=== PATIENT | male | born 1965 | race Two or more races ===

== ENCOUNTER 2016-09-27 17:51 | Inpatient (IN) | payer OTHER ==
[~2016-09-27] VITALS: Ht 170.2 cm; Wt 78.0 kg
[2016-09-27 17:59] VITALS: BP 134/90
[2016-09-27] MEDS ORDERED: SPIRONOLACTONE25 MG ORAL (18:22)
[2016-09-27] MEDS ORDERED: PROPRANOLOL HCL20 MG ORAL (18:22)
[2016-09-27] MEDS ORDERED: LEVSIN-SL0.125 MG SL (18:22)
[2016-09-27] MEDS ORDERED: LORAZEPAM0.5 MG ORAL (18:22)
[2016-09-27] MEDS ORDERED: TYLENOL650 MG/20. RECTAL (18:22)
[2016-09-27] MEDS ORDERED: LACTULOSE20 GM/301 ORAL (18:22)
[2016-09-27] MEDS ORDERED: KADIAN10 MG PO (18:22)
[2016-09-27] MEDS ORDERED: VITAMIN B-1100 MG ORAL (18:22)
[2016-09-27] MEDS ORDERED: ZOFRAN4 M3 ORAL (18:22)
[2016-09-27] MEDS ORDERED: PROTONIX40 MG ORAL (18:22)
[2016-09-27] MEDS ORDERED: BISACODYL5 MG RECTAL (18:22)
--- NOTE | 2016-09-27 18:24 | Emergency Room Report ---
History of Present Illness General Chief Complaint: Abdominal Pain Source: Patient, EMS Present Illness HPI The patient is brought from a [facility] for abdominal distention. He states that he's been unable to eat for a couple of days. He had his abdomen draining to 15 days ago at [facility]. Has a history of ascites and cirrhosis. He denies any fevers, vomiting. He's on lactulose and says that his stools have been loose but he denies any melena or hematochezia. Denies any dysuria. He's been losing weight. Denies dizziness. States is thirsty. No chest pain. No productive cough. No dyspnea (though ZHONG). No depression. + Some anxiety. Allergies: Coded Allergies: No Known Allergies (Unverified , 09/27/16) Patient History Past Medical History: see triage record, old chart reviewed, other - cirrhosis Social History: Reports: alcohol use - prior, Denies: smoking Social History Narrative [facility] He was on hospice, but this was rescinded - No POLST Reviewed Nursing Documentation: PMH: Agreed, PSxH: Agreed Nursing Documentation-PMH Past Medical History: No History, Except For Hx Hypertension: Yes Hx Diabetes: Yes Hx Gastrointestinal Problems: Yes - GERD History Of Psychiatric Problem: Yes - anxiety Review of Systems All Other Systems: negative except mentioned in HPI Physical Exam Vital Signs Date Time Temp Pulse Resp B/P Pulse Ox O2 Delivery O2 Flow Rate FiO2 09/27/16 17:51 98.6 70 20 134/90 95 Room Air Sp02 EP Interpretation: reviewed, normal General Appearance: thin - cachexia, other - spider habitus, Chronically Ill Head: normocephalic Eyes: bilateral eye PERRL, bilateral eye conjunctivae pale ENT: moist mucus membranes Neck: supple Respiratory: chest non-tender, lungs clear, normal breath sounds Cardiovascular #1: regular rate, rhythm Cardiovascular #2: 2+ radial (R) Gastrointestinal: no guarding, no rebound, distended, tenderness - diffuse Musculoskeletal: back normal, other - atrophy Neurologic: alert, oriented x3, motor strength/tone normal, DTRs symmetric, sensory intact, other - no asterixis Psychiatric: mood/affect normal Skin: pallor, other - sallo, punctate excoriations various places (scalp, arm) Medical Decision Making Diagnostic Impression: Primary Impression: Painful ascites Additional Impressions: Renal failure Hyperkalemia Protein calorie malnutrition ER Course Patient presents with abdominal distention and pain. Differential includes ascites, spontaneous bacterial peritonitis, electrolyte abnormalities, bronchitis or other occult infection. Patient will be evaluated with labs and abdominal film. Will receive gentle hydration. Paracentesis is indicated. Labs remarkable for potassium is mildly high with renal insufficiency. Elevated WBC. Normal ammonia. H/H and platelets adequate. Will treat with Kayexelate. Also EKG done. No peaked T waves. Xrays with ascites. Patient will need U/S guided paracentesis. Admit med Dr. Monsalve (states this is his patient). Laboratory Tests Test 09/27/16 18:15 White Blood Count 10.9 K/UL (4.8-10.8) H Red Blood Count 3.90 M/UL (4.70-6.10) L Hemoglobin 11.6 G/DL (14.2-18.0) L Hematocrit 35.1 % (42.0-52.0) L Mean Corpuscular Volume 90 FL (80-99) Mean Corpuscular Hemoglobin 29.8 PG (27.0-31.0) Mean Corpuscular Hemoglobin Concent 33.1 G/DL (32.0-36.0) Red Cell Distribution Width 18.1 % (11.6-14.8) H Platelet Count 424 K/UL (150-450) Mean Platelet Volume 7.1 FL (6.5-10.1) Neutrophils (%) (Auto) 65.7 % (45.0-75.0) Lymphocytes (%) (Auto) 10.6 % (20.0-45.0) L Monocytes (%) (Auto) 17.5 % (1.0-10.0) H Eosinophils (%) (Auto) 3.4 % (0.0-3.0) H Basophils (%) (Auto) 2.8 % (0.0-2.0) H Prothrombin Time 12.5 SEC (9.30-11.50) H Prothrombin Time INR 1.2 (0.9-1.1) H Urine Color Yellow Urine Appearance Clear Urine pH 5 (4.5-8.0) Urine Specific [place] 1.020 (1.005-1.035) Urine Protein 1+ (NEGATIVE) H Urine Glucose (UA) Negative (NEGATIVE) Urine Ketones 1+ (NEGATIVE) H Urine Occult Blood 5+ (NEGATIVE) H Urine Nitrite Negative (NEGATIVE) Urine Bilirubin Negative (NEGATIVE) Urine Urobilinogen 4 MG/DL (0.0-1.0) H Urine Leukocyte Esterase 1+ (NEGATIVE) H Urine RBC 10-15 /HPF (0 - 0) H Urine WBC 0-2 /HPF (0 - 0) Urine Squamous Epithelial Cells None /LPF (NONE/OCC) Urine Bacteria Few /HPF (NONE) Sodium Level 131 mEQ/L (135-145) L Potassium Level 5.0 mEQ/L (3.4-4.9) H Chloride Level 94 mEQ/L (98-107) L Carbon Dioxide Level 22 mEQ/L (20-30) Anion Gap 15 (5-15) Blood Urea Nitrogen 19 mg/dL (7-23) Creatinine 1.6 mg/dL (0.7-1.2) H Estimate Glomerular Filtration Rate 45.8 mL/min (>60) Glucose Level 157 mg/dL (74-106) H Calcium Level 8.9 mg/dL (8.6-10.2) Total Bilirubin 0.8 mg/dL (0.0-1.2) Aspartate Amino Transferase (AST) 38 U/L (5-40) Alanine Aminotransferase (ALT) 14 U/L (3-41) Alkaline Phosphatase 139 U/L (40-129) H Ammonia 37 umol/L (16-60) Total Protein 7.7 g/dL (6.6-8.7) Albumin 3.0 g/dL (3.5-5.2) L Globulin 4.7 g/dL Albumin/Globulin Ratio 0.6 (1.0-2.7) L Lipase 67 U/L (< 60) H EKG Diagnostic Results Rate: normal Rhythm: NSR ST Segments: no acute changes Rhythm Strip Diag. Results EP Interpretation: yes Rhythm: NSR, no PVC's, no ectopy Chest X-Ray Diagnostic Results EP Interpretation: Yes Findings: no effusion, no pneumothorax, other - atelectasis Number of Views: 1 Other X-Ray Diagnostic Results Other X-Ray Diagnostic Results : X-Ray Ordered: abd EP Interpretation: Yes Findings: other - ascites, paucity gas, no effusions Number of Views: 2 Last Vital Signs Date Time Temp Pulse Resp B/P Pulse Ox O2 Delivery O2 Flow Rate FiO2 5/6/17 00:18 98.8 09/28/16 00:00 72 20 116/83 91 Room Air Status: improved Disposition: ADMITTED INPATIENT Condition: Serious Referrals: MARY ANNE MONSALVE (PCP) Mateusz Aguayo M.D. September 27, 2016 18:24
[2016-09-27 18:35] LABS: BASOPHILS % (AUTO) 2.8 % (0.0-2.0); EOSINOPHILS % (AUTO) 3.4 % (0.0-3.0); LYMPHOCYTES % (AUTO) 10.6 % (20.0-45.0); MEAN CORPUSCULAR HEMOGLOBIN 29.8 PG (27.0-31.0); MEAN CORPUSCULAR HGB CONC 33.1 G/DL (32.0-36.0); MEAN CORPUSCULAR VOLUME 90 FL (80-99); MEAN PLATELET VOLUME 7.1 FL (6.5-10.1); MONOCYTES % (AUTO) 17.5 % (1.0-10.0); NEUTROPHILS % (AUTO) 65.7 % (45.0-75.0); PLATELET COUNT 424 K/UL (150-450); RED CELL DISTRIBUTION WIDTH 18.1 % (11.6-14.8); WHITE BLOOD COUNT 10.9 K/UL (4.8-10.8)
[2016-09-27 18:45] LABS: APPEARANCE,URINE CLEAR; KETONES,URINE 1+ (NEGATIVE); LEUKOCYTE ESTERASE ,URINE 1+ (NEGATIVE); NITRITE,URINE NEGATIVE (NEGATIVE); PH,URINE 5 (4.5-8.0); PROTEIN,URINE 1+ (NEGATIVE); UROBILINOGEN,URINE 4 MG/DL (0.0-1.0)
[2016-09-27 18:48] LABS: INR 1.2 (0.9-1.1); PROTHROMBIN TIME 12.5 SEC (9.30-11.50)
[2016-09-27 18:54] LABS: ALBUMIN/GLOBULIN RATIO 0.6 (1.0-2.7); BACTERIA,URINE FEW /HPF; CALCIUM 8.9 mg/dL (8.6-10.2); CREATININE 1.6 mg/dL (0.7-1.2); GLOMERULAR FILTRATION RATE 45.8 mL/min (>60); TOTAL PROTEIN 7.7 g/dL (6.6-8.7); WBC,URINE 0-2 /HPF (0 - 0)
[2016-09-27 19:00] VITALS: BP 122/84
[2016-09-27] MEDS ORDERED: Sodium Polystyrene Sulfonate 15gm Powder ORAL ONE (19:15)
[2016-09-27 21:15] VITALS: BP 117/85
[2016-09-27] MEDS ORDERED: Acetaminophen 650 MG SUPP RECTAL PRN (23:00)
[2016-09-27] MEDS: Norco 5mg/325mg tab ORAL PRN (23:19)
[2016-09-27] MEDS ORDERED: Hyoscyamine 0.125mg tab ORAL PRN (23:30)
[2016-09-28] VITALS: BP 116/83
[2016-09-28] MEDS ORDERED: Zosyn 3.375gm inj ONE ×2 (00:08→05:35)
[2016-09-28] MEDS: Zolpidem 5mg tab ORAL PRN ×2 (00:21→21:13)
[2016-09-28] MEDS: Piperacillin/Tazobactam 3.375 GM in D5W 110 ML IVPB SCH ×4 (00:31→21:13)
[2016-09-28 04:48] VITALS: BP 111/85
[2016-09-28 06:40] LABS: BASOPHILS % (AUTO) 3.2 % (0.0-2.0); EOSINOPHILS % (AUTO) 4.6 % (0.0-3.0); LYMPHOCYTES % (AUTO) 13.5 % (20.0-45.0); MEAN CORPUSCULAR HEMOGLOBIN 27.8 PG (27.0-31.0); MEAN CORPUSCULAR HGB CONC 31.4 G/DL (32.0-36.0); MEAN CORPUSCULAR VOLUME 88 FL (80-99); MONOCYTES % (AUTO) 17.8 % (1.0-10.0); NEUTROPHILS % (AUTO) 60.9 % (45.0-75.0); PLATELET COUNT 440 K/UL (150-450); RED BLOOD COUNT 3.69 M/UL (4.70-6.10); RED CELL DISTRIBUTION WIDTH 18.5 % (11.6-14.8); WHITE BLOOD COUNT 8.4 K/UL (4.8-10.8)
[2016-09-28 07:29] LABS: ALBUMIN/GLOBULIN RATIO 0.7 (1.0-2.7); CALCIUM 8.8 mg/dL (8.6-10.2); CREATININE 1.5 mg/dL (0.7-1.2); GLOMERULAR FILTRATION RATE 49.3 mL/min (>60); POTASSIUM 4.7 mEQ/L (3.4-4.9)
[2016-09-28 07:51] LABS: BILIRUBIN,DIRECT 0.3 mg/dL (0.1-0.3)
[2016-09-28 08:00] VITALS: BP 119/86
[2016-09-28] MEDS: Thiamine 100mg tab ORAL SCH (08:04)
[2016-09-28] MEDS: Norco 5mg/325mg tab ORAL PRN ×3 (08:05→18:03)
[2016-09-28] MEDS: Lactulose 20gm/30ml UDC ORAL SCH ×2 (08:05→18:04)
[2016-09-28] MEDS: Propranolol 10mg tab ORAL SCH ×3 (08:05→18:04)
[2016-09-28] MEDS: Spironolactone 50mg tab ORAL SCH (08:06)
--- NOTE | 2016-09-28 09:16 | History & Physical ---
History and Physical History & Physicial 50 year old brought from [facility] for abdominal distention. patient with reduced PO intake. Patient with history of ascites and cirrhosis. He denies any fevers, vomiting. He's on lactulose and says that his stools have been loose but he denies any melena or hematochezia. Denies any dysuria. He was previously on hospice but now off. Patient transferred for increasing abdominal girth Allergies: No Known Allergies (Unverified , 09/27/16) Past Medical History: cirrhosis, ascites, hepatic encephalopathy, GERD, anxiety , diabetes, hypertension Social History Narrative [facility] He was on hospice, but now off; nonsmoker nondrinker Physical exam WDWN NAD clear breath sounds bilaterally without rhonchi or wheeze [id number] without MRG NABS nontender no HSM; ascites no CCE nonfocal Laboratory Tests Test 09/27/16 18:15 09/28/16 05:05 White Blood Count 10.9 K/UL (4.8-10.8) H 8.4 K/UL (4.8-10.8) Red Blood Count 3.90 M/UL (4.70-6.10) L 3.69 M/UL (4.70-6.10) L Hemoglobin 11.6 G/DL (14.2-18.0) L 10.2 G/DL (14.2-18.0) L Hematocrit 35.1 % (42.0-52.0) L 32.6 % (42.0-52.0) L Mean Corpuscular Volume 90 FL (80-99) 88 FL (80-99) Mean Corpuscular Hemoglobin 29.8 PG (27.0-31.0) 27.8 PG (27.0-31.0) Mean Corpuscular Hemoglobin Concent 33.1 G/DL (32.0-36.0) 31.4 G/DL (32.0-36.0) L Red Cell Distribution Width 18.1 % (11.6-14.8) H 18.5 % (11.6-14.8) H Platelet Count 424 K/UL (150-450) 440 K/UL (150-450) Mean Platelet Volume 7.1 FL (6.5-10.1) 7.0 FL (6.5-10.1) Neutrophils (%) (Auto) 65.7 % (45.0-75.0) 60.9 % (45.0-75.0) Lymphocytes (%) (Auto) 10.6 % (20.0-45.0) L 13.5 % (20.0-45.0) L Monocytes (%) (Auto) 17.5 % (1.0-10.0) H 17.8 % (1.0-10.0) H Eosinophils (%) (Auto) 3.4 % (0.0-3.0) H 4.6 % (0.0-3.0) H Basophils (%) (Auto) 2.8 % (0.0-2.0) H 3.2 % (0.0-2.0) H Prothrombin Time 12.5 SEC (9.30-11.50) H Prothromb Time International Ratio 1.2 (0.9-1.1) H Urine Color Yellow Urine Appearance Clear Urine pH 5 (4.5-8.0) Urine Specific [place] 1.020 (1.005-1.035) Urine Protein 1+ (NEGATIVE) H Urine Glucose (UA) Negative (NEGATIVE) Urine Ketones 1+ (NEGATIVE) H Urine Occult Blood 5+ (NEGATIVE) H Urine Nitrite Negative (NEGATIVE) Urine Bilirubin Negative (NEGATIVE) Urine Urobilinogen 4 MG/DL (0.0-1.0) H Urine Leukocyte Esterase 1+ (NEGATIVE) H Urine RBC 10-15 /HPF (0 - 0) H Urine WBC 0-2 /HPF (0 - 0) Urine Squamous Epithelial Cells None /LPF (NONE/OCC) Urine Bacteria Few /HPF (NONE) Sodium Level 131 mEQ/L (135-145) L 131 mEQ/L (135-145) L Potassium Level 5.0 mEQ/L (3.4-4.9) H 4.7 mEQ/L (3.4-4.9) Chloride Level 94 mEQ/L (98-107) L 95 mEQ/L (98-107) L Carbon Dioxide Level 22 mEQ/L (20-30) 21 mEQ/L (20-30) Anion Gap 15 (5-15) 15 (5-15) Blood Urea Nitrogen 19 mg/dL (7-23) 18 mg/dL (7-23) Creatinine 1.6 mg/dL (0.7-1.2) H 1.5 mg/dL (0.7-1.2) H Estimat Glomerular Filtration Rate 45.8 mL/min (>60) 49.3 mL/min (>60) Glucose Level 157 mg/dL (74-106) H 130 mg/dL (74-106) H Calcium Level 8.9 mg/dL (8.6-10.2) 8.8 mg/dL (8.6-10.2) Total Bilirubin 0.8 mg/dL (0.0-1.2) 1.2 mg/dL (0.0-1.2) Aspartate Amino Transf (AST/SGOT) 38 U/L (5-40) 37 U/L (5-40) Alanine Aminotransferase (ALT/SGPT) 14 U/L (3-41) 15 U/L (3-41) Alkaline Phosphatase 139 U/L (40-129) H 127 U/L (40-129) Ammonia 37 umol/L (16-60) 69 umol/L (16-60) H Total Protein 7.7 g/dL (6.6-8.7) 7.0 g/dL (6.6-8.7) Albumin 3.0 g/dL (3.5-5.2) L 2.9 g/dL (3.5-5.2) L Globulin 4.7 g/dL 4.1 g/dL Albumin/Globulin Ratio 0.6 (1.0-2.7) L 0.7 (1.0-2.7) L Lipase 67 U/L (< 60) H Direct Bilirubin 0.3 mg/dL (0.1-0.3) IMPRESSION Ascites ESLD renal insufficiency abdominal pain PLAN paracentesis empiric antibiotics pain control dc once improved MARY ANNE CASON September 28, 2016 09:16
--- NOTE | 2016-09-28 11:48 | Diagnostic Imaging Report ---
Indication: Chest Pain Comparison: None A single view chest radiograph was obtained. Findings: There is right basilar atelectasis and elevation of the diaphragm. Lung volumes are low bilaterally. Heart size is normal. Bones are unremarkable. Impression: Right basal atelectasis
[2016-09-28 12:00] VITALS: BP 114/84
[2016-09-28 16:00] VITALS: BP 116/77
--- NOTE | 2016-09-28 17:32 | Cardiology Report ---
APPROVED REPORT EKG Measurement Heart [id number] Normal sinus rhythm Inferior infarct, age undetermined Cannot rule out Anterior infarct, age undetermined Abnormal ECG
[2016-09-28 20:00] VITALS: BP 122/80
[2016-09-29] VITALS: BP 112/76
[2016-09-29] MEDS: Norco 5mg/325mg tab ORAL PRN ×6 (00:09→22:25)
[2016-09-29] MEDS: LORazepam 0.5mg tab ORAL PRN (02:44)
[2016-09-29 04:00] VITALS: BP 109/69
[2016-09-29] MEDS: Piperacillin/Tazobactam 3.375 GM in D5W 110 ML IVPB SCH ×3 (05:34→21:20)
[2016-09-29 08:00] VITALS: BP 114/85
--- NOTE | 2016-09-29 08:09 | General Progress Note ---
Assessment/Plan Assessment/Plan IMPRESSION Ascites ESLD renal insufficiency abdominal pain VRE colonized PLAN paracentesis empiric antibiotics pain control dc once improved Subjective Allergies: Coded Allergies: No Known Allergies (Unverified , 09/27/16) Subjective VRE rectum Objective Last 24 Hour Vital Signs Date Time Temp Pulse Resp B/P Pulse Ox O2 Delivery O2 Flow Rate FiO2 09/29/16 05:10 98.2 09/29/16 04:00 97.5 68 20 109/69 94 Room Air 09/29/16 00:00 97.5 71 18 112/76 95 Room Air 09/28/16 20:00 98.2 73 18 122/80 96 Room Air 09/28/16 18:04 72 116/77 09/28/16 16:00 96.8 72 18 116/77 95 Room Air 09/28/16 13:25 71 114/84 09/28/16 12:00 98.1 71 18 114/84 97 Room Air Intake and Output 09/28/16 09/29/16 19:00 07:00 Intake Total 682.5 ml 405.0 ml Output Total 500 ml Balance 182.5 ml 405.0 ml Intake Oral 600 ml 240 ml IV Total 82.5 ml 165.0 ml Output Urine Total 500 ml # Voids 2 # Bowel Movements 1 1 Height (Feet): 5 Height (Inches): 7.00 Weight (Pounds): 172 Objective WDWN NAD clear breath sounds bilaterally without rhonchi or wheeze [id number] without MRG NABS nontender distended with ascites no CCE nonfocal MARY ANNE CASON September 29, 2016 08:09
[2016-09-29] MEDS: Propranolol 10mg tab ORAL SCH ×3 (09:00→18:00)
[2016-09-29] MEDS: Lactulose 20gm/30ml UDC ORAL SCH ×2 (09:14→18:21)
[2016-09-29] MEDS: Thiamine 100mg tab ORAL SCH (09:14)
[2016-09-29] MEDS: Spironolactone 50mg tab ORAL SCH (09:15)
--- NOTE | 2016-09-29 10:53 | Diagnostic Imaging Report ---
Indication: Abdominal pain Comparison: None Single view of the abdomen obtained Findings: Bowel gas pattern is nonspecific. No mass, ectopic calcifications, or abnormal gas collections are identified. The bones are osteopenic. Study is limited by body habitus. Cholecystectomy noted. Impression: No acute findings
[2016-09-29 12:00] VITALS: BP 110/78
[2016-09-29 16:11] VITALS: BP 116/84
[2016-09-29 20:00] VITALS: BP 119/74
[2016-09-29] MEDS: Zolpidem 5mg tab ORAL PRN (21:19)
[2016-09-30] VITALS: BP 120/92
[2016-09-30] MEDS: LORazepam 0.5mg tab ORAL PRN ×2 (00:33→09:25)
[2016-09-30] MEDS: Norco 5mg/325mg tab ORAL PRN ×4 (02:25→18:20)
[2016-09-30 04:00] VITALS: BP 129/94
[2016-09-30] MEDS: Piperacillin/Tazobactam 3.375 GM in D5W 110 ML IVPB SCH ×3 (06:30→21:46)
[2016-09-30 08:00] VITALS: BP 136/97
--- NOTE | 2016-09-30 08:29 | General Progress Note ---
Assessment/Plan Assessment/Plan IMPRESSION Ascites ESLD renal insufficiency abdominal pain VRE colonized PLAN paracentesis today empiric antibiotics- likely dc if all negative pain control dc once tap completed and patient stable Subjective Allergies: Coded Allergies: No Known Allergies (Unverified , 09/27/16) Subjective VRE rectum Objective Last 24 Hour Vital Signs Date Time Temp Pulse Resp B/P Pulse Ox O2 Delivery O2 Flow Rate FiO2 09/30/16 08:00 97.3 74 18 136/97 93 Room Air 09/30/16 04:00 97.5 75 18 129/94 96 Room Air 09/30/16 03:24 97.8 09/30/16 00:00 97.8 80 18 120/92 94 Room Air 09/29/16 20:00 98.1 72 18 119/74 94 Room Air 09/29/16 18:00 76 116/84 09/29/16 16:11 97.5 76 18 116/84 93 Room Air 09/29/16 12:31 77 110/78 09/29/16 12:00 96.3 77 18 110/78 91 Room Air 09/29/16 09:00 68 109/69 Intake and Output 09/29/16 09/30/16 19:00 07:00 Intake Total 672.5 ml 110.0 ml Output Total 500 ml Balance 172.5 ml 110.0 ml Intake Oral 480 ml IV Total 192.5 ml 110.0 ml Output Urine Total 500 ml # Voids 3 Height (Feet): 5 Height (Inches): 7.00 Weight (Pounds): 172 Objective WDWN NAD clear breath sounds bilaterally without rhonchi or wheeze [id number] without MRG NABS nontender distended with ascites no CCE nonfocal MARY ANNE CASON September 30, 2016 08:29
[2016-09-30] MEDS: Propranolol 10mg tab ORAL SCH ×3 (09:24→18:20)
[2016-09-30] MEDS: Lactulose 20gm/30ml UDC ORAL SCH ×2 (09:24→18:19)
[2016-09-30] MEDS: Thiamine 100mg tab ORAL SCH (09:25)
[2016-09-30] MEDS: Spironolactone 50mg tab ORAL SCH (09:25)
--- NOTE | 2016-09-30 11:36 | Diagnostic Imaging Report ---
APPROVED REPORT CPT Code: 86406 Present Symptoms Lower Extremity Pain: Bilateral BILATERAL: Imaging reveals a patent deep venous system bilaterally. There is no evidence of thrombus within the femoral, popliteal or tibial segments. The greater saphenous veins are also within normal limits. Doppler indicates normal spontaneous flow within these segments.
[2016-09-30 11:45] VITALS: BP 119/91
--- NOTE | 2016-09-30 14:03 | Diagnostic Imaging Report ---
Indications: Tense abdominal distention, recurrent ascites. Technique: Procedure, indications, risks and alternatives were explained to the patient who understands and gives consent to proceed. The abdomen and pelvis were surveyed sonographically. The skin over the right lower quadrant was sterilely prepped and draped in usual fashion. Skin and subcutaneous soft tissues were infiltrated with 1% lidocaine and sodium bicarbonate. A small dermatotomy was made, through which an 8 [place] paracentesis catheter was advanced under direct sonographic guidance into the peritoneal cavity. Ascites was maximally drained via vacuum apparatus. Followup imaging was performed. Catheter was removed. Dermatotomy site was manually compressed to achieve stasis, then cleansed and bandaged. Patient tolerated the procedure well without immediate complications. Findings: Initial imaging demonstrates a large amount of ascites throughout the abdomen and pelvis. Post procedure imaging demonstrates near complete resolution of ascites. Paracentesis yields 14 L of clear light yellow fluid. IMPRESSION: Ultrasound-guided paracentesis yielding 14 of ascites.
[2016-09-30 16:12] VITALS: BP 123/81
[2016-09-30 20:00] VITALS: BP 109/81
[2016-09-30] MEDS: Zolpidem 5mg tab ORAL PRN (21:46)
[2016-10-01] VITALS (7 sets, daily range): BP systolic 101–115; BP diastolic 60–82
[2016-10-01] MEDS: Norco 5mg/325mg tab ORAL PRN ×4 (02:16→20:41)
[2016-10-01] MEDS: LORazepam 0.5mg tab ORAL PRN (03:58)
[2016-10-01] MEDS: Piperacillin/Tazobactam 3.375 GM in D5W 110 ML IVPB SCH (05:06)
[2016-10-01] MEDS: Propranolol 10mg tab ORAL SCH ×3 (08:14→18:16)
[2016-10-01] MEDS: Thiamine 100mg tab ORAL SCH (08:14)
[2016-10-01] MEDS: Spironolactone 50mg tab ORAL SCH (08:15)
--- NOTE | 2016-10-01 09:11 | General Progress Note ---
Assessment/Plan Assessment/Plan IMPRESSION Ascites ESLD renal insufficiency abdominal pain VRE colonized s/p paracentesis with 14 liters removed PLAN paracentesis PRN empiric antibiotics- dc pain control dc to snf today Subjective Allergies: Coded Allergies: No Known Allergies (Unverified , 09/27/16) Subjective VRE rectum much improved less pain Objective Last 24 Hour Vital Signs Date Time Temp Pulse Resp B/P Pulse Ox O2 Delivery O2 Flow Rate FiO2 10/01/16 08:14 81 111/76 10/01/16 08:09 97.2 81 12 111/76 95 Room Air 10/01/16 04:00 97.8 79 18 109/78 94 Room Air 10/01/16 03:15 98.1 10/01/16 00:00 98.1 76 18 110/80 99 Room Air 09/30/16 20:00 97.7 80 18 109/81 95 Room Air 09/30/16 18:20 84 123/81 09/30/16 16:12 97.0 84 18 123/81 97 Room Air 09/30/16 13:42 70 119/91 09/30/16 11:45 97.6 70 18 119/91 97 Room Air 09/30/16 09:24 74 136/97 Intake and Output 09/30/16 10/01/16 19:00 07:00 Intake Total 460.0 ml 425.0 ml Output Total 500 ml Balance -40.0 ml 425.0 ml Intake Oral 240 ml 260 ml IV Total 220.0 ml 165.0 ml Output Urine Total 500 ml # Voids 2 Height (Feet): 5 Height (Inches): 7.00 Weight (Pounds): 172 Objective WDWN NAD clear breath sounds bilaterally without rhonchi or wheeze [id number] without MRG NABS nontender much less distended with ascites no CCE nonfocal MARY ANNE CASON October 01, 2016 09:11
[2016-10-01] MEDS: Lactulose 20gm/30ml UDC ORAL SCH ×2 (09:48→18:16)
[2016-10-01] MEDS: Zolpidem 5mg tab ORAL PRN (23:11)
[2016-10-02] MEDS: LORazepam 0.5mg tab ORAL PRN (02:29)
[2016-10-02 04:00] VITALS: BP 110/84
[2016-10-02] MEDS: Norco 5mg/325mg tab ORAL PRN ×3 (05:47→22:51)
--- NOTE | 2016-10-02 06:26 | General Progress Note ---
Assessment/Plan Assessment/Plan IMPRESSION Ascites ESLD renal insufficiency abdominal pain VRE colonized s/p paracentesis with 14 liters removed PLAN paracentesis PRN empiric antibiotics- dcd and stable pain control as is dc to snf when bed available Subjective Allergies: Coded Allergies: No Known Allergies (Unverified , 09/27/16) Subjective VRE rectum much improved less pain dc planning Objective Last 24 Hour Vital Signs Date Time Temp Pulse Resp B/P Pulse Ox O2 Delivery O2 Flow Rate FiO2 10/02/16 04:00 97.8 73 18 110/84 95 Room Air 10/01/16 23:46 97.9 74 18 113/81 96 Room Air 10/01/16 21:40 98.1 10/01/16 20:00 97.7 73 18 101/60 93 Room Air 10/01/16 18:16 75 115/82 10/01/16 16:13 98.1 75 19 115/82 95 Room Air 10/01/16 13:48 78 114/81 10/01/16 11:53 97.7 78 17 114/81 94 Room Air 10/01/16 08:14 81 111/76 10/01/16 08:09 97.2 81 12 111/76 95 Room Air Intake and Output 10/01/16 10/02/16 19:00 07:00 Intake Total 1080 ml Balance 1080 ml Intake Oral 1080 ml # Voids 3 Height (Feet): 5 Height (Inches): 7.00 Weight (Pounds): 172 Objective WDWN NAD clear breath sounds bilaterally without rhonchi or wheeze [id number] without MRG NABS nontender much less distended with ascites no CCE nonfocal MARY ANNE CASON October 02, 2016 06:26
[2016-10-02 07:47] VITALS: BP 140/41
[2016-10-02] MEDS: Lactulose 20gm/30ml UDC ORAL SCH ×2 (08:11→16:58)
[2016-10-02] MEDS: Thiamine 100mg tab ORAL SCH (08:11)
[2016-10-02] MEDS: Spironolactone 50mg tab ORAL SCH (08:11)
[2016-10-02] MEDS: Propranolol 10mg tab ORAL SCH ×3 (08:12→16:58)
[2016-10-02 11:40] VITALS: BP 108/76
[2016-10-02 15:25] VITALS: BP 112/84
[2016-10-02 19:55] VITALS: BP 89/59
[2016-10-02 20:00] VITALS: BP 94/50
[2016-10-02] MEDS ORDERED: NS 275ml ONE (21:06)
[2016-10-02] MEDS ORDERED: Tubing IV Secondary IV ONE (21:06)
[2016-10-03] VITALS: BP 111/80
[2016-10-03] MEDS: Zolpidem 5mg tab ORAL PRN (00:45)
[2016-10-03] MEDS: Norco 5mg/325mg tab ORAL PRN (03:43)
[2016-10-03 04:37] VITALS: BP 105/69
--- NOTE | 2016-10-03 07:46 | General Progress Note ---
Assessment/Plan Assessment/Plan IMPRESSION Ascites ESLD renal insufficiency abdominal pain VRE colonized s/p paracentesis with 14 liters removed PLAN paracentesis PRN hospice care DNR confirmed pain control as is dc to snf hopefully today Subjective Allergies: Coded Allergies: No Known Allergies (Unverified , 09/27/16) Subjective VRE rectum much improved patient would like hospice Objective Last 24 Hour Vital Signs Date Time Temp Pulse Resp B/P Pulse Ox O2 Delivery O2 Flow Rate FiO2 10/03/16 04:37 97.2 65 15 105/69 94 Room Air 10/03/16 00:00 97.9 71 20 111/80 98 Room Air 10/02/16 20:00 94/50 10/02/16 19:55 97.5 77 14 89/59 93 Room Air 10/02/16 17:57 97.7 10/02/16 16:58 75 112/84 10/02/16 15:25 97.7 75 22 112/84 98 Room Air 10/02/16 12:06 75 108/76 10/02/16 11:40 97.9 75 13 108/76 97 Room Air 10/02/16 08:12 74 140/41 10/02/16 07:47 96.4 74 15 140/41 95 Room Air Intake and Output 10/02/16 10/03/16 19:00 07:00 # Voids 5 3 # Bowel Movements 3 Height (Feet): 5 Height (Inches): 7.00 Weight (Pounds): 172 Objective WDWN NAD clear breath sounds bilaterally without rhonchi or wheeze [id number] without MRG NABS nontender and not distended no CCE nonfocal MARY ANNE CASON October 03, 2016 07:46
[2016-10-03 08:05] VITALS: BP 109/78
[2016-10-03 09:15] VITALS: BP 112/79
[2016-10-03] MEDS: Propranolol 10mg tab ORAL SCH ×2 (09:21→13:00)
[2016-10-03] MEDS: Spironolactone 50mg tab ORAL SCH (09:21)
[2016-10-03] MEDS: Lactulose 20gm/30ml UDC ORAL SCH (09:21)
[2016-10-03] MEDS: Thiamine 100mg tab ORAL SCH (09:26)
[2016-10-03 11:47] VITALS: BP 111/75
[2016-10-03 13:00] VITALS: BP 108/79
--- NOTE | 2016-10-05 11:30 | Discharge Summary ---
Discharge Summary Hospital Course Date of Admission September 27, 2016 at 19:03 Date of Discharge October 03, 2016 at 13:40 Admitting Diagnosis ascites/abdominal pain NATALY Hayes is a 50 year old male who was admitted on September 27, 2016 at 19:03 for Ascites/Abdominal Pain Hospital Course [id number] Discharge Discharge Disposition Patient was discharged to SNF/Subacute Facility(03) Discharge Diagnoses: Antonieta Lee NP October 05, 2016 11:30
--- NOTE | 2016-10-06 03:59 | Discharge Summary 2 SIG ---
DATE OF ADMISSION: 09/27/2016 DATE OF DISCHARGE: 10/03/2016 BRIEF HOSPITAL COURSE: The patient is a 50-year-old, who was brought from [facility] for abdominal distention and reduced p.o. intake. The patient has a history of ascites and cirrhosis and has been on lactulose and was previously on hospice, but now currently off. The patient was transferred for evaluation of increasing abdominal girth. On evaluation at ED, laboratories showed elevated potassium with renal insufficiency. WBC was elevated. The patient was given Kayexalate. Abdominal x-ray showed no acute findings. Chest x-ray showed right basilar atelectasis. The patient will be needing paracentesis and was admitted for further care. He was started on empiric antibiotics consisting of Zosyn and pain management with hydrocodone. He had venous duplex of lower extremity, which showed deep patent venous system bilaterally with no evidence of DVT. He underwent paracentesis on 10/01/2015 yielding 14 liters of fluid. The patient's symptoms improved and would like to be placed under hospice. The patient was eventually discharged to [facility] under hospice care. FINAL DIAGNOSES: 1. End-stage liver disease with ascites. 2. Status post paracentesis with 14 liters removed. 3. Acute kidney injury. 4. Hospice care. Mason Monsalve M.D. I have been assigned to dictate discharge summary on this account and I was not involved in the patient's management. Antonieta Lee N.P. DR: LANDRY JOB#: [id number] CC:
== END 2016-10-03 13:40 ==
LOC: EDBD 17:51 → EMR 18:12 → 4W 19:03 → EDBEDREQ 19:48
PROC: 0W9G3ZZ Drainage of Peritoneal Cavity, Percutaneous Approach (ICD-10-PCS; principal; 2016-09-30)
DX: R18.8 Other ascites (principal); N17.9 Acute kidney failure, unspecified; K72.90 Hepatic failure, unspecified without coma; K74.60 Unspecified cirrhosis of liver; K21.9 Gastro-esophageal reflux disease without esophagitis; F41.9 Anxiety disorder, unspecified; E11.9 Type 2 diabetes mellitus without complications; I10 Essential (primary) hypertension; R10.9 Unspecified abdominal pain; Z66 Do not resuscitate
CPT/HCPCS: 36415; 71010; 74000; 76942; 80053; 81003; 82140; 82248; 82962; 83690; 85025; 85610; 87070; 87081; 87205; 93005; 93970; J2405

== ENCOUNTER 2016-10-18 15:00 | Emergency (ER) | payer MEDICAID, OTHER ==
[~2016-10-18] VITALS: Ht 172.7 cm; Wt 81.6 kg
[~2016-10-18 15:00] MED LIST: BISACODYL5 MG RECTAL; KADIAN10 MG PO; LACTULOSE20 GM/301 ORAL; LEVSIN-SL0.125 MG SL; LORAZEPAM0.5 MG ORAL; PROPRANOLOL HCL20 MG ORAL; PROTONIX40 MG ORAL; SPIRONOLACTONE25 MG ORAL; TYLENOL650 MG/20. RECTAL; VITAMIN B-1100 MG ORAL; ZOFRAN4 M3 ORAL
[2016-10-18 15:11] VITALS: BP 119/76
[2016-10-18 16:15] LABS: BASOPHILS % (AUTO) 1.2 % (0.0-2.0); EOSINOPHILS % (AUTO) 4.9 % (0.0-3.0); MEAN CORPUSCULAR HEMOGLOBIN 27.8 PG (27.0-31.0); MEAN CORPUSCULAR HGB CONC 31.8 G/DL (32.0-36.0); MEAN CORPUSCULAR VOLUME 87 FL (80-99); MONOCYTES % (AUTO) 13.6 % (1.0-10.0); NEUTROPHILS % (AUTO) 67.2 % (45.0-75.0); PLATELET COUNT 337 K/UL (150-450); RED BLOOD COUNT 3.85 M/UL (4.70-6.10); RED CELL DISTRIBUTION WIDTH 15.7 % (11.6-14.8); WHITE BLOOD COUNT 8.1 K/UL (4.8-10.8)
[2016-10-18 16:29] LABS: ALBUMIN/GLOBULIN RATIO 0.6 (1.0-2.7); CALCIUM 8.3 mg/dL (8.6-10.2); CREATININE 1.5 mg/dL (0.7-1.2); GLOMERULAR FILTRATION RATE 49.3 mL/min (>60); POTASSIUM 3.9 mEQ/L (3.4-4.9); TOTAL PROTEIN 6.9 g/dL (6.6-8.7)
[2016-10-18 16:50] LABS: INR 1.2 (0.9-1.1)
--- NOTE | 2016-10-18 16:51 | Brief Operative Note ---
Immediate Post Operative Note Operative Note Chief Complaint: abd distention Pre-op Diagnosis: ascites Procedure: US guided paracentesis Post-op Diagnosis: same as pre-op Findings: consistent w/pre-op dx studies Surgeon: Crescencio Celis Anesthesia: local Specimen: yes - clear yellow fluid Complications: none Estimated Blood Loss: none Implant(s) used?: No ANANTH CELIS M.D. October 18, 2016 16:51
--- NOTE | 2016-10-18 17:07 | Emergency Room Report ---
History of Present Illness General Chief Complaint: General Complaint Source: Medical Record, EMS Present Illness HPI 50-year-old male presents ED for abdominal distention. Patient coming from skilled nursing. Per medical records patient has history of cirrhosis. Patient is on hospice care. Patient is here for paracentesis. PMD is Dr. Monsalve. Upon arrival patient showing no signs of distress. No abdominal pain. No nausea or vomiting. No fevers chills. No other aggravating relieving factors. No other associated symptoms Allergies: Coded Allergies: No Known Allergies (Unverified , 09/27/16) Patient History Past Medical History: DM, HTN, GERD, renal disease, other - cirrhosis Social History: Denies: alcohol use, drug use, smoking Immunizations: UTD Reviewed Nursing Documentation: PMH: Agreed, PSxH: Agreed Nursing Documentation-PMH Hx Cardiac Problems: Yes - kidney failure, cirrhosis of liver Hx Hypertension: Yes Hx Diabetes: Yes - type 2 Hx Cancer: No Hx Gastrointestinal Problems: Yes - GERD, abdominal pain Hx Neurological Problems: No Review of Systems All Other Systems: negative except mentioned in HPI Physical Exam Vital Signs Date Time Temp Pulse Resp B/P Pulse Ox O2 Delivery O2 Flow Rate FiO2 10/18/16 14:56 97.3 84 16 119/76 92 Room Air Sp02 EP Interpretation: reviewed, normal General Appearance: no apparent distress, alert, GCS 15, non-toxic Head: normocephalic Eyes: bilateral eye PERRL, bilateral eye normal inspection ENT: normal ENT inspection Neck: normal inspection Respiratory: chest non-tender, lungs clear, normal breath sounds, speaking full sentences Cardiovascular #1: regular rate, rhythm, no edema Gastrointestinal: normal bowel sounds, non tender, no guarding, no rebound, distended Rectal: deferred Genitourinary: no CVA tenderness Musculoskeletal: normal inspection Neurologic: normal inspection Psychiatric: normal inspection Skin: normal inspection Lymphatic: normal inspection Medical Decision Making Diagnostic Impression: Primary Impression: Ascites Qualified Codes: R18.8 - Other ascites ER Course 50-year-old male presents to ED with abdominal distention. History of cirrhosis. here for paracentesis Differential-ascites, SBP, cirrhosis Patient placed on stretcher. After initial history physical exam reveals a middle-age male in no acute distress. No fevers. No pain on abdominal exam. Significant fluid distention noted. Labs drawn which show LFT elevations which are consistent with end-stage liver disease. No leukocytosis or other evidence suggestive of SBP Paracentesis performed by radiology without difficulty patient is well known to PMD Dr Monsalve; he believes patient is otherwise stable and can be discharged back to facility. I agree with his assessment Diagnosis - Ascites stable and discharged back to SNF. f/u with PMD. Return to ED if symptoms recur/worsen Labs Test 10/18/16 16:01 White Blood Count 8.1 K/UL (4.8-10.8) Red Blood Count 3.85 M/UL (4.70-6.10) Hemoglobin 10.7 G/DL (14.2-18.0) Hematocrit 33.6 % (42.0-52.0) Mean Corpuscular Volume 87 FL (80-99) Mean Corpuscular Hemoglobin 27.8 PG (27.0-31.0) Mean Corpuscular Hemoglobin Concent 31.8 G/DL (32.0-36.0) Red Cell Distribution Width 15.7 % (11.6-14.8) Platelet Count 337 K/UL (150-450) Mean Platelet Volume 7.0 FL (6.5-10.1) Neutrophils (%) (Auto) 67.2 % (45.0-75.0) Lymphocytes (%) (Auto) 13.0 % (20.0-45.0) Monocytes (%) (Auto) 13.6 % (1.0-10.0) Eosinophils (%) (Auto) 4.9 % (0.0-3.0) Basophils (%) (Auto) 1.2 % (0.0-2.0) Prothrombin Time 12.0 SEC (9.30-11.50) Prothromb Time International Ratio 1.2 (0.9-1.1) Activated Partial Thromboplast Time 30 SEC (23-33) Sodium Level 131 mEQ/L (135-145) Potassium Level 3.9 mEQ/L (3.4-4.9) Chloride Level 93 mEQ/L (98-107) Carbon Dioxide Level 23 mEQ/L (20-30) Anion Gap 15 (5-15) Blood Urea Nitrogen 20 mg/dL (7-23) Creatinine 1.5 mg/dL (0.7-1.2) Estimat Glomerular Filtration Rate 49.3 mL/min (>60) Glucose Level 277 mg/dL (74-106) Calcium Level 8.3 mg/dL (8.6-10.2) Total Bilirubin 0.5 mg/dL (0.0-1.2) Aspartate Amino Transf (AST/SGOT) 24 U/L (5-40) Alanine Aminotransferase (ALT/SGPT) 12 U/L (3-41) Alkaline Phosphatase 108 U/L (40-129) Total Protein 6.9 g/dL (6.6-8.7) Albumin 2.6 g/dL (3.5-5.2) Globulin 4.3 g/dL Albumin/Globulin Ratio 0.6 (1.0-2.7) Last Vital Signs Date Time Temp Pulse Resp B/P Pulse Ox O2 Delivery O2 Flow Rate FiO2 10/18/16 15:11 97.3 16 119/76 92 Room Air 10/18/16 14:56 84 Status: improved Disposition: XFER SNF Condition: Stable Referrals: NON PHYSICIAN (PCP) JOY LAZCANO M.D. October 18, 2016 17:06
[2016-10-18 19:30] VITALS: BP 105/74
== END 2016-10-18 19:32 ==
LOC: EDBD 15:00 → EMR 15:13
DX: R18.8 Other ascites (principal); E11.9 Type 2 diabetes mellitus without complications; I10 Essential (primary) hypertension; K74.60 Unspecified cirrhosis of liver; N19 Unspecified kidney failure; K21.9 Gastro-esophageal reflux disease without esophagitis
CPT/HCPCS: 36415; 76942; 80053; 85025; 85610; 85730; 99283

== ENCOUNTER 2016-10-31 08:05 | Emergency (ER) | payer MEDICAID ==
[~2016-10-31] VITALS: Ht 170.2 cm; Wt 81.6 kg
[2016-10-31 08:10] VITALS: BP 111/94
[2016-10-31 08:59] LABS: APPEARANCE,URINE CLEAR; BASOPHILS % (AUTO) 2.2 % (0.0-2.0); KETONES,URINE NEGATIVE (NEGATIVE); LEUKOCYTE ESTERASE ,URINE 1+ (NEGATIVE); LYMPHOCYTES % (AUTO) 12.8 % (20.0-45.0); MEAN CORPUSCULAR HEMOGLOBIN 27.8 PG (27.0-31.0); MEAN CORPUSCULAR HGB CONC 32.9 G/DL (32.0-36.0); MEAN CORPUSCULAR VOLUME 85 FL (80-99); MEAN PLATELET VOLUME 7.1 FL (6.5-10.1); MONOCYTES % (AUTO) 15.1 % (1.0-10.0); NEUTROPHILS % (AUTO) 67.9 % (45.0-75.0); NITRITE,URINE NEGATIVE (NEGATIVE); PH,URINE 5 (4.5-8.0); PLATELET COUNT 376 K/UL (150-450); PROTEIN,URINE 1+ (NEGATIVE); RED BLOOD COUNT 4.16 M/UL (4.70-6.10); RED CELL DISTRIBUTION WIDTH 14.7 % (11.6-14.8); UROBILINOGEN,URINE 1 MG/DL (0.0-1.0); WHITE BLOOD COUNT 9.5 K/UL (4.8-10.8)
[2016-10-31 09:05] LABS: INR 1.1 (0.9-1.1); PROTHROMBIN TIME 11.6 SEC (9.30-11.50)
[2016-10-31 09:07] LABS: ALBUMIN/GLOBULIN RATIO 0.5 (1.0-2.7); CALCIUM 8.9 mg/dL (8.6-10.2); CREATININE 1.6 mg/dL (0.7-1.2); GLOMERULAR FILTRATION RATE 45.8 mL/min (>60); POTASSIUM 4.3 mEQ/L (3.4-4.9); TOTAL PROTEIN 7.5 g/dL (6.6-8.7)
[2016-10-31 09:18] LABS: BACTERIA,URINE FEW /HPF; SQUAMOUS EPITHELIAL CELL,UR OCCASIONAL /LPF (NONE/OCC)
[2016-10-31] MEDS ORDERED: Lidocaine 1% MPF 10mg/ml 5ml ONE (09:43)
[2016-10-31] MEDS ORDERED: Lidocaine 1% Plain 30 ml INJ ONE (09:45)
[2016-10-31 10:15] VITALS: BP 114/69
--- NOTE | 2016-10-31 10:33 | Emergency Room Report ---
History of Present Illness General Chief Complaint: Abdominal Pain Source: Patient Present Illness HPI 50YOM BIBEMS from SNF with increased abd distention, pain. Known ascites. Denies fever/chills. Was here recently for drainage by IR of >10L. Allergies: Coded Allergies: No Known Allergies (Unverified , 09/27/16) Patient History Past Medical History: other - ascites, cirrhosis Past Surgical History: none Pertinent Family History: none Social History: Denies: alcohol use, drug use, smoking Immunizations: UTD Reviewed Nursing Documentation: PMH: Agreed, PSxH: Agreed Nursing Documentation-PMH Hx Cardiac Problems: Yes - kidney failure, cirrhosis of liver Hx Hypertension: Yes Hx Diabetes: Yes Hx Cancer: No Hx Neurological Problems: No Review of Systems All Other Systems: negative except mentioned in HPI Physical Exam Vital Signs Date Time Temp Pulse Resp B/P Pulse Ox O2 Delivery O2 Flow Rate FiO2 10/31/16 07:56 98.1 80 18 117/83 96 Room Air Sp02 EP Interpretation: reviewed, normal General Appearance: normal inspection, well appearing, no apparent distress, alert Head: atraumatic ENT: normal ENT inspection, hearing grossly normal, normal voice Neck: normal inspection, full range of motion, supple, no bony tend Respiratory: normal inspection, lungs clear, normal breath sounds, no respiratory distress, no retraction, no wheezing Cardiovascular #1: regular rate, rhythm, no edema Gastrointestinal: other - Abdomen grossly distend, Nontender. No rebound, guarding. Protruding umbilical hernia easily reduced Genitourinary: no CVA tenderness Musculoskeletal: normal inspection, back normal, normal range of motion, Jared' s Sign negative Neurologic: normal inspection, alert, oriented x3, responsive, separations scientist III-XII nml as tested, motor strength/tone normal, speech normal Psychiatric: normal inspection, judgement/insight normal, mood/affect normal Skin: normal inspection, normal color, no rash Lymphatic: normal inspection, no adenopathy Procedures Additional Procedure Procedure Narrative Paracentesis Platelets normal. INR <2 Patient placed supine Area of largest amount of ascites identified on bedside ultrasound right lateral to umbilicus Area anaesthesized with lidocaine 1% Area cleaned X3 with chlorhex and allowed to dry Sterile drape applied I worse sterile gap, mask, gloves Under sterile ultrasound guidance I nicked skin with blader While applying negative pressure I advanced needle, avoiding bowel contents When ascitic fluid present in syringe I advanced needle 1 more cm and then withdrew needle and advanced catheter over needle until flush with skin Then connected catheter to tubing and suction and begin drainage of fluid 13L drained Patient tolerated procedure No complications Medical Decision Making Diagnostic Impression: Primary Impression: Ascites Qualified Codes: R18.8 - Other ascites ER Course 50YOM with increased abd distention d/t ascites from cirrhosis Afebrile. VSS. No leuks on lab. Known CKD. Non-tender abdomen Low suspicion for acute SBP I did paracentesis in ED (See procedure note) D/w PMD DR Monsalve. Wants patient sent back to SNF, which I concur No other acute issue in ED Last Vital Signs Date Time Temp Pulse Resp B/P Pulse Ox O2 Delivery O2 Flow Rate FiO2 10/31/16 10:15 75 20 114/69 98 Room Air 10/31/16 08:10 98.4 Status: improved Disposition: XF SNF Condition: Improved Referrals: Maria Elena Thompson MD (PCP) LOLITA VILLASENOR M.D. Oct 31, 2016 10:33
[2016-10-31 10:44] VITALS: BP 96/64
[2016-10-31 11:05] VITALS: BP 96/70
[2016-10-31 11:50] VITALS: BP 118/82
[2016-10-31 12:03] VITALS: BP 118/82
== END 2016-10-31 12:05 ==
LOC: EMR 08:46
DX: R18.8 Other ascites (principal); K74.60 Unspecified cirrhosis of liver; I10 Essential (primary) hypertension; E11.9 Type 2 diabetes mellitus without complications
CPT/HCPCS: 36415; 49083; 76942; 80053; 81003; 83690; 85025; 85610; 85730; 93005; 99284; J2001; Z7502

== ENCOUNTER 2016-11-08 11:30 | Emergency (ER) | payer MEDICAID ==
[~2016-11-08] VITALS: Ht 170.2 cm; Wt 82.1 kg
[2016-11-08] VITALS (7 sets, daily range): BP systolic 103–122; BP diastolic 73–89
[~2016-11-08 11:30] MED LIST changes: +LEVSIN-SL0.125 MG ORAL; -LEVSIN-SL0.125 MG SL
[2016-11-08 13:02] LABS: BASOPHILS % (AUTO) 2.5 % (0.0-2.0); LYMPHOCYTES % (AUTO) 13.4 % (20.0-45.0); MEAN CORPUSCULAR HEMOGLOBIN 28.1 PG (27.0-31.0); MEAN CORPUSCULAR HGB CONC 32.4 G/DL (32.0-36.0); MEAN CORPUSCULAR VOLUME 87 FL (80-99); MEAN PLATELET VOLUME 7.3 FL (6.5-10.1); NEUTROPHILS % (AUTO) 66.1 % (45.0-75.0); PLATELET COUNT 271 K/UL (150-450); RED BLOOD COUNT 3.95 M/UL (4.70-6.10); WHITE BLOOD COUNT 7.7 K/UL (4.8-10.8)
[2016-11-08 13:08] LABS: INR 1.1 (0.9-1.1)
[2016-11-08 13:15] LABS: ALBUMIN/GLOBULIN RATIO 0.4 (1.0-2.7); CALCIUM 8.2 mg/dL (8.6-10.2); CREATININE 1.8 mg/dL (0.7-1.2); POTASSIUM 5.6 mEQ/L (3.4-4.9); TOTAL PROTEIN 7.1 g/dL (6.6-8.7)
[2016-11-08] MEDS ORDERED: ALBUTEROL2.5 MG/3 M INH (16:01)
[2016-11-08] MEDS ORDERED: BENADRYL25 M3 PO (16:05)
--- NOTE | 2016-11-08 16:19 | Emergency Room Report ---
History of Present Illness General Chief Complaint: General Complaint Source: Patient Present Illness HPI This patient is well-known to [facility]. He has a history of end- stage liver disease and cirrhosis. He undergoes large-volume paracentesis regularly. He presents for paracentesis. He has no other complaints. Allergies: Uncoded Allergies: PENICILLIN (Allergy, Severe, 11/08/16) Patient History Past Medical History: see triage record, DM, HTN, GERD, renal disease, other - cirrhosis Social History: Denies: alcohol use, drug use, smoking Reviewed Nursing Documentation: PMH: Agreed, PSxH: Agreed Nursing Documentation-PMH Past Medical History: No History, Except For Hx Cardiac Problems: No - htn,liver cirrosis ,acute renal failure, dmz2,gerd Hx Hypertension: Yes Hx Diabetes: Yes - type 2 Hx Cancer: No Hx Gastrointestinal Problems: Yes - GERD, abdominal pain Hx Neurological Problems: No Review of Systems All Other Systems: negative except mentioned in HPI Physical Exam Vital Signs Date Time Temp Pulse Resp B/P Pulse Ox O2 Delivery O2 Flow Rate FiO2 11/08/16 11:07 98.2 73 20 118/84 95 Room Air Sp02 EP Interpretation: reviewed, normal General Appearance: no apparent distress, alert, GCS 15, non-toxic Head: normocephalic, atraumatic Eyes: bilateral eye PERRL, bilateral eye normal inspection ENT: hearing grossly normal, normal pharynx, no angioedema, normal voice Neck: full range of motion, supple/symm/no masses Respiratory: chest non-tender, lungs clear, normal breath sounds, speaking full sentences Cardiovascular #1: regular rate, rhythm, no edema Gastrointestinal: normal bowel sounds, non tender, soft, no guarding, no rebound, distended Rectal: deferred Musculoskeletal: back normal, normal range of motion, non-tender Neurologic: alert, oriented x3, responsive, motor strength/tone normal, sensory intact, speech normal Psychiatric: judgement/insight normal, memory normal, mood/affect normal, no suicidal/homicidal ideation Skin: warm/dry, well hydrated, other - scattered lesions w/ c/w excoriations/ pruritis Medical Decision Making Diagnostic Impression: Primary Impression: Ascites Additional Impression: Hyperglycemia ER Course Patient has known end-stage liver disease and cirrhosis. He presents regularly for paracentesis for his ascites. He was here at [facility] about a week ago and underwent a large-volume paracentesis. He also is found to have hyperglycemia. He was given some IV fluids for hyperglycemia and IV insulin. The patient underwent paracentesis by ultrasound guidance in radiology. I had planned on admitting this patient for uncontrolled diabetes. However, in discussion with the patient's primary care physician, Dr. Monsalve, he did not want this patient to be admitted and he would manage this patient at the snf facility. At the request of the primary care physician this patient was transferred back to the snf facility. Labs Test 11/08/16 12:14 White Blood Count 7.7 K/UL (4.8-10.8) Red Blood Count 3.95 M/UL (4.70-6.10) Hemoglobin 11.1 G/DL (14.2-18.0) Hematocrit 34.3 % (42.0-52.0) Mean Corpuscular Volume 87 FL (80-99) Mean Corpuscular Hemoglobin 28.1 PG (27.0-31.0) Mean Corpuscular Hemoglobin Concent 32.4 G/DL (32.0-36.0) Red Cell Distribution Width 14.0 % (11.6-14.8) Platelet Count 271 K/UL (150-450) Mean Platelet Volume 7.3 FL (6.5-10.1) Neutrophils (%) (Auto) 66.1 % (45.0-75.0) Lymphocytes (%) (Auto) 13.4 % (20.0-45.0) Monocytes (%) (Auto) 14.0 % (1.0-10.0) Eosinophils (%) (Auto) 4.0 % (0.0-3.0) Basophils (%) (Auto) 2.5 % (0.0-2.0) Prothrombin Time 11.0 SEC (9.30-11.50) Prothromb Time International Ratio 1.1 (0.9-1.1) Activated Partial Thromboplast Time 26 SEC (23-33) Sodium Level 122 mEQ/L (135-145) Potassium Level 5.6 mEQ/L (3.4-4.9) Chloride Level 87 mEQ/L (98-107) Carbon Dioxide Level 17 mEQ/L (20-30) Anion Gap 18 (5-15) Blood Urea Nitrogen 20 mg/dL (7-23) Creatinine 1.8 mg/dL (0.7-1.2) Estimat Glomerular Filtration Rate 40.0 mL/min (>60) Glucose Level 538 mg/dL (74-106) Calcium Level 8.2 mg/dL (8.6-10.2) Total Bilirubin 0.5 mg/dL (0.0-1.2) Aspartate Amino Transf (AST/SGOT) 40 U/L (5-40) Alanine Aminotransferase (ALT/SGPT) 14 U/L (3-41) Alkaline Phosphatase 94 U/L (40-129) Total Protein 7.1 g/dL (6.6-8.7) Albumin 2.1 g/dL (3.5-5.2) Globulin 5.0 g/dL Albumin/Globulin Ratio 0.4 (1.0-2.7) Last Vital Signs Date Time Temp Pulse Resp B/P Pulse Ox O2 Delivery O2 Flow Rate FiO2 11/08/16 15:00 98.0 65 15 116/89 99 Room Air Status: improved Disposition: HOME, SELF-CARE Condition: Stable Referrals: MARY ANNE MONSALVE (PCP) MARAT BHATTI D.O. Nov 08, 2016 16:19
[2016-11-08] MEDS ORDERED: NORCO 5-325 TA1 EAC1 ORAL (16:20)
[2016-11-08] MEDS ORDERED: MORPHINE S10 MG/5 ML ORAL (16:44)
[2016-11-08] MEDS ORDERED: Morphine Sulfate 2mg/ml Inj IVP ONE (18:15)
== END 2016-11-08 19:40 ==
LOC: EDBD 11:30 → EMR 12:15 → EDBEDREQ 15:35 → 2W 15:52 → UNDOADMIN 15:52 → 2W 16:45 → EMR 19:40
DX: R18.8 Other ascites (principal); K74.60 Unspecified cirrhosis of liver; K72.90 Hepatic failure, unspecified without coma; E11.65 Type 2 diabetes mellitus with hyperglycemia; K21.9 Gastro-esophageal reflux disease without esophagitis; Z88.0 Allergy status to penicillin; E11.9 Type 2 diabetes mellitus without complications
CPT/HCPCS: 36415; 80053; 82962; 85025; 85610; 85730; 96374; 96375; 99284; J1815; J2270; Z7502

== ENCOUNTER 2016-11-15 11:33 | Emergency (ER) | payer MEDICAID ==
[~2016-11-15] VITALS: Ht 177.8 cm; Wt 68.0 kg
[~2016-11-15 11:33] MED LIST changes: +ALBUTEROL2.5 MG/3 M INH; +BENADRYL25 M3 PO; +MORPHINE S10 MG/5 ML ORAL; +NORCO 5-325 TA1 EAC1 ORAL
[2016-11-15 12:13] VITALS: BP 125/87
[2016-11-15 12:18] LABS: BASOPHILS % (AUTO) 1.7 % (0.0-2.0); EOSINOPHILS % (AUTO) 2.2 % (0.0-3.0); LYMPHOCYTES % (AUTO) 9.1 % (20.0-45.0); MEAN CORPUSCULAR HEMOGLOBIN 27.4 PG (27.0-31.0); MEAN CORPUSCULAR HGB CONC 31.6 G/DL (32.0-36.0); MEAN CORPUSCULAR VOLUME 87 FL (80-99); MEAN PLATELET VOLUME 7.3 FL (6.5-10.1); MONOCYTES % (AUTO) 12.4 % (1.0-10.0); NEUTROPHILS % (AUTO) 74.5 % (45.0-75.0); PLATELET COUNT 368 K/UL (150-450); RED BLOOD COUNT 4.04 M/UL (4.70-6.10); RED CELL DISTRIBUTION WIDTH 13.9 % (11.6-14.8); WHITE BLOOD COUNT 9.7 K/UL (4.8-10.8)
[2016-11-15 12:34] LABS: INR 1.1 (0.9-1.1); PROTHROMBIN TIME 11.8 SEC (9.30-11.50)
[2016-11-15 12:46] LABS: ALBUMIN/GLOBULIN RATIO 0.5 (1.0-2.7); CALCIUM 8.6 mg/dL (8.6-10.2); CREATININE 1.6 mg/dL (0.7-1.2); GLOMERULAR FILTRATION RATE 45.8 mL/min (>60); POTASSIUM 5.3 mEQ/L (3.4-4.9); TOTAL PROTEIN 6.9 g/dL (6.6-8.7)
--- NOTE | 2016-11-15 14:31 | Emergency Room Report ---
History of Present Illness General Chief Complaint: General Complaint Source: Medical Record, EMS, PMD Present Illness HPI This patient has a history of cirrhosis and hepatitis C. He has end-stage liver disease. He gets large-volume paracentesis once a week. He presents from a longterm facility for a large-volume paracentesis for ascites. There are no other complaints. Allergies: Uncoded Allergies: PENICILLIN (Allergy, Severe, 11/08/16) Patient History Past Medical History: see triage record, old chart reviewed, other - cirrhosis , ESLD, Recurrent Ascites Social History: Denies: alcohol use, drug use, smoking Reviewed Nursing Documentation: PMH: Agreed, PSxH: Agreed Nursing Documentation-PMH Hx Cardiac Problems: No Hx Hypertension: No Hx Pacemaker: No Hx Asthma: No Hx COPD: No Hx Diabetes: No Hx Cancer: No Hx Gastrointestinal Problems: Yes - acities ,pancreatitis Hx Dialysis: No Hx Neurological Problems: Yes - encephalopathy Hx Cerebrovascular Accident: No Hx Seizures: No Review of Systems All Other Systems: negative except mentioned in HPI Physical Exam Vital Signs Date Time Temp Pulse Resp B/P Pulse Ox O2 Delivery O2 Flow Rate FiO2 11/15/16 11:13 98.2 92 18 130/80 98 Room Air Sp02 EP Interpretation: reviewed, normal General Appearance: no apparent distress, alert, GCS 15, non-toxic Head: normocephalic, atraumatic Eyes: bilateral eye PERRL, bilateral eye normal inspection ENT: hearing grossly normal, normal pharynx, no angioedema, normal voice Neck: full range of motion, supple/symm/no masses Respiratory: chest non-tender, lungs clear, normal breath sounds, speaking full sentences Cardiovascular #1: regular rate, rhythm, no edema Gastrointestinal: normal bowel sounds, non tender, soft, no guarding, no rebound, distended Rectal: deferred Musculoskeletal: back normal, normal range of motion Neurologic: alert, oriented x3, responsive, motor strength/tone normal, sensory intact, speech normal Psychiatric: judgement/insight normal, memory normal, mood/affect normal, no suicidal/homicidal ideation Skin: normal color, no rash, warm/dry, well hydrated Medical Decision Making Diagnostic Impression: Primary Impression: Ascites ER Course Patient is well-known [facility]. He has recurrent ascites and presents for large-volume paracentesis. He underwent paracentesis with radiology under ultrasound guidance and was returned to the longterm facility. Labs Test 11/15/16 12:12 White Blood Count 9.7 K/UL (4.8-10.8) Red Blood Count 4.04 M/UL (4.70-6.10) Hemoglobin 11.1 G/DL (14.2-18.0) Hematocrit 35.1 % (42.0-52.0) Mean Corpuscular Volume 87 FL (80-99) Mean Corpuscular Hemoglobin 27.4 PG (27.0-31.0) Mean Corpuscular Hemoglobin Concent 31.6 G/DL (32.0-36.0) Red Cell Distribution Width 13.9 % (11.6-14.8) Platelet Count 368 K/UL (150-450) Mean Platelet Volume 7.3 FL (6.5-10.1) Neutrophils (%) (Auto) 74.5 % (45.0-75.0) Lymphocytes (%) (Auto) 9.1 % (20.0-45.0) Monocytes (%) (Auto) 12.4 % (1.0-10.0) Eosinophils (%) (Auto) 2.2 % (0.0-3.0) Basophils (%) (Auto) 1.7 % (0.0-2.0) Prothrombin Time 11.8 SEC (9.30-11.50) Prothromb Time International Ratio 1.1 (0.9-1.1) Activated Partial Thromboplast Time 31 SEC (23-33) Sodium Level 131 mEQ/L (135-145) Potassium Level 5.3 mEQ/L (3.4-4.9) Chloride Level 95 mEQ/L (98-107) Carbon Dioxide Level 19 mEQ/L (20-30) Anion Gap 17 (5-15) Blood Urea Nitrogen 22 mg/dL (7-23) Creatinine 1.6 mg/dL (0.7-1.2) Estimat Glomerular Filtration Rate 45.8 mL/min (>60) Glucose Level 278 mg/dL (74-106) Calcium Level 8.6 mg/dL (8.6-10.2) Total Bilirubin 0.6 mg/dL (0.0-1.2) Aspartate Amino Transf (AST/SGOT) 23 U/L (5-40) Alanine Aminotransferase (ALT/SGPT) 11 U/L (3-41) Alkaline Phosphatase 104 U/L (40-129) Total Protein 6.9 g/dL (6.6-8.7) Albumin 2.4 g/dL (3.5-5.2) Globulin 4.5 g/dL Albumin/Globulin Ratio 0.5 (1.0-2.7) Last Vital Signs Date Time Temp Pulse Resp B/P Pulse Ox O2 Delivery O2 Flow Rate FiO2 11/15/16 12:13 82 18 125/87 98 Room Air 11/15/16 11:13 98.2 Status: improved Disposition: HOME, SELF-CARE Condition: Improved Referrals: MARY ANNE CASON (PCP) MARTA BHATTI D.O. Nov 15, 2016 14:31
[2016-11-15 15:01] VITALS: BP 113/92
--- NOTE | 2016-11-15 15:44 | Pre-Procedure Note/Attestation ---
Pre-Procedure Note/Attestation Complete Prior to Procedure Planned Procedure: not applicable Procedure Narrative: Paracentesis Indications for Procedure Pre-Operative Diagnosis: Ascites Attestation I attest that I discussed the nature of the procedure; its benefits; risks and complications; and alternatives (and the risks and benefits of such alternatives ), prior to the procedure, with the patient (or the patient's legal ambulatory service representative). I attest that, if there was a reasonable possibility of needing a blood transfusion, the patient (or the patient's legal ambulatory service representative) was given the [facility] standardized written summary, pursuant to the Arturo Phoebe Blood Safety Act ([place] Health and Safety Code # 1645, as amended). I attest that I re-evaluated the patient just prior to the surgery and that there has been no change in the patient's H&P, except as documented below: ANANTH BRIAN M.D. Nov 15, 2016 15:44
--- NOTE | 2016-11-15 15:45 | Brief Operative Note ---
Immediate Post Operative Note Operative Note Pre-op Diagnosis: Ascites Procedure: US guided paracentesis Post-op Diagnosis: same as pre-op Surgeon: Crescencio BRIAN Anesthesia: local Specimen: none Complications: none Fluids: none Implant(s) used?: No ANANTH BRIAN M.D. Nov 15, 2016 15:45
[2016-11-15 16:55] VITALS: BP 124/85
[2016-11-15] MEDS ORDERED: Norco 5mg/325mg tab ORAL ONE (17:15)
[2016-11-15 19:35] VITALS: BP 131/82
--- NOTE | 2016-11-18 08:53 | Diagnostic Imaging Report ---
Indications: Ascites Technique: Ultrasound used to localize optimal puncture site. Sterile prepping and draping right lower quadrant. Local anesthesia with 1% lidocaine. Under real-time ultrasound guidance, puncture peritoneal space using paracentesis needle. Stylet removed. Catheter placed to vacuum bottle suction. Total 12 liters of fluid aspirated. Patient tolerated procedure well, without immediate complication. Findings: Followup sonography demonstrates complete resolution of peritoneal fluid. Impression: Successful ultrasound-guided paracentesis, yielding 12 liters of fluid
== END 2016-11-15 19:35 | disposition home or self-care (01) ==
LOC: EDBD 11:33 → EMR 13:55
DX: R18.8 Other ascites (principal); K74.60 Unspecified cirrhosis of liver; K72.90 Hepatic failure, unspecified without coma; Z88.0 Allergy status to penicillin
CPT/HCPCS: 36415; 76942; 80053; 85025; 85610; 85730; 99283

== ENCOUNTER 2016-11-27 07:10 | Emergency (ER) | payer MEDICAID ==
[~2016-11-27] VITALS: Ht 170.2 cm; Wt 81.2 kg
--- NOTE | 2016-11-27 07:12 | Emergency Room Report ---
History of Present Illness General Chief Complaint: Abdominal Pain Source: Patient Present Illness HPI Patient presents with abdominal distention. He has a history of ascites. He last had paracentesis done 11 days ago. The ascites is been re-constituting since that time. He denies pain but has distention and is uncomfortable. He denies any vomiting or diarrhea. Denies dysuria. He has had no fevers. He is slightly short of breath when he lays flat. In addition he's got some itching and has been scratching some lesions on his forehead and face. The patient has a history of cirrhosis and chronic liver disease. Chronic renal disease. Diabetes. He denies confusion. Chronically weak. Allergies: Coded Allergies: PENICILLINS (Verified Allergy, Severe, 11/27/16) COPIED FROM UNCODED SECTION Patient History Past Medical History: see triage record Past Surgical History: other - paracentesis Social History: Reports: alcohol use - prior Social History Narrative [facility] Reviewed Nursing Documentation: PMH: Agreed, PSxH: Agreed Review of Systems All Other Systems: negative except mentioned in HPI Physical Exam Vital Signs Date Time Temp Pulse Resp B/P Pulse Ox O2 Delivery O2 Flow Rate FiO2 11/27/16 06:58 98.1 80 20 134/94 94 Room Air Sp02 EP Interpretation: reviewed, normal General Appearance: no apparent distress, GCS 15, other - spider habitus, Chronically Ill Head: normocephalic, atraumatic Eyes: bilateral eye PERRL, bilateral eye normal inspection ENT: dry mucus membranes Neck: supple Respiratory: lungs clear, normal breath sounds Cardiovascular #1: regular rate, rhythm Cardiovascular #2: 2+ radial (R) Gastrointestinal: normal inspection, no mass, no guarding, no rebound, abnormal bowel sounds - decreased, distended, tenderness - minimal diffuse, hernia - umbilical Musculoskeletal: back normal, other - atrophy Neurologic: alert, oriented x3, other - no asterixis, grossly normal Psychiatric: mood/affect normal Skin: warm/dry, other - sallo, excoriations forehead/face Medical Decision Making Diagnostic Impression: Primary Impression: Ascites Qualified Codes: K70.31 - Alcoholic cirrhosis of liver with ascites Additional Impression: Renal insufficiency ER Course Patient presents with exacerbation of ascites. Differential includes worsened ascites, and spontaneous ureteritis liver failure, electrolyte abnormalities. Labs will be obtained. The patient will have ultrasound-guided paracentesis. No evidence of encephalopathy. Platelets and INR acceptable. Normal WBC and H/H. Slight renal insufficiency ( creat near prior levels). Paracentesis performed. Allegedly 12 liters removed. Patient improved. VS stable. Patient stable for outpatient observation and treatment. Labs Test 11/27/16 07:30 11/27/16 07:48 White Blood Count 9.1 K/UL (4.8-10.8) Red Blood Count 4.24 M/UL (4.70-6.10) Hemoglobin 11.6 G/DL (14.2-18.0) Hematocrit 37.1 % (42.0-52.0) Mean Corpuscular Volume 87 FL (80-99) Mean Corpuscular Hemoglobin 27.3 PG (27.0-31.0) Mean Corpuscular Hemoglobin Concent 31.2 G/DL (32.0-36.0) Red Cell Distribution Width 14.4 % (11.6-14.8) Platelet Count 358 K/UL (150-450) Mean Platelet Volume 6.4 FL (6.5-10.1) Neutrophils (%) (Auto) 64.8 % (45.0-75.0) Lymphocytes (%) (Auto) 14.2 % (20.0-45.0) Monocytes (%) (Auto) 16.3 % (1.0-10.0) Eosinophils (%) (Auto) 2.9 % (0.0-3.0) Basophils (%) (Auto) 1.8 % (0.0-2.0) Prothrombin Time 11.8 SEC (9.30-11.50) Prothromb Time International Ratio 1.1 (0.9-1.1) Activated Partial Thromboplast Time 30 SEC (23-33) Sodium Level 134 mEQ/L (135-145) Potassium Level 5.0 mEQ/L (3.4-4.9) Chloride Level 102 mEQ/L (98-107) Carbon Dioxide Level 19 mEQ/L (20-30) Anion Gap 13 (5-15) Blood Urea Nitrogen 22 mg/dL (7-23) Creatinine 1.7 mg/dL (0.7-1.2) Estimat Glomerular Filtration Rate 42.7 mL/min (>60) Glucose Level 164 mg/dL (74-106) Calcium Level 8.7 mg/dL (8.6-10.2) Total Bilirubin 0.7 mg/dL (0.0-1.2) Aspartate Amino Transf (AST/SGOT) 27 U/L (5-40) Alanine Aminotransferase (ALT/SGPT) 13 U/L (3-41) Alkaline Phosphatase 87 U/L (40-129) Ammonia 37 umol/L (16-60) Total Protein 7.3 g/dL (6.6-8.7) Albumin 2.4 g/dL (3.5-5.2) Globulin 4.9 g/dL Albumin/Globulin Ratio 0.4 (1.0-2.7) Lipase 49 U/L (< 60) Urine Color Yellow Urine Appearance Clear Urine pH 5 (4.5-8.0) Urine Specific [place] 1.020 (1.005-1.035) Urine Protein 1+ (NEGATIVE) Urine Glucose (UA) Negative (NEGATIVE) Urine Ketones 1+ (NEGATIVE) Urine Occult Blood 3+ (NEGATIVE) Urine Nitrite Negative (NEGATIVE) Urine Bilirubin Negative (NEGATIVE) Urine Urobilinogen 1 MG/DL (0.0-1.0) Urine Leukocyte Esterase 1+ (NEGATIVE) Urine RBC 15-20 /HPF (0 - 0) Urine WBC 2-4 /HPF (0 - 0) Urine Squamous Epithelial Cells Occasional /LPF Urine Bacteria Few /HPF (NONE) Last Vital Signs Date Time Temp Pulse Resp B/P Pulse Ox O2 Delivery O2 Flow Rate FiO2 11/27/16 15:13 98.1 84 20 123/83 97 Room Air Status: improved Disposition: [facility] SNF Condition: Improved Referrals: MARY ANNE CASON (PCP) Mateusz Aguayo M.D. Nov 27, 2016 07:12
[2016-11-27 07:46] VITALS: BP 120/96
[2016-11-27 07:53] LABS: INR 1.1 (0.9-1.1); PROTHROMBIN TIME 11.8 SEC (9.30-11.50)
[2016-11-27 07:57] LABS: ALBUMIN/GLOBULIN RATIO 0.4 (1.0-2.7); CALCIUM 8.7 mg/dL (8.6-10.2); CREATININE 1.7 mg/dL (0.7-1.2); GLOMERULAR FILTRATION RATE 42.7 mL/min (>60); TOTAL PROTEIN 7.3 g/dL (6.6-8.7)
[2016-11-27 08:01] LABS: BASOPHILS % (AUTO) 1.8 % (0.0-2.0); EOSINOPHILS % (AUTO) 2.9 % (0.0-3.0); LYMPHOCYTES % (AUTO) 14.2 % (20.0-45.0); MEAN CORPUSCULAR HEMOGLOBIN 27.3 PG (27.0-31.0); MEAN CORPUSCULAR HGB CONC 31.2 G/DL (32.0-36.0); MEAN CORPUSCULAR VOLUME 87 FL (80-99); MEAN PLATELET VOLUME 6.4 FL (6.5-10.1); MONOCYTES % (AUTO) 16.3 % (1.0-10.0); NEUTROPHILS % (AUTO) 64.8 % (45.0-75.0); PLATELET COUNT 358 K/UL (150-450); RED BLOOD COUNT 4.24 M/UL (4.70-6.10); RED CELL DISTRIBUTION WIDTH 14.4 % (11.6-14.8); WHITE BLOOD COUNT 9.1 K/UL (4.8-10.8)
[2016-11-27 08:11] LABS: APPEARANCE,URINE CLEAR; KETONES,URINE 1+ (NEGATIVE); LEUKOCYTE ESTERASE ,URINE 1+ (NEGATIVE); NITRITE,URINE NEGATIVE (NEGATIVE); PH,URINE 5 (4.5-8.0); PROTEIN,URINE 1+ (NEGATIVE); UROBILINOGEN,URINE 1 MG/DL (0.0-1.0)
[2016-11-27 08:21] LABS: BACTERIA,URINE FEW /HPF; RBC,URINE 15-20 /HPF (0 - 0); SQUAMOUS EPITHELIAL CELL,UR OCCASIONAL /LPF (NONE/OCC)
[2016-11-27 09:59] VITALS: BP 118/90
[2016-11-27 11:20] VITALS: BP 121/93
--- NOTE | 2016-11-27 14:19 | Diagnostic Imaging Report ---
Indications: Ascites Procedure: Informed consent obtained. Ultrasound used to localize optimal puncture site. Sterile prepping and draping over the optimum site. Local anesthesia with 1% lidocaine. Under real-time ultrasound guidance, puncture of the peritoneal space performed using paracentesis needle. Digital image was saved and archived. Stylet removed. Catheter placed to vacuum bottle suction. Fluid was aspirated. Patient tolerated procedure well, without immediate complication. Findings: Followup sonography demonstrates complete resolution of peritoneal fluid Impression: Successful ultrasound-guided paracentesis, yielding 12 liters of fluid
[2016-11-27 15:07] VITALS: BP 123/83
[2016-11-27 15:13] VITALS: BP 123/83
== END 2016-11-27 15:15 ==
LOC: EDBD 07:10 → EMR 07:35
DX: K70.31 Alcoholic cirrhosis of liver with ascites (principal); E11.22 Type 2 diabetes mellitus with diabetic chronic kidney disease; N18.9 Chronic kidney disease, unspecified; S00.81XA Abrasion of other part of head, initial encounter; X58.XXXA Exposure to other specified factors, initial encounter; Y93.9 Activity, unspecified; Y92.9 Unspecified place or not applicable; Z88.0 Allergy status to penicillin; K42.9 Umbilical hernia without obstruction or gangrene
CPT/HCPCS: 36415; 49083; 76942; 80053; 81003; 82140; 83690; 85025; 85610; 85730; 86850; 86900; 86901; 99284; Z7502

== ENCOUNTER 2016-12-07 08:11 | Emergency (ER) | payer MEDICAID ==
[~2016-12-07] VITALS: Ht 170.2 cm; Wt 84.8 kg
[2016-12-07 08:08] VITALS: BP 130/88
--- NOTE | 2016-12-07 08:20 | Emergency Room Report ---
History of Present Illness General Chief Complaint: General Complaint Source: Patient Present Illness HPI Patient 50-year-old male sent in by senior living for increased abdominal distention. Patient gradual onset of symptoms. Patient had a previous history of cirrhosis as well as renal disease. Patient was noted to have continued urine output. Patient denied any skin color changes. He had not been having fever. He denied abdominal pain. Patient denied difficulty breathing this time. Allergies: Coded Allergies: PENICILLINS (Verified Allergy, Severe, 11/27/16) COPIED FROM UNCODED SECTION Patient History Past Medical History: see triage record Reviewed Nursing Documentation: PMH: Agreed, PSxH: Agreed Nursing Documentation-PMH Hx Cardiac Problems: Yes - kidney failure, cirrhosis of liver Hx Hypertension: Yes Hx Pacemaker: No Hx Asthma: No Hx COPD: No Hx Diabetes: Yes Hx Cancer: No Hx Neurological Problems: No Hx Cerebrovascular Accident: No Hx Seizures: No Review of Systems All Other Systems: negative except mentioned in HPI Physical Exam Vital Signs Date Time Temp Pulse Resp B/P Pulse Ox O2 Delivery O2 Flow Rate FiO2 12/07/16 07:57 97.2 85 16 130/88 97 Room Air Sp02 EP Interpretation: reviewed, normal General Appearance: normal inspection, well appearing, no apparent distress, alert, GCS 15 Head: atraumatic ENT: normal ENT inspection, hearing grossly normal, normal voice Neck: normal inspection, full range of motion, supple, no bony tend Respiratory: normal inspection, lungs clear, normal breath sounds, no respiratory distress, no retraction, no wheezing Cardiovascular #1: regular rate, rhythm, no edema Gastrointestinal: soft, no guarding, no hernia, distended, hernia Genitourinary: no CVA tenderness Musculoskeletal: normal inspection, back normal, normal range of motion Neurologic: normal inspection, alert, oriented x3, responsive, regulatory attorney III-XII nml as tested, motor strength/tone normal, speech normal Psychiatric: normal inspection, judgement/insight normal, mood/affect normal Skin: normal inspection, normal color, no rash Medical Decision Making Diagnostic Impression: Primary Impression: Ascites ER Course Patient 50-year-old male sent in by senior living for increased abdominal distention. Patient presented for abdominal pain. Differential diagnoses included ischemic bowel, appendicitis, perforated viscus, abdominal aortic aneurysm, inferior myocardial infarction, viral gastroenteritis Patient's benign exam and does not appear to require any laboratory testing at this time. The patient is at multiple visits for similar type symptoms. The patient had paracentesis performed our radiology for ascites. The approximately 11 L of fluid was removed and patient's abdomen. Patient was given IV albumin. The patient had continued normal blood pressure during observation. The patient was discussed with Dr. Monsalve the patient be sent back to his nursing facility Last Vital Signs Date Time Temp Pulse Resp B/P Pulse Ox O2 Delivery O2 Flow Rate FiO2 12/07/16 08:08 97.2 16 130/88 97 Room Air 12/07/16 07:57 85 Status: improved Disposition: HOME, SELF-CARE Condition: Stable Zach Ley Dec 07, 2016 08:20
[2016-12-07 08:50] VITALS: BP 125/87
[2016-12-07 10:53] VITALS: BP 119/81
[2016-12-07 12:33] VITALS: BP 113/69
[2016-12-07 13:34] VITALS: BP 109/75
[2016-12-07 14:29] VITALS: BP 118/77
--- NOTE | 2016-12-09 08:39 | Diagnostic Imaging Report ---
Indication: Abdominal distention Comparison: 11/27/16 Procedure: After indications, procedure, risks, potential complications and alternatives of the procedure were explained, written informed consent was obtained. Patient was brought to the ultrasound suite and placed supine on the gurney. The right lower quadrant was prepped and draped in standard sterile fashion. 1% lidocaine was used to anesthetize the skin. Using ultrasound guidance, a Airtasker centesis catheter was introduced into the peritoneal cavity with aspiration of fluid. A total of 10.6 L of fluid was removed. Patient tolerated the procedure without immediate complication. Impression: Successful ultrasound-guided paracentesis with removal of 10.6 liters of fluid. No immediate complications.
== END 2016-12-07 14:32 | disposition home or self-care (01) ==
LOC: EDBD 08:11 → EMR 08:24
DX: R18.8 Other ascites (principal); K74.60 Unspecified cirrhosis of liver; I10 Essential (primary) hypertension; N19 Unspecified kidney failure; E11.9 Type 2 diabetes mellitus without complications
CPT/HCPCS: 76942; 96374; 99284; P9045

== ENCOUNTER 2016-12-13 13:09 | Emergency (ER) | payer MEDICAID ==
[~2016-12-13] VITALS: Ht 175.3 cm; Wt 74.8 kg
--- NOTE | 2016-12-13 14:15 | Emergency Room Report ---
History of Present Illness General Chief Complaint: Gastrointestinal Illness Source: Medical Record, EMS Present Illness HPI This patient presents from a halfway facility. He is well-known to [facility]. He has end-stage liver disease and has recurrent ascites. He presents to [facility] for large-volume paracentesis. There are no other complaints. Allergies: Coded Allergies: PENICILLINS (Verified Allergy, Severe, 11/27/16) COPIED FROM UNCODED SECTION Patient History Past Medical History: see triage record, HTN, GERD, renal disease, other - ESLD , cirrhosis Social History: Denies: alcohol use, drug use, smoking Reviewed Nursing Documentation: PMH: Agreed, PSxH: Agreed Nursing Documentation-PMH Past Medical History: No History, Except For Hx Cardiac Problems: No Hx Hypertension: Yes Hx Pacemaker: No Hx Asthma: No Hx COPD: No Hx Diabetes: Yes Hx Cancer: No Hx Neurological Problems: Yes - encephalopathy Hx Cerebrovascular Accident: No Hx Seizures: No Review of Systems All Other Systems: negative except mentioned in HPI Physical Exam Vital Signs Date Time Temp Pulse Resp B/P Pulse Ox O2 Delivery O2 Flow Rate FiO2 12/13/16 13:14 98.1 94 20 130/70 99 Room Air Sp02 EP Interpretation: reviewed, normal General Appearance: no apparent distress, alert, GCS 15, non-toxic Head: normocephalic, atraumatic Eyes: bilateral eye PERRL, bilateral eye normal inspection ENT: hearing grossly normal, normal pharynx, no angioedema, normal voice Neck: full range of motion, supple/symm/no masses Respiratory: chest non-tender, lungs clear, normal breath sounds, speaking full sentences Cardiovascular #1: regular rate, rhythm, no edema Gastrointestinal: normal bowel sounds, non tender, soft, no guarding, no rebound, distended - With a large umbilical hernia with a wound that is dressed with tegaderm. Rectal: deferred Musculoskeletal: back normal, normal range of motion, non-tender Neurologic: alert, oriented x3, responsive, motor strength/tone normal, sensory intact, speech normal Psychiatric: judgement/insight normal, memory normal, mood/affect normal, no suicidal/homicidal ideation Skin: normal color, no rash, warm/dry, well hydrated Medical Decision Making Diagnostic Impression: Primary Impression: Ascites ER Course This patient has known cirrhosis and end-stage liver disease. Physical exam is consistent with ascites. There is no evidence of SBP on history or exam. He underwent paracentesis with ultrasound guidance by radiology. He is returned to the halfway facility. Labs Test 12/13/16 14:25 White Blood Count 7.7 K/UL (4.8-10.8) Red Blood Count 4.19 M/UL (4.70-6.10) Hemoglobin 11.3 G/DL (14.2-18.0) Hematocrit 36.4 % (42.0-52.0) Mean Corpuscular Volume 87 FL (80-99) Mean Corpuscular Hemoglobin 26.9 PG (27.0-31.0) Mean Corpuscular Hemoglobin Concent 31.0 G/DL (32.0-36.0) Red Cell Distribution Width 15.5 % (11.6-14.8) Platelet Count 271 K/UL (150-450) Mean Platelet Volume 6.7 FL (6.5-10.1) Neutrophils (%) (Auto) 67.7 % (45.0-75.0) Lymphocytes (%) (Auto) 11.3 % (20.0-45.0) Monocytes (%) (Auto) 15.4 % (1.0-10.0) Eosinophils (%) (Auto) 3.1 % (0.0-3.0) Basophils (%) (Auto) 2.5 % (0.0-2.0) Prothrombin Time 11.4 SEC (9.30-11.50) Prothromb Time International Ratio 1.1 (0.9-1.1) Activated Partial Thromboplast Time 22 SEC (23-33) Sodium Level 132 mEQ/L (135-145) Potassium Level 5.2 mEQ/L (3.4-4.9) Chloride Level 102 mEQ/L (98-107) Carbon Dioxide Level 17 mEQ/L (20-30) Anion Gap 13 (5-15) Blood Urea Nitrogen 24 mg/dL (7-23) Creatinine 1.6 mg/dL (0.7-1.2) Estimat Glomerular Filtration Rate 45.8 mL/min (>60) Glucose Level 261 mg/dL (74-106) Calcium Level 8.6 mg/dL (8.6-10.2) Total Bilirubin 0.4 mg/dL (0.0-1.2) Aspartate Amino Transf (AST/SGOT) 34 U/L (5-40) Alanine Aminotransferase (ALT/SGPT) 12 U/L (3-41) Alkaline Phosphatase 99 U/L (40-129) Total Protein 6.9 g/dL (6.6-8.7) Albumin 2.1 g/dL (3.5-5.2) Globulin 4.8 g/dL Albumin/Globulin Ratio 0.4 (1.0-2.7) Last Vital Signs Date Time Temp Pulse Resp B/P Pulse Ox O2 Delivery O2 Flow Rate FiO2 12/13/16 13:14 98.1 94 20 130/70 99 Room Air Status: improved Disposition: HOME, SELF-CARE Condition: Improved MARTA BHATTI D.O. Dec 13, 2016 14:15
[2016-12-13 14:31] VITALS: BP 130/70
[2016-12-13 14:42] LABS: BASOPHILS % (AUTO) 2.5 % (0.0-2.0); EOSINOPHILS % (AUTO) 3.1 % (0.0-3.0); LYMPHOCYTES % (AUTO) 11.3 % (20.0-45.0); MEAN CORPUSCULAR HEMOGLOBIN 26.9 PG (27.0-31.0); MEAN CORPUSCULAR VOLUME 87 FL (80-99); MEAN PLATELET VOLUME 6.7 FL (6.5-10.1); MONOCYTES % (AUTO) 15.4 % (1.0-10.0); NEUTROPHILS % (AUTO) 67.7 % (45.0-75.0); PLATELET COUNT 271 K/UL (150-450); RED BLOOD COUNT 4.19 M/UL (4.70-6.10); RED CELL DISTRIBUTION WIDTH 15.5 % (11.6-14.8); WHITE BLOOD COUNT 7.7 K/UL (4.8-10.8)
[2016-12-13 14:49] LABS: INR 1.1 (0.9-1.1); PROTHROMBIN TIME 11.4 SEC (9.30-11.50)
[2016-12-13 14:54] LABS: ALBUMIN/GLOBULIN RATIO 0.4 (1.0-2.7); CALCIUM 8.6 mg/dL (8.6-10.2); CREATININE 1.6 mg/dL (0.7-1.2); GLOMERULAR FILTRATION RATE 45.8 mL/min (>60); POTASSIUM 5.2 mEQ/L (3.4-4.9); TOTAL PROTEIN 6.9 g/dL (6.6-8.7)
[2016-12-13 17:17] VITALS: BP 130/80
--- NOTE | 2016-12-16 12:16 | Diagnostic Imaging Report ---
Indications: Ascites, abdominal distention Technique: Procedure performed by Dr. Stark Ultrasound used to localize optimal puncture site. Sterile prepping and draping right lower quadrant. Local anesthesia with 1% lidocaine. Under real-time ultrasound guidance, puncture peritoneal space using paracentesis needle. Stylet removed. Catheter placed to vacuum bottle suction. Total 10 liters of area low fluid aspirated. Patient tolerated procedure well, without immediate complication. Findings: Followup sonography demonstrates complete resolution of peritoneal fluid. Impression: Successful ultrasound-guided paracentesis, yielding 10 liters of area of fluid, by Dr. Stark
== END 2016-12-13 17:19 | disposition home or self-care (01) ==
LOC: EDUNIT# 13:09 → EDBD 13:09 → EMR 14:20
DX: R18.8 Other ascites (principal); K74.60 Unspecified cirrhosis of liver; I10 Essential (primary) hypertension; E11.9 Type 2 diabetes mellitus without complications
CPT/HCPCS: 36415; 49083; 76942; 80053; 85025; 85610; 85730; 99284; Z7502

== ENCOUNTER 2016-12-20 14:45 | Emergency (ER) | payer MEDICAID, OTHER ==
[~2016-12-20] VITALS: Ht 170.2 cm; Wt 81.6 kg
--- NOTE | 2016-12-20 15:42 | Emergency Room Report ---
History of Present Illness General Chief Complaint: General Complaint Source: Patient Present Illness HPI This patient is well-known [facility]. He has a history of end- stage liver disease and cirrhosis. He comes to [facility] regularly for paracentesis. He presents for his two-week paracentesis for ascites. He has no other complaints. Allergies: Coded Allergies: PENICILLINS (Verified Allergy, Severe, 11/27/16) COPIED FROM UNCODED SECTION Patient History Past Medical History: see triage record, DM, HTN, GERD, other - cirrhosis Social History: Denies: alcohol use, drug use, smoking Reviewed Nursing Documentation: PMH: Agreed, PSxH: Agreed Nursing Documentation-PMH Hx Cardiac Problems: No Hx Hypertension: Yes Hx Pacemaker: No Hx Asthma: No Hx COPD: No Hx Diabetes: Yes Hx Cancer: No Hx Neurological Problems: Yes - encephalopathy Hx Cerebrovascular Accident: No Hx Seizures: No Review of Systems All Other Systems: negative except mentioned in HPI Physical Exam Vital Signs Date Time Temp Pulse Resp B/P Pulse Ox O2 Delivery O2 Flow Rate FiO2 12/20/16 14:36 97.5 78 20 128/86 97 Sp02 EP Interpretation: reviewed, normal General Appearance: no apparent distress, alert, GCS 15, non-toxic Head: normocephalic, atraumatic Eyes: bilateral eye PERRL, bilateral eye normal inspection ENT: hearing grossly normal, normal pharynx, no angioedema, normal voice Neck: full range of motion, supple/symm/no masses Respiratory: chest non-tender, lungs clear, normal breath sounds, speaking full sentences Cardiovascular #1: regular rate, rhythm, no edema Gastrointestinal: non tender, soft, no guarding, no rebound, distended Rectal: deferred Musculoskeletal: back normal, normal range of motion, non-tender Neurologic: alert, oriented x3, responsive, motor strength/tone normal, sensory intact, speech normal Psychiatric: judgement/insight normal, memory normal, mood/affect normal, no suicidal/homicidal ideation Skin: normal color, no rash, warm/dry, well hydrated Medical Decision Making Diagnostic Impression: Primary Impression: Ascites ER Course This patient has a known history of cirrhosis and presents for a large-volume paracentesis. He underwent paracentesis under ultrasound guidance by radiology. He has no pain or exam findings that would be concerning for SBP. The patient is return to the skilled facility. Accucheck 191 Last Vital Signs Date Time Temp Pulse Resp B/P Pulse Ox O2 Delivery O2 Flow Rate FiO2 12/20/16 14:36 97.5 78 20 128/86 97 Disposition: HOME, SELF-CARE Condition: Improved MARTA BHATTI D.O. Dec 20, 2016 15:42
[2016-12-20 16:42] VITALS: BP 125/81
[2016-12-20 17:56] VITALS: BP_SYST 125; BP_SYST 129; BP_DIAS 81; BP_DIAS 84
--- NOTE | 2016-12-21 09:15 | Diagnostic Imaging Report ---
Indications: Ascites Technique: Ultrasound used to localize optimal puncture site. Sterile prepping and draping right lower quadrant. Local anesthesia with 1% lidocaine. Under real-time ultrasound guidance, puncture peritoneal space using paracentesis needle. Stylet removed. Catheter placed to vacuum bottle suction. Total 11.5 liters of clear yellow fluid aspirated. Patient tolerated procedure well, without immediate complication. Findings: Followup sonography demonstrates complete resolution of peritoneal fluid. Impression: Successful ultrasound-guided paracentesis, yielding 11.5 liters of clear yellow fluid
== END 2016-12-20 17:56 | disposition home or self-care (01) ==
LOC: EDBD 14:45 → EMR 17:30
DX: R18.8 Other ascites (principal); K72.90 Hepatic failure, unspecified without coma; K74.60 Unspecified cirrhosis of liver; I10 Essential (primary) hypertension; E11.9 Type 2 diabetes mellitus without complications; K21.9 Gastro-esophageal reflux disease without esophagitis; Z88.0 Allergy status to penicillin
CPT/HCPCS: 76942; 82962; 99284

== ENCOUNTER 2016-12-30 13:47 | Emergency (ER) | payer OTHER ==
[~2016-12-30] VITALS: Ht 170.2 cm; Wt 83.5 kg
--- NOTE | 2016-12-30 13:49 | Emergency Room Report ---
History of Present Illness General Source: EMS Present Illness HPI Patient is a 51-year-old male sent in by EMS after increased abdominal distention. Patient prior history of chronic liver disease and cirrhosis. The patient had been sent and multiple times for similar type symptoms. The patient had complaints of abdominal distention. He had no recent fever. He had not been vomiting blood. Allergies: Coded Allergies: PENICILLINS (Verified Allergy, Severe, 11/27/16) COPIED FROM UNCODED SECTION Patient History Past Medical History: see triage record Reviewed Nursing Documentation: PMH: Agreed, PSxH: Agreed Review of Systems All Other Systems: negative except mentioned in HPI Physical Exam Sp02 EP Interpretation: reviewed, normal General Appearance: normal inspection, well appearing, no apparent distress, alert, GCS 15 Head: atraumatic ENT: normal ENT inspection, hearing grossly normal, normal voice Neck: normal inspection, full range of motion, supple, no bony tend Respiratory: normal inspection, lungs clear, normal breath sounds, no respiratory distress, no retraction, no wheezing Cardiovascular #1: regular rate, rhythm Gastrointestinal: non tender, soft, no guarding, no hernia Genitourinary: no CVA tenderness Musculoskeletal: normal inspection, back normal, normal range of motion Neurologic: normal inspection, alert, oriented x3, responsive, paperboard box maker III-XII nml as tested, speech normal Psychiatric: normal inspection, judgement/insight normal, mood/affect normal Skin: normal inspection, normal color, no rash Medical Decision Making Diagnostic Impression: Primary Impression: Abdominal pain Additional Impression: Ascites ER Course Patient presented for abdominal pain. Differential diagnoses included ischemic bowel, peritonitis, appendicitis, perforated viscus, abdominal aortic aneurysm, inferior myocardial infarction, viral gastroenteritis. The patient appeared to have a tense ascites. A paracentesis was performed by radiology. They drained approximately 12 L of fluid. Patient was discharged back to [facility]. Nursing staff were advised her return precautions. The patient was transferred home by ambulance. Labs Test 12/30/16 14:16 White Blood Count 9.4 K/UL (4.8-10.8) Red Blood Count 4.21 M/UL (4.70-6.10) Hemoglobin 11.4 G/DL (14.2-18.0) Hematocrit 36.6 % (42.0-52.0) Mean Corpuscular Volume 87 FL (80-99) Mean Corpuscular Hemoglobin 27.2 PG (27.0-31.0) Mean Corpuscular Hemoglobin Concent 31.2 G/DL (32.0-36.0) Red Cell Distribution Width 15.8 % (11.6-14.8) Platelet Count 373 K/UL (150-450) Mean Platelet Volume 6.3 FL (6.5-10.1) Neutrophils (%) (Auto) 67.7 % (45.0-75.0) Lymphocytes (%) (Auto) 10.9 % (20.0-45.0) Monocytes (%) (Auto) 16.1 % (1.0-10.0) Eosinophils (%) (Auto) 3.2 % (0.0-3.0) Basophils (%) (Auto) 2.1 % (0.0-2.0) Prothrombin Time 11.5 SEC (9.30-11.50) Prothromb Time International Ratio 1.1 (0.9-1.1) Activated Partial Thromboplast Time 29 SEC (23-33) Sodium Level 131 mEQ/L (135-145) Potassium Level 5.6 mEQ/L (3.4-4.9) Chloride Level 99 mEQ/L (98-107) Carbon Dioxide Level 16 mEQ/L (20-30) Anion Gap 16 (5-15) Blood Urea Nitrogen 24 mg/dL (7-23) Creatinine 1.6 mg/dL (0.7-1.2) Estimat Glomerular Filtration Rate 45.6 mL/min (>60) Glucose Level 202 mg/dL (74-106) Calcium Level 8.7 mg/dL (8.6-10.2) Total Bilirubin 0.4 mg/dL (0.0-1.2) Aspartate Amino Transf (AST/SGOT) 40 U/L (5-40) Alanine Aminotransferase (ALT/SGPT) 17 U/L (3-41) Alkaline Phosphatase 110 U/L (40-129) Total Protein 7.4 g/dL (6.6-8.7) Albumin 2.4 g/dL (3.5-5.2) Globulin 5.0 g/dL Albumin/Globulin Ratio 0.4 (1.0-2.7) Status: improved Disposition: [facility] Condition: Stable Zach Ley Dec 30, 2016 13:49
[2016-12-30 13:54] VITALS: BP 151/98
[2016-12-30] MEDS ORDERED: MORPHINE SULFATE PO (14:17)
[2016-12-30] MEDS ORDERED: CENTRUM SILVER1 EAC4 PO (14:17)
[2016-12-30] MEDS ORDERED: NEXIUM40 MG ORAL (14:17)
[2016-12-30] MEDS ORDERED: NOVOLIN R100 UNIT/1 SUBQ (14:17)
[2016-12-30 14:25] LABS: BASOPHILS % (AUTO) 2.1 % (0.0-2.0); EOSINOPHILS % (AUTO) 3.2 % (0.0-3.0); LYMPHOCYTES % (AUTO) 10.9 % (20.0-45.0); MEAN CORPUSCULAR HEMOGLOBIN 27.2 PG (27.0-31.0); MEAN CORPUSCULAR HGB CONC 31.2 G/DL (32.0-36.0); MEAN CORPUSCULAR VOLUME 87 FL (80-99); MEAN PLATELET VOLUME 6.3 FL (6.5-10.1); MONOCYTES % (AUTO) 16.1 % (1.0-10.0); NEUTROPHILS % (AUTO) 67.7 % (45.0-75.0); PLATELET COUNT 373 K/UL (150-450); RED BLOOD COUNT 4.21 M/UL (4.70-6.10); RED CELL DISTRIBUTION WIDTH 15.8 % (11.6-14.8); WHITE BLOOD COUNT 9.4 K/UL (4.8-10.8)
[2016-12-30 14:34] LABS: INR 1.1 (0.9-1.1); PROTHROMBIN TIME 11.5 SEC (9.30-11.50)
[2016-12-30 14:48] LABS: ALBUMIN/GLOBULIN RATIO 0.4 (1.0-2.7); CALCIUM 8.7 mg/dL (8.6-10.2); CREATININE 1.6 mg/dL (0.7-1.2); GLOMERULAR FILTRATION RATE 45.6 mL/min (>60); POTASSIUM 5.6 mEQ/L (3.4-4.9); TOTAL PROTEIN 7.4 g/dL (6.6-8.7)
[2016-12-30 15:15] VITALS: BP 149/94
[2016-12-30 16:15] VITALS: BP 149/94
[2016-12-30 17:15] VITALS: BP_SYST 154; BP_SYST 98; BP_DIAS 49; BP_DIAS 79
[2016-12-30] MEDS ORDERED: Sodium Polystyrene Sulfonate 15gm Powder ORAL ONE (17:30)
[2016-12-30 17:38] VITALS: BP 154/79
--- NOTE | 2016-12-31 10:37 | Diagnostic Imaging Report ---
Indications: Ascites Technique: Ultrasound used to localize optimal puncture site. Sterile prepping and draping right lower quadrant. Local anesthesia with 1% lidocaine. Under real-time ultrasound guidance, puncture peritoneal space using paracentesis needle. Stylet removed. Catheter placed to vacuum bottle suction. Total 12 liters of yellow fluid aspirated. Patient tolerated procedure well, without immediate complication. Findings: Followup sonography demonstrates complete resolution of peritoneal fluid. Impression: Successful ultrasound-guided paracentesis, yielding 12 liters of fluid
== END 2016-12-30 17:38 ==
LOC: EDBD 13:47 → EMR 14:09
DX: R18.8 Other ascites (principal); K74.60 Unspecified cirrhosis of liver; R10.9 Unspecified abdominal pain; Z88.0 Allergy status to penicillin
CPT/HCPCS: 36415; 76942; 80053; 85025; 85610; 85730; 96374; 96375; 99284; J1940; P9047; Z7502

== ENCOUNTER 2017-01-10 11:20 | Emergency (ER) | payer OTHER ==
[~2017-01-10] VITALS: Ht 170.2 cm; Wt 59.0 kg
[~2017-01-10 11:20] MED LIST changes: +CENTRUM SILVER1 EAC4 PO; +MORPHINE SULFATE PO; +NEXIUM40 MG ORAL; +NOVOLIN R100 UNIT/1 SUBQ
[2017-01-10 11:43] VITALS: BP 125/95
[2017-01-10 11:58] LABS: BASOPHILS % (AUTO) 2.7 % (0.0-2.0); EOSINOPHILS % (AUTO) 3.8 % (0.0-3.0); MEAN CORPUSCULAR HEMOGLOBIN 26.9 PG (27.0-31.0); MEAN CORPUSCULAR HGB CONC 31.1 G/DL (32.0-36.0); MEAN CORPUSCULAR VOLUME 87 FL (80-99); MEAN PLATELET VOLUME 6.7 FL (6.5-10.1); MONOCYTES % (AUTO) 15.4 % (1.0-10.0); NEUTROPHILS % (AUTO) 65.2 % (45.0-75.0); PLATELET COUNT 374 K/UL (150-450); RED BLOOD COUNT 4.55 M/UL (4.70-6.10); RED CELL DISTRIBUTION WIDTH 15.7 % (11.6-14.8); WHITE BLOOD COUNT 8.8 K/UL (4.8-10.8)
[2017-01-10 12:07] LABS: INR 1.1 (0.9-1.1); PROTHROMBIN TIME 11.1 SEC (9.30-11.50)
--- NOTE | 2017-01-10 12:07 | Emergency Room Report ---
History of Present Illness General Chief Complaint: General Complaint Source: Patient, Medical Record Present Illness HPI Patient presents from a [facility] care facility with complaints of distended abdomen Patient had paracentesis approximately 2 weeks ago Has history of ascites Patient feels that he is mildly short of breath especially laying flat Denies any vomiting or diarrhea denies any fevers or chills patient presents from an assisted living facility Denies any recent fall or trauma denies any chest pain Allergies: Coded Allergies: PENICILLINS (Verified Allergy, Severe, 11/27/16) COPIED FROM UNCODED SECTION Patient History Past Medical History: see triage record Pertinent Family History: none Reviewed Nursing Documentation: PMH: Agreed, PSxH: Agreed Nursing Documentation-PMH Past Medical History: No History, Except For Hx Cardiac Problems: No Hx Hypertension: Yes Hx Pacemaker: No Hx Asthma: No Hx COPD: No Hx Diabetes: Yes Hx Cancer: No Hx Neurological Problems: Yes - encephalopathy Hx Cerebrovascular Accident: No Hx Seizures: No Review of Systems All Other Systems: negative except mentioned in HPI Physical Exam Vital Signs Date Time Temp Pulse Resp B/P Pulse Ox O2 Delivery O2 Flow Rate FiO2 01/10/17 11:16 98.2 80 18 125/90 96 Room Air Sp02 EP Interpretation: reviewed, normal General Appearance: no apparent distress Head: normocephalic, atraumatic Eyes: bilateral eye PERRL ENT: normal pharynx, no angioedema Neck: supple, thyroid normal Respiratory: crackles - in both lower lobes Cardiovascular #1: regular rate, rhythm Gastrointestinal: other - Obvious ascites with a periumbilical hernia, no other tenderness on palpation Musculoskeletal: normal inspection Neurologic: alert, oriented x3 Skin: other - Otherwise cachectic and frail appearing Lymphatic: no adenopathy Medical Decision Making Diagnostic Impression: Primary Impression: Ascites ER Course Given the patient's presentation I did make contact with the patient's primary physician At this time essentially requesting paracentesis and disposition to the nursing facility The paracentesis was performed by radiology department Upon return patient remains hemodynamically stable And was transferred back to the [facility] Labs Test 01/10/17 11:40 White Blood Count 8.8 K/UL (4.8-10.8) Red Blood Count 4.55 M/UL (4.70-6.10) Hemoglobin 12.3 G/DL (14.2-18.0) Hematocrit 39.4 % (42.0-52.0) Mean Corpuscular Volume 87 FL (80-99) Mean Corpuscular Hemoglobin 26.9 PG (27.0-31.0) Mean Corpuscular Hemoglobin Concent 31.1 G/DL (32.0-36.0) Red Cell Distribution Width 15.7 % (11.6-14.8) Platelet Count 374 K/UL (150-450) Mean Platelet Volume 6.7 FL (6.5-10.1) Neutrophils (%) (Auto) 65.2 % (45.0-75.0) Lymphocytes (%) (Auto) 13.0 % (20.0-45.0) Monocytes (%) (Auto) 15.4 % (1.0-10.0) Eosinophils (%) (Auto) 3.8 % (0.0-3.0) Basophils (%) (Auto) 2.7 % (0.0-2.0) Prothrombin Time 11.1 SEC (9.30-11.50) Prothromb Time International Ratio 1.1 (0.9-1.1) Activated Partial Thromboplast Time 27 SEC (23-33) CT/MRI/US Diagnostic Results CT/MRI/US Diagnostic Results : Impression Ultrasound-guided paracentesis: Per radiology Last Vital Signs Date Time Temp Pulse Resp B/P Pulse Ox O2 Delivery O2 Flow Rate FiO2 01/10/17 11:43 98.2 81 18 125/95 96 Room Air Status: improved Disposition: ASSISTED LIVING Condition: Improved Referrals: MARY ANNE CASON (PCP) Additional Instructions: Patient is provided with the discharge instructions notified to follow up with primary doctor in the next 2-3 days otherwise return to the er with any worsening symptoms. Please note that this report is being documented using [employer] technology. This can lead to erroneous entry secondary to incorrect interpretation by the dictating instrument. ELSY LAIRD D.O. Jan 10, 2017 12:07
[2017-01-10 13:54] VITALS: BP 111/78
[2017-01-10 15:35] VITALS: BP 118/76
[2017-01-10 15:37] VITALS: BP 118/76
--- NOTE | 2017-01-10 16:15 | Diagnostic Imaging Report ---
Indications: Ascites Technique: Ultrasound used to localize optimal puncture site. Sterile prepping and draping right lower quadrant. Local anesthesia with 1% lidocaine. Under real-time ultrasound guidance, puncture peritoneal space using paracentesis needle. Stylet removed. Catheter placed to vacuum bottle suction. Total 9 liters of real fluid aspirated. Patient tolerated procedure well, without immediate complication. Findings: Followup sonography demonstrates complete resolution of peritoneal fluid. Impression: Successful ultrasound-guided paracentesis, yielding 9 liters of fluid
== END 2017-01-10 15:38 | disposition home or self-care (01) ==
LOC: EDBD 11:20 → EMR 12:03
DX: R18.8 Other ascites (principal); I10 Essential (primary) hypertension; E11.9 Type 2 diabetes mellitus without complications; Z88.0 Allergy status to penicillin
CPT/HCPCS: 36415; 76942; 85025; 85610; 85730; 99284

== ENCOUNTER 2017-01-19 08:07 | Emergency (ER) | payer OTHER ==
[2017-01-19] VITALS (13 sets, daily range): BP systolic 107–133; BP diastolic 69–99
[~2017-01-19] VITALS: Ht 177.8 cm; Wt 99.8 kg
--- NOTE | 2017-01-19 08:25 | Emergency Room Report ---
History of Present Illness General Chief Complaint: General Complaint Source: Patient Present Illness HPI 51-year-old male, past medical history of alcoholic cirrhosis, multiple visits to the ER for paracentesis, brought from the nursing facility for abdominal distention. Patient last had paracentesis performed about 2 weeks ago. Patient states that they usually take off 10-12 L. Patient states that he has been having abdominal pressure similar to all of his other episodes. Patient denies any fever chills nausea vomiting or diarrhea. Allergies: Coded Allergies: PENICILLINS (Verified Allergy, Severe, 11/27/16) COPIED FROM UNCODED SECTION Patient History Past Medical History: see triage record Past Surgical History: none Pertinent Family History: none Social History: Reports: alcohol use Reviewed Nursing Documentation: PMH: Agreed, PSxH: Agreed Nursing Documentation-PMH Hx Cardiac Problems: No Hx Hypertension: Yes Hx Pacemaker: No Hx Asthma: No Hx COPD: No Hx Diabetes: Yes Hx Cancer: No Hx Neurological Problems: Yes - encephalopathy Hx Cerebrovascular Accident: No Hx Seizures: No Review of Systems All Other Systems: negative except mentioned in HPI Physical Exam Vital Signs Date Time Temp Pulse Resp B/P (MAP) Pulse Ox O2 Delivery O2 Flow Rate FiO2 01/19/17 08:06 98.4 86 18 124/87 96 Sp02 EP Interpretation: reviewed, abnormal, other - 96 on RA General Appearance: alert, GCS 15, non-toxic, other - Chronically ill- appearing middle-aged male, appears to be in mild discomfort. However conversing appropriately mild respiratory distress Head: normocephalic, atraumatic Eyes: bilateral eye normal inspection, bilateral eye PERRL, bilateral eye EOMI ENT: normal ENT inspection, normal pharynx, normal voice, moist mucus membranes Neck: normal inspection, full range of motion, supple, no bony tend Respiratory: lungs clear, normal breath sounds, no retraction, respiratory distress, speaking full sentences, other - Mildly tachypneic, chest symmetrical Cardiovascular #1: normal inspection, regular rate, rhythm, normal capillary refill Gastrointestinal: other - Abdominal distention, umbilical hernia, ascites, abdomen is tense however nontender Musculoskeletal: normal inspection, back normal, normal range of motion, non- tender Neurologic: normal inspection, alert, oriented x3, responsive, fingerprint clerk III-XII nml as tested, motor strength/tone normal, sensory intact, normal gait, speech normal Psychiatric: normal inspection, judgement/insight normal, memory normal Skin: normal inspection, normal color, no rash, warm/dry, well hydrated, normal turgor Procedures Ultrasound Ultrasound : Consent: Written Ultrasound: abnormal pelvis - Moderate amount of ascitic fluid abdomen Patient Tolerated: Well Complications: None Additional Procedure Procedure Narrative Paracentesis performed. Consent was signed the patient. Full sterile precautions taken with mask,, sterile gloves, sterile gown, and sterile drapes. Ultrasound was performed to find the best location of paracentesis site. Paracentesis performed in patient's right lower quadrant. 9 L of clear yellow ascitic fluid was drained. Patient tolerated procedure well. There were no complications. Medical Decision Making Diagnostic Impression: Primary Impression: Ascites ER Course 51-year-old male with history of alcoholic liver cirrhosis, sent from nursing facility for paracentesis. Plan Basic blood work was not performed as patient recently had blood work performed within the last 2 weeks which were normal. Paracentesis ER course Paracentesis was performed and 9 L of ascitic fluid were drained. Patient's blood pressure remained stable with a systolic more than 70 Patient was monitored in the emergency room after procedure, and noted that his abdomen feels much better, remained hemodynamically stable Disposition Patient will be discharged back to nursing facility. Patient is stable for transfer Rhythm Strip Diag. Results EP Interpretation: yes Rate: 83 Rhythm: NSR, no PVC's Last Vital Signs Date Time Temp Pulse Resp B/P (MAP) Pulse Ox O2 Delivery O2 Flow Rate FiO2 01/19/17 08:06 98.4 86 18 124/87 96 Disposition: [facility] SN[facility] Condition: Improved Mike Jerez M.D. Jan 19, 2017 08:25
== END 2017-01-19 13:41 ==
LOC: EDBD 08:07 → EMR 08:21
DX: R18.8 Other ascites (principal); Z88.0 Allergy status to penicillin; I10 Essential (primary) hypertension; E11.9 Type 2 diabetes mellitus without complications; R06.82 Tachypnea, not elsewhere classified; K70.30 Alcoholic cirrhosis of liver without ascites
CPT/HCPCS: 49083; 99285; Z7502

== ENCOUNTER 2017-01-28 09:33 | Emergency (ER) | payer MEDICAID, OTHER ==
[~2017-01-28] VITALS: Ht 177.8 cm; Wt 102.1 kg
[2017-01-28 10:00] VITALS: BP 123/97
[2017-01-28 10:45] LABS: BASOPHILS % (AUTO) 2.2 % (0.0-2.0); EOSINOPHILS % (AUTO) 5.1 % (0.0-3.0); LYMPHOCYTES % (AUTO) 12.5 % (20.0-45.0); MEAN CORPUSCULAR HEMOGLOBIN 27.2 PG (27.0-31.0); MEAN CORPUSCULAR HGB CONC 31.4 G/DL (32.0-36.0); MEAN CORPUSCULAR VOLUME 87 FL (80-99); MEAN PLATELET VOLUME 6.6 FL (6.5-10.1); MONOCYTES % (AUTO) 15.4 % (1.0-10.0); NEUTROPHILS % (AUTO) 64.9 % (45.0-75.0); PLATELET COUNT 341 K/UL (150-450); RED BLOOD COUNT 4.46 M/UL (4.70-6.10); RED CELL DISTRIBUTION WIDTH 15.7 % (11.6-14.8)
[2017-01-28 10:55] LABS: INR 1.1 (0.9-1.1); PROTHROMBIN TIME 11.5 SEC (9.30-11.50)
[2017-01-28] MEDS ORDERED: LEVEMIR FL100 UNIT/1 SUBQ (13:05)
[2017-01-28] MEDS ORDERED: SPIRONOLACTONE25 MG ORAL (13:05)
[2017-01-28] MEDS ORDERED: ATIVAN0.5 MG ORAL (13:10)
[2017-01-28] MEDS ORDERED: OMEPRAZOLE40 M1 ORAL (13:11)
[2017-01-28] MEDS ORDERED: REMERON15 MG ORAL (13:11)
[2017-01-28] MEDS ORDERED: ZOFRAN4 M3 ORAL (13:11)
[2017-01-28 13:30] VITALS: BP 109/87
[2017-01-28 14:00] VITALS: BP 108/61
[2017-01-28] MEDS ORDERED: Tubing IV Cassette IV ONE (14:18)
--- NOTE | 2017-01-28 14:38 | Diagnostic Imaging Report ---
Indications: Ascites Procedure: Informed consent obtained. Ultrasound used to localize optimal puncture site. Sterile prepping and draping over the optimum site. Local anesthesia with 1% lidocaine. Under real-time ultrasound guidance, puncture of the peritoneal space performed using paracentesis needle. Digital image was saved and archived. Stylet removed. Catheter placed to vacuum bottle suction. Fluid was aspirated. Patient tolerated procedure well, without immediate complication. Findings: Followup sonography demonstrates complete resolution of peritoneal fluid Impression: Successful ultrasound-guided paracentesis, yielding 14 liters of fluid
[2017-01-28 15:05] VITALS: BP 108/61
--- NOTE | 2017-01-28 16:04 | Emergency Room Report ---
History of Present Illness General Chief Complaint: General Complaint Source: Patient, Medical Record Present Illness HPI 51-year-old male presents to ER for evaluation. [facility] Par[facility]. Patient has history of cirrhosis and significant ascites. PMD is Dr. Monsalve. Patient denies any abdominal pain. Denies any fevers or chills. Denies shortness of breath. Patient has been here many times for paracentesis. No other aggravating relieving factors. Denies any other associated symptoms Allergies: Coded Allergies: PENICILLINS (Verified Allergy, Severe, 11/27/16) COPIED FROM UNCODED SECTION Patient History Past Medical History: DM, HTN, other - encephalopathy Past Surgical History: none Pertinent Family History: none Social History: Denies: smoking, alcohol use, drug use Reviewed Nursing Documentation: PMH: Agreed, PSxH: Agreed Nursing Documentation-PMH Hx Cardiac Problems: No Hx Hypertension: Yes Hx Pacemaker: No Hx Asthma: No Hx COPD: No Hx Diabetes: Yes Hx Cancer: No Hx Neurological Problems: Yes - encephalopathy Hx Cerebrovascular Accident: No Hx Seizures: No Review of Systems All Other Systems: negative except mentioned in HPI Physical Exam Vital Signs Date Time Temp Pulse Resp B/P (MAP) Pulse Ox O2 Delivery O2 Flow Rate FiO2 01/28/17 09:30 97.9 76 16 150/80 98 01/28/17 10:00 Room Air Sp02 EP Interpretation: reviewed, normal General Appearance: no apparent distress, alert, GCS 15, non-toxic Head: normocephalic, atraumatic Eyes: bilateral eye normal inspection, bilateral eye PERRL ENT: hearing grossly normal, normal pharynx, no angioedema, normal voice Neck: full range of motion, supple/symm/no masses Respiratory: chest non-tender, lungs clear, normal breath sounds, speaking full sentences Cardiovascular #1: regular rate, rhythm, no edema Cardiovascular #2: 2+ carotid (R), 2+ carotid (L), 2+ radial (R), 2+ radial (L) , 2+ dorsalis pedis (R), 2+ dorsalis pedis (L) Gastrointestinal: normal bowel sounds, non tender, no guarding, distended - marked distention Rectal: deferred Genitourinary: normal inspection, no CVA tenderness Musculoskeletal: back normal, gait/station normal, normal range of motion, non- tender Neurologic: alert, oriented x3, responsive, motor strength/tone normal, sensory intact, speech normal Psychiatric: judgement/insight normal, memory normal, mood/affect normal, no suicidal/homicidal ideation Reflexes: 3+ bicep (R), 3+ bicep (L), 3+ tricep (R), 3+ tricep (L), 3+ knee (R) , 3+ knee (L) Skin: normal color, no rash, warm/dry, well hydrated Lymphatic: no adenopathy Medical Decision Making Diagnostic Impression: Primary Impression: Ascites Qualified Codes: R18.8 - Other ascites ER Course 51-year-old male presents to ER for paracentesis. History of ascites with cirrhosis Differential-SBP, ascites, hepatic and cephalopathy Patient placed on stretcher after initial history and physical I ordered labs, IV fluids and ultrasound-guided paracentesis Paracentesis performed without complication. approximately 15 L of fluid removed. Patient tolerated procedure without difficulty. Patient appears comfortable. Blood pressure stable. [facility] Diagnosis - ascites Stable and discharged to SNF. followup with PMD. return to ED if symptoms recur/worsen Labs Test 01/28/17 10:00 White Blood Count 8.0 K/UL (4.8-10.8) Red Blood Count 4.46 M/UL (4.70-6.10) Hemoglobin 12.1 G/DL (14.2-18.0) Hematocrit 38.6 % (42.0-52.0) Mean Corpuscular Volume 87 FL (80-99) Mean Corpuscular Hemoglobin 27.2 PG (27.0-31.0) Mean Corpuscular Hemoglobin Concent 31.4 G/DL (32.0-36.0) Red Cell Distribution Width 15.7 % (11.6-14.8) Platelet Count 341 K/UL (150-450) Mean Platelet Volume 6.6 FL (6.5-10.1) Neutrophils (%) (Auto) 64.9 % (45.0-75.0) Lymphocytes (%) (Auto) 12.5 % (20.0-45.0) Monocytes (%) (Auto) 15.4 % (1.0-10.0) Eosinophils (%) (Auto) 5.1 % (0.0-3.0) Basophils (%) (Auto) 2.2 % (0.0-2.0) Prothrombin Time 11.5 SEC (9.30-11.50) Prothromb Time International Ratio 1.1 (0.9-1.1) Activated Partial Thromboplast Time 29 SEC (23-33) Last Vital Signs Date Time Temp Pulse Resp B/P (MAP) Pulse Ox O2 Delivery O2 Flow Rate FiO2 01/28/17 14:00 85 18 108/61 98 Room Air 01/28/17 09:30 97.9 Status: improved Disposition: XFER SNF Condition: Stable Referrals: MARY ANNE MONSALVE (PCP) Patient Instructions: Paracentesis, Care After JOY LAZCANO M.D. Jan 28, 2017 16:04
== END 2017-01-28 15:05 ==
LOC: EDBD 09:33 → EMR 11:00
DX: R18.8 Other ascites (principal); K74.60 Unspecified cirrhosis of liver; Z88.0 Allergy status to penicillin; E11.9 Type 2 diabetes mellitus without complications; I10 Essential (primary) hypertension
CPT/HCPCS: 36415; 76942; 82962; 85025; 85610; 85730; 96360; 99284; Z7502

== ENCOUNTER 2017-02-10 09:29 | Emergency (ER) | payer MEDICAID ==
[~2017-02-10] VITALS: Ht 182.9 cm; Wt 102.1 kg
[~2017-02-10 09:29] MED LIST changes: +ATIVAN0.5 MG ORAL; +LEVEMIR FL100 UNIT/1 SUBQ; +OMEPRAZOLE40 M1 ORAL; +REMERON15 MG ORAL
--- NOTE | 2017-02-10 09:48 | Emergency Room Report ---
History of Present Illness General Chief Complaint: General Complaint Source: Medical Record Present Illness HPI 51-year-old male, coming from [facility], liver cirrhosis with multiple paracentesis, here for paracentesis Platelets of increased abdominal distention, discomfort. Mild shortness of breath, denies any fever chills, denies any nausea vomiting diarrhea, denies any black or bloody stools Last paracentesis was performed on January 28 here in [place] Allergies: Coded Allergies: PENICILLINS (Verified Allergy, Severe, 11/27/16) COPIED FROM UNCODED SECTION Patient History Past Medical History: see triage record Past Surgical History: none Pertinent Family History: none Reviewed Nursing Documentation: PMH: Agreed, PSxH: Agreed Nursing Documentation-PMH Hx Cardiac Problems: No Hx Hypertension: Yes Hx Pacemaker: No Hx Asthma: No Hx COPD: No Hx Diabetes: Yes Hx Cancer: No Hx Neurological Problems: Yes - encephalopathy Hx Cerebrovascular Accident: No Hx Seizures: No Review of Systems All Other Systems: negative except mentioned in HPI Physical Exam Vital Signs Date Time Temp Pulse Resp B/P (MAP) Pulse Ox O2 Delivery O2 Flow Rate FiO2 02/10/17 09:19 98.2 88 16 130/90 98 Simple Mask Sp02 EP Interpretation: reviewed, normal General Appearance: alert, GCS 15, non-toxic, other - Chronically ill appearing middle aged male, appears to be in discomfort, speaking in complete sentences no respiratory distress Head: normocephalic, atraumatic Eyes: bilateral eye normal inspection, bilateral eye PERRL, bilateral eye EOMI ENT: normal ENT inspection, normal pharynx, normal voice, moist mucus membranes Neck: normal inspection, full range of motion, supple Respiratory: normal inspection, lungs clear, normal breath sounds, no retraction, no wheezing, speaking full sentences, chest symmetrical Cardiovascular #1: normal inspection, regular rate, rhythm, no edema, normal capillary refill Cardiovascular #2: 2+ radial (R), 2+ radial (L) Gastrointestinal: no guarding, distended, other - ascites present, nontender abdomen, not peritoneal Musculoskeletal: normal inspection, back normal, normal range of motion, non- tender Neurologic: normal inspection, alert, oriented x3, responsive, motor strength/ tone normal, sensory intact, normal gait, speech normal Psychiatric: normal inspection, judgement/insight normal, memory normal Skin: normal inspection, normal color, no rash, warm/dry, well hydrated, normal turgor Medical Decision Making Diagnostic Impression: Primary Impression: Ascites Additional Impression: Hyperkalemia ER Course 51-year-old male multiple paracentesis here for abdominal distention DDX: Ascites Not concerned with spontaneous bacterial peritonitis given the absence of fever chills no abdominal pain or tenderness Plan: Obtained basic labs including coags Paracentesis ER course: Patient has remained stable during ED stay. +hyperK, no ekg changes, treated w/ hyperK cocktail repeat BMP wnl patient s/p paracentesis by radiology pt arrived back to ED, feels better, dc back to snf Disposition: Patient is to be discharged to snf Patient is instructed to follow up with their primary care doctor within 5 days. Strict return precautions discussed with patient such as fever, chills, worsening/severe pain, nausea, vomiting, which may indicate severe illness. Patient verbalizes understanding and agrees with plan. Please note that this Emergency Department Report was dictated using [employer] management associate technology software, occasionally this can lead to erroneous entry secondary to interpretation by the dictation equipment Laboratory Tests Test 02/10/17 09:45 02/10/17 11:45 White Blood Count 8.3 K/UL (4.8-10.8) Red Blood Count 4.29 M/UL (4.70-6.10) L Hemoglobin 11.9 G/DL (14.2-18.0) L Hematocrit 37.2 % (42.0-52.0) L Mean Corpuscular Volume 87 FL (80-99) Mean Corpuscular Hemoglobin 27.8 PG (27.0-31.0) Mean Corpuscular Hemoglobin Concent 32.0 G/DL (32.0-36.0) Red Cell Distribution Width 15.5 % (11.6-14.8) H Platelet Count 307 K/UL (150-450) Mean Platelet Volume 6.6 FL (6.5-10.1) Neutrophils (%) (Auto) 67.9 % (45.0-75.0) Lymphocytes (%) (Auto) 10.6 % (20.0-45.0) L Monocytes (%) (Auto) 15.7 % (1.0-10.0) H Eosinophils (%) (Auto) 4.0 % (0.0-3.0) H Basophils (%) (Auto) 1.7 % (0.0-2.0) Prothrombin Time 11.3 SEC (9.30-11.50) Prothrombin Time INR 1.1 (0.9-1.1) PTT 31 SEC (23-33) Sodium Level 130 mEQ/L (135-145) L 132 mEQ/L (135-145) L Potassium Level 5.5 mEQ/L (3.4-4.9) H 5.1 mEQ/L (3.4-4.9) H Chloride Level 99 mEQ/L (98-107) 101 mEQ/L (98-107) Carbon Dioxide Level 18 mEQ/L (20-30) L 19 mEQ/L (20-30) L Anion Gap 13 (5-15) 12 (5-15) Blood Urea Nitrogen 23 mg/dL (7-23) 23 mg/dL (7-23) Creatinine 1.8 mg/dL (0.7-1.2) H 1.8 mg/dL (0.7-1.2) H Estimate Glomerular Filtration Rate 39.8 mL/min (>60) 39.8 mL/min (>60) Glucose Level 160 mg/dL (74-106) H 174 mg/dL (74-106) H Calcium Level 8.3 mg/dL (8.6-10.2) L 8.5 mg/dL (8.6-10.2) L Total Bilirubin 0.3 mg/dL (0.0-1.2) Aspartate Amino Transferase (AST) 29 U/L (5-40) Alanine Aminotransferase (ALT) 14 U/L (3-41) Alkaline Phosphatase 88 U/L (40-129) Total Protein 7.0 g/dL (6.6-8.7) Albumin 2.8 g/dL (3.5-5.2) L Globulin 4.2 g/dL Albumin/Globulin Ratio 0.6 (1.0-2.7) L EKG Diagnostic Results Rate: normal Rhythm: NSR ST Segments: other - Q waves inferior leads. ASA given to the pt in ED: No Rhythm Strip Diag. Results EP Interpretation: yes Rate: 90 Rhythm: NSR, no PVC's, no ectopy Last Vital Signs Date Time Temp Pulse Resp B/P (MAP) Pulse Ox O2 Delivery O2 Flow Rate FiO2 02/10/17 09:19 98.2 88 16 130/90 98 Simple Mask Disposition: XFER SNF Condition: Improved Mike Jerez M.D. Feb 10, 2017 09:48
[2017-02-10 09:58] LABS: BASOPHILS % (AUTO) 1.7 % (0.0-2.0); LYMPHOCYTES % (AUTO) 10.6 % (20.0-45.0); MEAN CORPUSCULAR HEMOGLOBIN 27.8 PG (27.0-31.0); MEAN CORPUSCULAR VOLUME 87 FL (80-99); MEAN PLATELET VOLUME 6.6 FL (6.5-10.1); MONOCYTES % (AUTO) 15.7 % (1.0-10.0); NEUTROPHILS % (AUTO) 67.9 % (45.0-75.0); PLATELET COUNT 307 K/UL (150-450); RED BLOOD COUNT 4.29 M/UL (4.70-6.10); RED CELL DISTRIBUTION WIDTH 15.5 % (11.6-14.8); WHITE BLOOD COUNT 8.3 K/UL (4.8-10.8)
[2017-02-10 10:07] LABS: INR 1.1 (0.9-1.1); PROTHROMBIN TIME 11.3 SEC (9.30-11.50)
[2017-02-10 10:16] LABS: ALBUMIN/GLOBULIN RATIO 0.6 (1.0-2.7); CALCIUM 8.3 mg/dL (8.6-10.2); CREATININE 1.8 mg/dL (0.7-1.2); GLOMERULAR FILTRATION RATE 39.8 mL/min (>60); POTASSIUM 5.5 mEQ/L (3.4-4.9)
[2017-02-10 10:18] VITALS: BP 133/89
[2017-02-10] MEDS ORDERED: Sodium Bicarbonate 50ml Carp IV ONE (10:30)
[2017-02-10] MEDS ORDERED: Calcium Gluconate 1gm/10ml vial IVP ONE (10:30)
[2017-02-10] MEDS ORDERED: MORPHINE S10 MG/5 ML ORAL (11:26)
[2017-02-10] MEDS ORDERED: TYLENOL650 MG PR (11:26)
[2017-02-10] MEDS ORDERED: PRILOSEC OTC20 MG ORAL (11:26)
[2017-02-10 12:23] VITALS: BP 121/84
[2017-02-10 13:10] LABS: CALCIUM 8.5 mg/dL (8.6-10.2); CREATININE 1.8 mg/dL (0.7-1.2); GLOMERULAR FILTRATION RATE 39.8 mL/min (>60); POTASSIUM 5.1 mEQ/L (3.4-4.9)
[2017-02-10 15:05] VITALS: BP 114/81
--- NOTE | 2017-02-10 16:03 | Diagnostic Imaging Report ---
Indications: Ascites Technique: Ultrasound used to localize optimal puncture site. Sterile prepping and draping right lower quadrant. Local anesthesia with 1% lidocaine. Under real-time ultrasound guidance, puncture peritoneal space using paracentesis needle. Stylet removed. Catheter placed to vacuum bottle suction. Total 10.6 liters of fluid aspirated. Patient tolerated procedure well, without immediate complication. Findings: Followup sonography demonstrates complete resolution of peritoneal fluid. Impression: Successful ultrasound-guided paracentesis, yielding 10.6 liters of fluid
[2017-02-11 06:52] VITALS: BP 114/81
== END 2017-02-10 16:04 ==
LOC: EDBD 09:29 → EMR 10:00
DX: R18.8 Other ascites (principal); E87.5 Hyperkalemia; K74.60 Unspecified cirrhosis of liver; Z88.0 Allergy status to penicillin; I10 Essential (primary) hypertension; E11.9 Type 2 diabetes mellitus without complications; R06.02 Shortness of breath
CPT/HCPCS: 36415; 49083; 76942; 80048; 80053; 85025; 85610; 85730; 93005; 96374; 96375; 99284; J0610; J1815

== ENCOUNTER 2017-02-21 12:16 | Emergency (ER) | payer MEDICAID ==
[~2017-02-21] VITALS: Ht 177.8 cm; Wt 97.5 kg
[~2017-02-21 12:16] MED LIST changes: +PRILOSEC OTC20 MG ORAL; +TYLENOL650 MG PR
--- NOTE | 2017-02-21 12:44 | Emergency Room Report ---
History of Present Illness General Chief Complaint: General Complaint Source: Patient, EMS, PMD Present Illness HPI 51YOM BIBEMS for paracentesis Enlarged abdomen with protuberant umbilical hernia Patient well-known to ED for multiple visits for IR or ED drainage of ascites Patient denies pain, fever/chills, nausea/vomiting, diarrhea Spoke to Dr Monsalve, unable to facilitate permanent cath placement d/t "insurance" issues Permanent cath also susceptible to 100% infection rate and reserved for poor prognosis patients Dr Celis suggesting facilitating outpatient paracentesis in future - this was communicated to Dr Monsalve Allergies: Coded Allergies: PENICILLINS (Verified Allergy, Severe, 11/27/16) COPIED FROM UNCODED SECTION Patient History Past Medical History: old chart reviewed Past Surgical History: none Pertinent Family History: none Social History: Denies: smoking, alcohol use, drug use Immunizations: UTD Reviewed Nursing Documentation: PMH: Agreed, PSxH: Agreed Nursing Documentation-PMH Hx Cardiac Problems: No Hx Hypertension: Yes Hx Pacemaker: No Hx Asthma: No Hx COPD: No Hx Diabetes: Yes Hx Cancer: No Hx Neurological Problems: Yes - encephalopathy Hx Cerebrovascular Accident: No Hx Seizures: No Review of Systems All Other Systems: negative except mentioned in HPI Physical Exam Vital Signs Date Time Temp Pulse Resp B/P (MAP) Pulse Ox O2 Delivery O2 Flow Rate FiO2 02/21/17 12:11 98.1 74 20 130/90 98 Room Air Sp02 EP Interpretation: reviewed, normal General Appearance: normal inspection, well appearing, no apparent distress, alert, GCS 15, non-toxic Head: normocephalic, atraumatic Eyes: bilateral eye PERRL, bilateral eye EOMI ENT: normal ENT inspection, hearing grossly normal, normal voice Neck: normal inspection, full range of motion, supple, no bony tend Respiratory: normal inspection, lungs clear, normal breath sounds, no respiratory distress, no retraction, no wheezing Cardiovascular #1: regular rate, rhythm, no edema Gastrointestinal: normal inspection, normal bowel sounds, non tender, soft, no guarding, no hernia, distended, other - Reducible umbilical hernia with skin breakdown/abrasions. Distended abdomen but not tender. Genitourinary: no CVA tenderness Musculoskeletal: normal inspection, back normal, normal range of motion, Jared' s Sign negative Neurologic: normal inspection, alert, oriented x3, responsive, edi developer III-XII nml as tested, speech normal Psychiatric: normal inspection, judgement/insight normal, mood/affect normal Skin: normal inspection, normal color, no rash Lymphatic: normal inspection Medical Decision Making Diagnostic Impression: Primary Impression: Ascites Qualified Codes: R18.8 - Other ascites ER Course 51YOM here for paracentesis of recurrent ascites Coags normal, platelets normal Had IR-drainage of ascites that was in progress at time of signout Signed out to Dr Ley at 230pm to followup with patient following paracentesis and facilitate transfer back to [facility]. Last Vital Signs Date Time Temp Pulse Resp B/P (MAP) Pulse Ox O2 Delivery O2 Flow Rate FiO2 02/21/17 12:11 98.1 74 20 130/90 98 Room Air Status: improved Disposition: [facility] LOLITA VILLASENOR M.D. Feb 21, 2017 12:44
[2017-02-21 13:14] LABS: BASOPHILS % (AUTO) 1.9 % (0.0-2.0); EOSINOPHILS % (AUTO) 4.3 % (0.0-3.0); LYMPHOCYTES % (AUTO) 13.6 % (20.0-45.0); MEAN CORPUSCULAR HEMOGLOBIN 26.9 PG (27.0-31.0); MEAN CORPUSCULAR HGB CONC 30.5 G/DL (32.0-36.0); MEAN CORPUSCULAR VOLUME 88 FL (80-99); MEAN PLATELET VOLUME 6.6 FL (6.5-10.1); MONOCYTES % (AUTO) 13.9 % (1.0-10.0); NEUTROPHILS % (AUTO) 66.4 % (45.0-75.0); PLATELET COUNT 240 K/UL (150-450); RED BLOOD COUNT 3.98 M/UL (4.70-6.10); RED CELL DISTRIBUTION WIDTH 15.4 % (11.6-14.8); WHITE BLOOD COUNT 7.5 K/UL (4.8-10.8)
[2017-02-21 13:23] LABS: INR 1.1 (0.9-1.1)
[2017-02-21 13:29] LABS: ALBUMIN/GLOBULIN RATIO 0.4 (1.0-2.7); CALCIUM 8.4 mg/dL (8.6-10.2); CREATININE 1.6 mg/dL (0.7-1.2); GLOMERULAR FILTRATION RATE 45.6 mL/min (>60); POTASSIUM 5.3 mEQ/L (3.4-4.9)
[2017-02-21 14:11] VITALS: BP 123/89
--- NOTE | 2017-02-21 17:08 | Diagnostic Imaging Report ---
Indications: Ascites Technique: Ultrasound used to localize optimal puncture site. Sterile prepping and draping right lower quadrant. Local anesthesia with 1% lidocaine. Under real-time ultrasound guidance, puncture peritoneal space using paracentesis needle. Stylet removed. Catheter placed to vacuum bottle suction. Total 13.2 liters of fluid aspirated. Patient tolerated procedure well, without immediate complication. Findings: Followup sonography demonstrates complete resolution of peritoneal fluid. Impression: Successful ultrasound-guided paracentesis, yielding 13.2 liters of clear yellow fluid
[2017-02-21 18:13] VITALS: BP 124/84
[2017-02-21 19:32] VITALS: BP 124/84
== END 2017-02-21 19:34 ==
LOC: EDBD 12:16 → EMR 12:37
DX: R18.8 Other ascites (principal); E11.9 Type 2 diabetes mellitus without complications; I10 Essential (primary) hypertension; Z88.0 Allergy status to penicillin
CPT/HCPCS: 76942; 80053; 83690; 85025; 85610; 85730; 99284

== ENCOUNTER 2017-03-01 13:18 | Emergency (ER) | payer MEDICAID ==
[~2017-03-01] VITALS: Ht 175.3 cm; Wt 72.6 kg
[2017-03-01 13:37] VITALS: BP 127/75
[2017-03-01] MEDS ORDERED: Lidocaine 2% 20mg/ml/Epi 0.005mg/ml 20ml vial INJ ONE (13:45)
--- NOTE | 2017-03-01 15:56 | Emergency Room Report ---
History of Present Illness General Chief Complaint: General Complaint Source: Patient, Medical Record Present Illness HPI Patient 51 yo male presented after increased abdominal distention. Patient gradual onset of symptoms. Patient pressure cirrhosis. Patient prior large- volume paracentesis at this emergency department multiple times. Patient had prior history of liver disease Allergies: Coded Allergies: PENICILLINS (Verified Allergy, Severe, 11/27/16) COPIED FROM UNCODED SECTION Patient History Past Medical History: see triage record, seizures Reviewed Nursing Documentation: PMH: Agreed, PSxH: Agreed Nursing Documentation-PMH Past Medical History: No History, Except For Hx Cardiac Problems: No Hx Hypertension: Yes Hx Pacemaker: No Hx Asthma: No Hx COPD: No Hx Diabetes: Yes Hx Cancer: No Hx Neurological Problems: Yes - encephalopathy Hx Cerebrovascular Accident: No Hx Seizures: No Review of Systems All Other Systems: negative except mentioned in HPI Physical Exam Vital Signs Date Time Temp Pulse Resp B/P (MAP) Pulse Ox O2 Delivery O2 Flow Rate FiO2 03/01/17 13:14 97.9 85 16 127/75 97 Room Air Sp02 EP Interpretation: reviewed, normal General Appearance: normal inspection, well appearing, no apparent distress, alert, GCS 15 Head: atraumatic ENT: normal ENT inspection, hearing grossly normal, normal voice Neck: normal inspection, full range of motion, supple, no bony tend Respiratory: normal inspection, lungs clear, normal breath sounds, no respiratory distress, no retraction, no wheezing Cardiovascular #1: regular rate, rhythm, no edema Gastrointestinal: normal inspection, normal bowel sounds, non tender, soft, no guarding, no hernia, distended Genitourinary: no CVA tenderness Musculoskeletal: normal inspection, back normal, normal range of motion Neurologic: normal inspection, alert, responsive, speech normal Psychiatric: normal inspection, judgement/insight normal, mood/affect normal Skin: normal inspection, normal color, no rash Procedures Additional Procedure Procedure Narrative The paracentesis was performed after sterile prep and drape. The prepped with chlorhexidine. anesthesia with 10 mL of 1% lidocaine. Withdrew 9.80 L of clear fluid. The patient tolerated well. Blood pressure remained normal post procedure. The puncture was closed with a 5-0 gut suture [id number] Medical Decision Making Diagnostic Impression: Primary Impression: Ascites ER Course Patient presented for abdominal distention. Differential diagnosis included was not limited to ascites, spontaneous bacteria peritonitis, bowel obstruction , fecal impaction among others. Patient's benign exam and does not appear to require any further imaging or laboratory testing at this time. Patient was noted to have recurrent ascites. A bedside ultrasound showed large fluid collection. Withdrew approximately 9.8 L of yellow clear fluid. Patient tolerated well was sent back to his [facility]. Last Vital Signs Date Time Temp Pulse Resp B/P (MAP) Pulse Ox O2 Delivery O2 Flow Rate FiO2 03/01/17 13:37 97.9 16 127/75 97 Room Air 03/01/17 13:14 85 Status: improved Disposition: [facility] Condition: Stable Referrals: MARY ANNE CASON (PCP) Patient Instructions: Ascites Zach Ley Mar 01, 2017 15:56
[2017-03-01 16:02] VITALS: BP 111/81
[2017-03-01 16:03] VITALS: BP 111/81
== END 2017-03-01 16:08 ==
LOC: EDBD 13:18 → EMR 13:39
DX: R18.8 Other ascites (principal); K74.60 Unspecified cirrhosis of liver; E11.9 Type 2 diabetes mellitus without complications; I10 Essential (primary) hypertension; Z88.0 Allergy status to penicillin
CPT/HCPCS: 49082; 99284; Z7502

== ENCOUNTER 2017-03-10 08:09 | Emergency (ER) | payer MEDICAID ==
[~2017-03-10] VITALS: Ht 170.2 cm; Wt 83.0 kg
[2017-03-10 08:09] VITALS: BP 113/68
[2017-03-10 09:05] LABS: BASOPHILS % (AUTO) 2.7 % (0.0-2.0); EOSINOPHILS % (AUTO) 6.5 % (0.0-3.0); LYMPHOCYTES % (AUTO) 10.5 % (20.0-45.0); MEAN CORPUSCULAR HEMOGLOBIN 29.5 PG (27.0-31.0); MEAN CORPUSCULAR VOLUME 87 FL (80-99); MEAN PLATELET VOLUME 6.8 FL (6.5-10.1); MONOCYTES % (AUTO) 16.7 % (1.0-10.0); NEUTROPHILS % (AUTO) 63.6 % (45.0-75.0); PLATELET COUNT 353 K/UL (150-450); RED BLOOD COUNT 4.24 M/UL (4.70-6.10); RED CELL DISTRIBUTION WIDTH 15.1 % (11.6-14.8); WHITE BLOOD COUNT 9.5 K/UL (4.8-10.8)
[2017-03-10 09:24] VITALS: BP 105/84
[2017-03-10 09:46] LABS: ALANINE AMINOTRANSFERASE 16 U/L (12-78); ALBUMIN/GLOBULIN RATIO 0.4 (1.0-2.7); ANION GAP 10 (5-15); ASPARTATE AMINO TRANSFERASE 23 U/L (15-37); CARBON DIOXIDE 19 MMOL/L (21-32); CHLORIDE 104 MMOL/L (98-107); CREATININE 1.9 MG/DL (0.55-1.30); GLOMERULAR FILTRATION RATE 37.4 mL/min (>60); POTASSIUM 5.8 MMOL/L (3.5-5.1); SODIUM 133 MMOL/L (136-145)
[2017-03-10 09:57] LABS: INR 1.2 (0.9-1.1); PROTHROMBIN TIME 12.6 SEC (9.30-11.50)
[2017-03-10 11:45] VITALS: BP 107/98
--- NOTE | 2017-03-10 14:20 | Diagnostic Imaging Report ---
Indications: Ascites Technique: Ultrasound used to localize optimal puncture site. Sterile prepping and draping . Local anesthesia with 1% lidocaine. Under real-time ultrasound guidance, puncture peritoneal space using paracentesis needle. Stylet removed. Catheter placed to vacuum bottle suction. Total 12 liters of fluid aspirated. Patient tolerated procedure well, without immediate complication. Findings: Followup sonography demonstrates complete resolution of peritoneal fluid. Impression: Successful ultrasound-guided paracentesis, yielding 12 liters of fluid
--- NOTE | 2017-03-10 14:20 | Emergency Room Report ---
History of Present Illness General Chief Complaint: General Complaint Source: Medical Record Present Illness HPI 51-year-old male history of liver cirrhosis, ascites, frequent paracentesis and multiple visits to the emergency room, here for paracentesis. No fever no chills. No shortness of breath Allergies: Coded Allergies: PENICILLINS (Verified Allergy, Severe, 11/27/16) COPIED FROM UNCODED SECTION UNABLE TO ASSESS (Unverified , 03/10/17) Patient History Past Medical History: see triage record Past Surgical History: none Pertinent Family History: none Reviewed Nursing Documentation: PMH: Agreed, PSxH: Agreed Nursing Documentation-PMH Past Medical History: No History, Except For Hx Cardiac Problems: No Hx Hypertension: Yes - HTN Hx Pacemaker: No Hx Asthma: No Hx COPD: No Hx Diabetes: Yes - DM2 Hx Cancer: No Hx Gastrointestinal Problems: Yes - Liver, Kidney, ETOH, GERD, Ascites History Of Psychiatric Problem: Yes - Anxiety Hx Neurological Problems: Yes - encephalopathy Hx Cerebrovascular Accident: No Hx Seizures: No Review of Systems All Other Systems: negative except mentioned in HPI Physical Exam Vital Signs Date Time Temp Pulse Resp B/P (MAP) Pulse Ox O2 Delivery O2 Flow Rate FiO2 03/10/17 07:47 97.7 Room Air 03/10/17 08:09 74 12 113/68 97 Sp02 EP Interpretation: reviewed, normal General Appearance: normal inspection, well appearing, no apparent distress, alert, GCS 15, non-toxic Head: normocephalic, atraumatic Eyes: bilateral eye normal inspection, bilateral eye PERRL, bilateral eye EOMI ENT: normal ENT inspection, normal pharynx, normal voice, moist mucus membranes Neck: normal inspection, full range of motion, supple Respiratory: normal inspection, lungs clear, normal breath sounds, no respiratory distress, no retraction, no wheezing, speaking full sentences, chest symmetrical Cardiovascular #1: normal inspection, regular rate, rhythm, no edema, normal capillary refill Cardiovascular #2: 2+ radial (R), 2+ radial (L) Gastrointestinal: soft, non-distended, no guarding, other - Ascites, distended abdomen Genitourinary: no CVA tenderness Musculoskeletal: normal inspection, back normal, normal range of motion, non- tender Neurologic: normal inspection, alert, oriented x3, responsive, motor strength/ tone normal, sensory intact, normal gait, speech normal Psychiatric: normal inspection, judgement/insight normal, memory normal Skin: normal inspection, normal color, no rash, warm/dry, well hydrated, normal turgor Medical Decision Making Diagnostic Impression: Primary Impression: Ascites ER Course 51-year-old male with liver cirrhosis multiple visits to the emergency room for paracentesis here for paracentesis DDX: Ascites Plan: Obtain labs, radiology for paracentesis ER course: Patient has remained stable during ED stay. Paracentesis performed without complication by radiology Disposition: Patient is to be discharged to fdc facility Strict return precautions discussed with patient such as fever, chills, worsening/severe pain, nausea, vomiting, which may indicate severe illness. Patient verbalizes understanding and agrees with plan. Please note that this Emergency Department Report was dictated using [employer] nurse rn technology software, occasionally this can lead to erroneous entry secondary to interpretation by the dictation equipment Laboratory Tests Test 03/10/17 08:30 03/10/17 09:15 03/10/17 09:30 White Blood Count 9.5 K/UL (4.8-10.8) Red Blood Count 4.24 M/UL (4.70-6.10) L Hemoglobin 12.5 G/DL (14.2-18.0) L Hematocrit 36.8 % (42.0-52.0) L Mean Corpuscular Volume 87 FL (80-99) Mean Corpuscular Hemoglobin 29.5 PG (27.0-31.0) Mean Corpuscular Hemoglobin Concent 34.0 G/DL (32.0-36.0) Red Cell Distribution Width 15.1 % (11.6-14.8) H Platelet Count 353 K/UL (150-450) Mean Platelet Volume 6.8 FL (6.5-10.1) Neutrophils (%) (Auto) 63.6 % (45.0-75.0) Lymphocytes (%) (Auto) 10.5 % (20.0-45.0) L Monocytes (%) (Auto) 16.7 % (1.0-10.0) H Eosinophils (%) (Auto) 6.5 % (0.0-3.0) H Basophils (%) (Auto) 2.7 % (0.0-2.0) H Sodium Level 133 MMOL/L (136-145) L Potassium Level 5.8 MMOL/L (3.5-5.1) H Chloride Level 104 MMOL/L (98-107) Carbon Dioxide Level 19 MMOL/L (21-32) L Anion Gap 10 (5-15) Blood Urea Nitrogen 32 mg/dL (7-18) H Creatinine 1.9 MG/DL (0.55-1.30) H Estimate Glomerular Filtration Rate 37.4 mL/min (>60) Glucose Level 100 MG/DL (74-106) Calcium Level 9.0 MG/DL (8.5-10.1) Total Bilirubin 0.6 MG/DL (0.2-1.0) Aspartate Amino Transferase (AST) 23 U/L (15-37) Alanine Aminotransferase (ALT) 16 U/L (12-78) Alkaline Phosphatase 86 U/L (46-116) Total Protein 7.0 G/DL (6.4-8.2) Albumin 1.9 G/DL (3.4-5.0) L Globulin 5.1 g/dL Albumin/Globulin Ratio 0.4 (1.0-2.7) L Prothrombin Time 12.6 SEC (9.30-11.50) H Prothrombin Time INR 1.2 (0.9-1.1) H PTT 33 SEC (23-33) Last Vital Signs Date Time Temp Pulse Resp B/P (MAP) Pulse Ox O2 Delivery O2 Flow Rate FiO2 03/10/17 11:45 97.7 71 18 107/98 93 Room Air Disposition: XFER SNF Condition: Improved Referrals: MARY ANNE CASON (PCP) Patient Instructions: Paracentesis, Care After Mike Jerez M.D. Mar 10, 2017 14:20
[2017-03-10 15:15] VITALS: BP 107/98
== END 2017-03-10 16:52 ==
LOC: EDBD 08:09 → EMR 08:59
DX: R18.8 Other ascites (principal); K74.60 Unspecified cirrhosis of liver; I10 Essential (primary) hypertension; E11.9 Type 2 diabetes mellitus without complications; Z88.0 Allergy status to penicillin
CPT/HCPCS: 36415; 76942; 80053; 85025; 85610; 85730; 99284

== ENCOUNTER 2017-03-14 11:41 | Outpatient (CLI) | payer MEDICAID ==
[~2017-03-14] VITALS: Ht 170.2 cm; Wt 72.6 kg
[2017-03-14] VITALS (10 sets, daily range): BP systolic 92–107; BP diastolic 69–79
[2017-03-14 12:03] LABS: BASOPHILS % (AUTO) 1.7 % (0.0-2.0); EOSINOPHILS % (AUTO) 4.8 % (0.0-3.0); LYMPHOCYTES % (AUTO) 10.1 % (20.0-45.0); MEAN CORPUSCULAR HEMOGLOBIN 27.4 PG (27.0-31.0); MEAN CORPUSCULAR HGB CONC 31.5 G/DL (32.0-36.0); MEAN CORPUSCULAR VOLUME 87 FL (80-99); MEAN PLATELET VOLUME 6.6 FL (6.5-10.1); MONOCYTES % (AUTO) 12.7 % (1.0-10.0); NEUTROPHILS % (AUTO) 70.7 % (45.0-75.0); PLATELET COUNT 382 K/UL (150-450); RED BLOOD COUNT 4.88 M/UL (4.70-6.10); RED CELL DISTRIBUTION WIDTH 15.1 % (11.6-14.8); WHITE BLOOD COUNT 10.6 K/UL (4.8-10.8)
[2017-03-14 12:24] LABS: INR 1.1 (0.9-1.1); PROTHROMBIN TIME 11.8 SEC (9.30-11.50)
[2017-03-14 13:24] LABS: ALANINE AMINOTRANSFERASE 19 U/L (12-78); ALBUMIN/GLOBULIN RATIO 0.3 (1.0-2.7); ANION GAP 10 mmol/L (5-15); ASPARTATE AMINO TRANSFERASE 33 U/L (15-37); CALCIUM 8.6 MG/DL (8.5-10.1); CARBON DIOXIDE 20 MMOL/L (21-32); CHLORIDE 101 MMOL/L (98-107); CREATININE 2.1 MG/DL (0.55-1.30); GLOMERULAR FILTRATION RATE 33.3 mL/min (>60); POTASSIUM 5.2 MMOL/L (3.5-5.1); SODIUM 131 MMOL/L (136-145)
--- NOTE | 2017-03-14 15:21 | Pre-Procedure Note/Attestation ---
Pre-Procedure Note/Attestation Complete Prior to Procedure Planned Procedure: not applicable Procedure Narrative: Chronic tunneled dialysis catheter placement Indications for Procedure Pre-Operative Diagnosis: Refractory ascites Attestation I attest that I discussed the nature of the procedure; its benefits; risks and complications; and alternatives (and the risks and benefits of such alternatives ), prior to the procedure, with the patient (or the patient's legal call center representative). I attest that, if there was a reasonable possibility of needing a blood transfusion, the patient (or the patient's legal call center representative) was given the [facility] standardized written summary, pursuant to the [place] Blood Safety Act ([place] Health and Safety Code # 1645, as amended). I attest that I re-evaluated the patient just prior to the surgery and that there has been no change in the patient's H&P, except as documented below: ANANTH BRIAN M.D. Mar 14, 2017 15:21
--- NOTE | 2017-03-14 16:04 | Brief Operative Note ---
Immediate Post Operative Note Operative Note Pre-op Diagnosis: Refractory ascites Procedure: Tunneled peritoneal drainage catheter placement Post-op Diagnosis: same as pre-op Findings: consistent w/pre-op dx studies Surgeon: Crescencio BRIAN Anesthesia: local Specimen: none Complications: none Condition: stable Fluids: none Drains: other - ASEPT drain Implant(s) used?: Yes - ASEPT drain ANANTH BRIAN M.D. Mar 14, 2017 16:04
== END 2017-03-14 17:10 | disposition home or self-care (01) ==
LOC: RAD 11:41
DX: R18.8 Other ascites (principal)
CPT/HCPCS: 36415; 75989; 80053; 82962; 85025; 85610; 85730; J1956

== ENCOUNTER 2017-03-16 14:09 | Inpatient (IN) | payer MEDICAID ==
[~2017-03-16] VITALS: Ht 170.2 cm; Wt 72.3 kg
[2017-03-16] MEDS ORDERED: Morphine Sulfate 10mg/ml Inj IM ONE (14:30)
--- NOTE | 2017-03-16 14:32 | Emergency Room Report ---
History of Present Illness General Chief Complaint: General Complaint Source: Patient Present Illness HPI Patient present with complaints of abdominal pain Patient has had presentations here previously with ascites requiring drainage On the it appears the patient had a drain placed this was a tunneled catheter Patient now complains of diffuse abdominal pain Was no reports of fevers half-way reported vomiting as well There was no reports of fevers Patient has a difficult time describing the actual pain Allergies: Coded Allergies: PENICILLINS (Verified Allergy, Severe, 11/27/16) COPIED FROM UNCODED SECTION UNABLE TO ASSESS (Unverified , 03/10/17) Patient History Past Medical History: see triage record Pertinent Family History: none Reviewed Nursing Documentation: PMH: Agreed, PSxH: Agreed Nursing Documentation-PMH Hx Cardiac Problems: No Hx Hypertension: Yes - HTN Hx Pacemaker: No Hx Asthma: No Hx COPD: No Hx Diabetes: Yes - DM2 Hx Cancer: No Hx Gastrointestinal Problems: Yes - Liver, Kidney, ETOH, GERD, Ascites Hx Neurological Problems: Yes - Dementia Hx Cerebrovascular Accident: No Hx Seizures: No Review of Systems All Other Systems: negative except mentioned in HPI Physical Exam Vital Signs Date Time Temp Pulse Resp B/P (MAP) Pulse Ox O2 Delivery O2 Flow Rate FiO2 03/16/17 13:58 97.0 98 22 121/89 98 Room Air Sp02 EP Interpretation: reviewed, normal General Appearance: no apparent distress Head: normocephalic, atraumatic Eyes: bilateral eye PERRL, bilateral eye EOMI ENT: normal pharynx Neck: full range of motion, supple Respiratory: lungs clear Cardiovascular #1: regular rate, rhythm Gastrointestinal: other - Patient has a drain in the left lower abdomen no signs of any hematomas or bruising, no signs of fluctuance, patient had discomfort diffusely, there is a large umbilical hernia which is reducible, Musculoskeletal: other - no focal deficit Neurologic: alert, oriented x3 Lymphatic: no adenopathy Medical Decision Making Diagnostic Impression: Primary Impression: Renal failure Additional Impression: Hyperkalemia ER Course Initially given the patient's history and presentation baseline blood was initiated Patient's x-ray of the abdomen does not reveal any acute pathology However given the patient's increased nausea after obtaining blood work there is findings a significant abnormality Including dangerously elevated hyperkalemia Patient's kidney function also is deteriorating With a very low CO2 count showing evidence of acidosis With this the patient required acute intervention regarding the potassium level also further hydration And patient requires admission for further care Labs Test 03/16/17 15:00 03/16/17 15:02 Total Creatine Kinase 64 U/L (26-308) Creatine Kinase MB 2.1 NG/ML (0.0-3.6) Creatine Kinase MB Relative Index 3.2 Troponin I 0.012 ng/mL (0.000-0.056) Lipase 265 U/L (73-393) White Blood Count 13.5 K/UL (4.8-10.8) Red Blood Count 5.49 M/UL (4.70-6.10) Hemoglobin 15.2 G/DL (14.2-18.0) Hematocrit 46.9 % (42.0-52.0) Mean Corpuscular Volume 85 FL (80-99) Mean Corpuscular Hemoglobin 27.7 PG (27.0-31.0) Mean Corpuscular Hemoglobin Concent 32.4 G/DL (32.0-36.0) Red Cell Distribution Width 14.6 % (11.6-14.8) Platelet Count 480 K/UL (150-450) Mean Platelet Volume 6.6 FL (6.5-10.1) Neutrophils (%) (Auto) 76.7 % (45.0-75.0) Lymphocytes (%) (Auto) 8.8 % (20.0-45.0) Monocytes (%) (Auto) 12.0 % (1.0-10.0) Eosinophils (%) (Auto) 1.4 % (0.0-3.0) Basophils (%) (Auto) 1.0 % (0.0-2.0) Sodium Level 129 MMOL/L (136-145) Potassium Level 5.9 MMOL/L (3.5-5.1) Chloride Level 99 MMOL/L (98-107) Carbon Dioxide Level 14 MMOL/L (21-32) Anion Gap 16 mmol/L (5-15) Blood Urea Nitrogen 46 mg/dL (7-18) Creatinine 3.0 MG/DL (0.55-1.30) Estimat Glomerular Filtration Rate 22.1 mL/min (>60) Glucose Level 215 MG/DL (74-106) Calcium Level 9.6 MG/DL (8.5-10.1) EKG Diagnostic Results Rate: normal Rhythm: NSR ST Segments: other - Nonspecific ST and T-wave changes Rhythm Strip Diag. Results EP Interpretation: yes Rate: 88 Rhythm: NSR, no PVC's, no ectopy Chest X-Ray Diagnostic Results Chest X-Ray Diagnostic Results : Chest X-Ray Ordered: Yes # of Views/Limited/Complete: 1 View Indication: Chest Pain EP Interpretation: Yes Interpretation: no consolidation, no effusion, no pneumothorax Electronically Signed by: Maria Elena Laird DO Other X-Ray Diagnostic Results Other X-Ray Diagnostic Results : X-Ray ordered: KUB # of Views/Limited Vs Complete: 1 View Indication: Pain EP Interpretation: Yes Interpretation: no dislocation, no soft tissue swelling, no fractures, nonspecific bowel gas, no sbo Impression: No acute disease Electronically Signed by: Maria Elena Laird DO Last Vital Signs Date Time Temp Pulse Resp B/P (MAP) Pulse Ox O2 Delivery O2 Flow Rate FiO2 03/16/17 13:58 97.0 98 22 121/89 98 Room Air Status: improved Disposition: ADMITTED INPATIENT Condition: Serious MARIA ELENA LAIRD D.O. Mar 16, 2017 14:32
[2017-03-16 15:17] LABS: EOSINOPHILS % (AUTO) 1.4 % (0.0-3.0); HEMATOCRIT 46.9 % (42.0-52.0); HEMOGLOBIN 15.2 G/DL (14.2-18.0); LYMPHOCYTES % (AUTO) 8.8 % (20.0-45.0); MEAN CORPUSCULAR VOLUME 85 FL (80-99); NEUTROPHILS % (AUTO) 76.7 % (45.0-75.0); PLATELET COUNT 480 K/UL (150-450); RED BLOOD COUNT 5.49 M/UL (4.70-6.10); RED CELL DISTRIBUTION WIDTH 14.6 % (11.6-14.8); WHITE BLOOD COUNT 13.5 K/UL (4.8-10.8)
[2017-03-16 15:36] VITALS: BP 100/75
[2017-03-16 15:38] LABS: ANION GAP 16 mmol/L (5-15); BLOOD UREA NITROGEN 46 mg/dL (7-18); CALCIUM 9.6 MG/DL (8.5-10.1); CARBON DIOXIDE 14 MMOL/L (21-32); CHLORIDE 99 MMOL/L (98-107); POTASSIUM 5.9 MMOL/L (3.5-5.1); SODIUM 129 MMOL/L (136-145)
[2017-03-16] MEDS ORDERED: Sodium Polystyrene Sulfonate Enema RECTAL ONE (16:30)
[2017-03-16] MEDS ORDERED: Sodium Bicarbonate 50ml Carp IV ONE (16:30)
[2017-03-16] MEDS ORDERED: SPIRONOLACTONE25 MG ORAL (17:07)
[2017-03-16 17:31] LABS: CKMB 2.1 NG/ML (0.0-3.6)
[2017-03-16 18:02] VITALS: BP 112/87
[2017-03-16 20:00] VITALS: BP 110/83
[2017-03-16] MEDS: Norco 5mg/325mg tab ORAL PRN (22:32)
[2017-03-16] MEDS ORDERED: NovoLOG Insulin Flexpen SUBQ SCH (23:30)
[2017-03-17] VITALS (7 sets, daily range): BP systolic 91–118; BP diastolic 57–87
[2017-03-17] MEDS ORDERED: Zosyn 3.375gm/50ml Premix 50 ML IVPB SCH
[2017-03-17] MEDS ORDERED: Vancomycin 1gm inj IVPB ONE ×2 (00:08→23:38)
[2017-03-17] MEDS ORDERED: Morphine 5mg/2.5ml Oral Soln ORAL PRN (02:30)
[2017-03-17] MEDS: Propranolol 10mg tab ORAL SCH ×2 (02:33→09:00)
[2017-03-17] MEDS: LORazepam 0.5mg tab ORAL PRN (02:33)
[2017-03-17] MEDS: Norco 5mg/325mg tab ORAL PRN (05:29)
[2017-03-17] MEDS: NovoLOG Insulin Flexpen SUBQ SCH ×4 (06:23→21:33)
--- NOTE | 2017-03-17 08:28 | Diagnostic Imaging Report ---
Indication: Abdominal pain Technique: Supine view of the abdomen Comparison: 09/27/2016 Findings: There is a chronic peritoneal drainage catheter now seen in the left lower quadrant and pelvis. Small bowel loops are dilated. No distal colonic stool demonstrated. Large density overlying the pelvis is consistent with known large umbilical hernia. Massive ascites previously demonstrated is no longer evident. Impression: Dilated small bowel loops. Findings may indicate small bowel obstruction versus ileus. Tunneled peritoneal dialysis catheter in the expected position.
--- NOTE | 2017-03-17 08:41 | Diagnostic Imaging Report ---
Indication: Chest pain Technique: One view of the chest Comparison: 09/27/2016 Findings: Inspiration is suboptimal but better than on the prior study. Lungs and pleural spaces are clear. There is some atelectasis at the right lung base. Heart size is normal Impression: No acute process
[2017-03-17 08:53] LABS: BASOPHILS % (AUTO) 0.9 % (0.0-2.0); EOSINOPHILS % (AUTO) 0.2 % (0.0-3.0); HEMATOCRIT 46.5 % (42.0-52.0); HEMOGLOBIN 14.6 G/DL (14.2-18.0); LYMPHOCYTES % (AUTO) 7.5 % (20.0-45.0); MEAN CORPUSCULAR VOLUME 86 FL (80-99); NEUTROPHILS % (AUTO) 77.4 % (45.0-75.0); PLATELET COUNT 473 K/UL (150-450); RED BLOOD COUNT 5.41 M/UL (4.70-6.10); RED CELL DISTRIBUTION WIDTH 14.9 % (11.6-14.8); WHITE BLOOD COUNT 12.3 K/UL (4.8-10.8)
[2017-03-17] MEDS ORDERED: Spironolactone 25mg tab ORAL SCH (09:00)
[2017-03-17 09:10] LABS: ANION GAP 14 mmol/L (5-15); BLOOD UREA NITROGEN 52 mg/dL (7-18); CARBON DIOXIDE 18 MMOL/L (21-32); CHLORIDE 97 MMOL/L (98-107); CREATININE 3.9 MG/DL (0.55-1.30); POTASSIUM 5.4 MMOL/L (3.5-5.1); SODIUM 129 MMOL/L (136-145)
[2017-03-17] MEDS: Lactulose 20gm/30ml UDC ORAL SCH ×2 (09:37→18:37)
[2017-03-17] MEDS: Bisacodyl EC 5mg tab ORAL SCH (09:39)
--- NOTE | 2017-03-17 11:46 | Diagnostic Imaging Report ---
Indication: Abdominal pain, status post recent tunneled peritoneal drainage catheter placement Technique: Spiral acquisitions obtained through the abdomen and pelvis. Patient attempted to ingest oral contrast but vomited most of it No IV contrast utilized, per referring physician request.. Multiplanar reconstructions were generated. Total dose length product 901 mGycm. CTDIvol(s) 15 mGy. Dose reduction achieved using automated exposure control Comparison: Localizing images obtained during tunneled catheter placement procedure of 03/14/2017 Findings: A loop of small bowel hand is attached mesenteric is now seen to have herniated into the previously demonstrated umbilical hernia, which previously contained only fluid. Proximal to the hernia, the small bowel is diffusely quite dilated. There is considerable fluid still present within the hernia sac, despite interim decompression of ascites by by a drainage catheter is uncertain as to whether the small bowel within the hernia sac as wall thickening or not. The attached mesentery only appears mildly congested, no more so than the mesentery outside of the hernia. The small bowel distal to the hernia is normal in caliber. Point of obstruction appears to be distal jejunum or proximal ileum. There is a tunneled chronic peritoneal drainage catheter which enters the peritoneal space via the left lower quadrant, traverses through the peritoneal space in the lower pelvis, tip in the right upper quadrant peritoneal space. There is a moderate amount of residual ascites fluid, although the amount of ascites fluid is decreased from the preoperative images. A small amount of ascites fluid is seen herniating into a small right inguinal hernia which otherwise contains only fat. There is considerable congestion of the mesentery The appendix is not definitely demonstrated. However, no findings to suggest acute appendicitis are evident. No evidence of diverticulosis or diverticulitis. No free intraperitoneal air. The distal esophagus is unremarkable. The stomach is mildly distended. The duodenum is unremarkable. Lack of IV contrast limits assessment of solid organs. The liver demonstrates hypertrophy with of the left lobe, mild atrophy of the right lobe, surface nodularity, consistent with cirrhosis. Sub-5 mm low-attenuation lesion is seen within segment for a, too small to characterize. No other definite focal abnormalities. The gallbladder is surgically absent. Bile ducts are nondilated. The spleen is borderline enlarged, measuring 13 cm long axis dimension. Only minimal splenic hilar and perigastric varices are demonstrated. There are questionably left adrenal nodules, although these may be artifactual, possibly representing adjacent varices. The right adrenal is unremarkable. The kidneys are unremarkable. No retroperitoneal or mesenteric mass or adenopathy. No pelvic mass or adenopathy The lung bases demonstrate minimal basilar atelectatic changes, are otherwise clear. The bones are unremarkable. Impression: Since 03/14/2017, interim herniation of a loop of small bowel and its attached mesentery into previously demonstrated umbilical hernia which previously contained only fluid. This results in high-grade small bowel obstruction. No definite evidence of strangulation, although impossible to confidently exclude. Satisfactory position of recently placed tunneled peritoneal drainage catheter. Note that there is residual ascites fluid present Evidence of hepatic cirrhosis, with slightly atrophic right lobe, slightly hypertrophic left lobe, hepatic surface nodularity Borderline splenomegaly, small upper abdominal varices, diffuse mesenteric congestion, presumably related to such Sub-5 mm low-attenuation lesion in the right hepatic lobe, too small to characterize, most likely benign simple cysts or bile hamartomas Questionable left adrenal nodule versus adjacent varices Basilar pulmonary dependent atelec -- tasis The CT scanner at [facility] is accredited by the [employer] and the scans are performed using protocols designed to limit radiation exposure to as low as reasonably achievable to attain images of sufficient resolution adequate for diagnostic evaluation.
[2017-03-17] MEDS ORDERED: Flu Vaccine Quadrivalent 0.5ml IM ONE (12:00)
[2017-03-17] MEDS ORDERED: Morphine Sulfate 2mg/ml Inj IVP PRN (17:45)
--- NOTE | 2017-03-17 19:15 | History and Physical Report ---
DATE OF ADMISSION: 03/16/2017 REASON FOR ADMISSION: Abdominal pain and renal failure. HISTORY OF PRESENT ILLNESS: This is a 51-year-old unfortunate male who has a long-standing history of end-stage liver disease, who had previously been on hospice. The patient has been coming in weekly to the emergency room for paracentesis, but recently underwent a peritoneal catheter placement. The patient now presents with abdominal pain, nausea, and vomiting, as well as acute renal failure. No reported fevers noted, but the patient is having abdominal pain. PAST MEDICAL HISTORY: Notable for hypertension, end-stage liver disease, renal disease, alcoholism, recurrent ascites, and chronic pain. MEDICATIONS: Reviewed. ALLERGIES: Reviewed. PHYSICAL EXAMINATION: GENERAL: Chronically ill-appearing male. VITAL SIGNS: Blood pressure 103/80, pulse 72, respirations 17, and temperature 96.3. HEENT: Negative. NECK: Supple. LUNGS: With decreased breath sounds bilaterally. CARDIAC: S1 and S2. Regular rate and rhythm. ABDOMEN: With diffuse tenderness and ascites. EXTREMITIES: No cyanosis or clubbing. LABORATORY DATA: Reviewed. IMPRESSION: 1. Hepatorenal syndrome. 2. Acute on chronic renal failure. 3. Hypokalemia. 4. Hyponatremia. 5. Mild leukocytosis. 6. Possible abdominal sepsis. RECOMMENDATIONS: IV hydration. Zosyn discontinued as the patient is penicillin allergic. We will add Flagyl. Continue vancomycin. Obtain GI and renal evaluation. Radiology to assess the peritoneal catheter and we will reevaluate and commend further and hope to transition back to long term once stabilized. Mason Monsalve M.D. DR: STEFANI JOB#: [id number] CC:
--- NOTE | 2017-03-17 21:15 | Consultation ---
DATE OF CONSULTATION: NEPHROLOGY CONSULTATION CONSULTING PHYSICIAN: Alicia Prieto M.D. ATTENDING PHYSICIAN: Mason Monsalve M.D. REFERRING PHYSICIAN: Masno Monsalve M.D. REASON FOR CONSULTATION: Hyperkalemia, elevated BUN and creatinine. HISTORY OF PRESENT ILLNESS: This is a 51-year-old male, who was [facility] due to generalized decline, nausea, and vomiting. I am asked to see the patient for elevation of BUN, creatinine, and potassium. Currently, the patient is vomiting. PAST MEDICAL HISTORY: 1. Alcoholic liver cirrhosis. 2. Type 2 diabetes mellitus. 3. History of previous acute kidney injury. 4. Hypertensive cardiovascular disease. 5. History of gastroesophageal reflux disease. 6. Recurrent ascites. 7. COPD. GROUP HOME MEDICATIONS: Tylenol p.r.n., albuterol inhaler, Dulcolax, Benadryl p.r.n., Nexium, Levsin p.r.n., Novolin R sliding scale, lactulose p.r.n., Ativan p.r.n., Remeron, morphine sulfate p.r.n., multivitamins, omeprazole, Zofran p.r.n., propranolol, and Aldactone. ALLERGIES: Penicillins. SOCIAL HISTORY: Otherwise, unable to obtain. The patient is confused and vomiting. FAMILY HISTORY: Otherwise, unable to obtain. The patient is confused and vomiting. REVIEW OF SYSTEMS: Otherwise, unable to obtain. The patient is confused and vomiting. PHYSICAL EXAMINATION: GENERAL: This is an elderly male, who is in no acute distress. VITAL SIGNS: Blood pressure 91/69, pulse 72 and regular, respirations 18, and temperature is 97 degrees. HEENT: Head is normocephalic and atraumatic. Pupils are equal, round, and reactive to light and accommodation consensually. NECK: Supple. Trachea midline. There is no lymphadenopathy or thyromegaly. LUNGS: Clear to auscultation and percussion. HEART: Regular rate and rhythm without rubs, murmurs, or gallops. ABDOMEN: Distended, soft, and nontender. He has Large Right Groin Hernia. He has ascites. Bowel sounds are active. EXTREMITIES: No clubbing or cyanosis. He has 2+ edema. NEUROLOGIC: He is alert, but confused. There were no gross focal findings. LABORATORY AND ANCILLARY DATA: CBC shows white count of 12,300, hematocrit is 46.5, and platelet count is 473,000. Serum chemistry, sodium 129, potassium 4.5, BUN 52, and creatinine 3.9. CT Scan Abdomen: Ileus with right inguinal incarcerated hernia. Left sided intra abdominal drainage catheter. Ascites. ASSESSMENT: 1. Suspect hepatorenal syndrome. 2. Acute Kidney Injury. 3. Acute Metabolic Acidosis. 4. Tense Recurrent Ascites. 5. Alcoholic Liver Cirrhosis. PLAN: 1. Avoid nephrotoxic medications. 2. Avoid over diuresis. 3. Slow hydration as to avoid reaccumulation of ascites. 4. DC Aldactone. 5. He will probably need dialysis soon. Thank you, Dr. Monsalve, for letting me to participate in the care of this patient. Alicia Prieto M.D. DR: Lia JOB#: [id number] CC: ROSE
--- NOTE | 2017-03-17 22:36 | General Progress Note ---
Assessment/Plan Assessment/Plan Assessment - EtoH Cirrhosis - Ascites - Abd pain - Renal failure - Poor prognosis Recommendations - Ascites fluid analysis - Broad spect abx - PPI - Lactulose - Renal follow up Subjective Allergies: Coded Allergies: PENICILLINS (Verified Allergy, Severe, 11/27/16) COPIED FROM UNCODED SECTION UNABLE TO ASSESS (Unverified , 03/10/17) Objective Last 24 Hour Vital Signs Date Time Temp Pulse Resp B/P (MAP) Pulse Ox O2 Delivery O2 Flow Rate FiO2 03/17/17 16:20 97.0 77 20 101/60 95 Room Air 03/17/17 16:00 106 03/17/17 12:55 97.0 72 20 91/69 98 Room Air 03/17/17 12:00 75 03/17/17 09:00 72 98/57 03/17/17 08:40 97.0 72 20 98/57 98 Room Air 03/17/17 08:00 69 03/17/17 04:03 84 03/17/17 04:00 96.3 72 17 103/80 98 Room Air 03/17/17 02:33 116 118/86 03/17/17 02:31 116 20 118/86 03/17/17 00:11 121 03/17/17 00:11 11 03/17/17 00:00 96.6 119 20 106/87 97 Room Air Intake and Output 03/17/17 03/18/17 19:00 07:00 Intake Total 1200 ml Output Total 350 ml Balance 850 ml Intake Oral 100 ml IV Total 1100 ml Output Urine Total 350 ml Laboratory Tests 03/17/17 08:40: White Blood Count 12.3H, Red Blood Count 5.41, Hemoglobin 14.6, Hematocrit 46.5 , Mean Corpuscular Volume 86, Mean Corpuscular Hemoglobin 27.0, Mean Corpuscular Hemoglobin Concent 31.4L, Red Cell Distribution Width 14.9H, Platelet Count 473H, Mean Platelet Volume 6.7, Neutrophils (%) (Auto) 77.4H, Lymphocytes (%) (Auto) 7.5L, Monocytes (%) (Auto) 14.0H, Eosinophils (%) (Auto) 0.2, Basophils (%) (Auto) 0.9, Sodium Level 129L, Potassium Level 5.4H, Chloride Level 97L, Carbon Dioxide Level 18L, Anion Gap 14, Blood Urea Nitrogen 52H, Creatinine 3.9H, Estimat Glomerular Filtration Rate 16.3, Glucose Level 185H, Calcium Level 9.0 03/17/17 19:00: Body Fluid Source Peritoneal, Body Fluid Volume 10, Body Fluid Appearance Hazy, Body Fluid RBC 196, Body Fluid Total Nucleated Cells 35, Body Fluid Polynuclear WBCs (%) 5, Body Fluid Mononuclear WBCs (%) 88, Body Fluid Mesothelial Cells (% ) 7 03/17/17 20:00: Random Vancomycin Level 11.4 Height (Feet): 5 Height (Inches): 7.00 Weight (Pounds): 147 LELAND THAPA Mar 17, 2017 22:36
[2017-03-17] MEDS ORDERED: Vancomycin 1gm/D5W 275ml IVPB ONE ×4 (23:30)
[2017-03-18] VITALS (14 sets, daily range): BP systolic 96–129; BP diastolic 68–91
[2017-03-18] MEDS: NovoLOG Insulin Flexpen SUBQ SCH ×4 (06:22→20:29)
--- NOTE | 2017-03-18 08:21 | General Progress Note ---
Assessment/Plan Assessment/Plan IMPRESSION: 1. Hepatorenal syndrome. 2. Acute on chronic renal failure. 3. Hypokalemia. 4. Hyponatremia. 5. Mild leukocytosis. 6. Possible abdominal sepsis. 7. SBO PLAN as per gi and renal NPO hydration empiric antibiotics followup KUB Subjective Allergies: Coded Allergies: PENICILLINS (Verified Allergy, Severe, 11/27/16) COPIED FROM UNCODED SECTION UNABLE TO ASSESS (Unverified , 03/10/17) Subjective noted findings appreciate consultants Objective Last 24 Hour Vital Signs Date Time Temp Pulse Resp B/P (MAP) Pulse Ox O2 Delivery O2 Flow Rate FiO2 03/18/17 04:00 94 03/18/17 04:00 97.1 97 17 107/89 99 Room Air 03/18/17 00:00 97.3 99 19 106/79 97 Room Air 03/18/17 00:00 95 03/17/17 20:00 79 03/17/17 20:00 98.0 88 18 99/78 96 Room Air 03/17/17 16:20 97.0 77 20 101/60 95 Room Air 03/17/17 16:00 106 03/17/17 12:55 97.0 72 20 91/69 98 Room Air 03/17/17 12:00 75 03/17/17 09:00 72 98/57 03/17/17 08:40 97.0 72 20 98/57 98 Room Air Laboratory Tests 03/17/17 08:40: White Blood Count 12.3H, Red Blood Count 5.41, Hemoglobin 14.6, Hematocrit 46.5 , Mean Corpuscular Volume 86, Mean Corpuscular Hemoglobin 27.0, Mean Corpuscular Hemoglobin Concent 31.4L, Red Cell Distribution Width 14.9H, Platelet Count 473H, Mean Platelet Volume 6.7, Neutrophils (%) (Auto) 77.4H, Lymphocytes (%) (Auto) 7.5L, Monocytes (%) (Auto) 14.0H, Eosinophils (%) (Auto) 0.2, Basophils (%) (Auto) 0.9, Sodium Level 129L, Potassium Level 5.4H, Chloride Level 97L, Carbon Dioxide Level 18L, Anion Gap 14, Blood Urea Nitrogen 52H, Creatinine 3.9H, Estimat Glomerular Filtration Rate 16.3, Glucose Level 185H, Calcium Level 9.0 03/17/17 19:00: Body Fluid Source Peritoneal, Body Fluid Volume 10, Body Fluid Appearance Hazy, Body Fluid RBC 196, Body Fluid Total Nucleated Cells 35, Body Fluid Polynuclear WBCs (%) 5, Body Fluid Mononuclear WBCs (%) 88, Body Fluid Mesothelial Cells (% ) 7 03/17/17 20:00: Random Vancomycin Level 11.4 03/18/17 08:00: White Blood Count [Pending], Red Blood Count [Pending], Hemoglobin [Pending], Hematocrit [Pending], Mean Corpuscular Volume [Pending], Mean Corpuscular Hemoglobin [Pending], Mean Corpuscular Hemoglobin Concent [Pending], Red Cell Distribution Width [Pending], Platelet Count [Pending], Mean Platelet Volume [ Pending], Neutrophils (%) (Auto) [Pending], Lymphocytes (%) (Auto) [Pending], Monocytes (%) (Auto) [Pending], Eosinophils (%) (Auto) [Pending], Basophils (%) (Auto) [Pending], Sodium Level [Pending], Potassium Level [Pending], Chloride Level [Pending], Carbon Dioxide Level [Pending], Blood Urea Nitrogen [Pending], Creatinine [Pending], Estimat Glomerular Filtration Rate [Pending], Glucose Level [Pending], Calcium Level [Pending], Ammonia [Pending], Alpha Fetoprotein [ Pending] Height (Feet): 5 Height (Inches): 7.00 Weight (Pounds): 147 Objective WDWN NAD clear breath sounds bilaterally without rhonchi or wheeze [id number] without MRG abdominal distention with umbilical hernia no CC edema nonfocal MARY ANNE CASON Mar 18, 2017 08:21
[2017-03-18 08:38] LABS: HEMATOCRIT 45.3 % (42.0-52.0); HEMOGLOBIN 14.9 G/DL (14.2-18.0); MEAN CORPUSCULAR VOLUME 86 FL (80-99); PLATELET COUNT 373 K/UL (150-450); RED BLOOD COUNT 5.25 M/UL (4.70-6.10); RED CELL DISTRIBUTION WIDTH 14.5 % (11.6-14.8); WHITE BLOOD COUNT 8.4 K/UL (4.8-10.8)
--- NOTE | 2017-03-18 08:46 | Cardiology Report ---
APPROVED REPORT EKG Measurement Heart [id number] 134P47 [id number] Sinus tachycardia Left axis deviation Abnormal ECG
--- NOTE | 2017-03-18 08:46 | Cardiology Report ---
APPROVED REPORT EKG Measurement Heart [id number] 134P47 [id number] Sinus tachycardia Left axis deviation Abnormal ECG
--- NOTE | 2017-03-18 08:46 | Cardiology Report ---
APPROVED REPORT EKG Measurement Heart [id number] 134P47 [id number] Sinus tachycardia Left axis deviation Abnormal ECG
[2017-03-18 08:52] LABS: ANION GAP 19 mmol/L (5-15); BLOOD UREA NITROGEN 63 mg/dL (7-18); CALCIUM 9.2 MG/DL (8.5-10.1); CARBON DIOXIDE 13 MMOL/L (21-32); CHLORIDE 98 MMOL/L (98-107); POTASSIUM 5.3 MMOL/L (3.5-5.1); SODIUM 130 MMOL/L (136-145)
[2017-03-18] MEDS: Propranolol 10mg tab ORAL SCH (09:00)
--- NOTE | 2017-03-18 09:12 | Nephrology Progress Note ---
Assessment/Plan Plan Ileus + Abd hernia with obstructive element - needs GS. CARMEN with hyperkalemia due to Hepatorenal Syn + Volume Depletion. Very Complex Case Subjective Subjective Thirsty Objective Objective Last 24 Hour Vital Signs Date Time Temp Pulse Resp B/P (MAP) Pulse Ox O2 Delivery O2 Flow Rate FiO2 03/18/17 04:00 94 03/18/17 04:00 97.1 97 17 107/89 99 Room Air 03/18/17 00:00 97.3 99 19 106/79 97 Room Air 03/18/17 00:00 95 03/17/17 20:00 79 03/17/17 20:00 98.0 88 18 99/78 96 Room Air 03/17/17 16:20 97.0 77 20 101/60 95 Room Air 03/17/17 16:00 106 03/17/17 12:55 97.0 72 20 91/69 98 Room Air 03/17/17 12:00 75 Laboratory Tests 03/17/17 19:00: Body Fluid Source Peritoneal, Body Fluid Volume 10, Body Fluid Appearance Hazy, Body Fluid RBC 196, Body Fluid Total Nucleated Cells 35, Body Fluid Polynuclear WBCs (%) 5, Body Fluid Mononuclear WBCs (%) 88, Body Fluid Mesothelial Cells (% ) 7 03/17/17 20:00: Random Vancomycin Level 11.4 03/18/17 08:00: White Blood Count 8.4, Red Blood Count 5.25, Hemoglobin 14.9, Hematocrit 45.3, Mean Corpuscular Volume 86, Mean Corpuscular Hemoglobin 28.4, Mean Corpuscular Hemoglobin Concent 32.8, Red Cell Distribution Width 14.5, Platelet Count 373, Mean Platelet Volume 6.6, Neutrophils (%) (Auto) , Lymphocytes (%) (Auto) , Monocytes (%) (Auto) , Eosinophils (%) (Auto) , Basophils (%) (Auto) , Neutrophils % (Manual) [Pending], Lymphocytes % (Manual) [Pending], Platelet Estimate [Pending], Platelet Morphology [Pending], Sodium Level 130L, Potassium Level 5.3H, Chloride Level 98, Carbon Dioxide Level 13L, Anion Gap 19H, Blood Urea Nitrogen 63H, Creatinine 5.0H, Estimat Glomerular Filtration Rate 12.2, Glucose Level 176H, Calcium Level 9.2, Ammonia 219H, Alpha Fetoprotein [Pending] Height (Feet): 5 Height (Inches): 7.00 Weight (Pounds): 147 Objective CV RR Lungs CTAP. Abd -SNT. BS +. RLQ Hernia! Tense Ascites!. E +@ B edema PIETRO MARION Mar 18, 2017 09:12
[2017-03-18] MEDS: Lactulose 20gm/30ml UDC ORAL SCH ×2 (09:32→22:53)
[2017-03-18] MEDS: Bisacodyl EC 5mg tab ORAL SCH (09:38)
[2017-03-18] MEDS ORDERED: Sodium Bicarbonate 50ml Carp IV ONE (12:00)
[2017-03-18] MEDS ORDERED: Heparin 2000 units/Ns 1000ml 1,000 ML ONE (12:56)
[2017-03-18] MEDS ORDERED: Lidocaine 1% Plain 30 ml INJ ONE (12:56)
[2017-03-18 12:59] LABS: INR 1.3 (0.9-1.1)
[2017-03-18] MEDS ORDERED: Sodium Chloride 500ML 500 ML IV ONE (13:30)
[2017-03-18] MEDS ORDERED: Sodium Bicarbonate 100 ML in NS 1000ml 1,000 ML IV ONE (13:30)
--- NOTE | 2017-03-18 13:33 | Pre-Procedure Note/Attestation ---
Pre-Procedure Note/Attestation Complete Prior to Procedure Planned Procedure: not applicable Procedure Narrative: temporary dialysis catheter Indications for Procedure Pre-Operative Diagnosis: acute renal failure Attestation I attest that I discussed the nature of the procedure; its benefits; risks and complications; and alternatives (and the risks and benefits of such alternatives ), prior to the procedure, with the patient (or the patient's legal lead generation representative). I attest that, if there was a reasonable possibility of needing a blood transfusion, the patient (or the patient's legal lead generation representative) was given the [facility] standardized written summary, pursuant to the Arturo Phoebe Blood Safety Act ([place] Health and Safety Code # 1645, as amended). I attest that I re-evaluated the patient just prior to the surgery and that there has been no change in the patient's H&P, except as documented below: ANANHT BRIAN M.D. Mar 18, 2017 13:33
--- NOTE | 2017-03-18 13:33 | Pre-Procedure Note/Attestation ---
Pre-Procedure Note/Attestation Complete Prior to Procedure Planned Procedure: not applicable Procedure Narrative: temporary dialysis catheter Indications for Procedure Pre-Operative Diagnosis: acute renal failure Attestation I attest that I discussed the nature of the procedure; its benefits; risks and complications; and alternatives (and the risks and benefits of such alternatives ), prior to the procedure, with the patient (or the patient's legal training representative). I attest that, if there was a reasonable possibility of needing a blood transfusion, the patient (or the patient's legal training representative) was given the [facility] standardized written summary, pursuant to the Arturo Phoebe Blood Safety Act ([place] Health and Safety Code # 1645, as amended). I attest that I re-evaluated the patient just prior to the surgery and that there has been no change in the patient's H&P, except as documented below: ANANTH BRIAN M.D. Mar 18, 2017 13:33
--- NOTE | 2017-03-18 13:33 | Pre-Procedure Note/Attestation ---
Pre-Procedure Note/Attestation Complete Prior to Procedure Planned Procedure: not applicable Procedure Narrative: temporary dialysis catheter Indications for Procedure Pre-Operative Diagnosis: acute renal failure Attestation I attest that I discussed the nature of the procedure; its benefits; risks and complications; and alternatives (and the risks and benefits of such alternatives ), prior to the procedure, with the patient (or the patient's legal sales representative trainee). I attest that, if there was a reasonable possibility of needing a blood transfusion, the patient (or the patient's legal sales representative trainee) was given the [facility] standardized written summary, pursuant to the Arturo Phoebe Blood Safety Act ([place] Health and Safety Code # 1645, as amended). I attest that I re-evaluated the patient just prior to the surgery and that there has been no change in the patient's H&P, except as documented below: ANANTH BRIAN M.D. Mar 18, 2017 13:33
[2017-03-18] MEDS ORDERED: NS 275ml ONE (14:16)
[2017-03-18] MEDS ORDERED: Tubing IV Secondary IV ONE (14:16)
[2017-03-18] MEDS ORDERED: D5W 275ml ONE (14:16)
--- NOTE | 2017-03-18 15:00 | Consultation ---
History of Present Illness General Date patient seen: Mar 18, 2017 Chief Complaint: General Complaint Present Illness HPI 51 year old male with significant liver disease and recent hepatorenal syndrome currently admitted for medical care and management was noted to have acute incarceration of umbilical hernia. CT demonstrated small bowel in hernia as compared to empty hernia prior. Surgery called to evaluate. Patient is a poor historian so history obtained from medical records. when asked about hernia, patient states he has had it for 2 years now and it has become large. has never had incarcerated bowel prior. complaining of cramping abdominal pain. no n/v/f/c. Allergies: Coded Allergies: PENICILLINS (Verified Allergy, Severe, 11/27/16) COPIED FROM UNCODED SECTION UNABLE TO ASSESS (Unverified , 03/10/17) Medication History Scheduled Esomeprazole Magnesium (Nexium), 40 MG ORAL DAILY, (Reported) Insulin Detemir (Levemir Flexpen), 18 SUBQ BID, (Reported) Insulin Regular, Human* (Novolin R*), 0 SUBQ .SLIDING SCALE, (Reported) Lactulose (Lactulose*), 30 ML ORAL BID, (Reported) Mirtazapine* (Remeron*), 15 MG ORAL BEDTIME, (Reported) Mu-Vits-Min Th/Lycopene/Lutein (Centrum Silver Tablet), 1 EACH PO DAILY, ( Reported) Omeprazole Magnesium (Prilosec Otc), 20 MG ORAL DAILY, (Reported) Propranolol Hcl* (Inderal*), 20 MG ORAL DAILY, (Reported) Spironolactone* (Aldactone*), 25 MG ORAL DAILY, (Reported) Scheduled PRN Acetaminophen (Acetaminophen), 650 MG MN Q4HR PRN for Prn Headache/Temp > 101, ( Reported) Albuterol Sulfate* (Albuterol Sulfate Hhn*), 3 ML INH Q4H PRN for Shortness of Breath, (Reported) Bisacodyl* (Dulcolax*), 10 MG RECTAL every 24 hours PRN for Constipation, ( Reported) Diphenhydramine HCl (Benadryl), 50 MG PO EVERY 6 HOURS PRN for Itching, ( Reported) Hydrocodone Bit/Acetaminophen 5-325* (Raymond 5-325 Tablet*), 1 TAB ORAL Q4H PRN for For Pain, (Reported) Hyoscyamine Sulfate* (Levsin-Sl*), 0.125 MG ORAL Q6HR PRN for excessive secretions, (Reported) Lorazepam* (Ativan*), 0.5 MG ORAL Q4HR PRN for For Anxiety, (Reported) Morphine 10mg/5ml Oral Soln* (Morphine 10mg/5ml Oral Soln*), 0.25 MG ORAL EVERY 2 HOURS PRN for For Pain, (Reported) Ondansetron* (Zofran*), 4 MG ORAL Q6H PRN for Nausea & Vomiting, (Reported) Discontinued Medications Lorazepam* (Lorazepam*), 0.5 MG ORAL Q6HR PRN for For Anxiety, (Reported) Discontinued Reason: Medication dose changed Morphine Sulfate (Hilda), 5 MG PO Q4HR, (Reported) Discontinued Reason: Pt stopped taking med Pantoprazole* (Protonix*), 40 MG ORAL DAILY, (Reported) Discontinued Reason: Pt stopped taking med Spironolactone* (Aldactone*), 100 MG ORAL DAILY, (Reported) Discontinued Reason: Pt stopped taking med Spironolactone* (Aldactone*), 25 MG ORAL DAILY, (Reported) Discontinued Reason: Pt stopped taking med Thiamine Hcl* (Vitamin B-1*), 50 MG ORAL DAILY, (Reported) Discontinued Reason: Pt stopped taking med Patient History History Provided By: Patient, Medical Record Healthcare decision maker Dawson Hayes (brother) Resuscitation status Full Code Advanced Directive on File No Past Medical/Surgical History Past Medical/Surgical History: (1) Umbilical hernia, incarcerated (2) Renal insufficiency (3) Abdominal pain (4) Ascites (5) Hyperkalemia (6) Renal failure Review of Systems All Other Systems: negative except mentioned in HPI Physical Exam General Appearance: no apparent distress, alert HEENT: mucous membranes moist Neck: normal inspection Respiratory/Chest: normal breath sounds, no respiratory distress, no accessory muscle use Cardiovascular/Chest: normal peripheral pulses Abdomen: other - soft, mild distention, large umbilical hernia identified, no tenderness, no signs of infection. hernia easily reduced. 2cm defect noted. no rebound, no peritonitis Extremities: normal inspection Neurologic: alert, responsive Last 24 Hour Vital Signs Date Time Temp Pulse Resp B/P (MAP) Pulse Ox O2 Delivery O2 Flow Rate FiO2 03/18/17 14:31 98 16 2.0 03/18/17 14:30 83 20 129/91 99 Room Air 03/18/17 14:25 83 20 118/78 99 Nasal Cannula 2.0 03/18/17 14:20 83 20 128/74 99 Nasal Cannula 2.0 03/18/17 14:15 87 20 126/90 99 Room Air 03/18/17 13:50 92 20 103/71 97 Room Air 03/18/17 13:45 96 18 98/72 94 Room Air 03/18/17 13:40 97 18 109/76 97 Room Air 03/18/17 12:00 97.2 98 18 107/77 96 Room Air 03/18/17 08:00 96.8 95 20 96/70 96 Room Air 03/18/17 04:00 94 03/18/17 04:00 97.1 97 17 107/89 99 Room Air 03/18/17 00:00 97.3 99 19 106/79 97 Room Air 03/18/17 00:00 95 03/17/17 20:00 79 03/17/17 20:00 98.0 88 18 99/78 96 Room Air 03/17/17 16:20 97.0 77 20 101/60 95 Room Air 03/17/17 16:00 106 Laboratory Tests Test 03/17/17 19:00 03/17/17 20:00 03/18/17 08:00 03/18/17 09:50 Body Fluid Source Peritoneal Body Fluid Volume 10 mL Body Fluid Appearance Hazy Body Fluid RBC 196 /CUMM Body Fluid Total Nucleated Cells 35 /CUMM Body Fluid Polynuclear WBCs (%) 5 % Body Fluid Mononuclear WBCs (%) 88 % Body Fluid Mesothelial Cells (%) 7 % Random Vancomycin Level 11.4 ug/mL White Blood Count 8.4 K/UL (4.8-10.8) Red Blood Count 5.25 M/UL (4.70-6.10) Hemoglobin 14.9 G/DL (14.2-18.0) Hematocrit 45.3 % (42.0-52.0) Mean Corpuscular Volume 86 FL (80-99) Mean Corpuscular Hemoglobin 28.4 PG (27.0-31.0) Mean Corpuscular Hemoglobin Concent 32.8 G/DL (32.0-36.0) Red Cell Distribution Width 14.5 % (11.6-14.8) Platelet Count 373 K/UL (150-450) Mean Platelet Volume 6.6 FL (6.5-10.1) Neutrophils (%) (Auto) % (45.0-75.0) Lymphocytes (%) (Auto) % (20.0-45.0) Monocytes (%) (Auto) % (1.0-10.0) Eosinophils (%) (Auto) % (0.0-3.0) Basophils (%) (Auto) % (0.0-2.0) Differential Total Cells Counted 100 Neutrophils % (Manual) 75 % (45-75) Lymphocytes % (Manual) 11 % (20-45) L Monocytes % (Manual) 13 % (1-10) H Eosinophils % (Manual) 1 % (0-3) Basophils % (Manual) 0 % (0-2) Band Neutrophils 0 % (0-8) Platelet Estimate Adequate Platelet Morphology Normal Red Blood Cell Morphology Normal Sodium Level 130 MMOL/L (136-145) L Potassium Level 5.3 MMOL/L (3.5-5.1) H Chloride Level 98 MMOL/L (98-107) Carbon Dioxide Level 13 MMOL/L (21-32) L Anion Gap 19 mmol/L (5-15) H Blood Urea Nitrogen 63 mg/dL (7-18) H Creatinine 5.0 MG/DL (0.55-1.30) H Estimat Glomerular Filtration Rate 12.2 mL/min (>60) Glucose Level 176 MG/DL (74-106) H Calcium Level 9.2 MG/DL (8.5-10.1) Ammonia 219 umol/L (11.2-31.7) H Alpha Fetoprotein Pending Arterial Blood pH 7.345 (7.350-7.450) Arterial Blood Partial Pressure CO2 22.7 mmHg (35.0-45.0) *L Arterial Blood Partial Pressure O2 82.2 mmHg (75.0-100.0) Arterial Blood HCO3 12.1 mmol/L (22.0-26.0) L Arterial Blood Oxygen Saturation 94.3 % (92.0-98.0) Arterial Blood Base Excess -11.3 Yasir Test Positive Test 03/18/17 12:10 Prothrombin Time 13.2 SEC (9.30-11.50) H Prothromb Time International Ratio 1.3 (0.9-1.1) H Activated Partial Thromboplast Time 32 SEC (23-33) Microbiology Date/Time Source Procedure Growth Status 03/17/17 19:00 Abdominal Fluid Gram Stain - Final Resulted 03/17/17 19:00 Abdominal Fluid Body Fluid Culture Pending Resulted Height (Feet): 5 Height (Inches): 7.00 Weight (Pounds): 147 Medications Current Medications Medications (Trade) Dose Ordered Sig/Chaz Route PRN Reason Start Time Stop Time Status Last Admin Dose Admin Acetaminophen (Tylenol) 650 mg Q4H PRN ORAL Mild Pain/Temp > 100.5 03/16/17 22:15 04/15/17 22:14 Acetaminophen/ Hydrocodone Bitart (Raymond 5/325) 1 tab Q4H PRN ORAL Moderate Pain (Pain Scale 4-6) 03/16/17 22:15 03/23/17 22:14 03/17/17 05:29 Al Hydroxide/Mg Hydroxide (Mylanta) 30 ml Q4H PRN ORAL DYSPEPSIA 03/16/17 22:15 04/15/17 22:14 03/17/17 00:48 Bisacodyl (Dulcolax) 10 mg DAILY ORAL 03/17/17 09:00 04/16/17 08:59 03/18/17 09:38 Ciprofloxacin (Cipro 250mg tab) 250 mg DAILY ORAL 03/17/17 13:00 03/24/17 12:59 03/18/17 09:38 Dextrose (Dextrose 50%) STAT PRN IV Hypoglycemia 03/17/17 03:30 04/16/17 03:29 Diphenhydramine HCl (Benadryl) 25 mg Q6H PRN ORAL Itching 03/17/17 03:15 04/16/17 03:14 Insulin Aspart (NovoLOG) BEFORE MEALS AND HS SUBQ 03/17/17 06:30 04/16/17 06:29 03/18/17 12:44 Lactulose (Cephulac) 30 gm BID ORAL 03/17/17 09:00 04/16/17 08:59 03/18/17 09:32 Lorazepam (Ativan) 0.5 mg Q4H PRN ORAL For Anxiety 03/17/17 02:30 03/24/17 02:29 03/17/17 02:33 Metronidazole 100 ml @ 100 mls/hr Q8HR IVPB 03/17/17 09:00 03/24/17 08:59 03/18/17 06:03 Mirtazapine (Remeron) 15 mg BEDTIME ORAL 03/17/17 21:00 04/16/17 20:59 03/17/17 21:31 Morphine Sulfate (Morphine Sulfate) 0.5 mg Q3H PRN IVP Severe Pain (Pain Scale 7-10) 03/17/17 17:45 03/24/17 17:44 03/17/17 21:51 Multivitamins (Multivitamins) 1 tab DAILY ORAL 03/17/17 09:00 04/16/17 08:59 03/18/17 09:38 Ondansetron HCl (Zofran) 4 mg Q6H PRN IVP Nausea & Vomiting 03/17/17 03:15 04/16/17 03:14 03/17/17 05:26 Pantoprazole (Protonix) 40 mg DAILY ORAL 03/17/17 09:00 04/16/17 08:59 03/18/17 09:36 Propranolol HCl (Inderal) 20 mg DAILY ORAL 03/17/17 03:00 04/16/17 02:59 03/17/17 02:33 Sodium Bicarbonate 100 ml/Sodium Chloride 1,100 ml @ 50 mls/hr Q22H ONCE IV 03/18/17 13:30 03/19/17 11:29 Sodium Chloride 1,000 ml @ 75 mls/hr [id number] IV 03/17/17 14:30 04/16/17 14:29 03/18/17 02:05 Vancomycin HCl (Vanco rx to dose) 1 ea DAILY PRN MISC Per rx protocol 03/16/17 23:00 04/15/17 22:59 Assessment/Plan Problem List: (1) Umbilical hernia, incarcerated Assessment & Plan: 51M with advanced liver disease, acute hepatorenal syndrome , and recent incarceration of umbilical hernia. I was able to reduce hernia manually at bedside without difficulty. patient seem to suddenly feel better and discomfort improved. unfortunately given his medical history he is not candidate for urgent repair of umbilical hernia. as long as reducible should be safe for time being until medically improved. if at anytime bowel herniation recurs and cannot be reduced or becomes strangulated will need emergency surgery. -no acute surgical intervention necessary now that hernia is reduced. -will follow. okay for clears. AM labs ICD Codes: K42.0 - Umbilical hernia with obstruction, without gangrene SNOMED: [id number] Status: stable Dragan Escalera Mar 18, 2017 15:00
--- NOTE | 2017-03-18 15:23 | Brief Operative Note ---
Immediate Post Operative Note Operative Note Pre-op Diagnosis: acute renal failure Procedure: dialysis catheter R groin Post-op Diagnosis: same as pre-op Findings: consistent w/pre-op dx studies Surgeon: NICKO Anesthesia: local Specimen: none Complications: none Condition: stable Fluids: none Implant(s) used?: Yes - R femoral 3 lumen Bard trialysis catheter ANANTH BRIAN M.D. Mar 18, 2017 15:23
--- NOTE | 2017-03-18 16:25 | Diagnostic Imaging Report ---
Indication: Acute renal failure Technique: Procedure performed at bedside. Procedural timeout performed. Total sterile technique, including sterile probe cover and sterile gel, sterile gloves, hand hygiene, hat, mask, sterile gown, large sterile drape, and preparation with 2% chlorhexidine utilized. Local anesthesia with 1% lidocaine. Under real-time ultrasound guidance, puncture right common femoral vein using 21-gauge micropuncture needle, passage 0.018 guidewire, insertion 4 Sudanese micropuncture introducer, passage 0.035 guidewire, over which was passed serial dilators and then a 13 Sudanese 30 cm triple-lumen temporary dialysis catheter. Guidewire was removed. Catheter ports were aspirated and flushed. The catheter was fixed to the skin. Patient tolerated procedure well. A chest x-ray was obtained, documents catheter tip position at the expected level of the upstream inferior vena cava. Comparison: None Findings: As above Impression: Successful bedside placement of right transjugular temporary dialysis catheter, as described.
[2017-03-18] MEDS ORDERED: Heparin Sod 1000 units/ml 10ml IV PRN (17:00)
[2017-03-18] MEDS ORDERED: Heparin 5000 units/ml inj INJ PRN (17:00)
--- NOTE | 2017-03-18 19:51 | General Progress Note ---
Assessment/Plan Assessment/Plan Assessment - EtoH Cirrhosis - Ascites - Abd pain - Renal failure, likely HRS - Poor prognosis Recommendations - Octreotide and midodrine - albumin trial - Broad spect abx - PPI - Lactulose - HD per renal Subjective Allergies: Coded Allergies: PENICILLINS (Verified Allergy, Severe, 11/27/16) COPIED FROM UNCODED SECTION UNABLE TO ASSESS (Unverified , 03/10/17) Subjective had vomiting earlier s/p HD catheter no abd pain renal failure worse Objective Last 24 Hour Vital Signs Date Time Temp Pulse Resp B/P (MAP) Pulse Ox O2 Delivery O2 Flow Rate FiO2 03/18/17 19:20 97.7 101 20 104/78 100 Room Air 03/18/17 16:00 97.3 87 20 99/68 96 Room Air 03/18/17 16:00 96 03/18/17 14:31 98 16 2.0 03/18/17 14:30 83 20 129/91 99 Room Air 03/18/17 14:25 83 20 118/78 99 Nasal Cannula 2.0 03/18/17 14:20 83 20 128/74 99 Nasal Cannula 2.0 03/18/17 14:15 87 20 126/90 99 Room Air 03/18/17 13:50 92 20 103/71 97 Room Air 03/18/17 13:45 96 18 98/72 94 Room Air 03/18/17 13:40 97 18 109/76 97 Room Air 03/18/17 12:00 94 03/18/17 12:00 97.2 98 18 107/77 96 Room Air 03/18/17 08:00 96.8 95 20 96/70 96 Room Air 03/18/17 08:00 86 03/18/17 04:00 94 03/18/17 04:00 97.1 97 17 107/89 99 Room Air 03/18/17 00:00 97.3 99 19 106/79 97 Room Air 03/18/17 00:00 95 03/17/17 20:00 79 03/17/17 20:00 98.0 88 18 99/78 96 Room Air Intake and Output 03/18/17 03/19/17 19:00 07:00 Intake Total 600 ml Balance 600 ml Intake Oral 600 ml Laboratory Tests 03/17/17 20:00: Random Vancomycin Level 11.4 03/18/17 08:00: White Blood Count 8.4, Red Blood Count 5.25, Hemoglobin 14.9, Hematocrit 45.3, Mean Corpuscular Volume 86, Mean Corpuscular Hemoglobin 28.4, Mean Corpuscular Hemoglobin Concent 32.8, Red Cell Distribution Width 14.5, Platelet Count 373, Mean Platelet Volume 6.6, Neutrophils (%) (Auto) , Lymphocytes (%) (Auto) , Monocytes (%) (Auto) , Eosinophils (%) (Auto) , Basophils (%) (Auto) , Differential Total Cells Counted 100, Neutrophils % (Manual) 75, Lymphocytes % ( Manual) 11L, Monocytes % (Manual) 13H, Eosinophils % (Manual) 1, Basophils % ( Manual) 0, Band Neutrophils 0, Platelet Estimate Adequate, Platelet Morphology Normal, Red Blood Cell Morphology Normal, Sodium Level 130L, Potassium Level 5.3H, Chloride Level 98, Carbon Dioxide Level 13L, Anion Gap 19H, Blood Urea Nitrogen 63H, Creatinine 5.0H, Estimat Glomerular Filtration Rate 12.2, Glucose Level 176H, Calcium Level 9.2, Ammonia 219H, Alpha Fetoprotein [Pending] 03/18/17 09:50: Arterial Blood pH 7.345L, Arterial Blood Partial Pressure CO2 22.7*L, Arterial Blood Partial Pressure O2 82.2, Arterial Blood HCO3 12.1L, Arterial Blood Oxygen Saturation 94.3, Arterial Blood Base Excess -11.3, Yasir Test Positive 03/18/17 12:10: Prothrombin Time 13.2H, Prothromb Time International Ratio 1.3H, Activated Partial Thromboplast Time 32 Height (Feet): 5 Height (Inches): 7.00 Weight (Pounds): 147 Objective WDWN NCAT supple CTA RRR soft flat, (+) large umbilical hernia, (+) L sided cath no edema nonfocal LELAND THAPA Mar 18, 2017 19:51
[2017-03-18] MEDS: SandoSTATIN 100mcg/ml amp SUBQ SCH (22:53)
[2017-03-19] VITALS: BP 94/62
[2017-03-19 04:00] VITALS: BP 110/77
[2017-03-19] MEDS: SandoSTATIN 100mcg/ml amp SUBQ SCH ×3 (06:24→21:45)
[2017-03-19] MEDS: Lactulose 20gm/30ml UDC ORAL SCH ×3 (06:24→21:44)
[2017-03-19] MEDS: NovoLOG Insulin Flexpen SUBQ SCH ×4 (06:38→20:58)
--- NOTE | 2017-03-19 06:42 | General Progress Note ---
Assessment/Plan Assessment/Plan IMPRESSION: 1. Hepatorenal syndrome. 2. Acute on chronic renal failure. 3. Hypokalemia. 4. Hyponatremia. 5. Mild leukocytosis. improved 6. Possible abdominal sepsis. 7. SBO 8. umbilical hernia PLAN as per gi and renal advance diet hydration empiric antibiotics followup KUB HD per renal dc planning Subjective Allergies: Coded Allergies: PENICILLINS (Verified Allergy, Severe, 11/27/16) COPIED FROM UNCODED SECTION UNABLE TO ASSESS (Unverified , 03/10/17) Subjective noted findings appreciate consultants hernia reduced Objective Last 24 Hour Vital Signs Date Time Temp Pulse Resp B/P (MAP) Pulse Ox O2 Delivery O2 Flow Rate FiO2 03/19/17 04:00 95 03/19/17 04:00 97.2 97 20 110/77 96 Room Air 2.0 03/19/17 00:00 83 03/19/17 00:00 97.2 97 20 94/62 97 Room Air 03/18/17 20:00 106 03/18/17 19:20 97.7 101 20 104/78 100 Room Air 03/18/17 16:00 97.3 87 20 99/68 96 Room Air 03/18/17 16:00 96 03/18/17 14:31 98 16 2.0 03/18/17 14:30 83 20 129/91 99 Room Air 03/18/17 14:25 83 20 118/78 99 Nasal Cannula 2.0 03/18/17 14:20 83 20 128/74 99 Nasal Cannula 2.0 03/18/17 14:15 87 20 126/90 99 Room Air 03/18/17 13:50 92 20 103/71 97 Room Air 03/18/17 13:45 96 18 98/72 94 Room Air 03/18/17 13:40 97 18 109/76 97 Room Air 03/18/17 12:00 94 03/18/17 12:00 97.2 98 18 107/77 96 Room Air 03/18/17 08:00 96.8 95 20 96/70 96 Room Air 03/18/17 08:00 86 Laboratory Tests 03/18/17 08:00: White Blood Count 8.4, Red Blood Count 5.25, Hemoglobin 14.9, Hematocrit 45.3, Mean Corpuscular Volume 86, Mean Corpuscular Hemoglobin 28.4, Mean Corpuscular Hemoglobin Concent 32.8, Red Cell Distribution Width 14.5, Platelet Count 373, Mean Platelet Volume 6.6, Neutrophils (%) (Auto) , Lymphocytes (%) (Auto) , Monocytes (%) (Auto) , Eosinophils (%) (Auto) , Basophils (%) (Auto) , Differential Total Cells Counted 100, Neutrophils % (Manual) 75, Lymphocytes % ( Manual) 11L, Monocytes % (Manual) 13H, Eosinophils % (Manual) 1, Basophils % ( Manual) 0, Band Neutrophils 0, Platelet Estimate Adequate, Platelet Morphology Normal, Red Blood Cell Morphology Normal, Sodium Level 130L, Potassium Level 5.3H, Chloride Level 98, Carbon Dioxide Level 13L, Anion Gap 19H, Blood Urea Nitrogen 63H, Creatinine 5.0H, Estimat Glomerular Filtration Rate 12.2, Glucose Level 176H, Calcium Level 9.2, Ammonia 219H, Alpha Fetoprotein [Pending] 03/18/17 09:50: Arterial Blood pH 7.345L, Arterial Blood Partial Pressure CO2 22.7*L, Arterial Blood Partial Pressure O2 82.2, Arterial Blood HCO3 12.1L, Arterial Blood Oxygen Saturation 94.3, Arterial Blood Base Excess -11.3, Yasir Test Positive 03/18/17 12:10: Prothrombin Time 13.2H, Prothromb Time International Ratio 1.3H, Activated Partial Thromboplast Time 32 03/19/17 05:10: Sodium Level [Pending], Potassium Level [Pending], Chloride Level [Pending], Carbon Dioxide Level [Pending], Blood Urea Nitrogen [Pending], Creatinine [ Pending], Estimat Glomerular Filtration Rate [Pending], Glucose Level [Pending] , Calcium Level [Pending], Alpha Fetoprotein [Pending], Prothrombin Time [ Pending], Prothromb Time International Ratio [Pending], Total Bilirubin [Pending ], Aspartate Amino Transf (AST/SGOT) [Pending], Alanine Aminotransferase (ALT/ SGPT) [Pending], Alkaline Phosphatase [Pending], Total Protein [Pending], Albumin [Pending], Globulin [Pending], Random Vancomycin Level [Pending] Height (Feet): 5 Height (Inches): 7.00 Weight (Pounds): 147 Objective WDWN NAD clear breath sounds bilaterally without rhonchi or wheeze [id number] without MRG abdominal pain improved no CC edema nonfocal MARY ANNE CASON Mar 19, 2017 06:42
[2017-03-19 07:04] LABS: INR 1.4 (0.9-1.1)
[2017-03-19 07:08] LABS: EOSINOPHILS % (AUTO) 3.4 % (0.0-3.0); HEMOGLOBIN 12.1 G/DL (14.2-18.0); LYMPHOCYTES % (AUTO) 7.8 % (20.0-45.0); MEAN CORPUSCULAR VOLUME 85 FL (80-99); MONOCYTES % (AUTO) 14.2 % (1.0-10.0); NEUTROPHILS % (AUTO) 73.6 % (45.0-75.0); PLATELET COUNT 243 K/UL (150-450); RED BLOOD COUNT 4.25 M/UL (4.70-6.10); RED CELL DISTRIBUTION WIDTH 14.7 % (11.6-14.8); WHITE BLOOD COUNT 9.6 K/UL (4.8-10.8)
--- NOTE | 2017-03-19 07:32 | Nephrology Progress Note ---
Assessment/Plan Plan Ileus + Abd hernia with obstructive element - needs GS eval? CARMEN with hyperkalemia due to Hepatorenal Syn. Had HD without apparent hypotension - evidence m/p of ATN. Has a Femoral Regis. Needs a better catheter to avoid line sepsis. HD tomorrow. Very Complex Case Subjective Subjective Withdrawn Objective Objective Last 24 Hour Vital Signs Date Time Temp Pulse Resp B/P (MAP) Pulse Ox O2 Delivery O2 Flow Rate FiO2 03/19/17 04:00 95 03/19/17 04:00 97.2 97 20 110/77 96 Room Air 2.0 03/19/17 00:00 83 03/19/17 00:00 97.2 97 20 94/62 97 Room Air 03/18/17 20:00 106 03/18/17 19:20 97.7 101 20 104/78 100 Room Air 03/18/17 16:00 97.3 87 20 99/68 96 Room Air 03/18/17 16:00 96 03/18/17 14:31 98 16 2.0 03/18/17 14:30 83 20 129/91 99 Room Air 03/18/17 14:25 83 20 118/78 99 Nasal Cannula 2.0 03/18/17 14:20 83 20 128/74 99 Nasal Cannula 2.0 03/18/17 14:15 87 20 126/90 99 Room Air 03/18/17 13:50 92 20 103/71 97 Room Air 03/18/17 13:45 96 18 98/72 94 Room Air 03/18/17 13:40 97 18 109/76 97 Room Air 03/18/17 12:00 94 03/18/17 12:00 97.2 98 18 107/77 96 Room Air 03/18/17 08:00 96.8 95 20 96/70 96 Room Air 03/18/17 08:00 86 Laboratory Tests 03/18/17 08:00: White Blood Count 8.4, Red Blood Count 5.25, Hemoglobin 14.9, Hematocrit 45.3, Mean Corpuscular Volume 86, Mean Corpuscular Hemoglobin 28.4, Mean Corpuscular Hemoglobin Concent 32.8, Red Cell Distribution Width 14.5, Platelet Count 373, Mean Platelet Volume 6.6, Neutrophils (%) (Auto) , Lymphocytes (%) (Auto) , Monocytes (%) (Auto) , Eosinophils (%) (Auto) , Basophils (%) (Auto) , Differential Total Cells Counted 100, Neutrophils % (Manual) 75, Lymphocytes % ( Manual) 11L, Monocytes % (Manual) 13H, Eosinophils % (Manual) 1, Basophils % ( Manual) 0, Band Neutrophils 0, Platelet Estimate Adequate, Platelet Morphology Normal, Red Blood Cell Morphology Normal, Sodium Level 130L, Potassium Level 5.3H, Chloride Level 98, Carbon Dioxide Level 13L, Anion Gap 19H, Blood Urea Nitrogen 63H, Creatinine 5.0H, Estimat Glomerular Filtration Rate 12.2, Glucose Level 176H, Calcium Level 9.2, Ammonia 219H, Alpha Fetoprotein [Pending] 03/18/17 09:50: Arterial Blood pH 7.345L, Arterial Blood Partial Pressure CO2 22.7*L, Arterial Blood Partial Pressure O2 82.2, Arterial Blood HCO3 12.1L, Arterial Blood Oxygen Saturation 94.3, Arterial Blood Base Excess -11.3, Yasir Test Positive 03/18/17 12:10: Prothrombin Time 13.2H, Prothromb Time International Ratio 1.3H, Activated Partial Thromboplast Time 32 03/19/17 04:55: Ammonia 115H 03/19/17 05:10: White Blood Count 9.6, Red Blood Count 4.25L, Hemoglobin 12.1L, Hematocrit 36.0L , Mean Corpuscular Volume 85, Mean Corpuscular Hemoglobin 28.4, Mean Corpuscular Hemoglobin Concent 33.5, Red Cell Distribution Width 14.7, Platelet Count 243, Mean Platelet Volume 7.2, Neutrophils (%) (Auto) 73.6, Lymphocytes (% ) (Auto) 7.8L, Monocytes (%) (Auto) 14.2H, Eosinophils (%) (Auto) 3.4H, Basophils (%) (Auto) 1.0, Prothrombin Time 14.3H, Prothromb Time International Ratio 1.4H, Sodium Level [Pending], Potassium Level [Pending], Chloride Level [ Pending], Carbon Dioxide Level [Pending], Blood Urea Nitrogen [Pending], Creatinine [Pending], Estimat Glomerular Filtration Rate [Pending], Glucose Level [Pending], Calcium Level [Pending], Total Bilirubin [Pending], Aspartate Amino Transf (AST/SGOT) [Pending], Alanine Aminotransferase (ALT/SGPT) [Pending] , Alkaline Phosphatase [Pending], Total Protein [Pending], Albumin [Pending], Globulin [Pending], Alpha Fetoprotein [Pending], Random Vancomycin Level [ Pending] Height (Feet): 5 Height (Inches): 7.00 Weight (Pounds): 147 Objective CV RR Lungs CTAP. Abd -SNT. BS +. RLQ Hernia! Tense Ascites!. E +@ B edema PIETRO MARION Mar 19, 2017 07:32
[2017-03-19 07:43] LABS: ALANINE AMINOTRANSFERASE 13 U/L (12-78); ALBUMIN 2.8 G/DL (3.4-5.0); ALBUMIN/GLOBULIN RATIO 0.7 (1.0-2.7); ALKALINE PHOSPHATASE 54 U/L (46-116); ANION GAP 19 mmol/L (5-15); ASPARTATE AMINO TRANSFERASE 19 U/L (15-37); BILIRUBIN,TOTAL 1.2 MG/DL (0.2-1.0); BLOOD UREA NITROGEN 52 mg/dL (7-18); CALCIUM 8.8 MG/DL (8.5-10.1); CARBON DIOXIDE 16 MMOL/L (21-32); CHLORIDE 99 MMOL/L (98-107); CREATININE 4.9 MG/DL (0.55-1.30); POTASSIUM 4.1 MMOL/L (3.5-5.1); SODIUM 133 MMOL/L (136-145)
[2017-03-19 08:06] LABS: BILIRUBIN,DIRECT 0.4 MG/DL (0.0-0.3)
[2017-03-19 08:36] VITALS: BP 98/76
--- NOTE | 2017-03-19 08:56 | General Progress Note ---
Progress Note Progress Note Surgery: no acute events. doing well. having BM this morning. no n/v/f/c. labs reviewed on exam hernia remains reduced fortunately. abdomen soft, nt/nd, bs+. incarcerated umbilical hernia s/p reduction. remains reduced. would recommend elective repair of large >2cm umbilical hernia defect. unfortunately he has significant liver disease and recent hepatorenal syndrome so not optimal candidate for surgery at this time. as long as hernia reducible he will be okay for now. if incarcerated or strangulated will need emergent surgery. will follow while in hospital. Dragan Escalera Mar 19, 2017 08:56
--- NOTE | 2017-03-19 09:46 | Consultation ---
DATE OF CONSULTATION: 03/17/2017 GASTROENTEROLOGY CONSULTATION CHIEF COMPLAINT: I was asked to see this patient by Dr. Mason Monsalve for evaluation of ascites. HISTORY OF PRESENT ILLNESS: The patient is an unfortunate 51-year-old gentleman with a long-standing history of alcoholic cirrhosis with end-stage liver disease, who is back to the hospital with abdominal discomfort. The patient is a minimal historian, but basically he complains of abdominal pain. He has had history of multiple paracenteses and eventually he had peritoneal catheter placement. The patient also has been found to have renal failure and has been evaluated by Renal services. He is on a number of medications, which are listed in the chart. PAST MEDICAL HISTORY: History of hypertension, end-stage liver disease, renal failure, alcoholism, history of recurrent ascites, status post ascites catheter placement. MEDICATIONS: Noted. ALLERGIES: Reviewed and they include penicillin. FAMILY HISTORY: Noncontributory. SOCIAL HISTORY: The patient previously was a heavy alcohol user, which resulted in cirrhosis. REVIEW OF SYSTEMS: Otherwise negative. PHYSICAL EXAMINATION: GENERAL: Debilitated thin man, seen in his room. HEENT: Normocephalic and atraumatic. Sclerae were anicteric. Dentition was poor. NECK: Supple. CHEST: Clear to auscultation. CARDIOVASCULAR: Revealed regular rate. ABDOMEN: Soft with mild tenderness to palpation in epigastric and right-sided regions. The ascites catheter in the peritoneum was noted. EXTREMITIES: Revealed no edema. LABORATORY DATA: Laboratory data was noted. ASSESSMENT AND RECOMMENDATION: This patient presents with abdominal pain in the setting of a history of ascites and alcoholic cirrhosis. The patient will have to be ruled out for spontaneous bacterial peritonitis and therefore a sample of the ascites fluid will should be sent for evaluation. In the meantime, the patient lactulose can be given. There is no contraindication to feeding. I will follow this patient with you. Thank you for asking me to participate in the care of this patient. Mary Mireles M.D. DR: ANGELICA JOB#: [id number] CC: ROSE
[2017-03-19] MEDS: Bisacodyl EC 5mg tab ORAL SCH (10:10)
[2017-03-19 11:38] VITALS: BP 96/70
[2017-03-19 15:55] VITALS: BP 102/74
[2017-03-19 20:00] VITALS: BP 101/63
--- NOTE | 2017-03-19 21:30 | General Progress Note ---
Assessment/Plan Assessment/Plan Assessment - EtoH Cirrhosis - Ascites - Abd pain w/o SBP - Renal failure, likely HRS - Poor prognosis Recommendations - Octreotide and midodrine - albumin trial - Broad spect abx - PPI - Lactulose - HD per renal Subjective Allergies: Coded Allergies: PENICILLINS (Verified Allergy, Severe, 11/27/16) COPIED FROM UNCODED SECTION UNABLE TO ASSESS (Unverified , 03/10/17) Subjective sleepy arousable labs noted Objective Last 24 Hour Vital Signs Date Time Temp Pulse Resp B/P (MAP) Pulse Ox O2 Delivery O2 Flow Rate FiO2 03/19/17 20:00 98.1 82 18 101/63 100 Room Air 03/19/17 16:00 76 03/19/17 15:55 97.5 80 18 102/74 95 Room Air 03/19/17 12:00 80 03/19/17 11:38 97.0 80 18 96/70 94 Room Air 03/19/17 08:36 97.9 98 20 98/76 95 Room Air 03/19/17 08:00 75 03/19/17 04:00 95 03/19/17 04:00 97.2 97 20 110/77 96 Room Air 2.0 03/19/17 00:00 83 03/19/17 00:00 97.2 97 20 94/62 97 Room Air Intake and Output 03/19/17 03/20/17 19:00 07:00 Intake Total 360 ml Balance 360 ml Intake Oral 360 ml # Bowel Movements 5 Laboratory Tests 03/19/17 04:55: Ammonia 115H 03/19/17 05:10: White Blood Count 9.6, Red Blood Count 4.25L, Hemoglobin 12.1L, Hematocrit 36.0L , Mean Corpuscular Volume 85, Mean Corpuscular Hemoglobin 28.4, Mean Corpuscular Hemoglobin Concent 33.5, Red Cell Distribution Width 14.7, Platelet Count 243, Mean Platelet Volume 7.2, Neutrophils (%) (Auto) 73.6, Lymphocytes (% ) (Auto) 7.8L, Monocytes (%) (Auto) 14.2H, Eosinophils (%) (Auto) 3.4H, Basophils (%) (Auto) 1.0, Prothrombin Time 14.3H, Prothromb Time International Ratio 1.4H, Sodium Level 133L, Potassium Level 4.1, Chloride Level 99, Carbon Dioxide Level 16L, Anion Gap 19H, Blood Urea Nitrogen 52H, Creatinine 4.9H, Estimat Glomerular Filtration Rate 12.5, Glucose Level 155H, Calcium Level 8.8, Total Bilirubin 1.2H, Direct Bilirubin 0.4H, Aspartate Amino Transf (AST/SGOT) 19, Alanine Aminotransferase (ALT/SGPT) 13, Alkaline Phosphatase 54, Total Protein 6.7, Albumin 2.8L, Globulin 3.9, Albumin/Globulin Ratio 0.7L, Alpha Fetoprotein [Pending], Random Vancomycin Level 19.8 Height (Feet): 5 Height (Inches): 7.00 Weight (Pounds): 147 Objective WDWN NCAT supple CTA RRR soft flat, (+) large umbilical hernia, (+) L sided cath no edema nonfocal LELAND THAPA Mar 19, 2017 21:30
[2017-03-19 22:21] LABS: ALANINE AMINOTRANSFERASE 11 U/L (12-78); ALBUMIN 2.6 G/DL (3.4-5.0); ALBUMIN/GLOBULIN RATIO 0.8 (1.0-2.7); ALKALINE PHOSPHATASE 44 U/L (46-116); ANION GAP 18 mmol/L (5-15); ASPARTATE AMINO TRANSFERASE 12 U/L (15-37); BILIRUBIN,TOTAL 0.6 MG/DL (0.2-1.0); BLOOD UREA NITROGEN 52 mg/dL (7-18); CALCIUM 7.8 MG/DL (8.5-10.1); CARBON DIOXIDE 16 MMOL/L (21-32); CHLORIDE 102 MMOL/L (98-107); CREATININE 5.2 MG/DL (0.55-1.30); POTASSIUM 2.8 MMOL/L (3.5-5.1); SODIUM 136 MMOL/L (136-145)
[2017-03-20] VITALS: BP 102/63
[2017-03-20 03:57] VITALS: BP 101/60
[2017-03-20] MEDS: Lactulose 20gm/30ml UDC ORAL SCH ×3 (06:15→20:30)
[2017-03-20] MEDS: SandoSTATIN 100mcg/ml amp SUBQ SCH ×3 (06:15→20:30)
[2017-03-20] MEDS: NovoLOG Insulin Flexpen SUBQ SCH ×4 (06:16→20:33)
[2017-03-20] MEDS ORDERED: Heparin Sod 1000 units/ml 10ml IV PRN ×2 (07:45)
[2017-03-20 08:00] VITALS: BP 103/72
[2017-03-20 08:56] LABS: BASOPHILS % (AUTO) 1.6 % (0.0-2.0); EOSINOPHILS % (AUTO) 6.3 % (0.0-3.0); HEMOGLOBIN 10.7 G/DL (14.2-18.0); MEAN CORPUSCULAR VOLUME 87 FL (80-99); MONOCYTES % (AUTO) 14.8 % (1.0-10.0); NEUTROPHILS % (AUTO) 66.3 % (45.0-75.0); PLATELET COUNT 198 K/UL (150-450); RED BLOOD COUNT 4.03 M/UL (4.70-6.10); RED CELL DISTRIBUTION WIDTH 14.6 % (11.6-14.8)
[2017-03-20] MEDS: Bisacodyl EC 5mg tab ORAL SCH (09:25)
[2017-03-20] MEDS: KCl 10% 40mEq/30ml liquid ORAL ONE ×2 (09:29→13:38)
[2017-03-20] MEDS ORDERED: NS 275ml ONE (10:22)
[2017-03-20] MEDS ORDERED: Tubing IV Secondary IV ONE (10:22)
--- NOTE | 2017-03-20 11:31 | General Progress Note ---
Assessment/Plan Assessment/Plan Assessment - EtoH Cirrhosis - Ascites - Abd pain w/o SBP - Renal failure, likely HRS - Low K, metabolic acidosis - Poor prognosis Recommendations - Octreotide and midodrine - albumin trial - Broad spect abx - PPI - Lactulose - HD per renal Subjective Allergies: Coded Allergies: PENICILLINS (Verified Allergy, Severe, 11/27/16) COPIED FROM UNCODED SECTION UNABLE TO ASSESS (Unverified , 03/10/17) Subjective getting HD arousable labs noted no abd pain Objective Last 24 Hour Vital Signs Date Time Temp Pulse Resp B/P (MAP) Pulse Ox O2 Delivery O2 Flow Rate FiO2 03/20/17 09:19 Room Air 03/20/17 08:00 97.0 94 18 103/72 97 Room Air 03/20/17 08:00 98 03/20/17 04:00 92 03/20/17 03:57 99.0 84 20 101/60 100 Room Air 03/20/17 00:00 81 03/20/17 00:00 98.2 76 16 102/63 100 Room Air 03/19/17 20:00 98.1 82 18 101/63 100 Room Air 03/19/17 20:00 78 03/19/17 16:00 76 03/19/17 15:55 97.5 80 18 102/74 95 Room Air 03/19/17 12:00 80 03/19/17 11:38 97.0 80 18 96/70 94 Room Air Intake and Output 03/20/17 03/21/17 19:00 07:00 Intake Total 100 ml Balance 100 ml IV Total 100 ml Laboratory Tests 03/19/17 22:00: Sodium Level 136, Potassium Level 2.8L, Chloride Level 102, Carbon Dioxide Level 16L, Anion Gap 18H, Blood Urea Nitrogen 52H, Creatinine 5.2H, Estimat Glomerular Filtration Rate 11.7, Glucose Level 195H, Calcium Level 7.8L, Total Bilirubin 0.6, Aspartate Amino Transf (AST/SGOT) 12L, Alanine Aminotransferase ( ALT/SGPT) 11L, Alkaline Phosphatase 44L, Total Protein 5.9L, Albumin 2.6L, Globulin 3.3, Albumin/Globulin Ratio 0.8L 03/20/17 08:00: White Blood Count 10.0, Red Blood Count 4.03L, Hemoglobin 10.7L, Hematocrit 35.0L, Mean Corpuscular Volume 87, Mean Corpuscular Hemoglobin 26.6L, Mean Corpuscular Hemoglobin Concent 30.6L, Red Cell Distribution Width 14.6, Platelet Count 198, Mean Platelet Volume 6.6, Neutrophils (%) (Auto) 66.3, Lymphocytes (%) (Auto) 11.0L, Monocytes (%) (Auto) 14.8H, Eosinophils (%) (Auto ) 6.3H, Basophils (%) (Auto) 1.6, Hepatitis B Surface Antigen [Pending], Hepatitis B Surface Antibody [Pending], Hepatitis C Antibody [Pending] Height (Feet): 5 Height (Inches): 7.00 Weight (Pounds): 147 Objective WDWN NCAT supple CTA RRR soft flat, (+) umbilical hernia, (+) L sided cath no edema nonfocal LELAND THAPA Mar 20, 2017 11:31
[2017-03-20 11:56] VITALS: BP 94/61
--- NOTE | 2017-03-20 14:40 | Nephrology Progress Note ---
Assessment/Plan Plan Ileus + Abd hernia with obstructive element - needs GS eval? CARMEN with hyperkalemia due to Hepatorenal Syn. Had HD without apparent hypotension - evidence m/p of ATN. Has a Femoral Regis. Needs a better catheter to avoid line sepsis. HD tomorrow. Very Complex Case Subjective Subjective Much more alert. Less nauseated. Objective Objective Last 24 Hour Vital Signs Date Time Temp Pulse Resp B/P (MAP) Pulse Ox O2 Delivery O2 Flow Rate FiO2 03/20/17 11:56 98.2 93 18 94/61 97 Room Air 03/20/17 09:19 Room Air 03/20/17 08:00 97.0 94 18 103/72 97 Room Air 03/20/17 08:00 98 03/20/17 04:00 92 03/20/17 03:57 99.0 84 20 101/60 100 Room Air 03/20/17 00:00 81 03/20/17 00:00 98.2 76 16 102/63 100 Room Air 03/19/17 20:00 98.1 82 18 101/63 100 Room Air 03/19/17 20:00 78 03/19/17 16:00 76 03/19/17 15:55 97.5 80 18 102/74 95 Room Air Intake and Output 03/20/17 03/21/17 19:00 07:00 Intake Total 100 ml Balance 100 ml IV Total 100 ml Laboratory Tests 03/19/17 22:00: Sodium Level 136, Potassium Level 2.8L, Chloride Level 102, Carbon Dioxide Level 16L, Anion Gap 18H, Blood Urea Nitrogen 52H, Creatinine 5.2H, Estimat Glomerular Filtration Rate 11.7, Glucose Level 195H, Calcium Level 7.8L, Total Bilirubin 0.6, Aspartate Amino Transf (AST/SGOT) 12L, Alanine Aminotransferase ( ALT/SGPT) 11L, Alkaline Phosphatase 44L, Total Protein 5.9L, Albumin 2.6L, Globulin 3.3, Albumin/Globulin Ratio 0.8L 03/20/17 08:00: White Blood Count 10.0, Red Blood Count 4.03L, Hemoglobin 10.7L, Hematocrit 35.0L, Mean Corpuscular Volume 87, Mean Corpuscular Hemoglobin 26.6L, Mean Corpuscular Hemoglobin Concent 30.6L, Red Cell Distribution Width 14.6, Platelet Count 198, Mean Platelet Volume 6.6, Neutrophils (%) (Auto) 66.3, Lymphocytes (%) (Auto) 11.0L, Monocytes (%) (Auto) 14.8H, Eosinophils (%) (Auto ) 6.3H, Basophils (%) (Auto) 1.6, Hepatitis B Surface Antigen [Pending], Hepatitis B Surface Antibody [Pending], Hepatitis C Antibody [Pending] Height (Feet): 5 Height (Inches): 7.00 Weight (Pounds): 147 Objective CV RR Lungs CTAP. Abd -SNT. BS +. RLQ Hernia! Tense Ascites!. E +@ B edema Had HD Clinically better. Hypokelemik. GFR m/p better too. PIETRO MARION Mar 20, 2017 14:40
[2017-03-20 16:00] VITALS: BP 100/66
--- NOTE | 2017-03-20 18:27 | General Progress Note ---
Assessment/Plan Assessment/Plan IMPRESSION: 1. Hepatorenal syndrome. 2. Acute on chronic renal failure. 3. Hypokalemia. 4. Hyponatremia. 5. Mild leukocytosis. improved 6. Possible abdominal sepsis. 7. SBO 8. umbilical hernia PLAN dc planning advance diet hydration dc antibiotics HD per renal dc planning when cleared Subjective Allergies: Coded Allergies: PENICILLINS (Verified Allergy, Severe, 11/27/16) COPIED FROM UNCODED SECTION UNABLE TO ASSESS (Unverified , 03/10/17) Subjective noted findings need to confirm HD as outpatient Objective Last 24 Hour Vital Signs Date Time Temp Pulse Resp B/P (MAP) Pulse Ox O2 Delivery O2 Flow Rate FiO2 03/20/17 16:00 99.2 87 19 100/66 97 Room Air 03/20/17 16:00 85 03/20/17 12:00 94 03/20/17 11:56 98.2 93 18 94/61 97 Room Air 03/20/17 09:19 Room Air 03/20/17 08:00 97.0 94 18 103/72 97 Room Air 03/20/17 08:00 98 03/20/17 04:00 92 03/20/17 03:57 99.0 84 20 101/60 100 Room Air 03/20/17 00:00 81 03/20/17 00:00 98.2 76 16 102/63 100 Room Air 03/19/17 20:00 98.1 82 18 101/63 100 Room Air 03/19/17 20:00 78 Intake and Output 03/20/17 03/21/17 19:00 07:00 Intake Total 1600 ml Balance 1600 ml Intake Oral 1500 ml IV Total 100 ml # Voids 2 # Bowel Movements 4 Laboratory Tests 03/19/17 22:00: Sodium Level 136, Potassium Level 2.8L, Chloride Level 102, Carbon Dioxide Level 16L, Anion Gap 18H, Blood Urea Nitrogen 52H, Creatinine 5.2H, Estimat Glomerular Filtration Rate 11.7, Glucose Level 195H, Calcium Level 7.8L, Total Bilirubin 0.6, Aspartate Amino Transf (AST/SGOT) 12L, Alanine Aminotransferase ( ALT/SGPT) 11L, Alkaline Phosphatase 44L, Total Protein 5.9L, Albumin 2.6L, Globulin 3.3, Albumin/Globulin Ratio 0.8L 03/20/17 08:00: White Blood Count 10.0, Red Blood Count 4.03L, Hemoglobin 10.7L, Hematocrit 35.0L, Mean Corpuscular Volume 87, Mean Corpuscular Hemoglobin 26.6L, Mean Corpuscular Hemoglobin Concent 30.6L, Red Cell Distribution Width 14.6, Platelet Count 198, Mean Platelet Volume 6.6, Neutrophils (%) (Auto) 66.3, Lymphocytes (%) (Auto) 11.0L, Monocytes (%) (Auto) 14.8H, Eosinophils (%) (Auto ) 6.3H, Basophils (%) (Auto) 1.6, Hepatitis B Surface Antigen [Pending], Hepatitis B Surface Antibody [Pending], Hepatitis C Antibody [Pending] Height (Feet): 5 Height (Inches): 7.00 Weight (Pounds): 147 Objective WDWN NAD clear breath sounds bilaterally without rhonchi or wheeze [id number] without MRG abdominal pain stable no CC edema nonfocal MARY ANNE CASON Mar 20, 2017 18:27
[2017-03-20 20:05] VITALS: BP 114/77
[2017-03-20] MEDS: LORazepam 0.5mg tab ORAL PRN (20:24)
[2017-03-21] VITALS (12 sets, daily range): BP systolic 92–117; BP diastolic 67–84
[2017-03-21 05:07] LABS: BASOPHILS % (AUTO) 1.4 % (0.0-2.0); EOSINOPHILS % (AUTO) 5.5 % (0.0-3.0); HEMATOCRIT 34.3 % (42.0-52.0); HEMOGLOBIN 11.5 G/DL (14.2-18.0); LYMPHOCYTES % (AUTO) 10.4 % (20.0-45.0); MEAN CORPUSCULAR VOLUME 85 FL (80-99); MONOCYTES % (AUTO) 17.3 % (1.0-10.0); NEUTROPHILS % (AUTO) 65.4 % (45.0-75.0); PLATELET COUNT 154 K/UL (150-450); RED BLOOD COUNT 4.05 M/UL (4.70-6.10); RED CELL DISTRIBUTION WIDTH 14.5 % (11.6-14.8)
[2017-03-21 05:28] LABS: ANION GAP 13 mmol/L (5-15); BLOOD UREA NITROGEN 34 mg/dL (7-18); CALCIUM 7.6 MG/DL (8.5-10.1); CARBON DIOXIDE 20 MMOL/L (21-32); CHLORIDE 102 MMOL/L (98-107); POTASSIUM 3.1 MMOL/L (3.5-5.1); SODIUM 135 MMOL/L (136-145)
[2017-03-21] MEDS: SandoSTATIN 100mcg/ml amp SUBQ SCH ×3 (05:37→21:20)
[2017-03-21] MEDS: NovoLOG Insulin Flexpen SUBQ SCH ×4 (05:38→21:21)
[2017-03-21] MEDS: Lactulose 20gm/30ml UDC ORAL SCH ×3 (05:38→21:20)
[2017-03-21] MEDS ORDERED: Vancomycin 1gm/D5W 275ml IVPB ONE ×2 (06:30)
--- NOTE | 2017-03-21 09:12 | General Progress Note ---
Assessment/Plan Assessment/Plan IMPRESSION: 1. Hepatorenal syndrome. 2. Acute on chronic renal failure. 3. Hypokalemia. 4. Hyponatremia. 5. Mild leukocytosis. improved 6. Possible abdominal sepsis. 7. SBO 8. umbilical hernia PLAN dc planning today diet as tolerate dc antibiotics and monitor HD per renal Subjective Allergies: Coded Allergies: PENICILLINS (Verified Allergy, Severe, 11/27/16) COPIED FROM UNCODED SECTION UNABLE TO ASSESS (Unverified , 03/10/17) Subjective tolerating PO lytes noted need to confirm HD as outpatient Objective Last 24 Hour Vital Signs Date Time Temp Pulse Resp B/P (MAP) Pulse Ox O2 Delivery O2 Flow Rate FiO2 03/21/17 08:00 97.8 88 20 103/78 97 Room Air 03/21/17 04:00 95 03/21/17 04:00 98.4 94 20 99/72 94 Room Air 03/21/17 02:55 98.1 03/21/17 00:00 98.1 88 20 117/73 Room Air 03/21/17 00:00 92 03/20/17 20:05 98.2 92 20 114/77 96 Room Air 03/20/17 20:00 97 03/20/17 16:00 99.2 87 19 100/66 97 Room Air 03/20/17 16:00 85 03/20/17 12:00 94 03/20/17 11:56 98.2 93 18 94/61 97 Room Air 03/20/17 09:19 Room Air Laboratory Tests 03/21/17 04:00: White Blood Count 11.0H, Red Blood Count 4.05L, Hemoglobin 11.5L, Hematocrit 34.3L, Mean Corpuscular Volume 85, Mean Corpuscular Hemoglobin 28.4, Mean Corpuscular Hemoglobin Concent 33.5, Red Cell Distribution Width 14.5, Platelet Count 154, Mean Platelet Volume 7.1, Neutrophils (%) (Auto) 65.4, Lymphocytes (% ) (Auto) 10.4L, Monocytes (%) (Auto) 17.3H, Eosinophils (%) (Auto) 5.5H, Basophils (%) (Auto) 1.4, Sodium Level 135L, Potassium Level 3.1L, Chloride Level 102, Carbon Dioxide Level 20L, Anion Gap 13, Blood Urea Nitrogen 34H, Creatinine 4.0H, Estimat Glomerular Filtration Rate 15.8, Glucose Level 173H, Calcium Level 7.6L, Phosphorus Level 4.0, Magnesium Level 1.7L, Random Vancomycin Level 10.3 Height (Feet): 5 Height (Inches): 7.00 Weight (Pounds): 147 Objective WDWN NAD clear breath sounds bilaterally without rhonchi or wheeze [id number] without MRG abdominal pain stable no CC edema nonfocal MARY ANNE CASON Mar 21, 2017 09:12
[2017-03-21] MEDS ORDERED: KCl 10% 40mEq/30ml liquid ORAL ONE (10:00)
[2017-03-21] MEDS: Bisacodyl EC 5mg tab ORAL SCH (10:10)
[2017-03-21] MEDS ORDERED: Heparin Sod 1000 units/ml 10ml INJ ONE (11:30)
[2017-03-21] MEDS ORDERED: Heparin 2000 units/Ns 1000ml INJ ONE (11:30)
[2017-03-21] MEDS ORDERED: Lidocaine 2% 20mg/ml/Epi 0.005mg/ml 20ml vial INJ ONE (11:30)
--- NOTE | 2017-03-21 11:49 | Pre-Procedure Note/Attestation ---
Pre-Procedure Note/Attestation Complete Prior to Procedure Planned Procedure: right Procedure Narrative: Permacath Indications for Procedure Pre-Operative Diagnosis: acute renal failure Attestation I attest that I discussed the nature of the procedure; its benefits; risks and complications; and alternatives (and the risks and benefits of such alternatives ), prior to the procedure, with the patient (or the patient's legal ict sales representative). I attest that, if there was a reasonable possibility of needing a blood transfusion, the patient (or the patient's legal ict sales representative) was given the [facility] standardized written summary, pursuant to the Arturo Phoebe Blood Safety Act ([place] Health and Safety Code # 1645, as amended). I attest that I re-evaluated the patient just prior to the surgery and that there has been no change in the patient's H&P, except as documented below: ANANTH BRIAN M.D. Mar 21, 2017 11:49
--- NOTE | 2017-03-21 11:49 | Pre-Procedure Note/Attestation ---
Pre-Procedure Note/Attestation Complete Prior to Procedure Planned Procedure: right Procedure Narrative: Permacath Indications for Procedure Pre-Operative Diagnosis: acute renal failure Attestation I attest that I discussed the nature of the procedure; its benefits; risks and complications; and alternatives (and the risks and benefits of such alternatives ), prior to the procedure, with the patient (or the patient's legal dental sales representative). I attest that, if there was a reasonable possibility of needing a blood transfusion, the patient (or the patient's legal dental sales representative) was given the [facility] standardized written summary, pursuant to the Arturo Phoebe Blood Safety Act ([place] Health and Safety Code # 1645, as amended). I attest that I re-evaluated the patient just prior to the surgery and that there has been no change in the patient's H&P, except as documented below: ANANTH BRIAN M.D. Mar 21, 2017 11:49
--- NOTE | 2017-03-21 11:49 | Pre-Procedure Note/Attestation ---
Pre-Procedure Note/Attestation Complete Prior to Procedure Planned Procedure: right Procedure Narrative: Permacath Indications for Procedure Pre-Operative Diagnosis: acute renal failure Attestation I attest that I discussed the nature of the procedure; its benefits; risks and complications; and alternatives (and the risks and benefits of such alternatives ), prior to the procedure, with the patient (or the patient's legal home office representative). I attest that, if there was a reasonable possibility of needing a blood transfusion, the patient (or the patient's legal home office representative) was given the [facility] standardized written summary, pursuant to the Arturo Phoebe Blood Safety Act ([place] Health and Safety Code # 1645, as amended). I attest that I re-evaluated the patient just prior to the surgery and that there has been no change in the patient's H&P, except as documented below: ANANTH BRIAN M.D. Mar 21, 2017 11:49
--- NOTE | 2017-03-21 13:00 | General Progress Note ---
Progress Note Progress Note Afebrile. Pt underwent placement of a permacath for dialysis. His abdomen is soft , umbilical dressing was removed. The skin is viable and the hernia is reducible. He is not a good candidate for an umbilical hernia repair due to intractable ascites. His outlook is grim. Kyle Coleman MD Mar 21, 2017 13:00
--- NOTE | 2017-03-21 13:26 | General Progress Note ---
Assessment/Plan Assessment/Plan Assessment - EtoH Cirrhosis - Ascites - Abd pain w/o SBP - resolved - Renal failure, likely HRS - Low K, metabolic acidosis - Poor prognosis Recommendations - Octreotide and midodrine - Broad spect abx - PPI - Lactulose - HD per renal Subjective Allergies: Coded Allergies: PENICILLINS (Verified Allergy, Severe, 11/27/16) COPIED FROM UNCODED SECTION UNABLE TO ASSESS (Unverified , 03/10/17) Subjective more awake today labs noted no abd pain Objective Last 24 Hour Vital Signs Date Time Temp Pulse Resp B/P (MAP) Pulse Ox O2 Delivery O2 Flow Rate FiO2 03/21/17 12:57 97.8 98 20 97/70 93 Room Air 03/21/17 11:50 87 22 109/78 96 Room Air 03/21/17 11:45 85 30 110/77 95 Room Air 03/21/17 11:40 91 30 106/72 96 Room Air 03/21/17 11:35 85 25 92/67 97 Room Air 03/21/17 11:30 86 25 97/75 95 Room Air 03/21/17 11:12 91 22 03/21/17 08:00 97.8 88 20 103/78 97 Room Air 03/21/17 04:00 95 03/21/17 04:00 98.4 94 20 99/72 94 Room Air 03/21/17 02:55 98.1 03/21/17 00:00 98.1 88 20 117/73 Room Air 03/21/17 00:00 92 03/20/17 20:05 98.2 92 20 114/77 96 Room Air 03/20/17 20:00 97 03/20/17 16:00 99.2 87 19 100/66 97 Room Air 03/20/17 16:00 85 Laboratory Tests 03/21/17 04:00: White Blood Count 11.0H, Red Blood Count 4.05L, Hemoglobin 11.5L, Hematocrit 34.3L, Mean Corpuscular Volume 85, Mean Corpuscular Hemoglobin 28.4, Mean Corpuscular Hemoglobin Concent 33.5, Red Cell Distribution Width 14.5, Platelet Count 154, Mean Platelet Volume 7.1, Neutrophils (%) (Auto) 65.4, Lymphocytes (% ) (Auto) 10.4L, Monocytes (%) (Auto) 17.3H, Eosinophils (%) (Auto) 5.5H, Basophils (%) (Auto) 1.4, Sodium Level 135L, Potassium Level 3.1L, Chloride Level 102, Carbon Dioxide Level 20L, Anion Gap 13, Blood Urea Nitrogen 34H, Creatinine 4.0H, Estimat Glomerular Filtration Rate 15.8, Glucose Level 173H, Calcium Level 7.6L, Phosphorus Level 4.0, Magnesium Level 1.7L, Random Vancomycin Level 10.3 Height (Feet): 5 Height (Inches): 7.00 Weight (Pounds): 147 Objective WDWN NCAT supple CTA RRR soft flat, (+) umbilical hernia, (+) L sided cath no edema nonfocal LELAND THAPA Mar 21, 2017 13:26
--- NOTE | 2017-03-21 13:44 | Diagnostic Imaging Report ---
Permacath Indications: Needs long-term dialysis access Technique: Patient previously received oral antibiotics shortly before the procedure . Total sterile technique, including sterile gloves, hand hygiene, hat, mask,, sterile gown, large sterile drape, and preparation with 2% chlorhexidine utilized. Local anesthesia with 1% lidocaine. Under real-time ultrasound guidance, puncture right internal jugular vein using 21-gauge micropuncture needle, passage 0.018 guidewire, exchange for 4 Japanese micropuncture introducer. The guidewire was used to measure the appropriate catheter length, and was removed. The sheath was left in place. The subcutaneous tract was then anesthetized with 1% lidocaine. A chest dermatotomy was made . The tunneling device was used to pull a 14.5 Japanese 19 cm BioFlo catheter through the subcutaneous tunnel to the neck dermatotomy. A guidewire was passed through the neck introducer into the inferior vena cava, and serial dilators were passed over it, followed by the introduction of a 14.5 Japanese AirGuard peel-away sheath. The catheter was then introduced into the sheath, the peel-away sheath was removed. Digital radiograph documents satisfactory catheter tip position in the high right atrium, no kinking at the insertion site. Both catheter ports aspirated and flushed. Catheter was fixed to the skin. Patient tolerated procedure well without immediate complication. Total fluoroscopy time 1.2 minutes. Total dose area product 55 dGycm2 . Comparison: None Findings: Completion radiograph documents satisfactory position and course of the catheter, catheter tip at the high right atrium. Impression: Successful placement of right transjugular tunneled dialysis catheter, as described above
--- NOTE | 2017-03-21 14:28 | Nephrology Progress Note ---
Assessment/Plan Plan Ileus resolving ESRD - getting PermCath today. Referred to [facility] [place] for outpatient HD. Next HD tomorrow if here Subjective Subjective Much more alert. Less nauseated. Objective Objective Last 24 Hour Vital Signs Date Time Temp Pulse Resp B/P (MAP) Pulse Ox O2 Delivery O2 Flow Rate FiO2 03/21/17 12:57 97.8 98 20 97/70 93 Room Air 03/21/17 11:50 87 22 109/78 96 Room Air 03/21/17 11:45 85 30 110/77 95 Room Air 03/21/17 11:40 91 30 106/72 96 Room Air 03/21/17 11:35 85 25 92/67 97 Room Air 03/21/17 11:30 86 25 97/75 95 Room Air 03/21/17 11:12 91 22 03/21/17 08:00 97.8 88 20 103/78 97 Room Air 03/21/17 04:00 95 03/21/17 04:00 98.4 94 20 99/72 94 Room Air 03/21/17 02:55 98.1 03/21/17 00:00 98.1 88 20 117/73 Room Air 03/21/17 00:00 92 03/20/17 20:05 98.2 92 20 114/77 96 Room Air 03/20/17 20:00 97 03/20/17 16:00 99.2 87 19 100/66 97 Room Air 03/20/17 16:00 85 Laboratory Tests 03/21/17 04:00: White Blood Count 11.0H, Red Blood Count 4.05L, Hemoglobin 11.5L, Hematocrit 34.3L, Mean Corpuscular Volume 85, Mean Corpuscular Hemoglobin 28.4, Mean Corpuscular Hemoglobin Concent 33.5, Red Cell Distribution Width 14.5, Platelet Count 154, Mean Platelet Volume 7.1, Neutrophils (%) (Auto) 65.4, Lymphocytes (% ) (Auto) 10.4L, Monocytes (%) (Auto) 17.3H, Eosinophils (%) (Auto) 5.5H, Basophils (%) (Auto) 1.4, Sodium Level 135L, Potassium Level 3.1L, Chloride Level 102, Carbon Dioxide Level 20L, Anion Gap 13, Blood Urea Nitrogen 34H, Creatinine 4.0H, Estimat Glomerular Filtration Rate 15.8, Glucose Level 173H, Calcium Level 7.6L, Phosphorus Level 4.0, Magnesium Level 1.7L, Random Vancomycin Level 10.3 Height (Feet): 5 Height (Inches): 7.00 Weight (Pounds): 147 Objective CV RR Lungs CTAP. Abd -SNT. BS +. RLQ Hernia! Tense Ascites!. E +@ B edema Had HD Clinically better. Hypokelemik. GFR m/p better too. PIETRO MARION Mar 21, 2017 14:28
[2017-03-21] MEDS ORDERED: Heparin Sod 1000 units/ml 10ml IV PRN ×2 (15:00)
[2017-03-22] VITALS (8 sets, daily range): BP systolic 99–110; BP diastolic 74–82
[2017-03-22] MEDS: SandoSTATIN 100mcg/ml amp SUBQ SCH (06:14)
[2017-03-22] MEDS: Lactulose 20gm/30ml UDC ORAL SCH ×3 (06:14→22:00)
[2017-03-22] MEDS: NovoLOG Insulin Flexpen SUBQ SCH ×4 (06:20→21:04)
[2017-03-22 06:52] LABS: EOSINOPHILS % (AUTO) 3.8 % (0.0-3.0); HEMATOCRIT 39.4 % (42.0-52.0); HEMOGLOBIN 13.3 G/DL (14.2-18.0); LYMPHOCYTES % (AUTO) 6.9 % (20.0-45.0); MEAN CORPUSCULAR VOLUME 86 FL (80-99); MONOCYTES % (AUTO) 16.4 % (1.0-10.0); NEUTROPHILS % (AUTO) 71.8 % (45.0-75.0); PLATELET COUNT 208 K/UL (150-450); RED BLOOD COUNT 4.59 M/UL (4.70-6.10); RED CELL DISTRIBUTION WIDTH 15.1 % (11.6-14.8); WHITE BLOOD COUNT 14.1 K/UL (4.8-10.8)
[2017-03-22 07:54] LABS: ALANINE AMINOTRANSFERASE 12 U/L (12-78); ALBUMIN 2.6 G/DL (3.4-5.0); ALBUMIN/GLOBULIN RATIO 0.7 (1.0-2.7); ALKALINE PHOSPHATASE 53 U/L (46-116); ANION GAP 14 mmol/L (5-15); ASPARTATE AMINO TRANSFERASE 18 U/L (15-37); BILIRUBIN,TOTAL 0.9 MG/DL (0.2-1.0); BLOOD UREA NITROGEN 39 mg/dL (7-18); CALCIUM 8.2 MG/DL (8.5-10.1); CARBON DIOXIDE 19 MMOL/L (21-32); CHLORIDE 100 MMOL/L (98-107); CREATININE 4.3 MG/DL (0.55-1.30); POTASSIUM 3.5 MMOL/L (3.5-5.1); SODIUM 133 MMOL/L (136-145)
--- NOTE | 2017-03-22 08:30 | General Progress Note ---
Assessment/Plan Problem List: (1) Cirrhosis ICD Codes: K74.60 - Unspecified cirrhosis of liver SNOMED: 36880631 (2) Ascites ICD Codes: R18.8 - Other ascites SNOMED: 748107586 (3) Renal failure ICD Codes: N19 - Unspecified kidney failure SNOMED: 59458807 Assessment/Plan will dc octreotide and midodrine given patient on HD now fu labs dc planning per primary team Subjective ROS Limited/Unobtainable: No Allergies: Coded Allergies: PENICILLINS (Verified Allergy, Severe, 11/27/16) COPIED FROM UNCODED SECTION UNABLE TO ASSESS (Unverified , 03/10/17) Objective Last 24 Hour Vital Signs Date Time Temp Pulse Resp B/P (MAP) Pulse Ox O2 Delivery O2 Flow Rate FiO2 03/22/17 08:00 97.7 114 20 104/76 97 Room Air 03/22/17 04:00 98.1 106 20 110/78 92 Room Air 2.0 03/22/17 04:00 105 03/22/17 02:00 98.1 106 20 106/82 96 Room Air 2.0 03/22/17 00:00 120 03/22/17 00:00 97.7 105 20 106/82 96 Room Air 2.0 03/21/17 20:00 113 03/21/17 20:00 97.7 78 20 113/82 96 Room Air 2.0 03/21/17 16:00 104 03/21/17 16:00 97.7 105 20 102/75 96 Room Air 03/21/17 12:57 97.8 98 20 97/70 93 Room Air 03/21/17 12:00 105 03/21/17 11:50 87 22 109/78 96 Room Air 03/21/17 11:45 85 30 110/77 95 Room Air 03/21/17 11:40 91 30 106/72 96 Room Air 03/21/17 11:35 85 25 92/67 97 Room Air 03/21/17 11:30 86 25 97/75 95 Room Air 03/21/17 11:12 91 22 Laboratory Tests 03/22/17 06:30: White Blood Count 14.1H, Red Blood Count 4.59L, Hemoglobin 13.3L, Hematocrit 39.4L, Mean Corpuscular Volume 86, Mean Corpuscular Hemoglobin 28.9, Mean Corpuscular Hemoglobin Concent 33.7, Red Cell Distribution Width 15.1H, Platelet Count 208, Mean Platelet Volume 7.0, Neutrophils (%) (Auto) 71.8, Lymphocytes (%) (Auto) 6.9L, Monocytes (%) (Auto) 16.4H, Eosinophils (%) (Auto) 3.8H, Basophils (%) (Auto) 1.0, Sodium Level 133L, Potassium Level 3.5, Chloride Level 100, Carbon Dioxide Level 19L, Anion Gap 14, Blood Urea Nitrogen 39H, Creatinine 4.3H, Estimat Glomerular Filtration Rate 14.6, Glucose Level 160H, Calcium Level 8.2L, Total Bilirubin 0.9, Aspartate Amino Transf (AST/SGOT ) 18, Alanine Aminotransferase (ALT/SGPT) 12, Alkaline Phosphatase 53, Total Protein 6.3L, Albumin 2.6L, Globulin 3.7, Albumin/Globulin Ratio 0.7L, Vancomycin Level Trough 7.9 Height (Feet): 5 Height (Inches): 7.00 Weight (Pounds): 147 General Appearance: no apparent distress EENT: normal ENT inspection Neck: supple Cardiovascular: normal rate Respiratory/Chest: decreased breath sounds Abdomen: normal bowel sounds, non tender, soft Extremities: non-tender SEEMA JONES Mar 22, 2017 08:30
--- NOTE | 2017-03-22 08:30 | General Progress Note ---
Assessment/Plan Problem List: (1) Cirrhosis ICD Codes: K74.60 - Unspecified cirrhosis of liver SNOMED: 72931989 (2) Ascites ICD Codes: R18.8 - Other ascites SNOMED: 584183060 (3) Renal failure ICD Codes: N19 - Unspecified kidney failure SNOMED: 32076606 Assessment/Plan will dc octreotide and midodrine given patient on HD now fu labs dc planning per primary team Subjective ROS Limited/Unobtainable: No Allergies: Coded Allergies: PENICILLINS (Verified Allergy, Severe, 11/27/16) COPIED FROM UNCODED SECTION UNABLE TO ASSESS (Unverified , 03/10/17) Objective Last 24 Hour Vital Signs Date Time Temp Pulse Resp B/P (MAP) Pulse Ox O2 Delivery O2 Flow Rate FiO2 03/22/17 08:00 97.7 114 20 104/76 97 Room Air 03/22/17 04:00 98.1 106 20 110/78 92 Room Air 2.0 03/22/17 04:00 105 03/22/17 02:00 98.1 106 20 106/82 96 Room Air 2.0 03/22/17 00:00 120 03/22/17 00:00 97.7 105 20 106/82 96 Room Air 2.0 03/21/17 20:00 113 03/21/17 20:00 97.7 78 20 113/82 96 Room Air 2.0 03/21/17 16:00 104 03/21/17 16:00 97.7 105 20 102/75 96 Room Air 03/21/17 12:57 97.8 98 20 97/70 93 Room Air 03/21/17 12:00 105 03/21/17 11:50 87 22 109/78 96 Room Air 03/21/17 11:45 85 30 110/77 95 Room Air 03/21/17 11:40 91 30 106/72 96 Room Air 03/21/17 11:35 85 25 92/67 97 Room Air 03/21/17 11:30 86 25 97/75 95 Room Air 03/21/17 11:12 91 22 Laboratory Tests 03/22/17 06:30: White Blood Count 14.1H, Red Blood Count 4.59L, Hemoglobin 13.3L, Hematocrit 39.4L, Mean Corpuscular Volume 86, Mean Corpuscular Hemoglobin 28.9, Mean Corpuscular Hemoglobin Concent 33.7, Red Cell Distribution Width 15.1H, Platelet Count 208, Mean Platelet Volume 7.0, Neutrophils (%) (Auto) 71.8, Lymphocytes (%) (Auto) 6.9L, Monocytes (%) (Auto) 16.4H, Eosinophils (%) (Auto) 3.8H, Basophils (%) (Auto) 1.0, Sodium Level 133L, Potassium Level 3.5, Chloride Level 100, Carbon Dioxide Level 19L, Anion Gap 14, Blood Urea Nitrogen 39H, Creatinine 4.3H, Estimat Glomerular Filtration Rate 14.6, Glucose Level 160H, Calcium Level 8.2L, Total Bilirubin 0.9, Aspartate Amino Transf (AST/SGOT ) 18, Alanine Aminotransferase (ALT/SGPT) 12, Alkaline Phosphatase 53, Total Protein 6.3L, Albumin 2.6L, Globulin 3.7, Albumin/Globulin Ratio 0.7L, Vancomycin Level Trough 7.9 Height (Feet): 5 Height (Inches): 7.00 Weight (Pounds): 147 General Appearance: no apparent distress EENT: normal ENT inspection Neck: supple Cardiovascular: normal rate Respiratory/Chest: decreased breath sounds Abdomen: normal bowel sounds, non tender, soft Extremities: non-tender SEEMA JONES Mar 22, 2017 08:30
--- NOTE | 2017-03-22 08:30 | General Progress Note ---
Assessment/Plan Problem List: (1) Cirrhosis ICD Codes: K74.60 - Unspecified cirrhosis of liver SNOMED: 37673699 (2) Ascites ICD Codes: R18.8 - Other ascites SNOMED: 488426386 (3) Renal failure ICD Codes: N19 - Unspecified kidney failure SNOMED: 03900274 Assessment/Plan will dc octreotide and midodrine given patient on HD now fu labs dc planning per primary team Subjective ROS Limited/Unobtainable: No Allergies: Coded Allergies: PENICILLINS (Verified Allergy, Severe, 11/27/16) COPIED FROM UNCODED SECTION UNABLE TO ASSESS (Unverified , 03/10/17) Objective Last 24 Hour Vital Signs Date Time Temp Pulse Resp B/P (MAP) Pulse Ox O2 Delivery O2 Flow Rate FiO2 03/22/17 08:00 97.7 114 20 104/76 97 Room Air 03/22/17 04:00 98.1 106 20 110/78 92 Room Air 2.0 03/22/17 04:00 105 03/22/17 02:00 98.1 106 20 106/82 96 Room Air 2.0 03/22/17 00:00 120 03/22/17 00:00 97.7 105 20 106/82 96 Room Air 2.0 03/21/17 20:00 113 03/21/17 20:00 97.7 78 20 113/82 96 Room Air 2.0 03/21/17 16:00 104 03/21/17 16:00 97.7 105 20 102/75 96 Room Air 03/21/17 12:57 97.8 98 20 97/70 93 Room Air 03/21/17 12:00 105 03/21/17 11:50 87 22 109/78 96 Room Air 03/21/17 11:45 85 30 110/77 95 Room Air 03/21/17 11:40 91 30 106/72 96 Room Air 03/21/17 11:35 85 25 92/67 97 Room Air 03/21/17 11:30 86 25 97/75 95 Room Air 03/21/17 11:12 91 22 Laboratory Tests 03/22/17 06:30: White Blood Count 14.1H, Red Blood Count 4.59L, Hemoglobin 13.3L, Hematocrit 39.4L, Mean Corpuscular Volume 86, Mean Corpuscular Hemoglobin 28.9, Mean Corpuscular Hemoglobin Concent 33.7, Red Cell Distribution Width 15.1H, Platelet Count 208, Mean Platelet Volume 7.0, Neutrophils (%) (Auto) 71.8, Lymphocytes (%) (Auto) 6.9L, Monocytes (%) (Auto) 16.4H, Eosinophils (%) (Auto) 3.8H, Basophils (%) (Auto) 1.0, Sodium Level 133L, Potassium Level 3.5, Chloride Level 100, Carbon Dioxide Level 19L, Anion Gap 14, Blood Urea Nitrogen 39H, Creatinine 4.3H, Estimat Glomerular Filtration Rate 14.6, Glucose Level 160H, Calcium Level 8.2L, Total Bilirubin 0.9, Aspartate Amino Transf (AST/SGOT ) 18, Alanine Aminotransferase (ALT/SGPT) 12, Alkaline Phosphatase 53, Total Protein 6.3L, Albumin 2.6L, Globulin 3.7, Albumin/Globulin Ratio 0.7L, Vancomycin Level Trough 7.9 Height (Feet): 5 Height (Inches): 7.00 Weight (Pounds): 147 General Appearance: no apparent distress EENT: normal ENT inspection Neck: supple Cardiovascular: normal rate Respiratory/Chest: decreased breath sounds Abdomen: normal bowel sounds, non tender, soft Extremities: non-tender SEEMA JONES Mar 22, 2017 08:30
[2017-03-22] MEDS: Bisacodyl EC 5mg tab ORAL SCH (09:24)
--- NOTE | 2017-03-22 10:26 | General Progress Note ---
Assessment/Plan Assessment/Plan IMPRESSION: 1. Hepatorenal syndrome. 2. Acute on chronic renal failure. 3. Hypokalemia. 4. Hyponatremia. 5. Mild leukocytosis. improved 6. Possible abdominal sepsis. 7. SBO 8. umbilical hernia PLAN dc planning when bed available diet as tolerate PO antibiotics and monitor HD per renal Subjective Allergies: Coded Allergies: PENICILLINS (Verified Allergy, Severe, 11/27/16) COPIED FROM UNCODED SECTION UNABLE TO ASSESS (Unverified , 03/10/17) Subjective tolerating PO awaiting discharge Objective Last 24 Hour Vital Signs Date Time Temp Pulse Resp B/P (MAP) Pulse Ox O2 Delivery O2 Flow Rate FiO2 03/22/17 08:00 97.7 114 20 104/76 97 Room Air 03/22/17 04:00 98.1 106 20 110/78 92 Room Air 2.0 03/22/17 04:00 105 03/22/17 02:00 98.1 106 20 106/82 96 Room Air 2.0 03/22/17 00:00 120 03/22/17 00:00 97.7 105 20 106/82 96 Room Air 2.0 03/21/17 20:00 113 03/21/17 20:00 97.7 78 20 113/82 96 Room Air 2.0 03/21/17 16:00 104 03/21/17 16:00 97.7 105 20 102/75 96 Room Air 03/21/17 12:57 97.8 98 20 97/70 93 Room Air 03/21/17 12:00 105 03/21/17 11:50 87 22 109/78 96 Room Air 03/21/17 11:45 85 30 110/77 95 Room Air 03/21/17 11:40 91 30 106/72 96 Room Air 03/21/17 11:35 85 25 92/67 97 Room Air 03/21/17 11:30 86 25 97/75 95 Room Air 03/21/17 11:12 91 22 Laboratory Tests 03/22/17 06:30: White Blood Count 14.1H, Red Blood Count 4.59L, Hemoglobin 13.3L, Hematocrit 39.4L, Mean Corpuscular Volume 86, Mean Corpuscular Hemoglobin 28.9, Mean Corpuscular Hemoglobin Concent 33.7, Red Cell Distribution Width 15.1H, Platelet Count 208, Mean Platelet Volume 7.0, Neutrophils (%) (Auto) 71.8, Lymphocytes (%) (Auto) 6.9L, Monocytes (%) (Auto) 16.4H, Eosinophils (%) (Auto) 3.8H, Basophils (%) (Auto) 1.0, Sodium Level 133L, Potassium Level 3.5, Chloride Level 100, Carbon Dioxide Level 19L, Anion Gap 14, Blood Urea Nitrogen 39H, Creatinine 4.3H, Estimat Glomerular Filtration Rate 14.6, Glucose Level 160H, Calcium Level 8.2L, Total Bilirubin 0.9, Aspartate Amino Transf (AST/SGOT ) 18, Alanine Aminotransferase (ALT/SGPT) 12, Alkaline Phosphatase 53, Total Protein 6.3L, Albumin 2.6L, Globulin 3.7, Albumin/Globulin Ratio 0.7L, Vancomycin Level Trough 7.9 Height (Feet): 5 Height (Inches): 7.00 Weight (Pounds): 147 Objective WDWN NAD clear breath sounds bilaterally without rhonchi or wheeze [id number] without MRG abdominal pain stable no CC edema nonfocal MARY ANNE CASON Mar 22, 2017 10:26
--- NOTE | 2017-03-22 12:59 | Nephrology Progress Note ---
Assessment/Plan Plan Ileus resolving ESRD -. Referred to [facility] [place] for outpatient HD. Acceptance pending. Next HD tonight. Subjective Subjective Much more alert yet. Not nauseated. Objective Objective Last 24 Hour Vital Signs Date Time Temp Pulse Resp B/P (MAP) Pulse Ox O2 Delivery O2 Flow Rate FiO2 03/22/17 08:00 97.7 114 20 104/76 97 Room Air 03/22/17 04:00 98.1 106 20 110/78 92 Room Air 2.0 03/22/17 04:00 105 03/22/17 02:00 98.1 106 20 106/82 96 Room Air 2.0 03/22/17 00:00 120 03/22/17 00:00 97.7 105 20 106/82 96 Room Air 2.0 03/21/17 20:00 113 03/21/17 20:00 97.7 78 20 113/82 96 Room Air 2.0 03/21/17 16:00 104 03/21/17 16:00 97.7 105 20 102/75 96 Room Air Laboratory Tests 03/22/17 06:30: White Blood Count 14.1H, Red Blood Count 4.59L, Hemoglobin 13.3L, Hematocrit 39.4L, Mean Corpuscular Volume 86, Mean Corpuscular Hemoglobin 28.9, Mean Corpuscular Hemoglobin Concent 33.7, Red Cell Distribution Width 15.1H, Platelet Count 208, Mean Platelet Volume 7.0, Neutrophils (%) (Auto) 71.8, Lymphocytes (%) (Auto) 6.9L, Monocytes (%) (Auto) 16.4H, Eosinophils (%) (Auto) 3.8H, Basophils (%) (Auto) 1.0, Sodium Level 133L, Potassium Level 3.5, Chloride Level 100, Carbon Dioxide Level 19L, Anion Gap 14, Blood Urea Nitrogen 39H, Creatinine 4.3H, Estimat Glomerular Filtration Rate 14.6, Glucose Level 160H, Calcium Level 8.2L, Total Bilirubin 0.9, Aspartate Amino Transf (AST/SGOT ) 18, Alanine Aminotransferase (ALT/SGPT) 12, Alkaline Phosphatase 53, Total Protein 6.3L, Albumin 2.6L, Globulin 3.7, Albumin/Globulin Ratio 0.7L, Vancomycin Level Trough 7.9 Height (Feet): 5 Height (Inches): 7.00 Weight (Pounds): 147 Objective CV RR Lungs CTAP. Abd -SNT. BS +. RLQ Hernia! Tense Ascites!. E +@ B edema Had HD Clinically better. Hypokelemik. GFR m/p better too. PIETRO MARION Mar 22, 2017 12:59
[2017-03-22] MEDS: Dyna-Hex 2% Top Sol 2oz TOPIC SCH (20:41)
[2017-03-22] MEDS ORDERED: Vancomycin 1gm/D5W 275ml IVPB ONE ×2 (21:00)
[2017-03-22] MEDS: Zolpidem 5mg tab ORAL PRN (23:39)
[2017-03-23] VITALS: BP 104/74
[2017-03-23] MEDS ORDERED: Vancomycin 1gm/D5W 275ml IVPB ONE ×2 (02:00)
[2017-03-23 04:00] VITALS: BP 103/78
[2017-03-23] MEDS: Lactulose 20gm/30ml UDC ORAL SCH ×3 (06:05→21:56)
[2017-03-23] MEDS: NovoLOG Insulin Flexpen SUBQ SCH ×4 (06:25→20:33)
--- NOTE | 2017-03-23 06:56 | General Progress Note ---
Assessment/Plan Problem List: (1) Cirrhosis ICD Codes: K74.60 - Unspecified cirrhosis of liver SNOMED: 38934825 (2) Ascites ICD Codes: R18.8 - Other ascites SNOMED: 010483175 (3) Renal failure ICD Codes: N19 - Unspecified kidney failure SNOMED: 49845079 Assessment/Plan will dc octreotide and midodrine given patient on HD now fu labs add xifaxan BID dc planning per primary team Subjective ROS Limited/Unobtainable: Yes Allergies: Coded Allergies: PENICILLINS (Verified Allergy, Severe, 11/27/16) COPIED FROM UNCODED SECTION UNABLE TO ASSESS (Unverified , 03/10/17) Subjective no event Objective Last 24 Hour Vital Signs Date Time Temp Pulse Resp B/P (MAP) Pulse Ox O2 Delivery O2 Flow Rate FiO2 03/23/17 04:00 97.0 106 20 103/78 95 Room Air 2.0 03/23/17 04:00 104 03/23/17 00:00 98.4 101 18 104/74 95 Room Air 2.0 03/23/17 00:00 102 03/22/17 20:00 103 03/22/17 20:00 97.7 104 20 105/74 96 Room Air 2.0 03/22/17 16:00 112 03/22/17 16:00 97.7 117 20 99/81 96 Room Air 03/22/17 12:00 97.8 95 20 107/74 95 Room Air 03/22/17 12:00 105 03/22/17 08:00 117 03/22/17 08:00 97.7 114 20 104/76 97 Room Air Height (Feet): 5 Height (Inches): 7.00 Weight (Pounds): 147 General Appearance: no apparent distress EENT: normal ENT inspection Neck: supple Cardiovascular: normal rate Respiratory/Chest: decreased breath sounds Abdomen: normal bowel sounds, non tender, soft Extremities: non-tender SEEMA JONES Mar 23, 2017 06:56
--- NOTE | 2017-03-23 06:56 | General Progress Note ---
Assessment/Plan Problem List: (1) Cirrhosis ICD Codes: K74.60 - Unspecified cirrhosis of liver SNOMED: 04325583 (2) Ascites ICD Codes: R18.8 - Other ascites SNOMED: 373898251 (3) Renal failure ICD Codes: N19 - Unspecified kidney failure SNOMED: 78902933 Assessment/Plan will dc octreotide and midodrine given patient on HD now fu labs add xifaxan BID dc planning per primary team Subjective ROS Limited/Unobtainable: Yes Allergies: Coded Allergies: PENICILLINS (Verified Allergy, Severe, 11/27/16) COPIED FROM UNCODED SECTION UNABLE TO ASSESS (Unverified , 03/10/17) Subjective no event Objective Last 24 Hour Vital Signs Date Time Temp Pulse Resp B/P (MAP) Pulse Ox O2 Delivery O2 Flow Rate FiO2 03/23/17 04:00 97.0 106 20 103/78 95 Room Air 2.0 03/23/17 04:00 104 03/23/17 00:00 98.4 101 18 104/74 95 Room Air 2.0 03/23/17 00:00 102 03/22/17 20:00 103 03/22/17 20:00 97.7 104 20 105/74 96 Room Air 2.0 03/22/17 16:00 112 03/22/17 16:00 97.7 117 20 99/81 96 Room Air 03/22/17 12:00 97.8 95 20 107/74 95 Room Air 03/22/17 12:00 105 03/22/17 08:00 117 03/22/17 08:00 97.7 114 20 104/76 97 Room Air Height (Feet): 5 Height (Inches): 7.00 Weight (Pounds): 147 General Appearance: no apparent distress EENT: normal ENT inspection Neck: supple Cardiovascular: normal rate Respiratory/Chest: decreased breath sounds Abdomen: normal bowel sounds, non tender, soft Extremities: non-tender SEEMA JONES Mar 23, 2017 06:56
--- NOTE | 2017-03-23 06:56 | General Progress Note ---
Assessment/Plan Problem List: (1) Cirrhosis ICD Codes: K74.60 - Unspecified cirrhosis of liver SNOMED: 78874097 (2) Ascites ICD Codes: R18.8 - Other ascites SNOMED: 357626982 (3) Renal failure ICD Codes: N19 - Unspecified kidney failure SNOMED: 02838326 Assessment/Plan will dc octreotide and midodrine given patient on HD now fu labs add xifaxan BID dc planning per primary team Subjective ROS Limited/Unobtainable: Yes Allergies: Coded Allergies: PENICILLINS (Verified Allergy, Severe, 11/27/16) COPIED FROM UNCODED SECTION UNABLE TO ASSESS (Unverified , 03/10/17) Subjective no event Objective Last 24 Hour Vital Signs Date Time Temp Pulse Resp B/P (MAP) Pulse Ox O2 Delivery O2 Flow Rate FiO2 03/23/17 04:00 97.0 106 20 103/78 95 Room Air 2.0 03/23/17 04:00 104 03/23/17 00:00 98.4 101 18 104/74 95 Room Air 2.0 03/23/17 00:00 102 03/22/17 20:00 103 03/22/17 20:00 97.7 104 20 105/74 96 Room Air 2.0 03/22/17 16:00 112 03/22/17 16:00 97.7 117 20 99/81 96 Room Air 03/22/17 12:00 97.8 95 20 107/74 95 Room Air 03/22/17 12:00 105 03/22/17 08:00 117 03/22/17 08:00 97.7 114 20 104/76 97 Room Air Height (Feet): 5 Height (Inches): 7.00 Weight (Pounds): 147 General Appearance: no apparent distress EENT: normal ENT inspection Neck: supple Cardiovascular: normal rate Respiratory/Chest: decreased breath sounds Abdomen: normal bowel sounds, non tender, soft Extremities: non-tender SEEMA JONES Mar 23, 2017 06:56
[2017-03-23 08:00] VITALS: BP 99/62
[2017-03-23] MEDS: Bisacodyl EC 5mg tab ORAL SCH (08:25)
[2017-03-23 10:06] LABS: BASOPHILS % (AUTO) 1.4 % (0.0-2.0); EOSINOPHILS % (AUTO) 5.3 % (0.0-3.0); HEMATOCRIT 41.9 % (42.0-52.0); HEMOGLOBIN 14.3 G/DL (14.2-18.0); LYMPHOCYTES % (AUTO) 8.4 % (20.0-45.0); MEAN CORPUSCULAR VOLUME 85 FL (80-99); MONOCYTES % (AUTO) 19.2 % (1.0-10.0); NEUTROPHILS % (AUTO) 65.6 % (45.0-75.0); PLATELET COUNT 127 K/UL (150-450); RED BLOOD COUNT 4.91 M/UL (4.70-6.10); RED CELL DISTRIBUTION WIDTH 15.1 % (11.6-14.8); WHITE BLOOD COUNT 12.2 K/UL (4.8-10.8)
[2017-03-23] MEDS ORDERED: NS 275ml ONE (11:07)
[2017-03-23] MEDS ORDERED: Tubing IV Secondary IV ONE (11:07)
[2017-03-23 12:00] VITALS: BP 107/71
--- NOTE | 2017-03-23 12:15 | General Progress Note ---
Assessment/Plan Assessment/Plan IMPRESSION: 1. Hepatorenal syndrome. 2. Acute on chronic renal failure. 3. Hypokalemia. 4. Hyponatremia. 5. Mild leukocytosis. improved 6. Possible abdominal sepsis. 7. SBO 8. umbilical hernia 9 persistent sinus tachycardia PLAN dc planning on hold Vanco IV added cultures ordered repeat labs diet as tolerate HD per renal Subjective Allergies: Coded Allergies: PENICILLINS (Verified Allergy, Severe, 11/27/16) COPIED FROM UNCODED SECTION UNABLE TO ASSESS (Unverified , 03/10/17) Subjective tolerating PO awaiting discharge still tachycardic Objective Last 24 Hour Vital Signs Date Time Temp Pulse Resp B/P (MAP) Pulse Ox O2 Delivery O2 Flow Rate FiO2 03/23/17 08:24 Room Air 03/23/17 08:00 97.0 117 20 99/62 97 Room Air 03/23/17 04:00 97.0 106 20 103/78 95 Room Air 2.0 03/23/17 04:00 104 03/23/17 00:00 98.4 101 18 104/74 95 Room Air 2.0 03/23/17 00:00 102 03/22/17 20:00 103 03/22/17 20:00 97.7 104 20 105/74 96 Room Air 2.0 03/22/17 16:00 112 03/22/17 16:00 97.7 117 20 99/81 96 Room Air Intake and Output 03/23/17 03/24/17 19:00 07:00 # Bowel Movements 2 Laboratory Tests 03/23/17 09:20: White Blood Count 12.2H, Red Blood Count 4.91, Hemoglobin 14.3, Hematocrit 41.9L , Mean Corpuscular Volume 85, Mean Corpuscular Hemoglobin 29.2, Mean Corpuscular Hemoglobin Concent 34.2, Red Cell Distribution Width 15.1H, Platelet Count 127L, Mean Platelet Volume 7.2, Neutrophils (%) (Auto) 65.6, Lymphocytes (%) (Auto) 8.4L, Monocytes (%) (Auto) 19.2H, Eosinophils (%) (Auto) 5.3H, Basophils (%) (Auto) 1.4 Height (Feet): 5 Height (Inches): 7.00 Weight (Pounds): 147 Objective WDWN NAD clear breath sounds bilaterally without rhonchi or wheeze [id number] without MRG tachy abdominal pain stable no CC edema nonfocal MARY ANNE CASON Mar 23, 2017 12:15
--- NOTE | 2017-03-23 13:15 | Nephrology Progress Note ---
Assessment/Plan Plan Ileus resolving ESRD -. [place] [facility] [place]. Acceptance pending.HD done earlier. Subjective Subjective Much more alert yet. Not nauseated. Objective Objective Last 24 Hour Vital Signs Date Time Temp Pulse Resp B/P (MAP) Pulse Ox O2 Delivery O2 Flow Rate FiO2 03/23/17 12:00 97.2 101 20 107/71 97 Room Air 03/23/17 08:24 Room Air 03/23/17 08:00 97.0 117 20 99/62 97 Room Air 03/23/17 04:00 97.0 106 20 103/78 95 Room Air 2.0 03/23/17 04:00 104 03/23/17 00:00 98.4 101 18 104/74 95 Room Air 2.0 03/23/17 00:00 102 03/22/17 20:00 103 03/22/17 20:00 97.7 104 20 105/74 96 Room Air 2.0 03/22/17 16:00 112 03/22/17 16:00 97.7 117 20 99/81 96 Room Air Intake and Output 03/23/17 03/24/17 19:00 07:00 # Bowel Movements 2 Laboratory Tests 03/23/17 09:20: White Blood Count 12.2H, Red Blood Count 4.91, Hemoglobin 14.3, Hematocrit 41.9L , Mean Corpuscular Volume 85, Mean Corpuscular Hemoglobin 29.2, Mean Corpuscular Hemoglobin Concent 34.2, Red Cell Distribution Width 15.1H, Platelet Count 127L, Mean Platelet Volume 7.2, Neutrophils (%) (Auto) 65.6, Lymphocytes (%) (Auto) 8.4L, Monocytes (%) (Auto) 19.2H, Eosinophils (%) (Auto) 5.3H, Basophils (%) (Auto) 1.4 Height (Feet): 5 Height (Inches): 7.00 Weight (Pounds): 147 Objective CV RR Lungs CTAP. Abd -SNT. BS +. RLQ Hernia! Tense Ascites!. E +@ B edema Had HD Clinically better. Hypokelemik. GFR m/p better too. PIETRO MARION Mar 23, 2017 13:15
--- NOTE | 2017-03-23 13:15 | Nephrology Progress Note ---
Assessment/Plan Plan Ileus resolving ESRD -. Referred to [facility] [place] for outpatient HD. Acceptance pending.HD done earlier. Subjective Subjective Much more alert yet. Not nauseated. Objective Objective Last 24 Hour Vital Signs Date Time Temp Pulse Resp B/P (MAP) Pulse Ox O2 Delivery O2 Flow Rate FiO2 03/23/17 12:00 97.2 101 20 107/71 97 Room Air 03/23/17 08:24 Room Air 03/23/17 08:00 97.0 117 20 99/62 97 Room Air 03/23/17 04:00 97.0 106 20 103/78 95 Room Air 2.0 03/23/17 04:00 104 03/23/17 00:00 98.4 101 18 104/74 95 Room Air 2.0 03/23/17 00:00 102 03/22/17 20:00 103 03/22/17 20:00 97.7 104 20 105/74 96 Room Air 2.0 03/22/17 16:00 112 03/22/17 16:00 97.7 117 20 99/81 96 Room Air Intake and Output 03/23/17 03/24/17 19:00 07:00 # Bowel Movements 2 Laboratory Tests 03/23/17 09:20: White Blood Count 12.2H, Red Blood Count 4.91, Hemoglobin 14.3, Hematocrit 41.9L , Mean Corpuscular Volume 85, Mean Corpuscular Hemoglobin 29.2, Mean Corpuscular Hemoglobin Concent 34.2, Red Cell Distribution Width 15.1H, Platelet Count 127L, Mean Platelet Volume 7.2, Neutrophils (%) (Auto) 65.6, Lymphocytes (%) (Auto) 8.4L, Monocytes (%) (Auto) 19.2H, Eosinophils (%) (Auto) 5.3H, Basophils (%) (Auto) 1.4 Height (Feet): 5 Height (Inches): 7.00 Weight (Pounds): 147 Objective CV RR Lungs CTAP. Abd -SNT. BS +. RLQ Hernia! Tense Ascites!. E +@ B edema Had HD Clinically better. Hypokelemik. GFR m/p better too. PIETRO MARION Mar 23, 2017 13:15
--- NOTE | 2017-03-23 13:15 | Nephrology Progress Note ---
Assessment/Plan Plan Ileus resolving ESRD -. Referred to [facility] [place] for outpatient HD. Acceptance pending.HD done earlier. Subjective Subjective Much more alert yet. Not nauseated. Objective Objective Last 24 Hour Vital Signs Date Time Temp Pulse Resp B/P (MAP) Pulse Ox O2 Delivery O2 Flow Rate FiO2 03/23/17 12:00 97.2 101 20 107/71 97 Room Air 03/23/17 08:24 Room Air 03/23/17 08:00 97.0 117 20 99/62 97 Room Air 03/23/17 04:00 97.0 106 20 103/78 95 Room Air 2.0 03/23/17 04:00 104 03/23/17 00:00 98.4 101 18 104/74 95 Room Air 2.0 03/23/17 00:00 102 03/22/17 20:00 103 03/22/17 20:00 97.7 104 20 105/74 96 Room Air 2.0 03/22/17 16:00 112 03/22/17 16:00 97.7 117 20 99/81 96 Room Air Intake and Output 03/23/17 03/24/17 19:00 07:00 # Bowel Movements 2 Laboratory Tests 03/23/17 09:20: White Blood Count 12.2H, Red Blood Count 4.91, Hemoglobin 14.3, Hematocrit 41.9L , Mean Corpuscular Volume 85, Mean Corpuscular Hemoglobin 29.2, Mean Corpuscular Hemoglobin Concent 34.2, Red Cell Distribution Width 15.1H, Platelet Count 127L, Mean Platelet Volume 7.2, Neutrophils (%) (Auto) 65.6, Lymphocytes (%) (Auto) 8.4L, Monocytes (%) (Auto) 19.2H, Eosinophils (%) (Auto) 5.3H, Basophils (%) (Auto) 1.4 Height (Feet): 5 Height (Inches): 7.00 Weight (Pounds): 147 Objective CV RR Lungs CTAP. Abd -SNT. BS +. RLQ Hernia! Tense Ascites!. E +@ B edema Had HD Clinically better. Hypokelemik. GFR m/p better too. PIETRO MARION Mar 23, 2017 13:15
--- NOTE | 2017-03-23 14:52 | General Progress Note ---
Progress Note Progress Note Afebrile. Pt has a leak from his peritoneal catheter. His umbilical hernia is reducible. He has intractable ascites due to alcoholic cirrhosis. His prognosis is grim. Kyle Coleman MD Mar 23, 2017 14:52
[2017-03-23 16:00] VITALS: BP 104/80
--- NOTE | 2017-03-23 17:53 | General Progress Note ---
Progress Note Progress Note Asked by Dr Prieto to eval re HD access Patient seen and examined Consult dictated # [id number] TREMAINE WEAVER Mar 23, 2017 17:53
--- NOTE | 2017-03-23 17:53 | General Progress Note ---
Progress Note Progress Note Asked by Dr Prieto to eval re HD access Patient seen and examined Consult dictated # [id number] TREMAINE WEAVER Mar 23, 2017 17:53
--- NOTE | 2017-03-23 17:53 | General Progress Note ---
Progress Note Progress Note Asked by Dr Prieto to eval re HD access Patient seen and examined Consult dictated # [id number] TREMAINE WEAVER Mar 23, 2017 17:53
--- NOTE | 2017-03-23 19:30 | Consultation ---
DATE OF CONSULTATION: 03/22/2017 CONSULTING PHYSICIAN: Tremaine Ovalle M.D. REFERRING PHYSICIANS: 1. Alicia Prieto M.D. 2. Mary Anne Cason M.D. REASON FOR EVALUATION: Access for hemodialysis. HISTORY OF PRESENT ILLNESS: This 51-year-old male, who suffers from liver failure, cirrhosis alcoholic with hepatorenal syndrome, currently on dialysis, with a right chest tunneled Hqkp-K-Grqigbay. The patient currently has no new complaints. He has a large abdominal umbilical hernia, which is reduscible. The patient also had a peritoneal catheter for frequent paracentesis. Vascular Surgery consulted for evaluation for more permanent access for hemodialysis. PAST MEDICAL HISTORY: As above. History of hypertension, end-stage renal failure on hemodialysis, renal failure, alcoholic liver disease, and history of recurrent ascites status post peritoneal ascites catheter placement. MEDICATIONS: See attached MAR. ALLERGIES: Penicillin. SOCIAL HISTORY: Heavy alcohol user. Denies any history of smoking cigarettes. He usually smoked cocaine for many years. FAMILY HISTORY: Unremarkable. REVIEW OF SYSTEMS: CARDIOVASCULAR: No chest pain or palpitations. PULMONARY: He has no cough. No hemoptysis. GASTROINTESTINAL: As above. GENITOURINARY: No urinary symptoms. NEUROLOGIC: No history of stroke or seizures. PHYSICAL EXAMINATION: VITAL SIGNS: The patient is afebrile at 97.7 degrees, heart rate 114, respirations 20, blood pressure 104/76, and O2 saturation is 97% on 2 liters oxygen. CHEST: He has palpable radial pulses. His right chest Jnhd-H-Zounzyak is still dry and intact. LUNGS: Clear to auscultation. HEART: Regular rate and rhythm. ABDOMEN: Soft. It has large reducible umbilical hernia. Nontender. EXTREMITIES: He does have a peritoneal catheter on the left flank. He has palpable femoral pulses. Feet are warm with intact pedal Dopplers bilaterally. LABORATORY DATA: Revealed WBC of 14.1, hemoglobin 13.3, and platelet count is 208,000. Sodium 133, potassium 3.5, CO2 19, BUN 39, and creatinine 4.3. Estimated GFR is 14.6. Glucose is 160. Total bilirubin is 0.9. AST is 18, ALT is 12, and alkaline phosphatase is 53. Albumin is 3.6. IMPRESSION: 1. Renal failure, on hemodialysis through a tunneled a Kfsv-H-Qptwcajb. 2. Hepatorenal syndrome with liver alcoholic cirrhosis and failure. 3. Recurrent ascites with a history of ascites drainage and peritoneal catheter in the left flank. 4. Large umbilical hernia, reducible. 5. History of hypertension. 6. 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 PLAN: 1. Continue dialysis through a tunneled Jyso-L-Icpuwhum. 2. We will save the left arm for possible need for future AV shunt or graft placement if indicated and cleared by renal and medical service. 3. We will obtain arm and leg Duplex. 4. Antibiotics per Infectious Disease service. 5. GI and Hepatology followup and assessment of his liver failure and candidacy for liver & kidney transplantation. 6. Continue DVT and decubitus precautions. The above is discussed at length with the patient and his nurse at bedside. Tremaine Ovalle M.D. DR: KORI JOB#: [id number] CC: Alicia Prieto M.D.; Fax#: [phone] MARY ANNE CASON M.D. ; FAX#: [phone] TREMAINE OVALLE M.D.; FAX#: [phone] RO[facility]
--- NOTE | 2017-03-23 19:30 | Consultation ---
DATE OF CONSULTATION: 03/22/2017 CONSULTING PHYSICIAN: Tremaine Ovalle M.D. REFERRING PHYSICIANS: 1. Alicia Prieto M.D. 2. Mary Anne Cason M.D. REASON FOR EVALUATION: Access for hemodialysis. HISTORY OF PRESENT ILLNESS: This 51-year-old male, who suffers from liver failure, cirrhosis alcoholic with hepatorenal syndrome, currently on dialysis, with a right chest tunneled Grgs-I-Tbvqugea. The patient currently has no new complaints. He has a large abdominal umbilical hernia, which is reduscible. The patient also had a peritoneal catheter for frequent paracentesis. Vascular Surgery consulted for evaluation for more permanent access for hemodialysis. PAST MEDICAL HISTORY: As above. History of hypertension, end-stage renal failure on hemodialysis, renal failure, alcoholic liver disease, and history of recurrent ascites status post peritoneal ascites catheter placement. MEDICATIONS: See attached MAR. ALLERGIES: Penicillin. SOCIAL HISTORY: Heavy alcohol user. Denies any history of smoking cigarettes. He usually smoked cocaine for many years. FAMILY HISTORY: Unremarkable. REVIEW OF SYSTEMS: CARDIOVASCULAR: No chest pain or palpitations. PULMONARY: He has no cough. No hemoptysis. GASTROINTESTINAL: As above. GENITOURINARY: No urinary symptoms. NEUROLOGIC: No history of stroke or seizures. PHYSICAL EXAMINATION: VITAL SIGNS: The patient is afebrile at 97.7 degrees, heart rate 114, respirations 20, blood pressure 104/76, and O2 saturation is 97% on 2 liters oxygen. CHEST: He has palpable radial pulses. His right chest Kloa-Y-Kzruezff is still dry and intact. LUNGS: Clear to auscultation. HEART: Regular rate and rhythm. ABDOMEN: Soft. It has large reducible umbilical hernia. Nontender. EXTREMITIES: He does have a peritoneal catheter on the left flank. He has palpable femoral pulses. Feet are warm with intact pedal Dopplers bilaterally. LABORATORY DATA: Revealed WBC of 14.1, hemoglobin 13.3, and platelet count is 208,000. Sodium 133, potassium 3.5, CO2 19, BUN 39, and creatinine 4.3. Estimated GFR is 14.6. Glucose is 160. Total bilirubin is 0.9. AST is 18, ALT is 12, and alkaline phosphatase is 53. Albumin is 3.6. IMPRESSION: 1. Renal failure, on hemodialysis through a tunneled a Ymzp-V-Tudxtkff. 2. Hepatorenal syndrome with liver alcoholic cirrhosis and failure. 3. Recurrent ascites with a history of ascites drainage and peritoneal catheter in the left flank. 4. Large umbilical hernia, reducible. 5. History of hypertension. 6. 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 PLAN: 1. Continue dialysis through a tunneled Jkuz-U-Zgrnipvj. 2. We will save the left arm for possible need for future AV shunt or graft placement if indicated and cleared by renal and medical service. 3. We will obtain arm and leg Duplex. 4. Antibiotics per Infectious Disease service. 5. GI and Hepatology followup and assessment of his liver failure and candidacy for liver & kidney transplantation. 6. Continue DVT and decubitus precautions. The above is discussed at length with the patient and his nurse at bedside. Tremaine Ovalle M.D. DR: KORI JOB#: [id number] CC: Alicia Prieto M.D.; Fax#: [phone] MARY ANNE CASON M.D. ; FAX#: [phone] TREMAINE OVALLE M.D.; FAX#: [phone] RO[facility]
--- NOTE | 2017-03-23 19:30 | Consultation ---
DATE OF CONSULTATION: 03/22/2017 CONSULTING PHYSICIAN: Tremaine Ovalle M.D. REFERRING PHYSICIANS: 1. Alicia Prieto M.D. 2. Mary Anne Cason M.D. REASON FOR EVALUATION: Access for hemodialysis. HISTORY OF PRESENT ILLNESS: This 51-year-old male, who suffers from liver failure, cirrhosis alcoholic with hepatorenal syndrome, currently on dialysis, with a right chest tunneled Udeq-Q-Apwmutyw. The patient currently has no new complaints. He has a large abdominal umbilical hernia, which is reduscible. The patient also had a peritoneal catheter for frequent paracentesis. Vascular Surgery consulted for evaluation for more permanent access for hemodialysis. PAST MEDICAL HISTORY: As above. History of hypertension, end-stage renal failure on hemodialysis, renal failure, alcoholic liver disease, and history of recurrent ascites status post peritoneal ascites catheter placement. MEDICATIONS: See attached MAR. ALLERGIES: Penicillin. SOCIAL HISTORY: Heavy alcohol user. Denies any history of smoking cigarettes. He usually smoked cocaine for many years. FAMILY HISTORY: Unremarkable. REVIEW OF SYSTEMS: CARDIOVASCULAR: No chest pain or palpitations. PULMONARY: He has no cough. No hemoptysis. GASTROINTESTINAL: As above. GENITOURINARY: No urinary symptoms. NEUROLOGIC: No history of stroke or seizures. PHYSICAL EXAMINATION: VITAL SIGNS: The patient is afebrile at 97.7 degrees, heart rate 114, respirations 20, blood pressure 104/76, and O2 saturation is 97% on 2 liters oxygen. CHEST: He has palpable radial pulses. His right chest Vnso-O-Epgzqtfg is still dry and intact. LUNGS: Clear to auscultation. HEART: Regular rate and rhythm. ABDOMEN: Soft. It has large reducible umbilical hernia. Nontender. EXTREMITIES: He does have a peritoneal catheter on the left flank. He has palpable femoral pulses. Feet are warm with intact pedal Dopplers bilaterally. LABORATORY DATA: Revealed WBC of 14.1, hemoglobin 13.3, and platelet count is 208,000. Sodium 133, potassium 3.5, CO2 19, BUN 39, and creatinine 4.3. Estimated GFR is 14.6. Glucose is 160. Total bilirubin is 0.9. AST is 18, ALT is 12, and alkaline phosphatase is 53. Albumin is 3.6. IMPRESSION: 1. Renal failure, on hemodialysis through a tunneled a Ygqz-M-Ytzdujju. 2. Hepatorenal syndrome with liver alcoholic cirrhosis and failure. 3. Recurrent ascites with a history of ascites drainage and peritoneal catheter in the left flank. 4. Large umbilical hernia, reducible. 5. History of hypertension. 6. 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 PLAN: 1. Continue dialysis through a tunneled Rwso-H-Vufnclan. 2. We will save the left arm for possible need for future AV shunt or graft placement if indicated and cleared by renal and medical service. 3. We will obtain arm and leg Duplex. 4. Antibiotics per Infectious Disease service. 5. GI and Hepatology followup and assessment of his liver failure and candidacy for liver & kidney transplantation. 6. Continue DVT and decubitus precautions. The above is discussed at length with the patient and his nurse at bedside. Tremaine Ovalle M.D. DR: KORI JOB#: [id number] CC: Alicia Prieto M.D.; Fax#: [phone] MARY ANNE CASON M.D. ; FAX#: [phone] TREMAINE OVALLE M.D.; FAX#: [phone] [place]
[2017-03-23 20:00] VITALS: BP 159/64
[2017-03-23] MEDS ORDERED: Dyna-Hex 2% Top Sol 2oz TOPIC SCH (20:00)
[2017-03-23] MEDS: Dyna-Hex 2% Top Sol 2oz TOPIC SCH (20:30)
[2017-03-23] MEDS: Zolpidem 5mg tab ORAL PRN (21:56)
[2017-03-24] VITALS: BP 155/70
[2017-03-24 04:00] VITALS: BP 100/75
[2017-03-24] MEDS: Lactulose 20gm/30ml UDC ORAL SCH ×3 (06:23→22:27)
[2017-03-24] MEDS: NovoLOG Insulin Flexpen SUBQ SCH ×4 (06:25→20:33)
[2017-03-24 08:00] VITALS: BP 100/81
--- NOTE | 2017-03-24 08:03 | General Progress Note ---
Assessment/Plan Assessment/Plan IMPRESSION: 1. Hepatorenal syndrome. 2. Acute on chronic renal failure. 3. Hypokalemia. 4. Hyponatremia. 5. Mild leukocytosis. improved 6. Possible abdominal sepsis. 7. SBO 8. umbilical hernia 9 persistent sinus tachycardia PLAN dc planning on hold add digoxin monitor HR- start digoxin Vanco IV added cultures ordered repeat labs diet as tolerate HD per renal Subjective Allergies: Coded Allergies: PENICILLINS (Verified Allergy, Severe, 11/27/16) COPIED FROM UNCODED SECTION UNABLE TO ASSESS (Unverified , 03/10/17) Subjective tolerating PO awaiting discharge still tachycardic but stable Objective Last 24 Hour Vital Signs Date Time Temp Pulse Resp B/P (MAP) Pulse Ox O2 Delivery O2 Flow Rate FiO2 03/24/17 04:00 97.7 97 20 100/75 95 Room Air 03/24/17 04:00 107 03/24/17 00:00 101 03/24/17 00:00 98.1 77 20 155/70 98 Room Air 03/23/17 20:00 99.3 78 20 159/64 97 Room Air 03/23/17 20:00 106 03/23/17 16:00 89 03/23/17 16:00 97.9 108 20 104/80 97 Room Air 03/23/17 12:00 97.2 101 20 107/71 97 Room Air 03/23/17 12:00 101 03/23/17 08:24 Room Air Laboratory Tests 03/23/17 09:20: White Blood Count 12.2H, Red Blood Count 4.91, Hemoglobin 14.3, Hematocrit 41.9L , Mean Corpuscular Volume 85, Mean Corpuscular Hemoglobin 29.2, Mean Corpuscular Hemoglobin Concent 34.2, Red Cell Distribution Width 15.1H, Platelet Count 127L, Mean Platelet Volume 7.2, Neutrophils (%) (Auto) 65.6, Lymphocytes (%) (Auto) 8.4L, Monocytes (%) (Auto) 19.2H, Eosinophils (%) (Auto) 5.3H, Basophils (%) (Auto) 1.4 Height (Feet): 5 Height (Inches): 7.00 Weight (Pounds): 165 Objective WDWN NAD clear breath sounds bilaterally without rhonchi or wheeze S1S2RR without MRG tachy abdominal pain stable no CC edema nonfocal MARY ANNE CASON Mar 24, 2017 08:03
[2017-03-24] MEDS: Bisacodyl EC 5mg tab ORAL SCH (08:46)
[2017-03-24 09:02] LABS: BASOPHILS % (AUTO) 1.4 % (0.0-2.0); EOSINOPHILS % (AUTO) 3.9 % (0.0-3.0); HEMATOCRIT 41.3 % (42.0-52.0); HEMOGLOBIN 13.6 G/DL (14.2-18.0); LYMPHOCYTES % (AUTO) 11.5 % (20.0-45.0); MEAN CORPUSCULAR VOLUME 87 FL (80-99); MONOCYTES % (AUTO) 15.9 % (1.0-10.0); NEUTROPHILS % (AUTO) 67.3 % (45.0-75.0); PLATELET COUNT 156 K/UL (150-450); RED BLOOD COUNT 4.77 M/UL (4.70-6.10); RED CELL DISTRIBUTION WIDTH 15.4 % (11.6-14.8); WHITE BLOOD COUNT 10.6 K/UL (4.8-10.8)
[2017-03-24 09:27] LABS: ALANINE AMINOTRANSFERASE 8 U/L (12-78); ALBUMIN 2.7 G/DL (3.4-5.0); ALBUMIN/GLOBULIN RATIO 0.6 (1.0-2.7); ALKALINE PHOSPHATASE 60 U/L (46-116); ANION GAP 12 mmol/L (5-15); ASPARTATE AMINO TRANSFERASE 24 U/L (15-37); BILIRUBIN,TOTAL 1.1 MG/DL (0.2-1.0); BLOOD UREA NITROGEN 33 mg/dL (7-18); CALCIUM 8.6 MG/DL (8.5-10.1); CARBON DIOXIDE 21 MMOL/L (21-32); CHLORIDE 99 MMOL/L (98-107); CREATININE 3.8 MG/DL (0.55-1.30); POTASSIUM 3.2 MMOL/L (3.5-5.1); SODIUM 132 MMOL/L (136-145)
[2017-03-24 09:28] LABS: BILIRUBIN,DIRECT 0.3 MG/DL (0.0-0.3)
[2017-03-24] MEDS: Digoxin 0.125mg tab ORAL SCH (09:55)
--- NOTE | 2017-03-24 10:12 | Diagnostic Imaging Report ---
Indication: Abdominal distention. Drainage catheter leaking Technique: Supine view of the abdomen Comparison: 03/16/2017 Findings: Previously demonstrated small bowel distention is no longer evident. Peritoneal drainage catheter is again demonstrated. Large umbilical hernia is again demonstrated. Impression: No acute process. Findings as noted This agrees with the preliminary interpretation provided overnight by [facility] teleradiology service.
[2017-03-24] MEDS ORDERED: KCl 10% 40mEq/30ml liquid NG ONE (11:30)
[2017-03-24] MEDS ORDERED: Vancomycin 1gm/D5W 275ml IVPB ONE ×2 (11:30)
--- NOTE | 2017-03-24 11:57 | General Progress Note ---
Progress Note Progress Note Surgery no acute events. doing well. comfortable. abdomen examined and benign. 2cm umbilical defect noted. large skin sac noted fluid filed. no contents in hernia sac. advanced liver disease with poor prognosis. as long as hernia remains reducible he is safe. if becomes incarcerated and unable to reduce or strangulated will need emergency surgery which will be very very high risk in his condition. will follow while in hospital Dragan Escalera Mar 24, 2017 11:57
[2017-03-24 12:00] VITALS: BP 101/76
--- NOTE | 2017-03-24 13:13 | Nephrology Progress Note ---
Assessment/Plan Plan ESRD -. Referred to [facility] [place] for outpatient HD. Acceptance pending.HD tomorrow. Subjective Subjective Much more alert yet. Not nauseated. Objective Objective Last 24 Hour Vital Signs Date Time Temp Pulse Resp B/P (MAP) Pulse Ox O2 Delivery O2 Flow Rate FiO2 03/24/17 12:00 97.5 98 18 101/76 96 Room Air 03/24/17 09:55 95 03/24/17 08:23 72 03/24/17 08:00 97.0 100 18 100/81 98 Room Air 03/24/17 04:00 97.7 97 20 100/75 95 Room Air 03/24/17 04:00 107 03/24/17 00:00 101 03/24/17 00:00 98.1 77 20 155/70 98 Room Air 03/23/17 20:00 99.3 78 20 159/64 97 Room Air 03/23/17 20:00 106 03/23/17 16:00 89 03/23/17 16:00 97.9 108 20 104/80 97 Room Air Laboratory Tests 03/24/17 07:50: White Blood Count 10.6, Red Blood Count 4.77, Hemoglobin 13.6L, Hematocrit 41.3L , Mean Corpuscular Volume 87, Mean Corpuscular Hemoglobin 28.5, Mean Corpuscular Hemoglobin Concent 32.9, Red Cell Distribution Width 15.4H, Platelet Count 156, Mean Platelet Volume 7.8, Neutrophils (%) (Auto) 67.3, Lymphocytes (%) (Auto) 11.5L, Monocytes (%) (Auto) 15.9H, Eosinophils (%) (Auto ) 3.9H, Basophils (%) (Auto) 1.4, Sodium Level 132L, Potassium Level 3.2L, Chloride Level 99, Carbon Dioxide Level 21, Anion Gap 12, Blood Urea Nitrogen 33H, Creatinine 3.8H, Estimat Glomerular Filtration Rate 16.8, Glucose Level 159H, Calcium Level 8.6, Total Bilirubin 1.1H, Direct Bilirubin 0.3, Aspartate Amino Transf (AST/SGOT) 24, Alanine Aminotransferase (ALT/SGPT) 8L, Alkaline Phosphatase 60, Total Protein 7.1, Albumin 2.7L, Globulin 4.4, Albumin/Globulin Ratio 0.6L, Random Vancomycin Level 13.8 Height (Feet): 5 Height (Inches): 7.00 Weight (Pounds): 165 Objective CV RR Lungs CTAP. Abd -SNT. BS +. RLQ Hernia! Tense Ascites!. E +@ B edema Had HD Clinically better. Hypokelemik. GFR m/p better too. PIETRO MARION Mar 24, 2017 13:13
[2017-03-24 16:00] VITALS: BP 99/73
[2017-03-24 20:00] VITALS: BP 100/69
[2017-03-24] MEDS: Dyna-Hex 2% Top Sol 2oz TOPIC SCH (20:10)
--- NOTE | 2017-03-24 21:50 | General Progress Note ---
Assessment/Plan Assessment/Plan Assessment - EtoH Cirrhosis - Ascites - Abd pain w/o SBP - resolved - Renal failure - Low K, metabolic acidosis Recommendations - Broad spect abx - PPI - Lactulose, xifaxan - HD per renal Subjective Allergies: Coded Allergies: PENICILLINS (Verified Allergy, Severe, 11/27/16) COPIED FROM UNCODED SECTION UNABLE TO ASSESS (Unverified , 03/10/17) Subjective Feels well comfortable toll po no abd pain Objective Last 24 Hour Vital Signs Date Time Temp Pulse Resp B/P (MAP) Pulse Ox O2 Delivery O2 Flow Rate FiO2 03/24/17 20:00 98.1 110 18 100/69 97 Room Air 03/24/17 16:00 97.3 102 20 99/73 95 Room Air 03/24/17 16:00 105 03/24/17 12:00 95 03/24/17 12:00 97.5 98 18 101/76 96 Room Air 03/24/17 09:55 95 03/24/17 08:23 72 03/24/17 08:00 97.0 100 18 100/81 98 Room Air 03/24/17 08:00 110 03/24/17 04:00 97.7 97 20 100/75 95 Room Air 03/24/17 04:00 107 03/24/17 00:00 101 03/24/17 00:00 98.1 77 20 155/70 98 Room Air Intake and Output 03/24/17 03/25/17 19:00 07:00 # Voids 2 # Bowel Movements 2 Laboratory Tests 03/24/17 07:50: White Blood Count 10.6, Red Blood Count 4.77, Hemoglobin 13.6L, Hematocrit 41.3L , Mean Corpuscular Volume 87, Mean Corpuscular Hemoglobin 28.5, Mean Corpuscular Hemoglobin Concent 32.9, Red Cell Distribution Width 15.4H, Platelet Count 156, Mean Platelet Volume 7.8, Neutrophils (%) (Auto) 67.3, Lymphocytes (%) (Auto) 11.5L, Monocytes (%) (Auto) 15.9H, Eosinophils (%) (Auto ) 3.9H, Basophils (%) (Auto) 1.4, Sodium Level 132L, Potassium Level 3.2L, Chloride Level 99, Carbon Dioxide Level 21, Anion Gap 12, Blood Urea Nitrogen 33H, Creatinine 3.8H, Estimat Glomerular Filtration Rate 16.8, Glucose Level 159H, Calcium Level 8.6, Total Bilirubin 1.1H, Direct Bilirubin 0.3, Aspartate Amino Transf (AST/SGOT) 24, Alanine Aminotransferase (ALT/SGPT) 8L, Alkaline Phosphatase 60, Total Protein 7.1, Albumin 2.7L, Globulin 4.4, Albumin/Globulin Ratio 0.6L, Random Vancomycin Level 13.8 Height (Feet): 5 Height (Inches): 7.00 Weight (Pounds): 165 Objective WDWN NCAT supple CTA RRR soft flat, (+) umbilical hernia, (+) L sided cath no edema nonfocal LELAND THAPA Mar 24, 2017 21:50
[2017-03-24] MEDS: Zolpidem 5mg tab ORAL PRN (22:26)
[2017-03-25] VITALS: BP 103/74
[2017-03-25 04:00] VITALS: BP 99/71
[2017-03-25] MEDS: NovoLOG Insulin Flexpen SUBQ SCH ×4 (06:28→20:36)
[2017-03-25] MEDS: Lactulose 20gm/30ml UDC ORAL SCH ×3 (06:28→22:00)
[2017-03-25] MEDS ORDERED: Heparin Sod 1000 units/ml 10ml IV PRN (07:00)
[2017-03-25] MEDS ORDERED: Heparin 5000 units/ml inj INJ SCH (07:00)
[2017-03-25 08:00] VITALS: BP 102/71
[2017-03-25] MEDS: Bisacodyl EC 5mg tab ORAL SCH (09:22)
[2017-03-25] MEDS: Digoxin 0.125mg tab ORAL SCH (09:22)
--- NOTE | 2017-03-25 11:58 | Diagnostic Imaging Report ---
APPROVED REPORT CPT Code: 45674 Symptoms Comments: R/O PAD BILATERAL: Common femoral artery waveform analysis is within normal limits at rest. Color flow duplex sonography reveals minimal calcification throughout the superficial femoral, and popliteal arteries. There is no evidence of stenosis or occlusion within these segments. The tibioperoneal trunks were patent. The posterior tibial, and dorsalis pedis arteries are also patent. Doppler tibial artery waveform (triphasic) analysis is within normal limits, bilaterally. There is no evidence of significant arterial occlusive disease, bilaterally.
--- NOTE | 2017-03-25 11:58 | Diagnostic Imaging Report ---
APPROVED REPORT CPT Code: 84309 Symptoms Other : Pre-op evaluation for AVF BILATERAL UPPER EXTREMITY ARTERY: Imaging of the subclavian, axillary, brachial, radial and ulnar arteries is within normal limits. There is no evidence of stenosis or occlusions within these segments. The Doppler waveforms of the both upper extremity is consistent with normal inflow to the upper extremity.
--- NOTE | 2017-03-25 11:58 | Diagnostic Imaging Report ---
APPROVED REPORT CPT Code: 92413 Symptoms Other : Pre-op evaluation for AVF BILATERAL UPPER EXTREMITY ARTERY: Imaging of the subclavian, axillary, brachial, radial and ulnar arteries is within normal limits. There is no evidence of stenosis or occlusions within these segments. The Doppler waveforms of the both upper extremity is consistent with normal inflow to the upper extremity.
--- NOTE | 2017-03-25 11:58 | Diagnostic Imaging Report ---
APPROVED REPORT CPT Code: [id number] Present Symptoms Comments: Weakness BILATERAL: Imaging reveals a patent deep venous system bilaterally. There is no evidence of thrombus within the femoral, popliteal or tibial segments. The greater saphenous veins are also within normal limits. Doppler indicates normal spontaneous flow within these segments.
--- NOTE | 2017-03-25 11:58 | Diagnostic Imaging Report ---
APPROVED REPORT CPT Code: [id number] Symptoms Comments: R/O PAD BILATERAL: Common femoral artery waveform analysis is within normal limits at rest. Color flow duplex sonography reveals minimal calcification throughout the superficial femoral, and popliteal arteries. There is no evidence of stenosis or occlusion within these segments. The tibioperoneal trunks were patent. The posterior tibial, and dorsalis pedis arteries are also patent. Doppler tibial artery waveform (triphasic) analysis is within normal limits, bilaterally. There is no evidence of significant arterial occlusive disease, bilaterally.
--- NOTE | 2017-03-25 11:58 | Diagnostic Imaging Report ---
APPROVED REPORT CPT Code: 94129 Symptoms Comments: R/O PAD BILATERAL: Common femoral artery waveform analysis is within normal limits at rest. Color flow duplex sonography reveals minimal calcification throughout the superficial femoral, and popliteal arteries. There is no evidence of stenosis or occlusion within these segments. The tibioperoneal trunks were patent. The posterior tibial, and dorsalis pedis arteries are also patent. Doppler tibial artery waveform (triphasic) analysis is within normal limits, bilaterally. There is no evidence of significant arterial occlusive disease, bilaterally.
--- NOTE | 2017-03-25 11:58 | Diagnostic Imaging Report ---
APPROVED REPORT CPT Code: I2824 97472 Present Symptoms Comments: Weakness Vein Measurements(cm) Cephalic Basilic Right LeftRight Left Upper Arm0.200.35Mid Upper Arm0.25 Mid Upper Arm0.27Antecubital Fossa0.28 Upper Forearm0.16 VEIN MAPPING: The right and left basilic and left cephalic veins were imaged and measured to evaluate as a potential graft for dialysis access. The right cephalic vein was not well visualized. BILATERAL UPPER EXTREMITY (Deep venous system): Imaging reveals patency of the internal jugular, subclavian, axillary and brachial veins. Doppler indicates normal spontaneous flow within these venous segments, bilaterally.
--- NOTE | 2017-03-25 11:58 | Diagnostic Imaging Report ---
APPROVED REPORT CPT Code: 02214 Present Symptoms Comments: Weakness BILATERAL: Imaging reveals a patent deep venous system bilaterally. There is no evidence of thrombus within the femoral, popliteal or tibial segments. The greater saphenous veins are also within normal limits. Doppler indicates normal spontaneous flow within these segments.
--- NOTE | 2017-03-25 11:58 | Diagnostic Imaging Report ---
APPROVED REPORT CPT Code: [id number] Symptoms Other : Pre-op evaluation for AVF BILATERAL UPPER EXTREMITY ARTERY: Imaging of the subclavian, axillary, brachial, radial and ulnar arteries is within normal limits. There is no evidence of stenosis or occlusions within these segments. The Doppler waveforms of the both upper extremity is consistent with normal inflow to the upper extremity.
--- NOTE | 2017-03-25 11:58 | Diagnostic Imaging Report ---
APPROVED REPORT CPT Code: 96697 Present Symptoms Comments: Weakness BILATERAL: Imaging reveals a patent deep venous system bilaterally. There is no evidence of thrombus within the femoral, popliteal or tibial segments. The greater saphenous veins are also within normal limits. Doppler indicates normal spontaneous flow within these segments.
--- NOTE | 2017-03-25 11:58 | Diagnostic Imaging Report ---
APPROVED REPORT CPT Code: F0862 74428 Present Symptoms Comments: Weakness Vein Measurements(cm) Cephalic Basilic Right LeftRight Left Upper Arm0.200.35Mid Upper Arm0.25 Mid Upper Arm0.27Antecubital Fossa0.28 Upper Forearm0.16 VEIN MAPPING: The right and left basilic and left cephalic veins were imaged and measured to evaluate as a potential graft for dialysis access. The right cephalic vein was not well visualized. BILATERAL UPPER EXTREMITY (Deep venous system): Imaging reveals patency of the internal jugular, subclavian, axillary and brachial veins. Doppler indicates normal spontaneous flow within these venous segments, bilaterally.
--- NOTE | 2017-03-25 11:58 | Diagnostic Imaging Report ---
APPROVED REPORT CPT Code: Q8053 73602 Present Symptoms Comments: Weakness Vein Measurements(cm) Cephalic Basilic Right LeftRight Left Upper Arm0.200.35Mid Upper Arm0.25 Mid Upper Arm0.27Antecubital Fossa0.28 Upper Forearm0.16 VEIN MAPPING: The right and left basilic and left cephalic veins were imaged and measured to evaluate as a potential graft for dialysis access. The right cephalic vein was not well visualized. BILATERAL UPPER EXTREMITY (Deep venous system): Imaging reveals patency of the internal jugular, subclavian, axillary and brachial veins. Doppler indicates normal spontaneous flow within these venous segments, bilaterally.
[2017-03-25 12:00] VITALS: BP 105/63
--- NOTE | 2017-03-25 12:49 | Nephrology Progress Note ---
Assessment/Plan Plan ESRD -. Referred [place] [facility] [place]. Acceptance pending.HD today pending. Subjective Subjective Much more alert yet. No c/o Objective Objective Last 24 Hour Vital Signs Date Time Temp Pulse Resp B/P (MAP) Pulse Ox O2 Delivery O2 Flow Rate FiO2 03/25/17 10:51 Room Air 03/25/17 09:22 114 03/25/17 08:00 97.7 116 18 102/71 96 Room Air 03/25/17 04:00 97.9 113 20 99/71 Room Air 03/25/17 04:00 117 03/25/17 00:00 106 03/25/17 00:00 98.6 109 20 103/74 97 Room Air 03/24/17 20:00 116 03/24/17 20:00 98.1 110 18 100/69 97 Room Air 03/24/17 16:00 97.3 102 20 99/73 95 Room Air 03/24/17 16:00 105 Height (Feet): 5 Height (Inches): 7.00 Weight (Pounds): 165 Objective CV RR Lungs CTAP. Abd -SNT. BS +. RLQ Hernia! Tense Ascites!. E +@ B edema Had HD Clinically better. Hypokelemik. GFR m/p better too. PIETRO MARION Mar 25, 2017 12:49
--- NOTE | 2017-03-25 12:49 | Nephrology Progress Note ---
Assessment/Plan Plan ESRD -. Referred to [facility] [place], [place] for outpatient HD. Acceptance pending.HD today pending. Subjective Subjective Much more alert yet. No c/o Objective Objective Last 24 Hour Vital Signs Date Time Temp Pulse Resp B/P (MAP) Pulse Ox O2 Delivery O2 Flow Rate FiO2 03/25/17 10:51 Room Air 03/25/17 09:22 114 03/25/17 08:00 97.7 116 18 102/71 96 Room Air 03/25/17 04:00 97.9 113 20 99/71 Room Air 03/25/17 04:00 117 03/25/17 00:00 106 03/25/17 00:00 98.6 109 20 103/74 97 Room Air 03/24/17 20:00 116 03/24/17 20:00 98.1 110 18 100/69 97 Room Air 03/24/17 16:00 97.3 102 20 99/73 95 Room Air 03/24/17 16:00 105 Height (Feet): 5 Height (Inches): 7.00 Weight (Pounds): 165 Objective CV RR Lungs CTAP. Abd -SNT. BS +. RLQ Hernia! Tense Ascites!. E +@ B edema Had HD Clinically better. Hypokelemik. GFR m/p better too. PIETRO MARION Mar 25, 2017 12:49
--- NOTE | 2017-03-25 12:49 | Nephrology Progress Note ---
Assessment/Plan Plan ESRD -. Referred to [facility] [place] for outpatient HD. Acceptance pending.HD today pending. Subjective Subjective Much more alert yet. No c/o Objective Objective Last 24 Hour Vital Signs Date Time Temp Pulse Resp B/P (MAP) Pulse Ox O2 Delivery O2 Flow Rate FiO2 03/25/17 10:51 Room Air 03/25/17 09:22 114 03/25/17 08:00 97.7 116 18 102/71 96 Room Air 03/25/17 04:00 97.9 113 20 99/71 Room Air 03/25/17 04:00 117 03/25/17 00:00 106 03/25/17 00:00 98.6 109 20 103/74 97 Room Air 03/24/17 20:00 116 03/24/17 20:00 98.1 110 18 100/69 97 Room Air 03/24/17 16:00 97.3 102 20 99/73 95 Room Air 03/24/17 16:00 105 Height (Feet): 5 Height (Inches): 7.00 Weight (Pounds): 165 Objective CV RR Lungs CTAP. Abd -SNT. BS +. RLQ Hernia! Tense Ascites!. E +@ B edema Had HD Clinically better. Hypokelemik. GFR m/p better too. PIETRO MARION Mar 25, 2017 12:49
--- NOTE | 2017-03-25 13:42 | General Progress Note ---
Assessment/Plan Assessment/Plan IMPRESSION: 1. Hepatorenal syndrome. 2. Acute on chronic renal failure. 3. Hypokalemia. 4. Hyponatremia. 5. Mild leukocytosis. improved 6. Possible abdominal sepsis. 7. SBO 8. umbilical hernia 9 persistent sinus tachycardia PLAN dc planning on hold added digoxin Vanco IV added ?dc cultures noted repeat labs diet as tolerate recheck KUB HD per renal Subjective Allergies: Coded Allergies: PENICILLINS (Verified Allergy, Severe, 11/27/16) COPIED FROM UNCODED SECTION UNABLE TO ASSESS (Unverified , 03/10/17) Subjective having abdominal pain still tachycardic Objective Last 24 Hour Vital Signs Date Time Temp Pulse Resp B/P (MAP) Pulse Ox O2 Delivery O2 Flow Rate FiO2 03/25/17 10:51 Room Air 03/25/17 09:22 114 03/25/17 08:00 97.7 116 18 102/71 96 Room Air 03/25/17 04:00 97.9 113 20 99/71 Room Air 03/25/17 04:00 117 03/25/17 00:00 106 03/25/17 00:00 98.6 109 20 103/74 97 Room Air 03/24/17 20:00 116 03/24/17 20:00 98.1 110 18 100/69 97 Room Air 03/24/17 16:00 97.3 102 20 99/73 95 Room Air 03/24/17 16:00 105 Height (Feet): 5 Height (Inches): 7.00 Weight (Pounds): 165 Objective WDWN NAD clear breath sounds bilaterally without rhonchi or wheeze [id number] without MRG tachy abdominal pain mildly worse no CC edema nonfocal MARY ANNE CASON Mar 25, 2017 13:42
--- NOTE | 2017-03-25 13:48 | Vascular Surgery Progress Note ---
Subjective Subjective No new complaints Has abdominal drainage and ascites HD via permcath Objective Objective Last 24 Hour Vital Signs Date Time Temp Pulse Resp B/P (MAP) Pulse Ox O2 Delivery O2 Flow Rate FiO2 03/25/17 10:51 Room Air 03/25/17 09:22 114 03/25/17 08:00 97.7 116 18 102/71 96 Room Air 03/25/17 04:00 97.9 113 20 99/71 Room Air 03/25/17 04:00 117 03/25/17 00:00 106 03/25/17 00:00 98.6 109 20 103/74 97 Room Air 03/24/17 20:00 116 03/24/17 20:00 98.1 110 18 100/69 97 Room Air 03/24/17 16:00 97.3 102 20 99/73 95 Room Air 03/24/17 16:00 105 Height (Feet): 5 Height (Inches): 7.00 Weight (Pounds): 165 Objective Right chest permcath c/d/i cvs rrr lungs cta abd soft large umbilical hernia with left flank drainage catheter 2+ femorals intact pedal dopplers Assessment/Plan Assessment IMPRESSION: 1. Renal failure, on hemodialysis through a tunneled a [id number]. 2. Hepatorenal syndrome with liver alcoholic cirrhosis and failure. 3. Recurrent ascites with a history of ascites drainage and peritoneal catheter in the left flank. 4. Large umbilical hernia, reducible. 5. History of hypertension. 6. 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 Plan 1. Continue dialysis through a tunneled [id number]. 2. We will save the left arm for possible need for future AV shunt or graft placement if indicated and cleared by renal and medical service. 3. Antibiotics per Infectious Disease service. 4. GI and Hepatology followup and assessment of his liver failure and candidacy for liver & kidney transplantation. 5. Continue DVT and decubitus precautions. The above is discussed at length with the patient and his nurse at bedside. TREMAINE WEAVER Mar 25, 2017 13:48
--- NOTE | 2017-03-25 13:48 | Vascular Surgery Progress Note ---
Subjective Subjective No new complaints Has abdominal drainage and ascites HD via permcath Objective Objective Last 24 Hour Vital Signs Date Time Temp Pulse Resp B/P (MAP) Pulse Ox O2 Delivery O2 Flow Rate FiO2 03/25/17 10:51 Room Air 03/25/17 09:22 114 03/25/17 08:00 97.7 116 18 102/71 96 Room Air 03/25/17 04:00 97.9 113 20 99/71 Room Air 03/25/17 04:00 117 03/25/17 00:00 106 03/25/17 00:00 98.6 109 20 103/74 97 Room Air 03/24/17 20:00 116 03/24/17 20:00 98.1 110 18 100/69 97 Room Air 03/24/17 16:00 97.3 102 20 99/73 95 Room Air 03/24/17 16:00 105 Height (Feet): 5 Height (Inches): 7.00 Weight (Pounds): 165 Objective Right chest permcath c/d/i cvs rrr lungs cta abd soft large umbilical hernia with left flank drainage catheter 2+ femorals intact pedal dopplers Assessment/Plan Assessment IMPRESSION: 1. Renal failure, on hemodialysis through a tunneled a Kihj-M-Mvsxjdas. 2. Hepatorenal syndrome with liver alcoholic cirrhosis and failure. 3. Recurrent ascites with a history of ascites drainage and peritoneal catheter in the left flank. 4. Large umbilical hernia, reducible. 5. History of hypertension. 6. 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 Plan 1. Continue dialysis through a tunneled [id number]-M-Yqeprgur. 2. We will save the left arm for possible need for future AV shunt or graft placement if indicated and cleared by renal and medical service. 3. Antibiotics per Infectious Disease service. 4. GI and Hepatology followup and assessment of his liver failure and candidacy for liver & kidney transplantation. 5. Continue DVT and decubitus precautions. The above is discussed at length with the patient and his nurse at bedside. TREMAINE WEAVER Mar 25, 2017 13:48
--- NOTE | 2017-03-25 13:48 | Vascular Surgery Progress Note ---
Subjective Subjective No new complaints Has abdominal drainage and ascites HD via permcath Objective Objective Last 24 Hour Vital Signs Date Time Temp Pulse Resp B/P (MAP) Pulse Ox O2 Delivery O2 Flow Rate FiO2 03/25/17 10:51 Room Air 03/25/17 09:22 114 03/25/17 08:00 97.7 116 18 102/71 96 Room Air 03/25/17 04:00 97.9 113 20 99/71 Room Air 03/25/17 04:00 117 03/25/17 00:00 106 03/25/17 00:00 98.6 109 20 103/74 97 Room Air 03/24/17 20:00 116 03/24/17 20:00 98.1 110 18 100/69 97 Room Air 03/24/17 16:00 97.3 102 20 99/73 95 Room Air 03/24/17 16:00 105 Height (Feet): 5 Height (Inches): 7.00 Weight (Pounds): 165 Objective Right chest permcath c/d/i cvs rrr lungs cta abd soft large umbilical hernia with left flank drainage catheter 2+ femorals intact pedal dopplers Assessment/Plan Assessment IMPRESSION: 1. Renal failure, on hemodialysis through a tunneled a Uwvr-O-Eepasuhr. 2. Hepatorenal syndrome with liver alcoholic cirrhosis and failure. 3. Recurrent ascites with a history of ascites drainage and peritoneal catheter in the left flank. 4. Large umbilical hernia, reducible. 5. History of hypertension. 6. 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 Plan 1. Continue dialysis through a tunneled Pyei-V-Aniylnzy. 2. We will save the left arm for possible need for future AV shunt or graft placement if indicated and cleared by renal and medical service. 3. Antibiotics per Infectious Disease service. 4. GI and Hepatology followup and assessment of his liver failure and candidacy for liver & kidney transplantation. 5. Continue DVT and decubitus precautions. The above is discussed at length with the patient and his nurse at bedside. TREMAINE WEAVER Mar 25, 2017 13:48
[2017-03-25 16:00] VITALS: BP 98/64
[2017-03-25] MEDS ORDERED: NS 275ml ONE (16:33)
--- NOTE | 2017-03-25 19:07 | General Progress Note ---
Assessment/Plan Assessment/Plan Assessment - EtoH Cirrhosis - Ascites - Abd pain w/o SBP - resolved - Renal failure - Low K, metabolic acidosis Recommendations - Broad spect abx - PPI - Lactulose, xifaxan - HD per renal - paracentesis Subjective Allergies: Coded Allergies: PENICILLINS (Verified Allergy, Severe, 11/27/16) COPIED FROM UNCODED SECTION UNABLE TO ASSESS (Unverified , 03/10/17) Subjective Feels well comfortable toll po no abd pain (+) drain site leak Objective Last 24 Hour Vital Signs Date Time Temp Pulse Resp B/P (MAP) Pulse Ox O2 Delivery O2 Flow Rate FiO2 03/25/17 16:00 98.0 110 18 98/64 100 Room Air 03/25/17 16:00 107 03/25/17 12:00 98.1 120 20 105/63 95 Room Air 03/25/17 12:00 115 03/25/17 10:51 Room Air 03/25/17 09:22 114 03/25/17 08:00 97.7 116 18 102/71 96 Room Air 03/25/17 08:00 121 03/25/17 04:00 97.9 113 20 99/71 Room Air 03/25/17 04:00 117 03/25/17 00:00 106 03/25/17 00:00 98.6 109 20 103/74 97 Room Air 03/24/17 20:00 116 03/24/17 20:00 98.1 110 18 100/69 97 Room Air Intake and Output 03/25/17 03/26/17 19:00 07:00 # Bowel Movements 3 Height (Feet): 5 Height (Inches): 7.00 Weight (Pounds): 165 Objective WDWN NCAT supple CTA RRR soft flat, (+) umbilical hernia, (+) L sided cath no edema nonfocal LELAND THAPA Mar 25, 2017 19:07
[2017-03-25 20:00] VITALS: BP 91/64
[2017-03-25] MEDS: Dyna-Hex 2% Top Sol 2oz TOPIC SCH (20:20)
[2017-03-25] MEDS: Zolpidem 5mg tab ORAL PRN (22:13)
[2017-03-26] VITALS: BP 90/54
[2017-03-26 04:00] VITALS: BP 99/67
[2017-03-26] MEDS: Lactulose 20gm/30ml UDC ORAL SCH ×4 (06:31→21:52)
[2017-03-26] MEDS: NovoLOG Insulin Flexpen SUBQ SCH ×4 (06:36→22:09)
[2017-03-26 08:00] VITALS: BP 99/71
--- NOTE | 2017-03-26 09:11 | Nephrology Progress Note ---
Assessment/Plan Plan ESRD -. Accepted @ [facility] [address] [facility] [address] phone [phone] MWF 9:15 AM - 12:45 PM Subjective Subjective Much more alert yet. No c/o Objective Objective Last 24 Hour Vital Signs Date Time Temp Pulse Resp B/P (MAP) Pulse Ox O2 Delivery O2 Flow Rate FiO2 03/26/17 04:00 112 03/26/17 04:00 97.7 114 20 99/67 94 Room Air 03/26/17 00:00 98.2 113 20 90/54 92 Room Air 03/26/17 00:00 110 03/25/17 20:00 111 03/25/17 20:00 98.1 111 20 91/64 97 Room Air 03/25/17 16:00 98.0 110 18 98/64 100 Room Air 03/25/17 16:00 107 03/25/17 12:00 98.1 120 20 105/63 95 Room Air 03/25/17 12:00 115 03/25/17 10:51 Room Air 03/25/17 09:22 114 Height (Feet): 5 Height (Inches): 7.00 Weight (Pounds): 163 Objective CV RR Lungs CTAP. Abd -SNT. BS +. RLQ Hernia! Tense Ascites!. E +@ B edema Had HD Clinically better. Hypokelemik. GFR m/p better too. PIETRO MARION Mar 26, 2017 09:11
--- NOTE | 2017-03-26 09:11 | Nephrology Progress Note ---
Assessment/Plan Plan ESRD -. Accepted @ [facility] [address] [facility] [address] phone [phone] MWF 9:15 AM - 12:45 PM Subjective Subjective Much more alert yet. No c/o Objective Objective Last 24 Hour Vital Signs Date Time Temp Pulse Resp B/P (MAP) Pulse Ox O2 Delivery O2 Flow Rate FiO2 03/26/17 04:00 112 03/26/17 04:00 97.7 114 20 99/67 94 Room Air 03/26/17 00:00 98.2 113 20 90/54 92 Room Air 03/26/17 00:00 110 03/25/17 20:00 111 03/25/17 20:00 98.1 111 20 91/64 97 Room Air 03/25/17 16:00 98.0 110 18 98/64 100 Room Air 03/25/17 16:00 107 03/25/17 12:00 98.1 120 20 105/63 95 Room Air 03/25/17 12:00 115 03/25/17 10:51 Room Air 03/25/17 09:22 114 Height (Feet): 5 Height (Inches): 7.00 Weight (Pounds): 163 Objective CV RR Lungs CTAP. Abd -SNT. BS +. RLQ Hernia! Tense Ascites!. E +@ B edema Had HD Clinically better. Hypokelemik. GFR m/p better too. PIETRO MARION Mar 26, 2017 09:11
--- NOTE | 2017-03-26 09:11 | Nephrology Progress Note ---
Assessment/Plan Plan ESRD -. Accepted @ [facility] [address] [facility] [address] phone [phone] MWF 9:15 AM - 12:45 PM Subjective Subjective Much more alert yet. No c/o Objective Objective Last 24 Hour Vital Signs Date Time Temp Pulse Resp B/P (MAP) Pulse Ox O2 Delivery O2 Flow Rate FiO2 03/26/17 04:00 112 03/26/17 04:00 97.7 114 20 99/67 94 Room Air 03/26/17 00:00 98.2 113 20 90/54 92 Room Air 03/26/17 00:00 110 03/25/17 20:00 111 03/25/17 20:00 98.1 111 20 91/64 97 Room Air 03/25/17 16:00 98.0 110 18 98/64 100 Room Air 03/25/17 16:00 107 03/25/17 12:00 98.1 120 20 105/63 95 Room Air 03/25/17 12:00 115 03/25/17 10:51 Room Air 03/25/17 09:22 114 Height (Feet): 5 Height (Inches): 7.00 Weight (Pounds): 163 Objective CV RR Lungs CTAP. Abd -SNT. BS +. RLQ Hernia! Tense Ascites!. E +@ B edema Had HD Clinically better. Hypokelemik. GFR m/p better too. PIETRO MARION Mar 26, 2017 09:11
[2017-03-26] MEDS: Bisacodyl EC 5mg tab ORAL SCH (10:08)
[2017-03-26] MEDS: Digoxin 0.125mg tab ORAL SCH (10:16)
[2017-03-26 12:00] VITALS: BP 104/74
--- NOTE | 2017-03-26 12:58 | General Progress Note ---
Assessment/Plan Assessment/Plan IMPRESSION: 1. Hepatorenal syndrome. 2. Acute on chronic renal failure. 3. Hypokalemia. 4. Hyponatremia. 5. Mild leukocytosis. improved 6. Possible abdominal sepsis. 7. SBO 8. umbilical hernia 9 persistent sinus tachycardia PLAN dc planning on hold added digoxin add atenolol and monitor Vanco IV added ?dc cultures noted diet as tolerate recheck KUB- when able HD per renal Subjective Allergies: Coded Allergies: PENICILLINS (Verified Allergy, Severe, 11/27/16) COPIED FROM UNCODED SECTION UNABLE TO ASSESS (Unverified , 03/10/17) Subjective stable still tachycardic Objective Last 24 Hour Vital Signs Date Time Temp Pulse Resp B/P (MAP) Pulse Ox O2 Delivery O2 Flow Rate FiO2 03/26/17 10:16 120 03/26/17 08:00 97.8 104 20 99/71 96 Room Air 03/26/17 04:00 112 03/26/17 04:00 97.7 114 20 99/67 94 Room Air 03/26/17 00:00 98.2 113 20 90/54 92 Room Air 03/26/17 00:00 110 03/25/17 20:00 111 03/25/17 20:00 98.1 111 20 91/64 97 Room Air 03/25/17 16:00 98.0 110 18 98/64 100 Room Air 03/25/17 16:00 107 Height (Feet): 5 Height (Inches): 7.00 Weight (Pounds): 163 Objective WDWN NAD clear breath sounds bilaterally without rhonchi or wheeze S1S2RR without MRG tachy abdominal pain mildly worse no CC edema nonfocal MARY ANNE CASON Mar 26, 2017 12:58
[2017-03-26 16:00] VITALS: BP 96/68
[2017-03-26 20:00] VITALS: BP 91/69
[2017-03-26] MEDS: Dyna-Hex 2% Top Sol 2oz TOPIC SCH (20:00)
[2017-03-26] MEDS: Zolpidem 5mg tab ORAL PRN (22:09)
--- NOTE | 2017-03-26 23:21 | General Progress Note ---
Assessment/Plan Assessment/Plan Assessment - EtoH Cirrhosis - Ascites - Abd pain w/o SBP - resolved - Renal failure - Low K, metabolic acidosis Recommendations - PPI - Abx - Lactulose, xifaxan - HD per renal - periodic paracentesis PRN Subjective Allergies: Coded Allergies: PENICILLINS (Verified Allergy, Severe, 11/27/16) COPIED FROM UNCODED SECTION UNABLE TO ASSESS (Unverified , 03/10/17) Subjective Feels well comfortable toll po no abd pain s/p paracentesis x 3 L Objective Last 24 Hour Vital Signs Date Time Temp Pulse Resp B/P (MAP) Pulse Ox O2 Delivery O2 Flow Rate FiO2 03/26/17 20:05 91 03/26/17 20:00 98.0 94 20 91/69 98 Room Air 03/26/17 16:00 97.3 100 18 96/68 94 Room Air 03/26/17 16:00 102 03/26/17 12:00 97.2 105 18 104/74 98 Room Air 03/26/17 12:00 104 03/26/17 10:16 120 03/26/17 08:00 108 03/26/17 08:00 97.8 104 20 99/71 96 Room Air 03/26/17 04:00 112 03/26/17 04:00 97.7 114 20 99/67 94 Room Air 03/26/17 00:00 98.2 113 20 90/54 92 Room Air 03/26/17 00:00 110 Laboratory Tests 03/26/17 16:30: Digoxin Level 0.3L Height (Feet): 5 Height (Inches): 7.00 Weight (Pounds): 163 Objective WDWN NCAT supple CTA RRR soft flat, (+) umbilical hernia, (+) L sided cath no edema nonfocal LELAND THAPA Mar 26, 2017 23:21
[2017-03-27 00:37] VITALS: BP 99/61
[2017-03-27 04:00] VITALS: BP 97/74
[2017-03-27] MEDS: Lactulose 20gm/30ml UDC ORAL SCH ×3 (06:00→22:13)
[2017-03-27 06:43] LABS: BLOOD UREA NITROGEN 35 mg/dL (7-18); CALCIUM 8.3 MG/DL (8.5-10.1); CARBON DIOXIDE 19 MMOL/L (21-32); CREATININE 4.7 MG/DL (0.55-1.30)
[2017-03-27] MEDS: NovoLOG Insulin Flexpen SUBQ SCH ×4 (06:46→22:16)
[2017-03-27 07:06] LABS: CHLORIDE 98 MMOL/L (98-107); POTASSIUM 3.4 MMOL/L (3.5-5.1); SODIUM 130 MMOL/L (136-145)
[2017-03-27 08:00] VITALS: BP 98/76
[2017-03-27] MEDS ORDERED: Atenolol 25mg tab ORAL SCH (09:00)
[2017-03-27] MEDS: Bisacodyl EC 5mg tab ORAL SCH (09:25)
[2017-03-27] MEDS: Digoxin 0.125mg tab ORAL SCH (09:25)
--- NOTE | 2017-03-27 09:59 | Nephrology Progress Note ---
Assessment/Plan Plan 1) ESRD on HD 2) anemia of CKD 3) hypotension 4) ascites s/p paracentesis Plan ok to dc from renal stand point [place] [facility] [place] [facility] [place] Discussed with charge operator and PCP Subjective Subjective got paracentesis of 3L removed yesterday. Objective Objective Last 24 Hour Vital Signs Date Time Temp Pulse Resp B/P (MAP) Pulse Ox O2 Delivery O2 Flow Rate FiO2 03/27/17 09:25 92 03/27/17 04:00 92 03/27/17 04:00 98.4 103 20 97/74 97 Room Air 03/27/17 00:37 97.9 92 20 99/61 98 Room Air 03/27/17 00:28 96 03/26/17 20:05 91 03/26/17 20:00 98.0 94 20 91/69 98 Room Air 03/26/17 16:00 97.3 100 18 96/68 94 Room Air 03/26/17 16:00 102 03/26/17 12:00 97.2 105 18 104/74 98 Room Air 03/26/17 12:00 104 03/26/17 10:16 120 Laboratory Tests 03/26/17 16:30: Digoxin Level 0.3L 03/27/17 05:00: Sodium Level 130L, Potassium Level 3.4L, Chloride Level 98, Carbon Dioxide Level 19L, Blood Urea Nitrogen 35H, Creatinine 4.7H, Estimat Glomerular Filtration Rate 13.2, Glucose Level 140H, Calcium Level 8.3L, Random Vancomycin Level 15.1 Height (Feet): 5 Height (Inches): 7.00 Weight (Pounds): 164 Objective NAD, AAOx3 clear RRR distended, BS+ edema+, R chest permacath + DURAN,YOUNG Mar 27, 2017 09:59
--- NOTE | 2017-03-27 09:59 | Nephrology Progress Note ---
Assessment/Plan Plan 1) ESRD on HD 2) anemia of CKD 3) hypotension 4) ascites s/p paracentesis Plan ok to dc from renal stand point pt is accepted by [facility] [place] for [place]pt HD advised pt to come to [facility] tomorrow Discussed with fire extinguisher charger and PCP Subjective Subjective got paracentesis of 3L removed yesterday. Objective Objective Last 24 Hour Vital Signs Date Time Temp Pulse Resp B/P (MAP) Pulse Ox O2 Delivery O2 Flow Rate FiO2 03/27/17 09:25 92 03/27/17 04:00 92 03/27/17 04:00 98.4 103 20 97/74 97 Room Air 03/27/17 00:37 97.9 92 20 99/61 98 Room Air 03/27/17 00:28 96 03/26/17 20:05 91 03/26/17 20:00 98.0 94 20 91/69 98 Room Air 03/26/17 16:00 97.3 100 18 96/68 94 Room Air 03/26/17 16:00 102 03/26/17 12:00 97.2 105 18 104/74 98 Room Air 03/26/17 12:00 104 03/26/17 10:16 120 Laboratory Tests 03/26/17 16:30: Digoxin Level 0.3L 03/27/17 05:00: Sodium Level 130L, Potassium Level 3.4L, Chloride Level 98, Carbon Dioxide Level 19L, Blood Urea Nitrogen 35H, Creatinine 4.7H, Estimat Glomerular Filtration Rate 13.2, Glucose Level 140H, Calcium Level 8.3L, Random Vancomycin Level 15.1 Height (Feet): 5 Height (Inches): 7.00 Weight (Pounds): 164 Objective NAD, AAOx3 clear RRR distended, BS+ edema+, R chest permacath + DURAN,YOUNG Mar 27, 2017 09:59
--- NOTE | 2017-03-27 09:59 | Nephrology Progress Note ---
Assessment/Plan Plan 1) ESRD on HD 2) anemia of CKD 3) hypotension 4) ascites s/p paracentesis Plan ok to dc from renal stand point pt is accepted by [facility] [place] for outpt HD advised pt to come to [facility] [place] tomorrow Discussed with supervisor in charge and PCP Subjective Subjective got paracentesis of 3L removed yesterday. Objective Objective Last 24 Hour Vital Signs Date Time Temp Pulse Resp B/P (MAP) Pulse Ox O2 Delivery O2 Flow Rate FiO2 03/27/17 09:25 92 03/27/17 04:00 92 03/27/17 04:00 98.4 103 20 97/74 97 Room Air 03/27/17 00:37 97.9 92 20 99/61 98 Room Air 03/27/17 00:28 96 03/26/17 20:05 91 03/26/17 20:00 98.0 94 20 91/69 98 Room Air 03/26/17 16:00 97.3 100 18 96/68 94 Room Air 03/26/17 16:00 102 03/26/17 12:00 97.2 105 18 104/74 98 Room Air 03/26/17 12:00 104 03/26/17 10:16 120 Laboratory Tests 03/26/17 16:30: Digoxin Level 0.3L 03/27/17 05:00: Sodium Level 130L, Potassium Level 3.4L, Chloride Level 98, Carbon Dioxide Level 19L, Blood Urea Nitrogen 35H, Creatinine 4.7H, Estimat Glomerular Filtration Rate 13.2, Glucose Level 140H, Calcium Level 8.3L, Random Vancomycin Level 15.1 Height (Feet): 5 Height (Inches): 7.00 Weight (Pounds): 164 Objective NAD, AAOx3 clear RRR distended, BS+ edema+, R chest permacath + DURAN,YOUNG Mar 27, 2017 09:59
--- NOTE | 2017-03-27 11:16 | General Progress Note ---
Progress Note Progress Note Surgery: hernia sac fills with ascites fluid. no intestinal contents in hernia and remains reduced. will require surgery only if contents become incarcerated or strangulated. will follow peripherally while in hospital. Dragan Escalera Mar 27, 2017 11:16
[2017-03-27 12:00] VITALS: BP 97/76
--- NOTE | 2017-03-27 13:17 | Diagnostic Imaging Report ---
Indication: Abdominal distention, evaluation of ascites for drainage via chronic tunneled drainage catheter Technique: Limited images of the peritoneal space Comparison: None Findings: Ascites fluid is seen in the left lower quadrant. The fluid was drained via the indwelling right drainage catheter, 3 L removed. Impression: Small to moderate ascites, with removal of 3 L via tunneled indwelling drainage catheter
[2017-03-27 16:00] VITALS: BP 103/76
[2017-03-27] MEDS ORDERED: KCl 10% 40mEq/30ml liquid ORAL ONE (16:30)
[2017-03-27 20:00] VITALS: BP 99/74
--- NOTE | 2017-03-27 22:08 | General Progress Note ---
Assessment/Plan Assessment/Plan Assessment - EtoH Cirrhosis - Ascites - Abd pain w/o SBP - resolved - Renal failure Recommendations - PPI - Abx - Lactulose, xifaxan - HD per renal - periodic paracentesis PRN Subjective Allergies: Coded Allergies: PENICILLINS (Verified Allergy, Severe, 11/27/16) COPIED FROM UNCODED SECTION UNABLE TO ASSESS (Unverified , 03/10/17) Subjective Feels well comfortable toll po no abd pain Objective Last 24 Hour Vital Signs Date Time Temp Pulse Resp B/P (MAP) Pulse Ox O2 Delivery O2 Flow Rate FiO2 03/27/17 20:00 98.1 97 18 99/74 96 Room Air 03/27/17 16:00 97.7 109 20 103/76 99 Room Air 03/27/17 16:00 106 03/27/17 12:00 94 03/27/17 12:00 97.3 101 18 97/76 97 Room Air 03/27/17 09:25 92 03/27/17 08:00 103 03/27/17 08:00 97.5 96 20 98/76 100 Room Air 03/27/17 04:00 92 03/27/17 04:00 98.4 103 20 97/74 97 Room Air 03/27/17 00:37 97.9 92 20 99/61 98 Room Air 03/27/17 00:28 96 Intake and Output 03/27/17 03/28/17 19:00 07:00 Intake Total 500 ml Balance 500 ml Intake Oral 500 ml # Voids 2 # Bowel Movements 3 Laboratory Tests 03/27/17 05:00: Sodium Level 130L, Potassium Level 3.4L, Chloride Level 98, Carbon Dioxide Level 19L, Blood Urea Nitrogen 35H, Creatinine 4.7H, Estimat Glomerular Filtration Rate 13.2, Glucose Level 140H, Calcium Level 8.3L, Random Vancomycin Level 15.1 Height (Feet): 5 Height (Inches): 7.00 Weight (Pounds): 164 Objective WDWN NCAT supple CTA RRR soft flat, (+) umbilical hernia, (+) L sided cath no edema nonfocal LELAND THAPA Mar 27, 2017 22:08
[2017-03-27] MEDS: Dyna-Hex 2% Top Sol 2oz TOPIC SCH (22:13)
[2017-03-27] MEDS: Zolpidem 5mg tab ORAL PRN (22:22)
[2017-03-28] VITALS: BP 100/67
[2017-03-28 04:00] VITALS: BP 84/57
[2017-03-28] MEDS: Lactulose 20gm/30ml UDC ORAL SCH ×3 (06:00→21:57)
[2017-03-28] MEDS: NovoLOG Insulin Flexpen SUBQ SCH ×4 (06:19→21:55)
[2017-03-28 08:00] VITALS: BP 89/49
--- NOTE | 2017-03-28 08:53 | General Progress Note ---
Assessment/Plan Assessment/Plan IMPRESSION: 1. Hepatorenal syndrome. 2. Acute on chronic renal failure. 3. Hypokalemia. 4. Hyponatremia. 5. Mild leukocytosis. improved 6. Possible abdominal sepsis. 7. SBO 8. umbilical hernia 9 persistent sinus tachycardia PLAN dc planning on digoxin increase midodrine HD per renal dc once outpatient HD scheduled Subjective Allergies: Coded Allergies: PENICILLINS (Verified Allergy, Severe, 11/27/16) COPIED FROM UNCODED SECTION UNABLE TO ASSESS (Unverified , 03/10/17) Subjective stable still tachycardic Objective Last 24 Hour Vital Signs Date Time Temp Pulse Resp B/P (MAP) Pulse Ox O2 Delivery O2 Flow Rate FiO2 03/28/17 08:00 97.0 120 19 89/49 93 Room Air 03/28/17 05:51 Room Air 03/28/17 04:00 115 03/28/17 04:00 98.3 117 18 84/57 100 Room Air 03/28/17 00:00 98.8 110 18 100/67 100 Room Air 03/28/17 00:00 105 03/27/17 20:00 98.1 97 18 99/74 96 Room Air 03/27/17 20:00 103 03/27/17 16:00 97.7 109 20 103/76 99 Room Air 03/27/17 16:00 106 03/27/17 12:00 94 03/27/17 12:00 97.3 101 18 97/76 97 Room Air 03/27/17 09:25 92 Height (Feet): 5 Height (Inches): 7.00 Weight (Pounds): 163 Objective WDWN NAD clear breath sounds bilaterally without rhonchi or wheeze S1S2RR without MRG tachy abdominal pain mildly worse no CC edema nonfocal MARY ANNE CASON Mar 28, 2017 08:53
[2017-03-28] MEDS: Bisacodyl EC 5mg tab ORAL SCH (09:08)
[2017-03-28] MEDS: Digoxin 0.125mg tab ORAL SCH (09:09)
--- NOTE | 2017-03-28 10:11 | Nephrology Progress Note ---
Assessment/Plan Plan 1) ESRD on HD 2) anemia of CKD 3) hypotension 4) ascites s/p paracentesis Plan HD today ok to dc from renal stand point Discussed with chargeback specialist and PCP Subjective Subjective denies any c/o couldn't go due to transportation Objective Objective Last 24 Hour Vital Signs Date Time Temp Pulse Resp B/P (MAP) Pulse Ox O2 Delivery O2 Flow Rate FiO2 03/28/17 09:09 120 03/28/17 08:00 97.0 120 19 89/49 93 Room Air 03/28/17 05:51 Room Air 03/28/17 04:00 115 03/28/17 04:00 98.3 117 18 84/57 100 Room Air 03/28/17 00:00 98.8 110 18 100/67 100 Room Air 03/28/17 00:00 105 03/27/17 20:00 98.1 97 18 99/74 96 Room Air 03/27/17 20:00 103 03/27/17 16:00 97.7 109 20 103/76 99 Room Air 03/27/17 16:00 106 03/27/17 12:00 94 03/27/17 12:00 97.3 101 18 97/76 97 Room Air Height (Feet): 5 Height (Inches): 7.00 Weight (Pounds): 163 Objective NAD, AAOx3 clear RRR distended, BS+ edema+, R chest permacath + DURAN,YOUNG Mar 28, 2017 10:11
--- NOTE | 2017-03-28 10:11 | Nephrology Progress Note ---
Assessment/Plan Plan 1) ESRD on HD 2) anemia of CKD 3) hypotension 4) ascites s/p paracentesis Plan HD today ok to dc from renal stand point Discussed with zinc furnace charger and PCP Subjective Subjective denies any c/o couldn't go due to transportation Objective Objective Last 24 Hour Vital Signs Date Time Temp Pulse Resp B/P (MAP) Pulse Ox O2 Delivery O2 Flow Rate FiO2 03/28/17 09:09 120 03/28/17 08:00 97.0 120 19 89/49 93 Room Air 03/28/17 05:51 Room Air 03/28/17 04:00 115 03/28/17 04:00 98.3 117 18 84/57 100 Room Air 03/28/17 00:00 98.8 110 18 100/67 100 Room Air 03/28/17 00:00 105 03/27/17 20:00 98.1 97 18 99/74 96 Room Air 03/27/17 20:00 103 03/27/17 16:00 97.7 109 20 103/76 99 Room Air 03/27/17 16:00 106 03/27/17 12:00 94 03/27/17 12:00 97.3 101 18 97/76 97 Room Air Height (Feet): 5 Height (Inches): 7.00 Weight (Pounds): 163 Objective NAD, AAOx3 clear RRR distended, BS+ edema+, R chest permacath + DURAN,YOUNG Mar 28, 2017 10:11
--- NOTE | 2017-03-28 10:11 | Nephrology Progress Note ---
Assessment/Plan Plan 1) ESRD on HD 2) anemia of CKD 3) hypotension 4) ascites s/p paracentesis Plan HD today ok to dc from renal stand point Discussed with financial services intern and PCP Subjective Subjective denies any c/o couldn't go due to transportation Objective Objective Last 24 Hour Vital Signs Date Time Temp Pulse Resp B/P (MAP) Pulse Ox O2 Delivery O2 Flow Rate FiO2 03/28/17 09:09 120 03/28/17 08:00 97.0 120 19 89/49 93 Room Air 03/28/17 05:51 Room Air 03/28/17 04:00 115 03/28/17 04:00 98.3 117 18 84/57 100 Room Air 03/28/17 00:00 98.8 110 18 100/67 100 Room Air 03/28/17 00:00 105 03/27/17 20:00 98.1 97 18 99/74 96 Room Air 03/27/17 20:00 103 03/27/17 16:00 97.7 109 20 103/76 99 Room Air 03/27/17 16:00 106 03/27/17 12:00 94 03/27/17 12:00 97.3 101 18 97/76 97 Room Air Height (Feet): 5 Height (Inches): 7.00 Weight (Pounds): 163 Objective NAD, AAOx3 clear RRR distended, BS+ edema+, R chest permacath + DURAN,YOUNG Mar 28, 2017 10:11
[2017-03-28 11:45] VITALS: BP 86/59
[2017-03-28 16:00] VITALS: BP 84/53
[2017-03-28 20:00] VITALS: BP 84/62
--- NOTE | 2017-03-28 20:17 | General Progress Note ---
Assessment/Plan Assessment/Plan Assessment - EtoH Cirrhosis - Ascites - Abd pain w/o SBP - resolved - Renal failure Recommendations - PPI - Abx - Lactulose, xifaxan - HD per renal - periodic paracentesis PRN Subjective Allergies: Coded Allergies: PENICILLINS (Verified Allergy, Severe, 11/27/16) COPIED FROM UNCODED SECTION UNABLE TO ASSESS (Unverified , 03/10/17) Subjective Feels well comfortable toll po no abd pain Objective Last 24 Hour Vital Signs Date Time Temp Pulse Resp B/P (MAP) Pulse Ox O2 Delivery O2 Flow Rate FiO2 03/28/17 16:00 97.7 100 19 84/53 95 Room Air 03/28/17 16:00 102 03/28/17 12:00 103 03/28/17 11:45 98.1 105 20 86/59 93 Room Air 03/28/17 09:09 120 03/28/17 08:00 97.0 120 19 89/49 93 Room Air 03/28/17 08:00 116 03/28/17 05:51 Room Air 03/28/17 04:00 115 03/28/17 04:00 98.3 117 18 84/57 100 Room Air 03/28/17 00:00 98.8 110 18 100/67 100 Room Air 03/28/17 00:00 105 Intake and Output 03/28/17 03/29/17 19:00 07:00 Intake Total 1360 ml Balance 1360 ml Intake Oral 360 ml IV Total 1000 ml # Bowel Movements 1 Height (Feet): 5 Height (Inches): 7.00 Weight (Pounds): 163 Objective WDWN NCAT supple CTA RRR soft flat, (+) umbilical hernia, (+) L sided cath no edema nonfocal LELAND THAPA Mar 28, 2017 20:17
[2017-03-28] MEDS: Dyna-Hex 2% Top Sol 2oz TOPIC SCH (20:44)
[2017-03-28] MEDS: Zolpidem 5mg tab ORAL PRN (21:57)
[2017-03-29] VITALS: BP 99/77
[2017-03-29 04:00] VITALS: BP 96/62
[2017-03-29] MEDS: Lactulose 20gm/30ml UDC ORAL SCH ×3 (06:21→21:47)
[2017-03-29] MEDS: NovoLOG Insulin Flexpen SUBQ SCH ×4 (06:23→21:42)
[2017-03-29 07:58] LABS: BASOPHILS % (AUTO) 0.9 % (0.0-2.0); EOSINOPHILS % (AUTO) 2.5 % (0.0-3.0); HEMATOCRIT 33.6 % (42.0-52.0); LYMPHOCYTES % (AUTO) 5.6 % (20.0-45.0); MEAN CORPUSCULAR VOLUME 86 FL (80-99); MONOCYTES % (AUTO) 10.8 % (1.0-10.0); NEUTROPHILS % (AUTO) 80.2 % (45.0-75.0); PLATELET COUNT 185 K/UL (150-450); RED BLOOD COUNT 3.89 M/UL (4.70-6.10); RED CELL DISTRIBUTION WIDTH 15.6 % (11.6-14.8)
[2017-03-29 08:13] LABS: AMMONIA 43 umol/L (11.2-31.7)
[2017-03-29 08:37] VITALS: BP 95/73
[2017-03-29 09:23] LABS: ANION GAP 16 mmol/L (5-15); BLOOD UREA NITROGEN 34 mg/dL (7-18); CALCIUM 8.2 MG/DL (8.5-10.1); CARBON DIOXIDE 16 MMOL/L (21-32); CHLORIDE 99 MMOL/L (98-107); CREATININE 5.3 MG/DL (0.55-1.30); POTASSIUM 3.1 MMOL/L (3.5-5.1); SODIUM 131 MMOL/L (136-145)
[2017-03-29] MEDS: Bisacodyl EC 5mg tab ORAL SCH (10:32)
[2017-03-29] MEDS: Digoxin 0.125mg tab ORAL SCH (10:33)
[2017-03-29 11:45] VITALS: BP 101/70
--- NOTE | 2017-03-29 12:11 | General Progress Note ---
Assessment/Plan Assessment/Plan IMPRESSION: 1. Hepatorenal syndrome. 2. Acute on chronic renal failure. 3. Hypokalemia. 4. Hyponatremia. 5. Mild leukocytosis. improved 6. Possible abdominal sepsis. 7. SBO 8. umbilical hernia 9 sinus tachycardia with PAT PLAN Vanco bcx x2 follow up CBC and wbc KDUR replacement hope to dc friday Subjective Allergies: Coded Allergies: PENICILLINS (Verified Allergy, Severe, 11/27/16) COPIED FROM UNCODED SECTION UNABLE TO ASSESS (Unverified , 03/10/17) Subjective stable improved tachycardia had PAT had low BP Objective Last 24 Hour Vital Signs Date Time Temp Pulse Resp B/P (MAP) Pulse Ox O2 Delivery O2 Flow Rate FiO2 03/29/17 11:45 97.7 103 18 101/70 94 Room Air 03/29/17 10:33 84 03/29/17 08:37 97.0 84 20 95/73 95 Room Air 03/29/17 08:00 111 03/29/17 04:00 96.7 98 20 96/62 90 Room Air 03/29/17 04:00 94 03/29/17 00:00 96.7 98 20 99/77 97 Room Air 03/29/17 00:00 100 03/28/17 20:00 91 03/28/17 20:00 96.4 83 20 84/62 96 Room Air 03/28/17 16:00 97.7 100 19 84/53 95 Room Air 03/28/17 16:00 102 Intake and Output 03/29/17 03/30/17 19:00 07:00 Intake Total 120 ml Balance 120 ml Intake Oral 120 ml # Bowel Movements 1 Laboratory Tests 03/28/17 22:37: Magnesium Level 1.5L 03/29/17 05:40: White Blood Count 17.0H, Red Blood Count 3.89L, Hemoglobin 11.0L, Hematocrit 33.6L, Mean Corpuscular Volume 86, Mean Corpuscular Hemoglobin 28.2, Mean Corpuscular Hemoglobin Concent 32.7, Red Cell Distribution Width 15.6H, Platelet Count 185, Mean Platelet Volume 7.3, Neutrophils (%) (Auto) 80.2H, Lymphocytes (%) (Auto) 5.6L, Monocytes (%) (Auto) 10.8H, Eosinophils (%) (Auto) 2.5, Basophils (%) (Auto) 0.9, Sodium Level 131L, Potassium Level 3.1L, Chloride Level 99, Carbon Dioxide Level 16L, Anion Gap 16H, Blood Urea Nitrogen 34H, Creatinine 5.3H, Estimat Glomerular Filtration Rate 11.5, Glucose Level 163H, Calcium Level 8.2L, Ammonia 43H Height (Feet): 5 Height (Inches): 7.00 Weight (Pounds): 160 Objective WDWN NAD clear breath sounds bilaterally without rhonchi or wheeze S1S2RR without MRG tachy abdominal pain mildly worse no CC edema nonfocal MARY ANNE CASON Mar 29, 2017 12:10
[2017-03-29] MEDS ORDERED: Vancomycin 1gm in D5W 275ml IVPB ONE (14:30)
--- NOTE | 2017-03-29 15:06 | General Progress Note ---
Assessment/Plan Assessment/Plan Assessment - EtoH Cirrhosis - Ascites - Leukocytosis - Abd pain w/o SBP - resolved - Renal failure Recommendations - PPI - Abx - Lactulose, xifaxan - HD per renal - periodic paracentesis PRN Subjective Allergies: Coded Allergies: PENICILLINS (Verified Allergy, Severe, 11/27/16) COPIED FROM UNCODED SECTION UNABLE TO ASSESS (Unverified , 03/10/17) Subjective Feels well comfortable toll po no abd pain Objective Last 24 Hour Vital Signs Date Time Temp Pulse Resp B/P (MAP) Pulse Ox O2 Delivery O2 Flow Rate FiO2 03/29/17 12:00 104 03/29/17 11:45 97.7 103 18 101/70 94 Room Air 03/29/17 10:33 84 03/29/17 08:37 97.0 84 20 95/73 95 Room Air 03/29/17 08:00 111 03/29/17 04:00 96.7 98 20 96/62 90 Room Air 03/29/17 04:00 94 03/29/17 00:00 96.7 98 20 99/77 97 Room Air 03/29/17 00:00 100 03/28/17 20:00 91 03/28/17 20:00 96.4 83 20 84/62 96 Room Air 03/28/17 16:00 97.7 100 19 84/53 95 Room Air 03/28/17 16:00 102 Intake and Output 03/29/17 03/30/17 19:00 07:00 Intake Total 240 ml Balance 240 ml Intake Oral 240 ml # Bowel Movements 1 Laboratory Tests 03/28/17 22:37: Magnesium Level 1.5L 03/29/17 05:40: White Blood Count 17.0H, Red Blood Count 3.89L, Hemoglobin 11.0L, Hematocrit 33.6L, Mean Corpuscular Volume 86, Mean Corpuscular Hemoglobin 28.2, Mean Corpuscular Hemoglobin Concent 32.7, Red Cell Distribution Width 15.6H, Platelet Count 185, Mean Platelet Volume 7.3, Neutrophils (%) (Auto) 80.2H, Lymphocytes (%) (Auto) 5.6L, Monocytes (%) (Auto) 10.8H, Eosinophils (%) (Auto) 2.5, Basophils (%) (Auto) 0.9, Sodium Level 131L, Potassium Level 3.1L, Chloride Level 99, Carbon Dioxide Level 16L, Anion Gap 16H, Blood Urea Nitrogen 34H, Creatinine 5.3H, Estimat Glomerular Filtration Rate 11.5, Glucose Level 163H, Calcium Level 8.2L, Ammonia 43H Height (Feet): 5 Height (Inches): 7.00 Weight (Pounds): 160 Objective WDWN NCAT supple CTA RRR soft flat, (+) umbilical hernia, (+) L sided cath no edema nonfocal LELAND THAPA Mar 29, 2017 15:06
[2017-03-29 16:06] VITALS: BP 98/68
[2017-03-29] MEDS ORDERED: Tubing IV Secondary IV ONE (17:58)
[2017-03-29] MEDS ORDERED: NS 275ml ONE (17:58)
[2017-03-29 20:00] VITALS: BP 94/75
[2017-03-29] MEDS: Dyna-Hex 2% Top Sol 2oz TOPIC SCH (21:40)
[2017-03-29] MEDS: Zolpidem 5mg tab ORAL PRN (21:40)
[2017-03-30 00:06] VITALS: BP 98/68
[2017-03-30 04:00] VITALS: BP 104/59
[2017-03-30] MEDS: Lactulose 20gm/30ml UDC ORAL SCH ×3 (06:00→21:10)
[2017-03-30] MEDS: NovoLOG Insulin Flexpen SUBQ SCH ×4 (06:08→21:08)
--- NOTE | 2017-03-30 06:55 | General Progress Note ---
Assessment/Plan Assessment/Plan IMPRESSION: 1. Hepatorenal syndrome. 2. Acute on chronic renal failure. 3. Hypokalemia. 4. Hyponatremia. 5. Mild leukocytosis. improved 6. Possible abdominal sepsis. 7. SBO 8. umbilical hernia 9 sinus tachycardia with PAT PLAN Vanco await culture results follow up CBC and wbc today KDUR replacement hope to dc friday Subjective Allergies: Coded Allergies: PENICILLINS (Verified Allergy, Severe, 11/27/16) COPIED FROM UNCODED SECTION UNABLE TO ASSESS (Unverified , 03/10/17) Subjective improved tachycardia had PAT- no recurrence had low BP but now maintaining Objective Last 24 Hour Vital Signs Date Time Temp Pulse Resp B/P (MAP) Pulse Ox O2 Delivery O2 Flow Rate FiO2 03/30/17 04:00 96.0 96 18 104/59 97 Room Air 2.0 03/30/17 04:00 104 03/30/17 00:06 97.7 98 20 98/68 99 Room Air 2.0 03/30/17 00:00 88 03/29/17 20:00 88 03/29/17 20:00 97.2 93 20 94/75 99 Room Air 2.0 03/29/17 16:06 97.0 90 20 98/68 95 Room Air 03/29/17 16:00 93 03/29/17 12:00 104 03/29/17 11:45 97.7 103 18 101/70 94 Room Air 03/29/17 10:33 84 03/29/17 08:37 97.0 84 20 95/73 95 Room Air 03/29/17 08:00 111 Laboratory Tests 03/30/17 05:10: White Blood Count [Pending], Red Blood Count [Pending], Hemoglobin [Pending], Hematocrit [Pending], Mean Corpuscular Volume [Pending], Mean Corpuscular Hemoglobin [Pending], Mean Corpuscular Hemoglobin Concent [Pending], Red Cell Distribution Width [Pending], Platelet Count [Pending], Mean Platelet Volume [ Pending], Neutrophils (%) (Auto) [Pending], Lymphocytes (%) (Auto) [Pending], Monocytes (%) (Auto) [Pending], Eosinophils (%) (Auto) [Pending], Basophils (%) (Auto) [Pending] Height (Feet): 5 Height (Inches): 7.00 Weight (Pounds): 161 Objective WDWN NAD clear breath sounds bilaterally without rhonchi or wheeze S1S2RR without MRG tachy abdominal pain mildly worse no CC edema nonfocal MARY ANNE CASON Mar 30, 2017 06:55
[2017-03-30 07:08] LABS: BASOPHILS % (AUTO) 1.4 % (0.0-2.0); EOSINOPHILS % (AUTO) 2.8 % (0.0-3.0); HEMATOCRIT 34.1 % (42.0-52.0); HEMOGLOBIN 11.1 G/DL (14.2-18.0); LYMPHOCYTES % (AUTO) 5.4 % (20.0-45.0); MEAN CORPUSCULAR VOLUME 86 FL (80-99); MONOCYTES % (AUTO) 10.7 % (1.0-10.0); NEUTROPHILS % (AUTO) 79.6 % (45.0-75.0); PLATELET COUNT 207 K/UL (150-450); RED BLOOD COUNT 3.95 M/UL (4.70-6.10); RED CELL DISTRIBUTION WIDTH 15.2 % (11.6-14.8); WHITE BLOOD COUNT 16.7 K/UL (4.8-10.8)
[2017-03-30 08:20] VITALS: BP 92/64
[2017-03-30] MEDS: Bisacodyl EC 5mg tab ORAL SCH (09:00)
[2017-03-30] MEDS: Digoxin 0.125mg tab ORAL SCH (09:53)
--- NOTE | 2017-03-30 10:26 | Nephrology Progress Note ---
Assessment/Plan Plan 1) ESRD on HD 2) anemia of CKD 3) hypotension 4) ascites s/p paracentesis Plan HD tomorrow. albumin prn with HD continue Midodrine Discussed with RN Subjective Subjective DC was on hold due to hypotension . Denies any c/o. BP this AM is 96/54 Objective Objective Last 24 Hour Vital Signs Date Time Temp Pulse Resp B/P (MAP) Pulse Ox O2 Delivery O2 Flow Rate FiO2 03/30/17 09:53 93 03/30/17 08:20 97.7 93 20 92/64 96 Room Air 03/30/17 04:00 96.0 96 18 104/59 97 Room Air 2.0 03/30/17 04:00 104 03/30/17 00:06 97.7 98 20 98/68 99 Room Air 2.0 03/30/17 00:00 88 03/29/17 20:00 88 03/29/17 20:00 97.2 93 20 94/75 99 Room Air 2.0 03/29/17 16:06 97.0 90 20 98/68 95 Room Air 03/29/17 16:00 93 03/29/17 12:00 104 03/29/17 11:45 97.7 103 18 101/70 94 Room Air 03/29/17 10:33 84 Laboratory Tests 03/30/17 05:10: White Blood Count 16.7H, Red Blood Count 3.95L, Hemoglobin 11.1L, Hematocrit 34.1L, Mean Corpuscular Volume 86, Mean Corpuscular Hemoglobin 28.2, Mean Corpuscular Hemoglobin Concent 32.7, Red Cell Distribution Width 15.2H, Platelet Count 207, Mean Platelet Volume 7.2, Neutrophils (%) (Auto) 79.6H, Lymphocytes (%) (Auto) 5.4L, Monocytes (%) (Auto) 10.7H, Eosinophils (%) (Auto) 2.8, Basophils (%) (Auto) 1.4 Height (Feet): 5 Height (Inches): 7.00 Weight (Pounds): 161 Objective NAD, AAOx3 clear RRR distended, BS+ edema+, R chest permacath + DURAN,YOUNG Mar 30, 2017 10:26
[2017-03-30 10:46] LABS: ANION GAP 14 mmol/L (5-15); BLOOD UREA NITROGEN 41 mg/dL (7-18); CALCIUM 8.3 MG/DL (8.5-10.1); CARBON DIOXIDE 16 MMOL/L (21-32); CHLORIDE 98 MMOL/L (98-107); CREATININE 6.1 MG/DL (0.55-1.30); POTASSIUM 3.3 MMOL/L (3.5-5.1); SODIUM 128 MMOL/L (136-145)
[2017-03-30 11:58] VITALS: BP 94/60
[2017-03-30 15:45] VITALS: BP 92/66
--- NOTE | 2017-03-30 16:36 | General Progress Note ---
Assessment/Plan Assessment/Plan Assessment - EtoH Cirrhosis - Ascites - Leukocytosis - Abd pain w/o SBP - resolved - Renal failure Recommendations - PPI - Abx - Lactulose, xifaxan - HD per renal - periodic paracentesis PRN Subjective Allergies: Coded Allergies: PENICILLINS (Verified Allergy, Severe, 11/27/16) COPIED FROM UNCODED SECTION UNABLE TO ASSESS (Unverified , 03/10/17) Subjective Feels well comfortable toll po no abd pain Objective Last 24 Hour Vital Signs Date Time Temp Pulse Resp B/P (MAP) Pulse Ox O2 Delivery O2 Flow Rate FiO2 03/30/17 15:45 98.1 97 20 92/66 96 Room Air 03/30/17 12:00 90 03/30/17 11:58 97.2 91 20 94/60 95 Room Air 03/30/17 09:53 93 03/30/17 08:20 97.7 93 20 92/64 96 Room Air 03/30/17 08:00 90 03/30/17 04:00 96.0 96 18 104/59 97 Room Air 2.0 03/30/17 04:00 104 03/30/17 00:06 97.7 98 20 98/68 99 Room Air 2.0 03/30/17 00:00 88 03/29/17 20:00 88 03/29/17 20:00 97.2 93 20 94/75 99 Room Air 2.0 Intake and Output 03/30/17 03/31/17 19:00 07:00 Intake Total 240 ml Output Total 300 ml Balance -60 ml Intake Oral 240 ml Output Urine Total 300 ml # Bowel Movements 3 Laboratory Tests 03/30/17 05:10: White Blood Count 16.7H, Red Blood Count 3.95L, Hemoglobin 11.1L, Hematocrit 34.1L, Mean Corpuscular Volume 86, Mean Corpuscular Hemoglobin 28.2, Mean Corpuscular Hemoglobin Concent 32.7, Red Cell Distribution Width 15.2H, Platelet Count 207, Mean Platelet Volume 7.2, Neutrophils (%) (Auto) 79.6H, Lymphocytes (%) (Auto) 5.4L, Monocytes (%) (Auto) 10.7H, Eosinophils (%) (Auto) 2.8, Basophils (%) (Auto) 1.4, Sodium Level 128L, Potassium Level 3.3L, Chloride Level 98, Carbon Dioxide Level 16L, Anion Gap 14, Blood Urea Nitrogen 41H, Creatinine 6.1H, Estimat Glomerular Filtration Rate 9.7, Glucose Level 130H , Calcium Level 8.3L Height (Feet): 5 Height (Inches): 7.00 Weight (Pounds): 161 Objective WDWN NCAT supple CTA RRR soft flat, (+) umbilical hernia, (+) L sided cath no edema nonfocal LELAND THAPA Mar 30, 2017 16:36
[2017-03-30 20:29] VITALS: BP 107/71
[2017-03-30] MEDS: Zolpidem 5mg tab ORAL PRN (20:31)
[2017-03-30] MEDS: Dyna-Hex 2% Top Sol 2oz TOPIC SCH (20:31)
[2017-03-31 00:43] VITALS: BP 110/80
[2017-03-31 04:00] VITALS: BP 92/66
[2017-03-31] MEDS: Lactulose 20gm/30ml UDC ORAL SCH ×3 (04:39→22:00)
[2017-03-31] MEDS: NovoLOG Insulin Flexpen SUBQ SCH ×4 (06:58→22:14)
[2017-03-31 08:28] VITALS: BP 90/64
[2017-03-31] MEDS: Bisacodyl EC 5mg tab ORAL SCH (09:00)
[2017-03-31] MEDS: Digoxin 0.125mg tab ORAL SCH (09:55)
--- NOTE | 2017-03-31 10:07 | General Progress Note ---
Assessment/Plan Assessment/Plan Assessment - EtoH Cirrhosis - Ascites - Leukocytosis - Abd pain w/o SBP - resolved - Renal failure Recommendations - PPI - Abx - Lactulose, xifaxan - HD per renal - periodic paracentesis PRN Subjective Allergies: Coded Allergies: PENICILLINS (Verified Allergy, Severe, 11/27/16) COPIED FROM UNCODED SECTION UNABLE TO ASSESS (Unverified , 03/10/17) Subjective Feels well comfortable toll po no abd pain Objective Last 24 Hour Vital Signs Date Time Temp Pulse Resp B/P (MAP) Pulse Ox O2 Delivery O2 Flow Rate FiO2 03/31/17 09:55 113 03/31/17 08:28 96.3 113 20 90/64 95 Room Air 03/31/17 04:41 Room Air 03/31/17 04:00 102 03/31/17 04:00 97.6 102 20 92/66 96 Room Air 03/31/17 00:43 98.2 81 18 110/80 96 Room Air 03/31/17 00:00 86 03/30/17 20:29 98.1 83 17 107/71 97 Room Air 03/30/17 19:37 76 03/30/17 16:00 92 03/30/17 15:45 98.1 97 20 92/66 96 Room Air 03/30/17 12:00 90 03/30/17 11:58 97.2 91 20 94/60 95 Room Air Intake and Output 03/31/17 04/01/17 19:00 07:00 Intake Total 100 ml Output Total 2400 ml Balance -2300 ml Intake Oral 100 ml Output Urine Total 100 ml Hemodialysis UF 2300 ml # Voids 1 # Bowel Movements 2 Laboratory Tests 03/31/17 07:00: Random Vancomycin Level 13.7 Height (Feet): 5 Height (Inches): 7.00 Weight (Pounds): 163 Objective WDWN NCAT supple CTA RRR soft flat, (+) umbilical hernia, (+) L sided cath no edema nonfocal LELAND THAPA Mar 31, 2017 10:07
[2017-03-31 11:28] VITALS: BP 90/57
[2017-03-31 11:41] LABS: BASOPHILS % (AUTO) 0.6 % (0.0-2.0); EOSINOPHILS % (AUTO) 2.9 % (0.0-3.0); HEMATOCRIT 38.5 % (42.0-52.0); HEMOGLOBIN 12.1 G/DL (14.2-18.0); LYMPHOCYTES % (AUTO) 4.7 % (20.0-45.0); MEAN CORPUSCULAR VOLUME 89 FL (80-99); MONOCYTES % (AUTO) 9.7 % (1.0-10.0); NEUTROPHILS % (AUTO) 82.1 % (45.0-75.0); PLATELET COUNT 173 K/UL (150-450); RED BLOOD COUNT 4.33 M/UL (4.70-6.10); RED CELL DISTRIBUTION WIDTH 15.7 % (11.6-14.8); WHITE BLOOD COUNT 17.9 K/UL (4.8-10.8)
[2017-03-31 11:43] LABS: ANION GAP 13 mmol/L (5-15); BLOOD UREA NITROGEN 31 mg/dL (7-18); CALCIUM 8.9 MG/DL (8.5-10.1); CARBON DIOXIDE 21 MMOL/L (21-32); CHLORIDE 99 MMOL/L (98-107); CREATININE 4.7 MG/DL (0.55-1.30); POTASSIUM 3.3 MMOL/L (3.5-5.1); SODIUM 133 MMOL/L (136-145)
[2017-03-31] MEDS: Midodrine 10mg tab ORAL SCH ×2 (12:41→17:57)
[2017-03-31] MEDS: metroNIDAZOLE 500mg tab ORAL SCH ×2 (14:41→22:12)
[2017-03-31 15:34] VITALS: BP 103/76
--- NOTE | 2017-03-31 16:33 | Diagnostic Imaging Report ---
Indication: Dyspnea Comparison: 03/16/17 A single view chest radiograph was obtained. Findings: Bronchial wall thickening and/or mild peribronchial fluid in the central aspects of both lungs demonstrated. There is no consolidation or airspace disease. There is linear platelike atelectasis at the right lung base. Lung volumes remain low. There is right permacath present. Heart size is normal. Impression: Mild atelectasis right lung base. Status post permacath placement in good position. Suspected bronchitis
[2017-03-31] MEDS ORDERED: Vancomycin 1gm/D5W 275ml IVPB ONE ×2 (18:00)
--- NOTE | 2017-03-31 19:19 | General Progress Note ---
Assessment/Plan Assessment/Plan IMPRESSION: 1. Hepatorenal syndrome. 2. Acute on chronic renal failure. 3. Hypokalemia. 4. Hyponatremia. 5. Mild leukocytosis. improved 6. Possible abdominal sepsis. 7. SBO 8. umbilical hernia 9 sinus tachycardia with PAT PLAN Vanco ID evaluation hold dc for now Subjective Allergies: Coded Allergies: PENICILLINS (Verified Allergy, Severe, 11/27/16) COPIED FROM UNCODED SECTION UNABLE TO ASSESS (Unverified , 03/10/17) Subjective intermittently tachycardic had PAT- no recurrence still with elevated wbc Objective Last 24 Hour Vital Signs Date Time Temp Pulse Resp B/P (MAP) Pulse Ox O2 Delivery O2 Flow Rate FiO2 03/31/17 16:00 83 03/31/17 15:34 97.1 103 20 103/76 97 Room Air 03/31/17 12:00 83 03/31/17 11:28 96.9 91 20 90/57 95 Room Air 03/31/17 09:55 113 03/31/17 08:28 96.3 113 20 90/64 95 Room Air 03/31/17 08:00 108 03/31/17 04:41 Room Air 03/31/17 04:00 102 03/31/17 04:00 97.6 102 20 92/66 96 Room Air 03/31/17 00:43 98.2 81 18 110/80 96 Room Air 03/31/17 00:00 86 03/30/17 20:29 98.1 83 17 107/71 97 Room Air 03/30/17 19:37 76 Intake and Output 03/31/17 04/01/17 19:00 07:00 Intake Total 450 ml Output Total 2400 ml Balance -1950 ml Intake Oral 450 ml Output Urine Total 100 ml Hemodialysis UF 2300 ml # Voids 1 # Bowel Movements 4 Laboratory Tests 03/31/17 07:00: White Blood Count 17.9H, Red Blood Count 4.33L, Hemoglobin 12.1L, Hematocrit 38.5L, Mean Corpuscular Volume 89, Mean Corpuscular Hemoglobin 28.0, Mean Corpuscular Hemoglobin Concent 31.5L, Red Cell Distribution Width 15.7H, Platelet Count 173, Mean Platelet Volume 6.4L, Neutrophils (%) (Auto) 82.1H, Lymphocytes (%) (Auto) 4.7L, Monocytes (%) (Auto) 9.7, Eosinophils (%) (Auto) 2.9, Basophils (%) (Auto) 0.6, Sodium Level 133L, Potassium Level 3.3L, Chloride Level 99, Carbon Dioxide Level 21, Anion Gap 13, Blood Urea Nitrogen 31H, Creatinine 4.7H, Estimat Glomerular Filtration Rate 13.2, Glucose Level 102 , Calcium Level 8.9, Random Vancomycin Level 13.7 Height (Feet): 5 Height (Inches): 7.00 Weight (Pounds): 163 Objective WDWN NAD clear breath sounds bilaterally without rhonchi or wheeze S1S2RR without MRG tachy abdominal pain mildly worse no CC edema nonfocal MARY ANNE CASON Mar 31, 2017 19:19
[2017-03-31 20:18] VITALS: BP 95/68
--- NOTE | 2017-03-31 21:15 | Consultation ---
DATE OF CONSULTATION: 03/31/2017 INFECTIOUS DISEASE CONSULTATION This consultation is for coverage of Dr. Garcia. CONSULTING PHYSICIAN: Agapito Dallas M.D. PRIMARY ATTENDING: Mason Monsalve M.D. REASON FOR CONSULTATION: Leukocytosis. HISTORY OF PRESENT ILLNESS: This is a 51-year-old male, admitted on 03/16/2017 from a longterm because of abdominal pain. He was found to have hyperkalemia and renal failure, likely secondary to hepatorenal syndrome. He is a known case of end-stage renal disease because of alcoholic cirrhosis. During hospitalization, had PermCath placement and the patient was started on hemodialysis. The patient has leukocytosis that is persistent. PAST MEDICAL HISTORY: Diabetes mellitus type 2, hypertension, alcoholic cirrhosis with ascites. The patient is status post peritoneal catheter placement that is used for emptying of ascites every three to four days. ALLERGIES: Allergic to penicillin, develops rash. MEDICATIONS: Vancomycin, midodrine, albumin, Protonix, Ambien, Zofran, chlorhexidine, rifaximin, lactulose, bisacodyl, insulin, diphenhydramine, Tylenol. SOCIAL HISTORY: Originating from [place]. Quit alcohol seven months ago. Denies drug abuse or smoking. He is single. REVIEW OF SYSTEMS: No fever. No chills. He is ambulatory to bedside commode. Has diarrhea that attributed to medication getting for cirrhosis. PHYSICAL EXAMINATION: VITAL SIGNS: Temperature 96.9 degrees, pulse 83, blood pressure 90/57. Had episodes of tachycardia this morning, heart rate up to 113. HEAD AND NECK: [place] conjunctivae. No oral lesions. HEART: Regular. LUNGS: Clear. ABDOMEN: Distended with ascites. Has a draining catheter in the left lower quadrant. EXTREMITIES: Has no edema. Has muscle atrophy. LABORATORY DATA: Sodium 133, potassium 3.3, chloride 99, bicarbonate 21, BUN 31, and creatinine 4.7. Albumin is 2.7. WBC is 17.9, hemoglobin 12.1, hematocrit 38.5, platelets 173. Cultures are negative except the catheter tip culture that grew Staphylococcus coagulase negative less than 15 colony counts. IMPRESSION: 1. Persistent leukocytosis in a patient who has cirrhosis, source of infection is not known. 2. He had brief periods of bowel obstruction, evident in CT scan of the abdomen. 3. He has diarrhea that is not clear if it is because of the medications or infection. 4. End-stage renal disease, on hemodialysis. RECOMMENDATIONS: We will ask for chest x-ray. We will ask for C. difficile test. We will stop vancomycin. We will start empirically on Levaquin and Flagyl. I will follow up the cultures. At the end of my exam, I thank Dr. Monsalve for involving me in the care of this patient. Agapito Dallas M.D. DR: Bar JOB#: [id number] CC: ROSE
[2017-03-31] MEDS: Dyna-Hex 2% Top Sol 2oz TOPIC SCH (21:34)
[2017-03-31] MEDS: Zolpidem 5mg tab ORAL PRN (21:35)
[2017-04-01] VITALS (7 sets, daily range): BP systolic 89–110; BP diastolic 65–74
[2017-04-01] MEDS: NovoLOG Insulin Flexpen SUBQ SCH ×4 (06:30→21:22)
[2017-04-01] MEDS: Lactulose 20gm/30ml UDC ORAL SCH ×4 (06:33→21:25)
[2017-04-01] MEDS: metroNIDAZOLE 500mg tab ORAL SCH ×3 (06:33→21:20)
[2017-04-01] MEDS: Bisacodyl EC 5mg tab ORAL SCH (09:00)
--- NOTE | 2017-04-01 09:36 | General Progress Note ---
Assessment/Plan Assessment/Plan IMPRESSION: 1. Hepatorenal syndrome. 2. Acute on chronic renal failure. 3. Hypokalemia. 4. Hyponatremia. 5. Mild leukocytosis. improved 6. Possible abdominal sepsis. 7. SBO 8. umbilical hernia 9 sinus tachycardia with PAT PLAN monitor hemodynamics ID evaluation hold dc for now HD ID clearance needed recheck labs Subjective Allergies: Coded Allergies: PENICILLINS (Verified Allergy, Severe, 11/27/16) COPIED FROM UNCODED SECTION UNABLE TO ASSESS (Unverified , 03/10/17) Subjective low bp intermittently tachycardic still with elevated wbc Objective Last 24 Hour Vital Signs Date Time Temp Pulse Resp B/P (MAP) Pulse Ox O2 Delivery O2 Flow Rate FiO2 04/01/17 08:43 97.5 77 20 89/65 96 Nasal Cannula 2.0 04/01/17 04:25 97.5 82 20 99/72 97 Nasal Cannula 2.0 04/01/17 04:00 74 04/01/17 00:22 98.0 78 20 110/72 97 Room Air 04/01/17 00:00 92 03/31/17 21:20 101 03/31/17 20:18 97.0 82 20 95/68 95 Room Air 03/31/17 20:00 87 03/31/17 16:00 83 03/31/17 15:34 97.1 103 20 103/76 97 Room Air 03/31/17 12:00 83 03/31/17 11:28 96.9 91 20 90/57 95 Room Air 03/31/17 09:55 113 Intake and Output 04/01/17 04/02/17 19:00 07:00 Intake Total 120 ml Balance 120 ml Intake Oral 120 ml Height (Feet): 5 Height (Inches): 7.00 Weight (Pounds): 165 Objective WDWN NAD clear breath sounds bilaterally without rhonchi or wheeze S1S2RR without MRG tachy abdominal pain mildly worse no CC edema nonfocal MARY ANNE CASON Apr 01, 2017 09:36
[2017-04-01] MEDS: Digoxin 0.125mg tab ORAL SCH (09:53)
[2017-04-01] MEDS: Midodrine 10mg tab ORAL SCH ×3 (09:53→17:45)
--- NOTE | 2017-04-01 10:55 | General Progress Note ---
Assessment/Plan Assessment/Plan Assessment - EtoH Cirrhosis - Ascites - Leukocytosis - ? etiology - Renal failure Recommendations - PPI - Abx - Lactulose, xifaxan - HD per renal - await C diff - check paracentesis - albumin IV Subjective Allergies: Coded Allergies: PENICILLINS (Verified Allergy, Severe, 11/27/16) COPIED FROM UNCODED SECTION UNABLE TO ASSESS (Unverified , 03/10/17) Subjective Feels well comfortable toll po no abd pain persistent WBC noted Objective Last 24 Hour Vital Signs Date Time Temp Pulse Resp B/P (MAP) Pulse Ox O2 Delivery O2 Flow Rate FiO2 04/01/17 09:53 77 04/01/17 08:43 97.5 77 20 89/65 96 Nasal Cannula 2.0 04/01/17 04:25 97.5 82 20 99/72 97 Nasal Cannula 2.0 04/01/17 04:00 74 04/01/17 00:22 98.0 78 20 110/72 97 Room Air 04/01/17 00:00 92 03/31/17 21:20 101 03/31/17 20:18 97.0 82 20 95/68 95 Room Air 03/31/17 20:00 87 03/31/17 16:00 83 03/31/17 15:34 97.1 103 20 103/76 97 Room Air 03/31/17 12:00 83 03/31/17 11:28 96.9 91 20 90/57 95 Room Air Intake and Output 04/01/17 04/02/17 19:00 07:00 Intake Total 120 ml Balance 120 ml Intake Oral 120 ml Height (Feet): 5 Height (Inches): 7.00 Weight (Pounds): 165 Objective WDWN NCAT supple CTA RRR soft distended , (+) umbilical hernia, (+) L sided cath no edema nonfocal LELAND THAPA Apr 01, 2017 10:55
[2017-04-01 12:35] LABS: BASOPHILS % (AUTO) 1.8 % (0.0-2.0); EOSINOPHILS % (AUTO) 2.6 % (0.0-3.0); HEMATOCRIT 33.1 % (42.0-52.0); HEMOGLOBIN 11.1 G/DL (14.2-18.0); LYMPHOCYTES % (AUTO) 5.7 % (20.0-45.0); MEAN CORPUSCULAR VOLUME 85 FL (80-99); MONOCYTES % (AUTO) 13.1 % (1.0-10.0); NEUTROPHILS % (AUTO) 76.8 % (45.0-75.0); PLATELET COUNT 187 K/UL (150-450); RED BLOOD COUNT 3.88 M/UL (4.70-6.10); RED CELL DISTRIBUTION WIDTH 15.9 % (11.6-14.8); WHITE BLOOD COUNT 9.6 K/UL (4.8-10.8)
--- NOTE | 2017-04-01 12:55 | Infectious Diseases Prog Note ---
Assessment/Plan Assessment/Plan A; Leukocytosis resolved Bronchitis in CXR Ventral hernia Cirrhosis Diarrhea P: will f/u C. difficile Continue Flagyl & Levaquin Subjective ROS Limited/Unobtainable: No Constitutional: Reports: no symptoms Respiratory: Reports: no symptoms Gastrointestinal/Abdominal: Reports: diarrhea Genitourinary: Reports: no symptoms Allergies: Coded Allergies: PENICILLINS (Verified Allergy, Severe, 11/27/16) COPIED FROM UNCODED SECTION UNABLE TO ASSESS (Unverified , 03/10/17) Objective Vital Signs Last 24 Hour Vital Signs Date Time Temp Pulse Resp B/P (MAP) Pulse Ox O2 Delivery O2 Flow Rate FiO2 04/01/17 11:56 97.5 79 20 90/70 96 Nasal Cannula 2.0 04/01/17 10:58 97.5 04/01/17 09:53 77 04/01/17 08:43 97.5 77 20 89/65 96 Nasal Cannula 2.0 04/01/17 04:25 97.5 82 20 99/72 97 Nasal Cannula 2.0 04/01/17 04:00 74 04/01/17 00:22 98.0 78 20 110/72 97 Room Air 04/01/17 00:00 92 03/31/17 21:20 101 03/31/17 20:18 97.0 82 20 95/68 95 Room Air 03/31/17 20:00 87 03/31/17 16:00 83 03/31/17 15:34 97.1 103 20 103/76 97 Room Air Height (Feet): 5 Height (Inches): 7.00 Weight (Pounds): 165 General Appearance: no acute distress HEENT: mucous membranes moist Respiratory/Chest: lungs clear Cardiovascular: normal rate Abdomen: distended, other - Ascites, large ventral hernia, Peritoneal catheter Extremities: no edema Neurologic/Psychiatric: alert, oriented x 3, responsive Microbiology Date/Time Source Procedure Growth Status 03/29/17 16:00 Blood Blood Culture - Preliminary NO GROWTH AFTER 48 HOURS Resulted 03/29/17 15:45 Blood Blood Culture - Preliminary NO GROWTH AFTER 48 HOURS Resulted Laboratory Tests Test 04/01/17 12:10 White Blood Count 9.6 K/UL (4.8-10.8) Red Blood Count 3.88 M/UL (4.70-6.10) L Hemoglobin 11.1 G/DL (14.2-18.0) L Hematocrit 33.1 % (42.0-52.0) L Mean Corpuscular Volume 85 FL (80-99) Mean Corpuscular Hemoglobin 28.6 PG (27.0-31.0) Mean Corpuscular Hemoglobin Concent 33.5 G/DL (32.0-36.0) Red Cell Distribution Width 15.9 % (11.6-14.8) H Platelet Count 187 K/UL (150-450) Mean Platelet Volume 7.5 FL (6.5-10.1) Neutrophils (%) (Auto) 76.8 % (45.0-75.0) H Lymphocytes (%) (Auto) 5.7 % (20.0-45.0) L Monocytes (%) (Auto) 13.1 % (1.0-10.0) H Eosinophils (%) (Auto) 2.6 % (0.0-3.0) Basophils (%) (Auto) 1.8 % (0.0-2.0) Current Medications Medications (Trade) Dose Ordered Sig/Chaz Route PRN Reason Start Time Stop Time Status Last Admin Dose Admin Acetaminophen (Tylenol) 650 mg Q4H PRN ORAL Mild Pain/Temp > 100.5 03/16/17 22:15 04/15/17 22:14 04/01/17 09:59 Albumin Human 100 ml @ 100 mls/hr ONCE ONCE IV 04/01/17 12:00 04/01/17 12:59 Albumin Human 100 ml @ 100 mls/hr ONCE ONCE IV 04/01/17 13:00 04/01/17 13:59 Bisacodyl (Dulcolax) 10 mg DAILY ORAL 03/17/17 09:00 04/16/17 08:59 03/29/17 10:32 Chlorhexidine Gluconate (Marce-Hex 2%) 1 applic DAILY@2000 TOPIC 03/22/17 20:30 04/21/17 20:29 03/31/17 21:34 Dextrose (Dextrose 50%) STAT PRN IV Hypoglycemia 03/17/17 03:30 04/16/17 03:29 Digoxin (Lanoxin) 0.125 mg DAILY ORAL 03/24/17 09:00 04/23/17 08:59 04/01/17 09:53 Diphenhydramine HCl (Benadryl) 25 mg Q6H PRN ORAL Itching 03/17/17 03:15 04/16/17 03:14 Insulin Aspart (NovoLOG) BEFORE MEALS AND HS SUBQ 03/17/17 06:30 04/16/17 06:29 04/01/17 11:30 Lactulose (Cephulac) 30 gm EVERY 8 HOURS ORAL 03/18/17 22:00 04/16/17 08:59 04/01/17 06:33 Levofloxacin (Levaquin) 500 mg EVERY OTHER DAY ORAL 04/02/17 09:00 04/09/17 08:59 Metronidazole (Flagyl) 500 mg Q8HR ORAL 03/31/17 15:00 04/07/17 14:59 04/01/17 06:33 Midodrine (Pro-Amatine) 10 mg TID ORAL 03/31/17 13:00 04/27/17 12:59 04/01/17 09:53 Ondansetron HCl (Zofran) 4 mg Q6H PRN IVP Nausea & Vomiting 03/25/17 12:00 04/24/17 11:59 03/29/17 21:40 Pantoprazole (Protonix) 40 mg ACBREAKFAST ORAL 03/30/17 06:30 04/16/17 08:59 04/01/17 06:34 Rifaximin (Xifaxan) 550 mg EVERY 12 HOURS ORAL 03/22/17 09:00 04/22/17 08:59 04/01/17 09:53 Zolpidem Tartrate (Ambien) 5 mg HSPRN PRN ORAL Insomnia 03/28/17 13:00 04/04/17 12:59 03/31/17 21:35 JOSE DANIEL GORDON Apr 01, 2017 12:55
[2017-04-01] MEDS ORDERED: KCl 10% 40mEq/30ml liquid NG ONE (16:45)
[2017-04-01] MEDS: Dyna-Hex 2% Top Sol 2oz TOPIC SCH (20:00)
[2017-04-01] MEDS: Zolpidem 5mg tab ORAL PRN (21:20)
[2017-04-02] VITALS (8 sets, daily range): BP systolic 92–97; BP diastolic 50–72
[2017-04-02] MEDS: Lactulose 20gm/30ml UDC ORAL SCH ×3 (06:00→21:39)
[2017-04-02] MEDS: metroNIDAZOLE 500mg tab ORAL SCH ×3 (06:35→21:36)
[2017-04-02] MEDS: NovoLOG Insulin Flexpen SUBQ SCH ×4 (06:36→21:38)
[2017-04-02] MEDS: Midodrine 10mg tab ORAL SCH ×3 (08:49→17:17)
[2017-04-02] MEDS: Bisacodyl EC 5mg tab ORAL SCH (08:50)
[2017-04-02] MEDS: Digoxin 0.125mg tab ORAL SCH (08:50)
[2017-04-02] MEDS ORDERED: Levofloxacin 500mg tab ORAL SCH (09:00)
--- NOTE | 2017-04-02 09:41 | General Progress Note ---
Assessment/Plan Assessment/Plan IMPRESSION: 1. Hepatorenal syndrome. 2. Acute on chronic renal failure. 3. Hypokalemia. 4. Hyponatremia. 5. Mild leukocytosis. improved 6. Possible abdominal sepsis. 7. SBO 8. umbilical hernia 9 sinus tachycardia with PAT resolved PLAN dc to snf levaquin and flagyl HD monitor fluid status drain ascites PRN Subjective Allergies: Coded Allergies: PENICILLINS (Verified Allergy, Severe, 11/27/16) COPIED FROM UNCODED SECTION UNABLE TO ASSESS (Unverified , 03/10/17) Subjective vital signs improved wbc now normal Objective Last 24 Hour Vital Signs Date Time Temp Pulse Resp B/P (MAP) Pulse Ox O2 Delivery O2 Flow Rate FiO2 04/02/17 09:01 Nasal Cannula 2.0 04/02/17 08:50 84 04/02/17 07:47 97.5 84 20 92/50 96 Nasal Cannula 3.0 04/02/17 06:23 Room Air 04/02/17 04:30 97.5 77 20 97/63 98 Room Air 04/02/17 04:00 76 04/02/17 00:05 97.0 70 20 93/65 Room Air 04/02/17 00:00 72 04/01/17 20:28 97.3 64 20 103/73 96 Room Air 04/01/17 20:00 69 04/01/17 16:11 97.0 67 18 101/74 96 Nasal Cannula 2.0 04/01/17 16:00 68 04/01/17 12:00 78 04/01/17 11:56 97.5 79 20 90/70 96 Nasal Cannula 2.0 04/01/17 10:58 97.5 04/01/17 09:53 77 Laboratory Tests 04/01/17 12:10: White Blood Count 9.6, Red Blood Count 3.88L, Hemoglobin 11.1L, Hematocrit 33.1L , Mean Corpuscular Volume 85, Mean Corpuscular Hemoglobin 28.6, Mean Corpuscular Hemoglobin Concent 33.5, Red Cell Distribution Width 15.9H, Platelet Count 187, Mean Platelet Volume 7.5, Neutrophils (%) (Auto) 76.8H, Lymphocytes (%) (Auto) 5.7L, Monocytes (%) (Auto) 13.1H, Eosinophils (%) (Auto) 2.6, Basophils (%) (Auto) 1.8 Height (Feet): 5 Height (Inches): 7.00 Weight (Pounds): 163 Objective WDWN NAD clear breath sounds bilaterally without rhonchi or wheeze [id number] no abdominal tenderness no CC edema mild nonfocal MARY ANNE CASON Apr 02, 2017 09:41
[2017-04-02 11:00] LABS: ALANINE AMINOTRANSFERASE 12 U/L (12-78); ALBUMIN 2.9 G/DL (3.4-5.0); ALBUMIN/GLOBULIN RATIO 0.8 (1.0-2.7); ALKALINE PHOSPHATASE 50 U/L (46-116); ANION GAP 13 mmol/L (5-15); ASPARTATE AMINO TRANSFERASE 13 U/L (15-37); BILIRUBIN,TOTAL 1.1 MG/DL (0.2-1.0); BLOOD UREA NITROGEN 23 mg/dL (7-18); CALCIUM 8.4 MG/DL (8.5-10.1); CARBON DIOXIDE 20 MMOL/L (21-32); CHLORIDE 99 MMOL/L (98-107); CREATININE 4.2 MG/DL (0.55-1.30); POTASSIUM 3.3 MMOL/L (3.5-5.1); SODIUM 132 MMOL/L (136-145)
[2017-04-02 11:06] LABS: BILIRUBIN,DIRECT 0.4 MG/DL (0.0-0.3)
--- NOTE | 2017-04-02 11:55 | Nephrology Progress Note ---
Assessment/Plan Plan ESRD -. Accepted @ [facility] [address] [facility] [address] phone [phone] MWF 9:15 AM - 12:45 PM Leaving to SNF now Subjective Subjective No c/o. Had HD. Stable run. Objective Objective Last 24 Hour Vital Signs Date Time Temp Pulse Resp B/P (MAP) Pulse Ox O2 Delivery O2 Flow Rate FiO2 04/02/17 11:25 98.4 106 20 93/72 100 Room Air 04/02/17 09:01 Nasal Cannula 2.0 04/02/17 08:50 84 04/02/17 08:00 92 04/02/17 07:47 97.5 84 20 92/50 96 Nasal Cannula 3.0 04/02/17 06:23 Room Air 04/02/17 04:30 97.5 77 20 97/63 98 Room Air 04/02/17 04:00 76 04/02/17 00:05 97.0 70 20 93/65 Room Air 04/02/17 00:00 72 04/01/17 20:28 97.3 64 20 103/73 96 Room Air 04/01/17 20:00 69 04/01/17 16:11 97.0 67 18 101/74 96 Nasal Cannula 2.0 04/01/17 16:00 68 04/01/17 12:00 78 04/01/17 11:56 97.5 79 20 90/70 96 Nasal Cannula 2.0 Intake and Output 04/02/17 04/03/17 19:00 07:00 Intake Total 120 ml Balance 120 ml Intake Oral 120 ml Laboratory Tests 04/01/17 12:10: White Blood Count 9.6, Red Blood Count 3.88L, Hemoglobin 11.1L, Hematocrit 33.1L , Mean Corpuscular Volume 85, Mean Corpuscular Hemoglobin 28.6, Mean Corpuscular Hemoglobin Concent 33.5, Red Cell Distribution Width 15.9H, Platelet Count 187, Mean Platelet Volume 7.5, Neutrophils (%) (Auto) 76.8H, Lymphocytes (%) (Auto) 5.7L, Monocytes (%) (Auto) 13.1H, Eosinophils (%) (Auto) 2.6, Basophils (%) (Auto) 1.8 04/02/17 10:25: Sodium Level 132L, Potassium Level 3.3L, Chloride Level 99, Carbon Dioxide Level 20L, Anion Gap 13, Blood Urea Nitrogen 23H, Creatinine 4.2H, Estimat Glomerular Filtration Rate 15.0, Glucose Level 166H, Calcium Level 8.4L, Total Bilirubin 1.1H, Direct Bilirubin 0.4H, Aspartate Amino Transf (AST/SGOT) 13L, Alanine Aminotransferase (ALT/SGPT) 12, Alkaline Phosphatase 50, Total Protein 6.4, Albumin 2.9L, Globulin 3.5, Albumin/Globulin Ratio 0.8L Height (Feet): 5 Height (Inches): 7.00 Weight (Pounds): 163 Objective CV RR Lungs CTAP. Abd -SNT. BS +. RLQ Hernia. E + edema PIETRO MARION Apr 02, 2017 11:55
--- NOTE | 2017-04-02 13:29 | Infectious Diseases Prog Note ---
Assessment/Plan Assessment/Plan antibiotics : levoquin, flagyl A 1. diarrhoea 2. cirrhosis 3. leucocytosis resolved 4. ascites s/p paracentesis P 1. continue flagyl 2. d/c levoquin 3. will follow up cultures Subjective Constitutional: Denies: fever, chills Respiratory: Denies: shortness of breath, dry cough Gastrointestinal/Abdominal: Reports: diarrhea, Denies: nausea, vomiting Musculoskeletal: Denies: pain Allergies: Coded Allergies: PENICILLINS (Verified Allergy, Severe, 11/27/16) COPIED FROM UNCODED SECTION UNABLE TO ASSESS (Unverified , 03/10/17) Objective Vital Signs Last 24 Hour Vital Signs Date Time Temp Pulse Resp B/P (MAP) Pulse Ox O2 Delivery O2 Flow Rate FiO2 04/02/17 12:00 77 04/02/17 11:25 98.4 106 20 93/72 100 Room Air 04/02/17 09:01 Nasal Cannula 2.0 04/02/17 08:50 84 04/02/17 08:00 92 04/02/17 07:47 97.5 84 20 92/50 96 Nasal Cannula 3.0 04/02/17 06:23 Room Air 04/02/17 04:30 97.5 77 20 97/63 98 Room Air 04/02/17 04:00 76 04/02/17 00:05 97.0 70 20 93/65 Room Air 04/02/17 00:00 72 04/01/17 20:28 97.3 64 20 103/73 96 Room Air 04/01/17 20:00 69 04/01/17 16:11 97.0 67 18 101/74 96 Nasal Cannula 2.0 04/01/17 16:00 68 Height (Feet): 5 Height (Inches): 7.00 Weight (Pounds): 163 Respiratory/Chest: lungs clear Cardiovascular: normal rate, regular rhythm, no gallop/murmur Abdomen: soft, non tender Extremities: no edema Laboratory Tests Test 04/02/17 10:25 Sodium Level 132 MMOL/L (136-145) L Potassium Level 3.3 MMOL/L (3.5-5.1) L Chloride Level 99 MMOL/L (98-107) Carbon Dioxide Level 20 MMOL/L (21-32) L Anion Gap 13 mmol/L (5-15) Blood Urea Nitrogen 23 mg/dL (7-18) H Creatinine 4.2 MG/DL (0.55-1.30) H Estimat Glomerular Filtration Rate 15.0 mL/min (>60) Glucose Level 166 MG/DL (74-106) H Calcium Level 8.4 MG/DL (8.5-10.1) L Total Bilirubin 1.1 MG/DL (0.2-1.0) H Direct Bilirubin 0.4 MG/DL (0.0-0.3) H Aspartate Amino Transf (AST/SGOT) 13 U/L (15-37) L Alanine Aminotransferase (ALT/SGPT) 12 U/L (12-78) Alkaline Phosphatase 50 U/L (46-116) Total Protein 6.4 G/DL (6.4-8.2) Albumin 2.9 G/DL (3.4-5.0) L Globulin 3.5 g/dL Albumin/Globulin Ratio 0.8 (1.0-2.7) L JN TABOR Apr 02, 2017 13:29
--- NOTE | 2017-04-02 21:17 | General Progress Note ---
Assessment/Plan Assessment/Plan Assessment - EtoH Cirrhosis - Ascites - Leukocytosis - resolved - Renal failure Recommendations - PPI - Abx - Lactulose, xifaxan - HD per renal - await C diff Subjective Allergies: Coded Allergies: PENICILLINS (Verified Allergy, Severe, 11/27/16) COPIED FROM UNCODED SECTION UNABLE TO ASSESS (Unverified , 03/10/17) Subjective Feels well comfortable toll po no abd pain 3 liter paracentesis done - not sent for cell count WBC normal yesterday Objective Last 24 Hour Vital Signs Date Time Temp Pulse Resp B/P (MAP) Pulse Ox O2 Delivery O2 Flow Rate FiO2 04/02/17 21:05 98.4 94 18 94/67 96 04/02/17 21:01 98.4 94 18 94/67 96 Room Air 04/02/17 16:00 83 04/02/17 15:23 97.7 81 20 93/64 97 Room Air 04/02/17 12:00 77 04/02/17 11:25 98.4 106 20 93/72 100 Room Air 04/02/17 09:01 Nasal Cannula 2.0 04/02/17 08:50 84 04/02/17 08:00 92 04/02/17 07:47 97.5 84 20 92/50 96 Nasal Cannula 3.0 04/02/17 06:23 Room Air 04/02/17 04:30 97.5 77 20 97/63 98 Room Air 04/02/17 04:00 76 04/02/17 00:05 97.0 70 20 93/65 Room Air 04/02/17 00:00 72 Intake and Output 04/02/17 04/03/17 19:00 07:00 Intake Total 420 ml Output Total 200 ml Balance 220 ml Intake Oral 420 ml Output Urine Total 200 ml Laboratory Tests 04/02/17 10:25: Sodium Level 132L, Potassium Level 3.3L, Chloride Level 99, Carbon Dioxide Level 20L, Anion Gap 13, Blood Urea Nitrogen 23H, Creatinine 4.2H, Estimat Glomerular Filtration Rate 15.0, Glucose Level 166H, Calcium Level 8.4L, Total Bilirubin 1.1H, Direct Bilirubin 0.4H, Aspartate Amino Transf (AST/SGOT) 13L, Alanine Aminotransferase (ALT/SGPT) 12, Alkaline Phosphatase 50, Total Protein 6.4, Albumin 2.9L, Globulin 3.5, Albumin/Globulin Ratio 0.8L Height (Feet): 5 Height (Inches): 7.00 Weight (Pounds): 163 Objective WDWN NCAT supple CTA RRR soft distended , (+) umbilical hernia, (+) L sided cath no edema nonfocal LELAND THAPA Apr 02, 2017 21:17
[2017-04-02] MEDS: Zolpidem 5mg tab ORAL PRN (21:35)
[2017-04-02] MEDS: Dyna-Hex 2% Top Sol 2oz TOPIC SCH (21:35)
[2017-04-02] MEDS ORDERED: Heparin Sod 1000 units/ml 10ml IV ONE (22:30)
[2017-04-02] MEDS ORDERED: Heparin 5000 units/ml inj INJ SCH (22:30)
[2017-04-03 00:22] VITALS: BP 102/68
[2017-04-03 04:34] VITALS: BP 96/58
[2017-04-03] MEDS: Lactulose 20gm/30ml UDC ORAL SCH ×2 (06:10→13:32)
[2017-04-03] MEDS: metroNIDAZOLE 500mg tab ORAL SCH ×2 (06:10→13:32)
[2017-04-03] MEDS: NovoLOG Insulin Flexpen SUBQ SCH ×3 (06:21→17:44)
[2017-04-03 08:25] VITALS: BP 95/67
[2017-04-03] MEDS: Midodrine 10mg tab ORAL SCH ×3 (08:58→16:43)
[2017-04-03] MEDS: Digoxin 0.125mg tab ORAL SCH (08:59)
[2017-04-03] MEDS: Bisacodyl EC 5mg tab ORAL SCH (09:02)
--- NOTE | 2017-04-03 09:16 | General Progress Note ---
Assessment/Plan Assessment/Plan IMPRESSION: 1. Hepatorenal syndrome. 2. Acute on chronic renal failure. 3. Hypokalemia. 4. Hyponatremia. 5. Mild leukocytosis. improved 6. Possible abdominal sepsis. 7. SBO 8. umbilical hernia 9 sinus tachycardia with PAT resolved PLAN dc to snf levaquin and flagyl HD monitor fluid status drain ascites PRN Subjective Allergies: Coded Allergies: PENICILLINS (Verified Allergy, Severe, 11/27/16) COPIED FROM UNCODED SECTION UNABLE TO ASSESS (Unverified , 03/10/17) Subjective vital signs improved wbc now normal no recent labs noted Objective Last 24 Hour Vital Signs Date Time Temp Pulse Resp B/P (MAP) Pulse Ox O2 Delivery O2 Flow Rate FiO2 04/03/17 08:59 89 04/03/17 08:25 96.3 89 19 95/67 Room Air 04/03/17 04:34 98.4 91 18 96/58 94 Room Air 04/03/17 04:00 96 04/03/17 00:22 94.6 96 18 102/68 94 Room Air 04/03/17 00:00 96 04/02/17 21:28 98.4 94 18 94/67 96 Room Air 04/02/17 21:05 98.4 94 18 94/67 96 04/02/17 21:01 98.4 94 18 94/67 96 Room Air 04/02/17 20:00 102 04/02/17 16:00 83 04/02/17 15:23 97.7 81 20 93/64 97 Room Air 04/02/17 12:00 77 04/02/17 11:25 98.4 106 20 93/72 100 Room Air Laboratory Tests 04/02/17 10:25: Sodium Level 132L, Potassium Level 3.3L, Chloride Level 99, Carbon Dioxide Level 20L, Anion Gap 13, Blood Urea Nitrogen 23H, Creatinine 4.2H, Estimat Glomerular Filtration Rate 15.0, Glucose Level 166H, Calcium Level 8.4L, Total Bilirubin 1.1H, Direct Bilirubin 0.4H, Aspartate Amino Transf (AST/SGOT) 13L, Alanine Aminotransferase (ALT/SGPT) 12, Alkaline Phosphatase 50, Total Protein 6.4, Albumin 2.9L, Globulin 3.5, Albumin/Globulin Ratio 0.8L Height (Feet): 5 Height (Inches): 7.00 Weight (Pounds): 163 Objective WDWN NAD clear breath sounds bilaterally without rhonchi or wheeze [id number] no abdominal tenderness no CC edema mild nonfocal MARY ANNE CASON Apr 03, 2017 09:16
--- NOTE | 2017-04-03 10:06 | Infectious Diseases Prog Note ---
Assessment/Plan Assessment/Plan A; Leukocytosis resolved Bronchitis in CXR Ventral hernia Cirrhosis Diarrhea P: Continue Flagyl few more days Agree with discharge Subjective ROS Limited/Unobtainable: No Constitutional: Reports: no symptoms Respiratory: Reports: no symptoms Gastrointestinal/Abdominal: Reports: diarrhea Genitourinary: Reports: no symptoms Allergies: Coded Allergies: PENICILLINS (Verified Allergy, Severe, 11/27/16) COPIED FROM UNCODED SECTION UNABLE TO ASSESS (Unverified , 03/10/17) Objective Vital Signs Last 24 Hour Vital Signs Date Time Temp Pulse Resp B/P (MAP) Pulse Ox O2 Delivery O2 Flow Rate FiO2 04/03/17 08:59 89 04/03/17 08:25 96.3 89 19 95/67 Room Air 04/03/17 08:00 104 04/03/17 04:34 98.4 91 18 96/58 94 Room Air 04/03/17 04:00 96 04/03/17 00:22 94.6 96 18 102/68 94 Room Air 04/03/17 00:00 96 04/02/17 21:28 98.4 94 18 94/67 96 Room Air 04/02/17 21:05 98.4 94 18 94/67 96 04/02/17 21:01 98.4 94 18 94/67 96 Room Air 04/02/17 20:00 102 04/02/17 16:00 83 04/02/17 15:23 97.7 81 20 93/64 97 Room Air 04/02/17 12:00 77 04/02/17 11:25 98.4 106 20 93/72 100 Room Air Height (Feet): 5 Height (Inches): 7.00 Weight (Pounds): 159 General Appearance: no acute distress HEENT: mucous membranes moist Respiratory/Chest: lungs clear Cardiovascular: normal rate, other - Permacath Abdomen: distended, other - ascites, peritoneal catheter Extremities: other - edema of legs Neurologic/Psychiatric: alert, oriented x 3, responsive Laboratory Tests Test 04/02/17 10:25 Sodium Level 132 MMOL/L (136-145) L Potassium Level 3.3 MMOL/L (3.5-5.1) L Chloride Level 99 MMOL/L (98-107) Carbon Dioxide Level 20 MMOL/L (21-32) L Anion Gap 13 mmol/L (5-15) Blood Urea Nitrogen 23 mg/dL (7-18) H Creatinine 4.2 MG/DL (0.55-1.30) H Estimat Glomerular Filtration Rate 15.0 mL/min (>60) Glucose Level 166 MG/DL (74-106) H Calcium Level 8.4 MG/DL (8.5-10.1) L Total Bilirubin 1.1 MG/DL (0.2-1.0) H Direct Bilirubin 0.4 MG/DL (0.0-0.3) H Aspartate Amino Transf (AST/SGOT) 13 U/L (15-37) L Alanine Aminotransferase (ALT/SGPT) 12 U/L (12-78) Alkaline Phosphatase 50 U/L (46-116) Total Protein 6.4 G/DL (6.4-8.2) Albumin 2.9 G/DL (3.4-5.0) L Globulin 3.5 g/dL Albumin/Globulin Ratio 0.8 (1.0-2.7) L Current Medications Medications (Trade) Dose Ordered Sig/Chaz Route PRN Reason Start Time Stop Time Status Last Admin Dose Admin Acetaminophen (Tylenol) 650 mg Q4H PRN ORAL Mild Pain/Temp > 100.5 03/16/17 22:15 04/15/17 22:14 04/03/17 09:08 Bisacodyl (Dulcolax) 10 mg DAILY ORAL 03/17/17 09:00 04/16/17 08:59 04/03/17 09:02 Chlorhexidine Gluconate (Marce-Hex 2%) 1 applic DAILY@2000 TOPIC 03/22/17 20:30 04/21/17 20:29 04/02/17 21:35 Dextrose (Dextrose 50%) STAT PRN IV Hypoglycemia 03/17/17 03:30 04/16/17 03:29 Digoxin (Lanoxin) 0.125 mg DAILY ORAL 03/24/17 09:00 04/23/17 08:59 04/03/17 08:59 Diphenhydramine HCl (Benadryl) 25 mg Q6H PRN ORAL Itching 03/17/17 03:15 04/16/17 03:14 04/01/17 21:20 Heparin Sodium (Porcine) (Heparin 5000 units/ml) 5,000 units POSTHD INJ 04/02/17 22:30 05/02/17 22:29 Insulin Aspart (NovoLOG) BEFORE MEALS AND HS SUBQ 03/17/17 06:30 04/16/17 06:29 04/03/17 06:21 Lactulose (Cephulac) 30 gm EVERY 8 HOURS ORAL 03/18/17 22:00 04/16/17 08:59 04/03/17 06:10 Metronidazole (Flagyl) 500 mg Q8HR ORAL 03/31/17 15:00 04/07/17 14:59 04/03/17 06:10 Midodrine (Pro-Amatine) 10 mg TID ORAL 03/31/17 13:00 04/27/17 12:59 04/03/17 08:58 Ondansetron HCl (Zofran) 4 mg Q6H PRN IVP Nausea & Vomiting 03/25/17 12:00 04/24/17 11:59 03/29/17 21:40 Pantoprazole (Protonix) 40 mg ACBREAKFAST ORAL 03/30/17 06:30 04/16/17 08:59 04/03/17 06:10 Rifaximin (Xifaxan) 550 mg EVERY 12 HOURS ORAL 03/22/17 09:00 04/22/17 08:59 04/03/17 09:00 Zolpidem Tartrate (Ambien) 5 mg HSPRN PRN ORAL Insomnia 03/28/17 13:00 04/04/17 12:59 04/02/17 21:35 JOSE DANIEL GORDON Apr 03, 2017 10:06
--- NOTE | 2017-04-03 10:59 | General Progress Note ---
Assessment/Plan Assessment/Plan Assessment - EtoH Cirrhosis - Ascites - Leukocytosis - resolved - Renal failure Recommendations - PPI - Abx - Lactulose, xifaxan - HD per renal - OK for discharge from GI standpoint Subjective Allergies: Coded Allergies: PENICILLINS (Verified Allergy, Severe, 11/27/16) COPIED FROM UNCODED SECTION UNABLE TO ASSESS (Unverified , 03/10/17) Subjective Feels well comfortable toll po no abd pain Objective Last 24 Hour Vital Signs Date Time Temp Pulse Resp B/P (MAP) Pulse Ox O2 Delivery O2 Flow Rate FiO2 04/03/17 08:59 89 04/03/17 08:25 96.3 89 19 95/67 Room Air 04/03/17 08:00 104 04/03/17 04:34 98.4 91 18 96/58 94 Room Air 04/03/17 04:00 96 04/03/17 00:22 94.6 96 18 102/68 94 Room Air 04/03/17 00:00 96 04/02/17 21:28 98.4 94 18 94/67 96 Room Air 04/02/17 21:05 98.4 94 18 94/67 96 04/02/17 21:01 98.4 94 18 94/67 96 Room Air 04/02/17 20:00 102 04/02/17 16:00 83 04/02/17 15:23 97.7 81 20 93/64 97 Room Air 04/02/17 12:00 77 04/02/17 11:25 98.4 106 20 93/72 100 Room Air Height (Feet): 5 Height (Inches): 7.00 Weight (Pounds): 159 Objective WDWN NCAT supple CTA RRR soft distended , (+) umbilical hernia, (+) L sided cath no edema nonfocal LELAND THAPA Apr 03, 2017 10:58
[2017-04-03 12:00] VITALS: BP 120/75
--- NOTE | 2017-04-03 14:39 | Nephrology Progress Note ---
Assessment/Plan Plan ESRD -. Accepted [facility]. Awaiting insurance approval. MWF 9:15 AM - 12:45 PM. Subjective Subjective No c/o. Pt. still here due to Insurance issues. Objective Objective Last 24 Hour Vital Signs Date Time Temp Pulse Resp B/P (MAP) Pulse Ox O2 Delivery O2 Flow Rate FiO2 04/03/17 12:00 78 04/03/17 08:59 89 04/03/17 08:25 96.3 89 19 95/67 Room Air 04/03/17 08:00 104 04/03/17 04:34 98.4 91 18 96/58 94 Room Air 04/03/17 04:00 96 04/03/17 00:22 94.6 96 18 102/68 94 Room Air 04/03/17 00:00 96 04/02/17 21:28 98.4 94 18 94/67 96 Room Air 04/02/17 21:05 98.4 94 18 94/67 96 04/02/17 21:01 98.4 94 18 94/67 96 Room Air 04/02/17 20:00 102 04/02/17 16:00 83 04/02/17 15:23 97.7 81 20 93/64 97 Room Air Height (Feet): 5 Height (Inches): 7.00 Weight (Pounds): 159 Objective CV RR Lungs CTAP. Abd -SNT. BS +. RLQ Hernia. E + edema PIETRO MARION Apr 03, 2017 14:38
[2017-04-03 16:00] VITALS: BP 95/71
[2017-04-03 20:00] VITALS: BP 102/74
[2017-04-03] MEDS ORDERED: Tubing IV Secondary IV ONE (22:44)
[2017-04-04] MEDS ORDERED: Heparin 5000 units/ml inj INJ SCH (14:50)
[2017-04-04] MEDS ORDERED: Heparin Sod 1000 units/ml 10ml IV ONE (15:00)
--- NOTE | 2017-04-04 18:00 | Discharge Summary ---
Discharge Summary Hospital Course Date of Admission Mar 16, 2017 at 16:35 Date of Discharge Apr 03, 2017 at 22:45 Admitting Diagnosis hyperkalemia HPI Lance Hayes is a 51 year old male who was admitted on Mar 16, 2017 at 16:35 for Hyperkalemia Hospital Course [id number] Discharge Discharge Disposition Patient was discharged to SNF/Subacute Facility(03) Discharge Diagnoses: Antonieta Lee NP Apr 04, 2017 17:59
--- NOTE | 2017-04-04 18:00 | Discharge Summary ---
Discharge Summary Hospital Course Date of Admission Mar 16, 2017 at 16:35 Date of Discharge Apr 03, 2017 at 22:45 Admitting Diagnosis hyperkalemia HPI Lance Hayes is a 51 year old male who was admitted on Mar 16, 2017 at 16:35 for Hyperkalemia Hospital Course [id number] Discharge Discharge Disposition Patient was discharged to SNF/Subacute Facility(03) Discharge Diagnoses: Antonieta Lee NP Apr 04, 2017 17:59
--- NOTE | 2017-04-04 18:00 | Discharge Summary ---
Discharge Summary Hospital Course Date of Admission Mar 16, 2017 at 16:35 Date of Discharge Apr 03, 2017 at 22:45 Admitting Diagnosis hyperkalemia HPI Lance Hayes is a 51 year old male who was admitted on Mar 16, 2017 at 16:35 for Hyperkalemia Hospital Course [id number] Discharge Discharge Disposition Patient was discharged to SNF/Subacute Facility(03) Discharge Diagnoses: Antonieta Lee NP Apr 04, 2017 17:59
--- NOTE | 2017-04-05 09:17 | Discharge Summary 2 SIG ---
DATE OF ADMISSION: 03/16/2017 DATE OF DISCHARGE: 04/03/2017 CONSULTANTS: 1. Alicia Prieto M.D. 2. Mary Mireles M.D. 3. Reynold Garcia M.D. 4. Dragan Escalera M.D. BRIEF HOSPITAL COURSE: The patient is a 51-year-old male, who has a longstanding history of end-stage liver disease, who had previously been on hospice. The patient has been coming in weekly to emergency room for paracenteses, but recently underwent peritoneal catheter placement. He presented with abdominal pain, nausea, and vomiting as well as acute renal failure. Creatinine was elevated to 3.0, BUN was 46, and potassium was 5.9. Abdominal x-ray did not reveal any acute pathology. He was admitted for renal failure and hyperkalemia due to hepatorenal syndrome. He was given IV hydration and was given Flagyl and vancomycin. Zosyn was discontinued as the patient has penicillin allergy. Abdominal and pelvic CT showed interim herniation of loop of small bowel, attached mesentery into previously demonstrated umbilical hernia, which previously contained only fluid. There was no evidence of strangulation. Surgical evaluation was done. Abdomen was soft with mild distention. Large umbilical hernia was identified and hernia was easily reduced. There was no acute surgical intervention needed. The patient has ascites with alcoholic cirrhosis. He was given lactulose. He continued with renal failure. A non-tunneled dialysis catheter was placed on the right transjugular. The patient underwent hemodialysis on 03/21/2017 through the successful placement of a right transjugular tunneled dialysis catheter. Dr. Ovalle was consulted. Hemodialysis to be done via PermCath and to salvage the left arm for possible need for AV shunt in the future for graft placement. Blood pressure was low. He was given midodrine. He was also given octreotide and Xifaxan. There was slight increase in WBC. Levaquin was discontinued and was then given Flagyl. Blood culture did not isolate any growth. Abdominal ultrasound showed moderate ascites with removal of 3 liters via tunneled indwelling catheter. He was eventually discharged to nursing home facility. FINAL DIAGNOSES: 1. Hepatorenal syndrome. 2. Acute on chronic renal failure requiring hemodialysis. 3. Hypokalemia. 4. Hyponatremia. 5. Possible abdominal sepsis. 6. Umbilical hernia. 7. Sinus tachycardia resolved. DISCHARGE DISPOSITION: The patient was discharged to rehabilitation center on with outpatient dialysis at [facility]. DISCHARGE MEDICATIONS: Refer to medication list. Mason Monsalve M.D. I have been assigned to dictate discharge summary on this account and I was not involved in the patient's management. Antonieta Lee N.P. DR: LEXIE JOB#: [id number] CC: ROSE
[2017-04-30] MEDS ORDERED: Norco 5mg/325mg tab ORAL PRN (22:15)
[2017-04-30] MEDS ORDERED: Cefepime HCl 1 GM in D5W 55 ML IVPB SCH (22:15)
[2017-04-30] MEDS ORDERED: LORazepam 0.5mg tab ORAL PRN (22:15)
[2017-04-30] MEDS ORDERED: Albuterol ud Inhalation HHN PRN (22:15)
[2017-05-01] MEDS ORDERED: NovoLOG Insulin Flexpen SUBQ SCH (06:30)
[2017-05-01] MEDS ORDERED: Propranolol 40mg tab ORAL SCH (09:00)
[2017-05-01] MEDS ORDERED: Levemir Flexpen SUBQ SCH (09:00)
[2017-05-01] MEDS ORDERED: Lactulose 20gm/30ml UDC ORAL SCH (09:00)
== END 2017-04-03 22:45 | DRG 425 ==
LOC: EDBD 14:09 → EMR 15:50 → EDBEDREQ 16:17 → 2E 16:35 → EDBEDREQ 16:50 → 2E 18:18
PROC: 5A1D70Z Performance of Urinary Filtration, Intermittent, Less than 6 Hours Per Day (ICD-10-PCS; 2017-03-18)
PROC: 05HM33Z Insertion of Infusion Device into Right Internal Jugular Vein, Percutaneous Approach (ICD-10-PCS; 2017-03-18)
PROC: 0JH63XZ Insertion of Tunneled Vascular Access Device into Chest Subcutaneous Tissue and Fascia, Percutaneous Approach (ICD-10-PCS; principal; 2017-03-21)
PROC: 06H033Z Insertion of Infusion Device into Inferior Vena Cava, Percutaneous Approach (ICD-10-PCS; principal; 2017-03-21)
PROC: B519ZZA Fluoroscopy of Inferior Vena Cava, Guidance (ICD-10-PCS; principal; 2017-03-21)
DX: E87.5 Hyperkalemia (principal); K76.7 Hepatorenal syndrome; N17.0 Acute kidney failure with tubular necrosis; K65.9 Peritonitis, unspecified; E87.2 Acidosis; I95.9 Hypotension, unspecified; I12.0 Hypertensive chronic kidney disease with stage 5 chronic kidney disease or end stage renal disease; E11.22 Type 2 diabetes mellitus with diabetic chronic kidney disease; N18.6 End stage renal disease; N17.9 Acute kidney failure, unspecified; K42.9 Umbilical hernia without obstruction or gangrene; K70.31 Alcoholic cirrhosis of liver with ascites; G89.29 Other chronic pain; E87.6 Hypokalemia; E87.1 Hypo-osmolality and hyponatremia; J44.9 Chronic obstructive pulmonary disease, unspecified; K42.0 Umbilical hernia with obstruction, without gangrene; R19.7 Diarrhea, unspecified; D63.1 Anemia in chronic kidney disease; K56.7 Ileus, unspecified; R00.0 Tachycardia, unspecified
CPT/HCPCS: 36415; 36569; 36600; 71010; 74000; 74176; 76000; 76705; 76937; 76942; 80048; 80053; 80162; 80202; 82105; 82140; 82248; 82550; 82553; 82803; 82962; 83690; 83735; 84100; 84484; 85007; 85025; 85610; 85730; 86803; 87040; 87070; 87081; 87205; 87340; 87517; 89051; 90630; 93005; 93922; 93925; 93930; 93970; 99285; J1815; J2405; J8499

== ENCOUNTER 2017-04-10 20:57 | Emergency (ER) | payer MEDICAID, MEDICARE, OTHER ==
[~2017-04-10] VITALS: Ht 170.2 cm; Wt 72.6 kg
[2017-04-10 21:31] LABS: BASOPHILS % (AUTO) 1.9 % (0.0-2.0); LYMPHOCYTES % (AUTO) 9.9 % (20.0-45.0); MEAN CORPUSCULAR HEMOGLOBIN 27.3 PG (27.0-31.0); MEAN CORPUSCULAR VOLUME 91 FL (80-99); MEAN PLATELET VOLUME 6.6 FL (6.5-10.1); MONOCYTES % (AUTO) 14.1 % (1.0-10.0); NEUTROPHILS % (AUTO) 71.1 % (45.0-75.0); PLATELET COUNT 209 K/UL (150-450); RED BLOOD COUNT 3.92 M/UL (4.70-6.10); WHITE BLOOD COUNT 11.2 K/UL (4.8-10.8)
[2017-04-10 22:02] LABS: ALANINE AMINOTRANSFERASE 15 U/L (12-78); ALBUMIN/GLOBULIN RATIO 0.6 (1.0-2.7); ANION GAP 12 mmol/L (5-15); ASPARTATE AMINO TRANSFERASE 25 U/L (15-37); CALCIUM 8.4 MG/DL (8.5-10.1); CARBON DIOXIDE 23 MMOL/L (21-32); CHLORIDE 101 MMOL/L (98-107); CREATININE 4.5 MG/DL (0.55-1.30); GLOMERULAR FILTRATION RATE 13.8 mL/min (>60); LIPASE 311 U/L (73-393); POTASSIUM 3.6 MMOL/L (3.5-5.1); SODIUM 136 MMOL/L (136-145); TOTAL PROTEIN 7.2 G/DL (6.4-8.2)
[2017-04-10 22:35] VITALS: BP 106/75
[2017-04-10 23:41] VITALS: BP 108/92
--- NOTE | 2017-04-10 23:41 | Emergency Room Report ---
History of Present Illness General Chief Complaint: Abdominal Pain Source: Patient Present Illness HPI Is a 51-year-old male with a history of alcoholic cirrhosis. He has been here frequently for paracentesis. With his last admission, he was placed on dialysis and had peritoneal catheter placed. He presents today with chief complaint of abdominal pain. He has ascites and only 7050 mL with strain. He said he needed more. Pain is chronic in nature. No fever chills no nausea no vomiting. Worse with walking. Better with rest. Worse with lying flat. No fever or chills. No nausea no vomiting. Allergies: Coded Allergies: PENICILLINS (Verified Allergy, Severe, 11/27/16) COPIED FROM UNCODED SECTION UNABLE TO ASSESS (Unverified , 03/10/17) Patient History Past Medical History: see triage record, old chart reviewed Past Surgical History: other Pertinent Family History: none Social History: Denies: smoking Immunizations: other Reviewed Nursing Documentation: PMH: Agreed, PSxH: Agreed Nursing Documentation-PMH Hx Cardiac Problems: Yes Hx Hypertension: Yes Hx Pacemaker: No Hx Asthma: No Hx COPD: No Hx Diabetes: Yes Hx Cancer: No Hx Gastrointestinal Problems: Yes Hx Dialysis: Yes - ESRD M-W-F History Of Psychiatric Problem: Yes - ANXIETY,DEPRESSION Hx Neurological Problems: Yes Hx Cerebrovascular Accident: No Hx Transient Ischemic Attacks: No Hx Dementia: Yes Hx Alzheimer's Disease: No Hx Parkinson's Disease: No Hx Meningitis: No Hx Encephalitis: No Hx Seizures: No Hx Epilepsy: No Hx Multiple Sclerosis: No Hx Cerebral Palsy: No Hx Amyotrophic Lat Sclerosis: No Hx Guillian-[place] Syndrome: No Hx Paralysis: No Hx Peripheral Neuropathy: No Hx Spinal Cord Injury: No Hx Head Trauma: No Hx Traumatic Brain Injury: No Hx Memory Loss: No Hx Concentration Difficulty: No Hx Speech Problem: No Hx Tremors: No Hx Vertigo: No Hx Dizziness: No Hx Syncope: No Hx Headaches: No Hx Aphasia: No Hx Dysphasia: No Hx Numbness: No Hx Weakness: Yes Hx Fatigue: Yes Hx Neurologic Surgery: No Hx Brain Shunt: No Review of Systems Eye: Denies: eye pain, blurred vision ENT: Denies: ear pain, nose congestion, throat swelling Respiratory: Denies: cough, shortness of breath Cardiovascular: Denies: chest pain, palpitations Gastrointestinal: Reports: abdominal pain, Denies: diarrhea, nausea, vomiting Musculoskeletal: Denies: back pain, joint pain Skin: Denies: rash Neurological: Denies: headache, numbness Endocrine: Denies: increased thirst, increased urine Hematologic/Lymphatic: Denies: easy bruising All Other Systems: negative except mentioned in HPI Physical Exam Vital Signs Date Time Temp Pulse Resp B/P (MAP) Pulse Ox O2 Delivery O2 Flow Rate FiO2 04/10/17 20:46 98.2 81 16 107/75 98 Room Air vitals normal Sp02 EP Interpretation: reviewed, normal General Appearance: no apparent distress, alert, thin, Chronically Ill Head: normocephalic, atraumatic Eyes: bilateral eye PERRL, bilateral eye EOMI ENT: hearing grossly normal, normal pharynx Neck: full range of motion, supple, no meningismus Respiratory: chest non-tender, lungs clear, normal breath sounds Cardiovascular #1: regular rate, rhythm, no murmur Gastrointestinal: normal bowel sounds, non tender, no mass, no organomegaly, no bruit, other - Abdominal exam: Large umbilical hernia. Easily reducible. Abdominal distention with ascites but not tympanic. Catheter site clean. Musculoskeletal: back normal, gait/station normal, normal range of motion Psychiatric: mood/affect normal Skin: warm/dry Procedures Additional Procedure Procedure Narrative Procedure: Paracentesis Indication: Symptomatic ascites Description: The tip of the catheter clean with chlorhexidine. I hooked it up to the paracentesis bag. A total of 6 L was removed. Patient felt much better. Medical Decision Making Diagnostic Impression: Primary Impression: Ascites Qualified Codes: K70.31 - Alcoholic cirrhosis of liver with ascites Additional Impressions: Abdominal pain Qualified Codes: R10.84 - Generalized abdominal pain Anemia Qualified Codes: D64.9 - Anemia, unspecified Hyperglycemia due to type 2 diabetes mellitus Qualified Codes: E11.65 - Type 2 diabetes mellitus with hyperglycemia ER Course Patient here for chronic ascites and paracentesis. He felt "100%" better after paracentesis. I removed about 7 and half liters. His labs are at baseline to We'll [facility] back to [facility]. Lab Results Impression labs at baseline Last Vital Signs Date Time Temp Pulse Resp B/P (MAP) Pulse Ox O2 Delivery O2 Flow Rate FiO2 04/10/17 22:35 98.2 80 21 106/75 98 Room Air Status: improved Disposition: [facility] Condition: Stable Referrals: MARY ANNE CASON (PCP) Patient Instructions: Ascites Drainage Catheter Home Guide Additional Instructions: Followup with your doctor as scheduled. Return if worse. KARTIK TOTH M.D. Apr 10, 2017 23:41
== END 2017-04-10 23:45 ==
LOC: EDBD 20:57 → EMR 21:25
DX: R18.8 Other ascites (principal); I12.0 Hypertensive chronic kidney disease with stage 5 chronic kidney disease or end stage renal disease; N18.6 End stage renal disease; Z99.2 Dependence on renal dialysis; F41.9 Anxiety disorder, unspecified; F32.9 Major depressive disorder, single episode, unspecified; Z88.0 Allergy status to penicillin; E11.65 Type 2 diabetes mellitus with hyperglycemia; D64.9 Anemia, unspecified
CPT/HCPCS: 36415; 49082; 80053; 83690; 85025; 99284; Z7502

== ENCOUNTER 2017-04-11 10:55 | Emergency (ER) | payer MEDICAID, MEDICARE, OTHER ==
[~2017-04-11] VITALS: Ht 160 cm; Wt 63.5 kg
[2017-04-11 11:00] VITALS: BP 120/84
[2017-04-11 14:00] VITALS: BP 102/68
--- NOTE | 2017-04-11 14:43 | Emergency Room Report ---
History of Present Illness General Chief Complaint: General Complaint Source: Patient, Medical Record Present Illness HPI 51-year-old male, history of alcoholic liver cirrhosis, end-stage renal disease , sent from dialysis for leakage of ascitic fluid from abdominal catheter. No other complaints. He should just had fluid removed from abdomen yesterday Allergies: Coded Allergies: PENICILLINS (Verified Allergy, Severe, 11/27/16) COPIED FROM UNCODED SECTION UNABLE TO ASSESS (Unverified , 03/10/17) Patient History Past Medical History: see triage record Past Surgical History: none Pertinent Family History: none Reviewed Nursing Documentation: PMH: Agreed, PSxH: Agreed Nursing Documentation-PMH Past Medical History: No History, Except For Hx Cardiac Problems: Yes Hx Hypertension: Yes Hx Pacemaker: No Hx Asthma: No Hx COPD: No Hx Diabetes: Yes Hx Cancer: No Hx Gastrointestinal Problems: Yes Hx Dialysis: Yes - ESRD M-W- Hx Neurological Problems: Yes Hx Cerebrovascular Accident: No Hx Transient Ischemic Attacks: No Hx Dementia: Yes Hx Alzheimer's Disease: No Hx Parkinson's Disease: No Hx Meningitis: No Hx Encephalitis: No Hx Seizures: No Hx Epilepsy: No Hx Multiple Sclerosis: No Hx Cerebral Palsy: No Hx Amyotrophic Lat Sclerosis: No Hx Guillian-[place] Syndrome: No Hx Paralysis: No Hx Peripheral Neuropathy: No Hx Spinal Cord Injury: No Hx Head Trauma: No Hx Traumatic Brain Injury: No Hx Memory Loss: No Hx Concentration Difficulty: No Hx Speech Problem: No Hx Tremors: No Hx Vertigo: No Hx Dizziness: No Hx Syncope: No Hx Headaches: No Hx Aphasia: No Hx Dysphasia: No Hx Numbness: No Hx Weakness: Yes Hx Fatigue: Yes Hx Neurologic Surgery: No Hx Brain Shunt: No Review of Systems All Other Systems: negative except mentioned in HPI Physical Exam Vital Signs Date Time Temp Pulse Resp B/P (MAP) Pulse Ox O2 Delivery O2 Flow Rate FiO2 04/11/17 10:54 98.2 76 16 120/84 98 Room Air Sp02 EP Interpretation: reviewed, normal General Appearance: other - Middle aged male, appears to be chronically ill, however at this time not in acute distress Head: normocephalic, atraumatic Eyes: bilateral eye normal inspection, bilateral eye PERRL, bilateral eye EOMI ENT: normal ENT inspection, normal pharynx, normal voice, moist mucus membranes Neck: normal inspection, full range of motion, supple Respiratory: normal inspection, lungs clear, normal breath sounds, no respiratory distress, no retraction, no wheezing, speaking full sentences, chest symmetrical Cardiovascular #1: normal inspection, regular rate, rhythm, normal capillary refill Cardiovascular #2: 2+ radial (R), 2+ radial (L) Gastrointestinal: other - Ascites, left lower quadrant with paracentesis catheter, around site slight slow drainage of ascitic fluid, nontender abdomen Musculoskeletal: normal inspection, back normal, normal range of motion, non- tender Neurologic: normal inspection, alert, oriented x3, responsive, motor strength/ tone normal, sensory intact, normal gait, speech normal Psychiatric: normal inspection, judgement/insight normal, memory normal Skin: normal inspection, normal color, no rash, warm/dry, well hydrated, normal turgor Medical Decision Making Diagnostic Impression: Primary Impression: Ascites ER Course 51-year-old male with ascites presenting with leakage from paracentesis site DDX: Leakage from paracentesis site Plan: Change dressing ER course: Patient has remained stable during ED stay. Disposition: Patient is to be discharged to dialysis Patient is instructed to follow up with their primary care doctor within 5 days. Strict return precautions discussed with patient such as fever, chills, worsening/severe pain, nausea, vomiting, which may indicate severe illness. Patient verbalizes understanding and agrees with plan. Please note that this Emergency Department Report was dictated using Master Equationsprink[employer] driver technology software, occasionally this can lead to erroneous entry secondary to interpretation by the dictation equipment Last Vital Signs Date Time Temp Pulse Resp B/P (MAP) Pulse Ox O2 Delivery O2 Flow Rate FiO2 04/11/17 10:54 98.2 76 16 120/84 98 Room Air Disposition: SNF Condition: Improved Referrals: MARY ANNE CASON (PCP) Patient Instructions: Ascites Drainage Catheter Home Guide Additional Instructions: DRESSING WAS CHANGED. PLEASE GO TO YOUR DIALYSIS TODAY. Mike Jerez M.D. Apr 11, 2017 14:43
== END 2017-04-11 14:00 ==
LOC: EDBD 10:55 → EMR 12:08
DX: R18.8 Other ascites (principal); I12.0 Hypertensive chronic kidney disease with stage 5 chronic kidney disease or end stage renal disease; N18.6 End stage renal disease; Z99.2 Dependence on renal dialysis; Z88.0 Allergy status to penicillin; F03.90 Unspecified dementia, unspecified severity, without behavioral disturbance, psychotic disturbance, mood disturbance, and anxiety
CPT/HCPCS: 99282

== ENCOUNTER 2017-04-12 14:18 | Emergency (ER) | payer MEDICAID ==
[~2017-04-12] VITALS: Ht 165.1 cm; Wt 79.4 kg
[2017-04-12 14:27] VITALS: BP 100/71
--- NOTE | 2017-04-12 14:36 | Emergency Room Report ---
History of Present Illness General Chief Complaint: General Complaint Source: Patient, Medical Record, EMS Present Illness HPI 51YOM BIBEMS from SNF for "leak around peritoneal catheter." patient denies vomiting, abdominal pain, fever/chills Per EMS, SNF tried to remove 2L, only able to remove 1L. Per EMR, patient here now 3rd day in row. Per review of EMR, 3 days ago patient had existing catheter (placed 3-4 weeks ago) connected to bag, 7L removed. Patient also here yesterday for leak around site - bandage was replaced and patient sent back to SNF. Allergies: Coded Allergies: PENICILLINS (Verified Allergy, Severe, 11/27/16) COPIED FROM UNCODED SECTION UNABLE TO ASSESS (Unverified , 03/10/17) Patient History Past Medical History: old chart reviewed Past Surgical History: none Pertinent Family History: none Social History: Denies: smoking, alcohol use, drug use Immunizations: UTD Reviewed Nursing Documentation: PMH: Agreed, PSxH: Agreed Nursing Documentation-PMH Past Medical History: No History, Except For Hx Cardiac Problems: Yes Hx Hypertension: Yes Hx Pacemaker: No Hx Asthma: No Hx COPD: No Hx Diabetes: Yes Hx Cancer: No Hx Gastrointestinal Problems: Yes Hx Dialysis: Yes - ESRD M-W- Hx Neurological Problems: Yes Hx Cerebrovascular Accident: No Hx Transient Ischemic Attacks: No Hx Dementia: Yes Hx Alzheimer's Disease: No Hx Parkinson's Disease: No Hx Meningitis: No Hx Encephalitis: No Hx Seizures: No Hx Epilepsy: No Hx Multiple Sclerosis: No Hx Cerebral Palsy: No Hx Amyotrophic Lat Sclerosis: No Hx Guillian-[place] Syndrome: No Hx Paralysis: No Hx Peripheral Neuropathy: No Hx Spinal Cord Injury: No Hx Head Trauma: No Hx Traumatic Brain Injury: No Hx Memory Loss: No Hx Concentration Difficulty: No Hx Speech Problem: No Hx Tremors: No Hx Vertigo: No Hx Dizziness: No Hx Syncope: No Hx Headaches: No Hx Aphasia: No Hx Dysphasia: No Hx Numbness: No Hx Weakness: Yes Hx Fatigue: Yes Hx Neurologic Surgery: No Hx Brain Shunt: No Review of Systems All Other Systems: negative except mentioned in HPI Physical Exam Vital Signs Date Time Temp Pulse Resp B/P (MAP) Pulse Ox O2 Delivery O2 Flow Rate FiO2 04/12/17 14:20 97.9 80 18 103/69 96 Room Air Sp02 EP Interpretation: reviewed, normal General Appearance: normal inspection, well appearing, no apparent distress, alert Head: atraumatic ENT: normal ENT inspection, hearing grossly normal, normal voice Neck: normal inspection, full range of motion, supple, no bony tend Respiratory: normal inspection, lungs clear, normal breath sounds, no respiratory distress, no retraction, no wheezing Cardiovascular #1: regular rate, rhythm, no edema Gastrointestinal: normal inspection, normal bowel sounds, non tender, soft, no guarding, no hernia, other - Umbilical hernia. Left sided ascites cath in place. No active leakage around site even on firm palpation of abdomen. However bandage is wet. Genitourinary: no CVA tenderness Musculoskeletal: normal inspection, back normal, normal range of motion, Jared' s Sign negative Neurologic: normal inspection, alert, responsive, speech normal Psychiatric: normal inspection, judgement/insight normal, mood/affect normal Skin: normal inspection, normal color, no rash Procedures Additional Procedure Procedure Narrative Paracentesis Cleaned PleurX access site with chlorhex Using sterile procedure, connected tubing and drained 500cc and then BP became lower so procedure was stopped On bedside sono there is not a significant amount of ascities fluid Medical Decision Making Diagnostic Impression: Primary Impression: Ascites Qualified Codes: R18.8 - Other ascites Additional Impression: Disorder of peritoneal dialysis catheter Qualified Codes: T85.9XXD - Unspecified complication of internal prosthetic device, implant and graft, subsequent encounter ER Course 51YOM with known ascites There is some drainage around site of peritoneal catheter No sign of infection Was able to connect and drained 500cc of yellow ascitic fluid so likely tube is in correct position Patient wants catheter out but Radiology not here on weekend to remove catheter and I am not credentialed in this procedure at this hospital D/w PMD Dr Monsalve who concurs with DC back to [facility] Patient will come back on Saturday 04/14 for Radiology to remove/replace catheter Last Vital Signs Date Time Temp Pulse Resp B/P (MAP) Pulse Ox O2 Delivery O2 Flow Rate FiO2 04/12/17 14:27 97.3 84 21 100/71 99 Room Air Status: improved Disposition: [facility] LOLITA VILLASENOR M.D. Apr 12, 2017 14:35
[2017-04-12 16:18] VITALS: BP 101/73
== END 2017-04-12 16:05 ==
LOC: EDBD 14:18 → EMR 14:56
DX: R18.8 Other ascites (principal); T85.631A Leakage of intraperitoneal dialysis catheter, initial encounter; Y84.6 Urinary catheterization as the cause of abnormal reaction of the patient, or of later complication, without mention of misadventure at the time of the procedure; Y92.89 Other specified places as the place of occurrence of the external cause; Z88.0 Allergy status to penicillin; I12.0 Hypertensive chronic kidney disease with stage 5 chronic kidney disease or end stage renal disease; N18.6 End stage renal disease; Z99.2 Dependence on renal dialysis; F03.90 Unspecified dementia, unspecified severity, without behavioral disturbance, psychotic disturbance, mood disturbance, and anxiety; K42.9 Umbilical hernia without obstruction or gangrene
CPT/HCPCS: 49083; 99284; Z7502

== ENCOUNTER 2017-04-14 05:08 | Emergency (ER) | payer MEDICAID ==
[~2017-04-14] VITALS: Ht 175.3 cm; Wt 74.8 kg
[2017-04-14 05:13] VITALS: BP 117/81
[2017-04-14 05:14] VITALS: BP 117/81
--- NOTE | 2017-04-14 05:14 | Emergency Room Report ---
History of Present Illness General Chief Complaint: General Complaint Source: Patient Present Illness HPI Patient sent in for leaking around the paracentesis drainage tube Patient states that the area drains constantly The nursing facility has drained some fluid however they report that leakage around the site continues There was no reports of fevers No reports of any other trauma That discharge is straw-colored Yellowish discharge Denies any other erythema or pain Allergies: Coded Allergies: PENICILLINS (Verified Allergy, Severe, 11/27/16) COPIED FROM UNCODED SECTION Patient History Past Medical History: see triage record Pertinent Family History: none Reviewed Nursing Documentation: PMH: Agreed, PSxH: Agreed Nursing Documentation-PMH Hx Cardiac Problems: Yes Hx Hypertension: Yes Hx Pacemaker: No Hx Asthma: No Hx COPD: No Hx Diabetes: Yes Hx Cancer: No Hx Gastrointestinal Problems: Yes Hx Dialysis: Yes - ESRD -- Hx Neurological Problems: Yes Hx Cerebrovascular Accident: No Hx Transient Ischemic Attacks: No Hx Dementia: Yes Hx Alzheimer's Disease: No Hx Parkinson's Disease: No Hx Meningitis: No Hx Encephalitis: No Hx Seizures: No Hx Epilepsy: No Hx Multiple Sclerosis: No Hx Cerebral Palsy: No Hx Amyotrophic Lat Sclerosis: No Hx Guillian-[place] Syndrome: No Hx Paralysis: No Hx Peripheral Neuropathy: No Hx Spinal Cord Injury: No Hx Head Trauma: No Hx Traumatic Brain Injury: No Hx Memory Loss: No Hx Concentration Difficulty: No Hx Speech Problem: No Hx Tremors: No Hx Vertigo: No Hx Dizziness: No Hx Syncope: No Hx Headaches: No Hx Aphasia: No Hx Dysphasia: No Hx Numbness: No Hx Weakness: Yes Hx Fatigue: Yes Hx Neurologic Surgery: No Hx Brain Shunt: No Review of Systems All Other Systems: negative except mentioned in HPI Physical Exam Sp02 EP Interpretation: reviewed, normal General Appearance: no apparent distress Head: normocephalic, atraumatic Eyes: bilateral eye PERRL, bilateral eye EOMI ENT: hearing grossly normal, normal pharynx Neck: full range of motion, supple Respiratory: lungs clear Gastrointestinal: other - Ascites with a draining tube in the left lower abdomen, no erythema, patient does have a large umbilical hernia, there is no signs of any active discharge from the site, with positional changes and pressure there is a small amount of discharge noted however, very easily controlled with minimal pressure Musculoskeletal: normal inspection Neurologic: alert, oriented x3, responsive Skin: other - as above Lymphatic: no adenopathy Medical Decision Making Diagnostic Impression: Primary Impression: Ascites ER Course The evaluation of the abdominal drain tube is appropriate No signs of any active discharge No signs of erythema or infection With manipulation and changing of position there is a small leakage noted clear fluid Secondary to this a Steri-Strip was applied around the tube for improved control However the area appears to be appropriately draining when opened as far as a drain Patient has large amount of the site is in the small amount of leakage appears to be appropriate Dressing changes were applied and the patient is stable for close outpatient followup, Status: improved Disposition: XFER SNF Condition: Improved Additional Instructions: Followup with nursing physician next 2-3 days ELSY LAIRD D.O. Apr 14, 2017 05:14
== END 2017-04-14 05:20 ==
LOC: EDBD 05:08 → EMR 05:18
DX: R18.8 Other ascites (principal); I12.0 Hypertensive chronic kidney disease with stage 5 chronic kidney disease or end stage renal disease; N18.6 End stage renal disease; Z99.2 Dependence on renal dialysis; E11.9 Type 2 diabetes mellitus without complications; K42.9 Umbilical hernia without obstruction or gangrene; Z88.0 Allergy status to penicillin
CPT/HCPCS: 99284

== ENCOUNTER 2017-04-23 09:04 | Emergency (ER) | payer MEDICAID ==
[~2017-04-23] VITALS: Ht 175.3 cm; Wt 79.4 kg
[2017-04-23 10:12] VITALS: BP 111/86
[2017-04-23 10:33] LABS: BASOPHILS % (AUTO) 1.7 % (0.0-2.0); EOSINOPHILS % (AUTO) 1.9 % (0.0-3.0); LYMPHOCYTES % (AUTO) 8.2 % (20.0-45.0); MEAN CORPUSCULAR HEMOGLOBIN 27.4 PG (27.0-31.0); MEAN CORPUSCULAR VOLUME 89 FL (80-99); MEAN PLATELET VOLUME 7.1 FL (6.5-10.1); MONOCYTES % (AUTO) 16.6 % (1.0-10.0); NEUTROPHILS % (AUTO) 71.6 % (45.0-75.0); PLATELET COUNT 300 K/UL (150-450); RED BLOOD COUNT 4.01 M/UL (4.70-6.10); RED CELL DISTRIBUTION WIDTH 16.6 % (11.6-14.8); WHITE BLOOD COUNT 10.4 K/UL (4.8-10.8)
[2017-04-23 10:45] LABS: APPEARANCE,URINE CLEAR; KETONES,URINE NEGATIVE (NEGATIVE); LEUKOCYTE ESTERASE ,URINE 1+ (NEGATIVE); NITRITE,URINE NEGATIVE (NEGATIVE); PH,URINE 5 (4.5-8.0); PROTEIN,URINE 1+ (NEGATIVE); UROBILINOGEN,URINE 1 MG/DL (0.0-1.0)
[2017-04-23 11:00] LABS: AMMONIA 105 umol/L (11-32)
[2017-04-23 11:13] LABS: ALANINE AMINOTRANSFERASE 16 U/L (12-78); ALBUMIN/GLOBULIN RATIO 0.4 (1.0-2.7); ANION GAP 12 mmol/L (5-15); ASPARTATE AMINO TRANSFERASE 25 U/L (15-37); CARBON DIOXIDE 19 MMOL/L (21-32); CHLORIDE 101 MMOL/L (98-107); CKMB 1.2 NG/ML (0.0-3.6); POTASSIUM 4.3 MMOL/L (3.5-5.1); SODIUM 132 MMOL/L (136-145); TOTAL PROTEIN 6.5 G/DL (6.4-8.2)
[2017-04-23 11:15] LABS: AMORPHOUS SEDIMENT,UR MODERATE /LPF; BACTERIA,URINE FEW /HPF; SQUAMOUS EPITHELIAL CELL,UR OCCASIONAL /LPF (NONE/OCC)
[2017-04-23 11:16] LABS: ICTOTEST NEGATIVE
--- NOTE | 2017-04-23 11:23 | Diagnostic Imaging Report ---
Indication: Altered mental status Technique: Continuous helical CT scanning of the head was performed without intravenous contrast material. Axial and coronal 5 mm sections were generated. Radiation dose was minimized using automated exposure control Dose: Total Dose Length Product - DLP [address] Dose Index - CTDIvol(s) 70.38 mGy. Comparison: None Findings: The ventricular system is normal in size and configuration. There is no shift of midline structures. No abnormal extra-axial fluid collections are noted. There is no evidence of intracerebral bleeding. No other abnormal high or low density areas are noted within the brain. The mastoids are clear. The sinuses are clear. The calvarium is intact Impression: Normal CT scan of the head without contrast material. The CT scanner at [facility] is accredited by the [employer] and the scans are performed using protocols designed to limit radiation exposure to as low as reasonably achievable to attain images of sufficient resolution adequate for diagnostic evaluation.
[2017-04-23 11:25] VITALS: BP 99/78
--- NOTE | 2017-04-23 11:35 | Emergency Room Report ---
History of Present Illness General Chief Complaint: Altered Mental Status Source: Patient Present Illness HPI 51-year-old male presents ED with altered mental status. X1 day. Coming from halfway. Patient has history of liver cirrhosis and end-stage renal disease. Patient had dialysis on Friday. Upon arrival patient appears more confused than his baseline. Screaming and yelling. No fevers or chills. No chest pain shortness of breath. Patient does have abdominal distention; patient has ascites and has been here multiple times for paracentesis. No other aggravating relieving factors. No other associated symptoms Allergies: Coded Allergies: PENICILLINS (Verified Allergy, Severe, 11/27/16) COPIED FROM UNCODED SECTION Patient History Past Medical History: DM, HTN, dementia, renal disease, dialysis, other - cirrhosis Past Surgical History: none Pertinent Family History: none Social History: Denies: smoking, alcohol use, drug use Immunizations: UTD Reviewed Nursing Documentation: PMH: Agreed, PSxH: Agreed Nursing Documentation-PMH Hx Cardiac Problems: Yes Hx Hypertension: Yes Hx Pacemaker: No Hx Asthma: No Hx COPD: No Hx Diabetes: Yes Hx Cancer: No Hx Gastrointestinal Problems: Yes - cirrhosis Hx Dialysis: Yes - ESRD M-W-F Hx Neurological Problems: Yes Hx Cerebrovascular Accident: No Hx Transient Ischemic Attacks: No Hx Dementia: Yes Hx Alzheimer's Disease: No Hx Parkinson's Disease: No Hx Meningitis: No Hx Encephalitis: No Hx Seizures: No Hx Epilepsy: No Hx Multiple Sclerosis: No Hx Cerebral Palsy: No Hx Amyotrophic Lat Sclerosis: No Hx Guillian-[place] Syndrome: No Hx Paralysis: No Hx Peripheral Neuropathy: No Hx Spinal Cord Injury: No Hx Head Trauma: No Hx Traumatic Brain Injury: No Hx Memory Loss: No Hx Concentration Difficulty: No Hx Speech Problem: No Hx Tremors: No Hx Vertigo: No Hx Dizziness: No Hx Syncope: No Hx Headaches: No Hx Aphasia: No Hx Dysphasia: No Hx Numbness: No Hx Weakness: Yes Hx Fatigue: Yes Hx Neurologic Surgery: No Hx Brain Shunt: No Review of Systems All Other Systems: negative except mentioned in HPI Physical Exam Vital Signs Date Time Temp Pulse Resp B/P (MAP) Pulse Ox O2 Delivery O2 Flow Rate FiO2 04/23/17 08:57 99.0 74 18 116/68 97 Room Air Sp02 EP Interpretation: reviewed, normal General Appearance: other - confused Head: normocephalic Eyes: bilateral eye normal inspection, bilateral eye PERRL ENT: normal ENT inspection Neck: normal inspection Respiratory: chest non-tender, lungs clear, normal breath sounds, speaking full sentences Cardiovascular #1: regular rate, rhythm, no edema Gastrointestinal: no guarding, no rebound, distended Rectal: deferred Genitourinary: no CVA tenderness Musculoskeletal: normal inspection Neurologic: other - disoriented Psychiatric: other - disoriented Skin: normal inspection Lymphatic: normal inspection Medical Decision Making Diagnostic Impression: Primary Impression: Altered mental status Qualified Codes: R41.82 - Altered mental status, unspecified Additional Impressions: Hepatic encephalopathy Hypocalcemia ESRD (end stage renal disease) on dialysis ER Course Hospital Course 51-year-old male presents ED with altered mental status. History of liver cirrhosis and end-stage renal disease Differential diagnoses include: Pneumonia, UTI, sepsis, dehydration, IN/ unstable angina, CVA Clinical course Patient placed on stretcher. 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 After initial history and physical, I ordered labs, IV fluids, EKG, chest x-ray, blood cultures, UA. CT Head Labs - BUN/Cr elevated, no leukocytosis, troponins negative, ammonia > 100, Ca low EKG - NSR, no acute ischemic changes interpreted by me CXR - atelectasis CT Head urnemarkable Ca repleted. lactulose given. Because of insurance patient will be transferred I feel this is a highly complex case requiring extensive working including EKG/ Rhythm strip, Xray/CT/US, Blood/urine lab work, repeat exams while in ED, and administration of strong opiates/narcotics for pain control, admission to hospital or close patient follow up. Diagnosis - AMS, hepatic encephalopathy, hypocalcemia, ESRD on dialysis Transferred in serious condition Labs Test 04/23/17 10:18 White Blood Count 10.4 K/UL (4.8-10.8) Red Blood Count 4.01 M/UL (4.70-6.10) Hemoglobin 11.0 G/DL (14.2-18.0) Hematocrit 35.5 % (42.0-52.0) Mean Corpuscular Volume 89 FL (80-99) Mean Corpuscular Hemoglobin 27.4 PG (27.0-31.0) Mean Corpuscular Hemoglobin Concent 31.0 G/DL (32.0-36.0) Red Cell Distribution Width 16.6 % (11.6-14.8) Platelet Count 300 K/UL (150-450) Mean Platelet Volume 7.1 FL (6.5-10.1) Neutrophils (%) (Auto) 71.6 % (45.0-75.0) Lymphocytes (%) (Auto) 8.2 % (20.0-45.0) Monocytes (%) (Auto) 16.6 % (1.0-10.0) Eosinophils (%) (Auto) 1.9 % (0.0-3.0) Basophils (%) (Auto) 1.7 % (0.0-2.0) Urine Color [place]ty Urine Appearance Clear Urine pH 5 (4.5-8.0) Urine Specific [place] 1.020 (1.005-1.035) Urine Protein 1+ (NEGATIVE) Urine Glucose (UA) Negative (NEGATIVE) Urine Ketones Negative (NEGATIVE) Urine Occult Blood 2+ (NEGATIVE) Urine Nitrite Negative (NEGATIVE) Urine Bilirubin 2+ (NEGATIVE) Urine Ictotest Negative Urine Urobilinogen 1 MG/DL (0.0-1.0) Urine Leukocyte Esterase 1+ (NEGATIVE) Urine RBC 5-10 /HPF (0 - 0) Urine WBC 5-10 /HPF (0 - 0) Urine Squamous Epithelial Cells Occasional /LPF Urine Amorphous Sediment Moderate /LPF (NONE) Urine Bacteria Few /HPF (NONE) Urine Hyaline Casts 2-4 /LPF (NONE) Sodium Level 132 MMOL/L (136-145) Potassium Level 4.3 MMOL/L (3.5-5.1) Chloride Level 101 MMOL/L (98-107) Carbon Dioxide Level 19 MMOL/L (21-32) Anion Gap 12 mmol/L (5-15) Glucose Level 148 MG/DL (74-106) Lactic Acid Level 1.50 mmol/L (0.66-2.22) Total Bilirubin 0.8 MG/DL (0.2-1.0) Aspartate Amino Transf (AST/SGOT) 25 U/L (15-37) Alanine Aminotransferase (ALT/SGPT) 16 U/L (12-78) Alkaline Phosphatase 88 U/L (46-116) Ammonia 105 umol/L (11-32) Total Creatine Kinase 41 U/L (26-308) Creatine Kinase MB 1.2 NG/ML (0.0-3.6) Creatine Kinase MB Relative Index 2.9 Troponin I 0.000 ng/mL (0.000-0.056) Pro-B-Type Natriuretic Peptide 791 pg/mL (0-125) Total Protein 6.5 G/DL (6.4-8.2) Albumin 1.8 G/DL (3.4-5.0) Globulin 4.7 g/dL Albumin/Globulin Ratio 0.4 (1.0-2.7) EKG Diagnostic Results Rate: normal Rhythm: NSR ST Segments: no acute changes ASA given to the pt in ED: No Rhythm Strip Diag. Results EP Interpretation: yes Rhythm: NSR, no PVC's, no ectopy Chest X-Ray Diagnostic Results Chest X-Ray Diagnostic Results : Chest X-Ray Ordered: Yes # of Views/Limited/Complete: 1 View Indication: Other - ams Interpretation: no pneumothorax, no acute cardiopulmonary disease, other - atelectasis. lungs pushed upwards Impression: Other - atelectasis Electronically Signed by: Electronically signed by Amilcar Hernandes MD CT/MRI/US Diagnostic Results CT/MRI/US Diagnostic Results : Imaging Test Ordered: CT Head Impression no acute process Last Vital Signs Date Time Temp Pulse Resp B/P (MAP) Pulse Ox O2 Delivery O2 Flow Rate FiO2 04/23/17 10:12 97.9 80 20 111/86 100 Room Air Status: improved Disposition: [facility] Condition: Serious Referrals: MARY ANNE CASON (PCP) AMILCAR HERNANDES M.D. Apr 23, 2017 11:35
[2017-04-23 11:42] LABS: CALCIUM 8.5 MG/DL (8.5-10.1); CREATININE 4.6 MG/DL (0.55-1.30); GLOMERULAR FILTRATION RATE 13.5 mL/min (>60)
[2017-04-23] MEDS ORDERED: Calcium Gluconate 1gm/10ml vial IVP ONE (11:45)
[2017-04-23] MEDS ORDERED: Lactulose 20gm/30ml UDC ORAL ONE (12:00)
--- NOTE | 2017-04-23 13:11 | Diagnostic Imaging Report ---
Indication: Chest pain Technique: One view of the chest Comparison: 03/31/2017 Findings: There is again demonstrated marked elevation of the right hemidiaphragm and right basilar atelectatic changes. The lungs and pleural spaces are otherwise clear. Tunneled dialysis catheter remains. Heart size is normal. There are cholecystectomy clips incidentally noted. Findings are unchanged Impression: : The right hemidiaphragm with right basilar atelectasis, unchanged from 03/31/2017 Other findings as noted
[2017-04-23 13:23] VITALS: BP 96/69
[2017-04-23 13:57] VITALS: BP 107/84
[2017-04-23 13:58] VITALS: BP 107/89
--- NOTE | 2017-04-26 16:26 | Cardiology Report ---
APPROVED REPORT EKG Measurement Heart [id number] CA 138P-1 [id number] Normal sinus rhythm Left axis deviation Pulmonary disease pattern Inferior infarct, age undetermined Abnormal ECG
== END 2017-04-23 14:01 | disposition short-term general hospital (02) ==
LOC: EDBD 09:04 → EMR 09:30
DX: R41.82 Altered mental status, unspecified (principal); G93.49 Other encephalopathy; E83.51 Hypocalcemia; I12.0 Hypertensive chronic kidney disease with stage 5 chronic kidney disease or end stage renal disease; N18.6 End stage renal disease; Z99.2 Dependence on renal dialysis; Z88.0 Allergy status to penicillin; F03.90 Unspecified dementia, unspecified severity, without behavioral disturbance, psychotic disturbance, mood disturbance, and anxiety; E11.9 Type 2 diabetes mellitus without complications; K74.60 Unspecified cirrhosis of liver
CPT/HCPCS: 36415; 51702; 70450; 71010; 80053; 81003; 82140; 82550; 82553; 83605; 83880; 84484; 85025; 87040; 93005; 96374; 99285; J0610

== ENCOUNTER 2017-04-30 16:26 | Inpatient (IN) | payer MEDICARE, OTHER ==
[~2017-04-30] VITALS: Ht 172.7 cm; Wt 82.1 kg
[2017-04-30] MEDS ORDERED: Cefepime HCl 1 GM in NS 55 ML IV STA (16:28)
[2017-04-30] MEDS ORDERED: Vancomycin 1 GM in NS 275 ML IV ONE (16:30)
[2017-04-30] MEDS ORDERED: NEXIUM40 MG ORAL (16:31)
[2017-04-30] MEDS ORDERED: REMERON15 MG ORAL (16:31)
[2017-04-30] MEDS ORDERED: NORCO 5-325 TA1 EAC1 ORAL (16:31)
[2017-04-30 16:40] VITALS: BP 100/69
[2017-04-30] MEDS ORDERED: NS 250 ML IVPB ONE (16:45)
--- NOTE | 2017-04-30 17:21 | Diagnostic Imaging Report ---
Indication: Altered metal status Technique: Continuous helical CT scanning of the head was performed without intravenous contrast material. Axial and coronal 5 mm sections were generated. Radiation dose was minimized using automated exposure control Dose: Total Dose Length Product - DLP [address] Dose Index - CTDIvol(s) 70 mGy. Comparison: 04/23/2017 Findings: The ventricular system is normal in size and configuration. There is no shift of midline structures. No abnormal extra-axial fluid collections are noted. There is no evidence of intracerebral bleeding. No other abnormal high or low density areas are noted within the brain. Intact calvarium. Visualized orbits and sinuses are unremarkable No significant interim change Impression: Normal CT scan of the head without contrast material. The CT scanner at [facility] is accredited by the [employer] and the scans are performed using protocols designed to limit radiation exposure to as low as reasonably achievable to attain images of sufficient resolution adequate for diagnostic evaluation.
[2017-04-30] MEDS ORDERED: Vancomycin 1gm inj IVPB ONE (17:34)
[2017-04-30] MEDS ORDERED: Cefepime 1gm vial ONE (17:35)
[2017-04-30 18:10] LABS: MEAN CORPUSCULAR HEMOGLOBIN 28.2 PG (27.0-31.0); MEAN CORPUSCULAR HGB CONC 31.7 G/DL (32.0-36.0); MEAN CORPUSCULAR VOLUME 89 FL (80-99); PLATELET COUNT 326 K/UL (150-450); RED BLOOD COUNT 3.91 M/UL (4.70-6.10); RED CELL DISTRIBUTION WIDTH 16.6 % (11.6-14.8); WHITE BLOOD COUNT 20.4 K/UL (4.8-10.8)
[2017-04-30 18:17] LABS: ANION GAP 16 mmol/L (5-15); CARBON DIOXIDE 18 MMOL/L (21-32); CHLORIDE 91 MMOL/L (98-107); CREATININE 7.4 MG/DL (0.55-1.30); GLOMERULAR FILTRATION RATE 7.8 mL/min (>60); POTASSIUM 5.1 MMOL/L (3.5-5.1); SODIUM 125 MMOL/L (136-145)
[2017-04-30 18:20] LABS: AMMONIA 256 umol/L (11-32); INR 1.3 (0.9-1.1)
[2017-04-30 18:27] LABS: ALANINE AMINOTRANSFERASE 17 U/L (12-78); ALBUMIN/GLOBULIN RATIO 0.3 (1.0-2.7); ASPARTATE AMINO TRANSFERASE 22 U/L (15-37); LIPASE 135 U/L (73-393); MAGNESIUM 2.1 MG/DL (1.8-2.4); PHOSPHORUS 8.2 MG/DL (2.5-4.9); TOTAL PROTEIN 6.8 G/DL (6.4-8.2)
[2017-04-30 18:29] LABS: REFLEX LACTIC ACID YES OR NO YES
[2017-04-30 18:35] LABS: ALCOHOL < 3 mg/dL
[2017-04-30 18:48] LABS: BAND NEUTROPHILS % (MANUAL) 1 % (0-8); BASOPHILS % (MANUAL) 0 % (0-2); EOSINOPHILS % (MANUAL) 1 % (0-3); LYMPHOCYTES % (MANUAL) 3 % (20-45); NEUTROPHILS % (MANUAL) 91 % (45-75); PLATELET ESTIMATE ADEQUATE; TOTAL CELLS COUNTED 100
[2017-04-30 18:49] LABS: ANISOCYTOSIS 1+; PLATELET MORPHOLOGY NORMAL; POLYCHROMASIA 1+
[2017-04-30 19:00] VITALS: BP 99/64
[2017-04-30 19:00] LABS: ABG ALLEN TEST POSITIVE; ABG PCO2 29.2 mmHg (35.0-45.0)
--- NOTE | 2017-04-30 20:14 | Emergency Room Report ---
History of Present Illness General Chief Complaint: Altered Level of Consciousness Source: Family Member, EMS Present Illness HPI The patient was sent in to the emergency department via paramedics for altered mentation. The patient has cirrhosis and renal failure. He is unable to provide a history at this time. He refused dialysis today. Post placement of abdominal cath to drain ascites. Recent admission for renal failure (hepatorenal syndrome). H/O hepatic encephalopathy in the past. No other history is available. Allergies: Coded Allergies: PENICILLINS (Verified Allergy, Severe, 05/01/17) Tolerated Zosyn 09/2016 Patient History Limited by: medical condition Past Medical History: see triage record, old chart reviewed Social History: Reports: alcohol use Social History Narrative SNF Reviewed Nursing Documentation: PMH: Agreed, PSxH: Agreed Nursing Documentation-PMH Past Medical History: No History, Except For Hx Cardiac Problems: Yes - heart failure, DVT Hx Hypertension: Yes Hx Pacemaker: No Hx Asthma: No Hx COPD: No Hx Diabetes: Yes Hx Cancer: No Hx Gastrointestinal Problems: Yes - cirrhosis, hepatic failure, ascites Hx Dialysis: Yes - ESRD M-W-F History Of Psychiatric Problem: Yes - Major depression Hx Neurological Problems: Yes - Dementia Hx Cerebrovascular Accident: No Hx Transient Ischemic Attacks: No Hx Dementia: Yes Hx Alzheimer's Disease: No Hx Parkinson's Disease: No Hx Meningitis: No Hx Encephalitis: No Hx Seizures: No Hx Epilepsy: No Hx Multiple Sclerosis: No Hx Cerebral Palsy: No Hx Amyotrophic Lat Sclerosis: No Hx Guillian-Jasper Syndrome: No Hx Paralysis: No Hx Peripheral Neuropathy: No Hx Spinal Cord Injury: No Hx Head Trauma: No Hx Traumatic Brain Injury: No Hx Memory Loss: No Hx Concentration Difficulty: No Hx Speech Problem: No Hx Tremors: No Hx Vertigo: No Hx Dizziness: No Hx Syncope: No Hx Headaches: No Hx Aphasia: No Hx Dysphasia: No Hx Numbness: No Hx Weakness: Yes Hx Fatigue: Yes Hx Neurologic Surgery: No Hx Brain Shunt: No Review of Systems All Other Systems: limited Physical Exam Vital Signs Date Time Temp Pulse Resp B/P (MAP) Pulse Ox O2 Delivery O2 Flow Rate FiO2 04/30/17 16:21 97.0 77 20 97/60 99 Room Air Sp02 EP Interpretation: reviewed, normal General Appearance: thin, other - spider habitus, Chronically Ill, Stupor - unresponsive to voice or painful stimuli Head: normocephalic Eyes: bilateral eye normal inspection, bilateral eye PERRL ENT: dry mucus membranes Neck: supple, no meningismus Respiratory: lungs clear, normal breath sounds, other - vascath Cardiovascular #1: regular rate, rhythm Cardiovascular #2: 2+ radial (R) Gastrointestinal: distended, other - cath present, decreased bowel sounds Musculoskeletal: back normal, gait/station normal, normal range of motion Neurologic: other - asterixis Psychiatric: other - stupor Skin: other - sallo Medical Decision Making Diagnostic Impression: Primary Impression: Sepsis Qualified Codes: A41.9 - Sepsis, unspecified organism Additional Impressions: ESRD (end stage renal disease) on dialysis Hepatic encephalopathy Coagulopathy Cirrhosis Qualified Codes: K70.31 - Alcoholic cirrhosis of liver with ascites ER Course Patient presents with decreased LOC with h/o cirrhosis and renal failure and refusal of dialysis. Ddx: sepsis (several sources: SBP, UTI, pneumonia), hepatic encephalopathy, electrolyte abnormality, bleed amongst others. Patient quite ill needing emergent evaluation and treatment. Limitation at sepsis fluid resuscitation due to renal failure - consider if signs of shock. Will need to cover with broad spectrum antibiotics. At this time -protecting airway. Patient now more awake and responds to voice. With fluids. Labs with leukocytosis, elevated lactate, hyponatremia, coagulopathy, low bicarb , renal failure. CXR without infiltrate. CT, no bleed. Abd with ascites. Vitamin K and lactulose administered. Discussion with family who state they want to make him DNR/DNI but not hospice. They also want ton continue dialysis. Communicated this with Dr. Downs and social worker health services consult (for DPA). Discussed with Dr. Downs covering for Dr. Monsalve. Laboratory Tests Test 04/30/17 16:28 04/30/17 17:40 04/30/17 19:36 Arterial Blood pH 7.400 (7.350-7.450) Arterial Blood Partial Pressure CO2 29.2 mmHg (35.0-45.0) L Arterial Blood Partial Pressure O2 73.0 mmHg (75.0-100.0) L Arterial Blood HCO3 17.7 mmol/L (22.0-26.0) L Arterial Blood Oxygen Saturation 93.2 % (92.0-98.0) Arterial Blood Base Excess -6.0 Yasir Test Positive White Blood Count 20.4 K/UL (4.8-10.8) H Red Blood Count 3.91 M/UL (4.70-6.10) L Hemoglobin 11.0 G/DL (14.2-18.0) L Hematocrit 34.8 % (42.0-52.0) L Mean Corpuscular Volume 89 FL (80-99) Mean Corpuscular Hemoglobin 28.2 PG (27.0-31.0) Mean Corpuscular Hemoglobin Concent 31.7 G/DL (32.0-36.0) L Red Cell Distribution Width 16.6 % (11.6-14.8) H Platelet Count 326 K/UL (150-450) Mean Platelet Volume 8.0 FL (6.5-10.1) Neutrophils (%) (Auto) % (45.0-75.0) Lymphocytes (%) (Auto) % (20.0-45.0) Monocytes (%) (Auto) % (1.0-10.0) Eosinophils (%) (Auto) % (0.0-3.0) Basophils (%) (Auto) % (0.0-2.0) Differential Total Cells Counted 100 Neutrophils % (Manual) 91 % (45-75) H Lymphocytes % (Manual) 3 % (20-45) L Monocytes % (Manual) 4 % (1-10) Eosinophils % (Manual) 1 % (0-3) Basophils % (Manual) 0 % (0-2) Band Neutrophils 1 % (0-8) Platelet Estimate Adequate Platelet Morphology Normal Polychromasia 1+ Anisocytosis 1+ Prothrombin Time 14.0 SEC (9.30-11.50) H Prothrombin Time INR 1.3 (0.9-1.1) H PTT 34 SEC (23-33) H Sodium Level 125 MMOL/L (136-145) L Potassium Level 5.1 MMOL/L (3.5-5.1) Chloride Level 91 MMOL/L (98-107) L Carbon Dioxide Level 18 MMOL/L (21-32) L Anion Gap 16 mmol/L (5-15) H Blood Urea Nitrogen 75 mg/dL (7-18) H Creatinine 7.4 MG/DL (0.55-1.30) H Estimate Glomerular Filtration Rate 7.8 mL/min (>60) Glucose Level 145 MG/DL (74-106) H Lactic Acid Level 2.80 mmol/L (0.66-2.22) H Calcium Level 9.0 MG/DL (8.5-10.1) Phosphorus Level 8.2 MG/DL (2.5-4.9) H Magnesium Level 2.1 MG/DL (1.8-2.4) Total Bilirubin 0.6 MG/DL (0.2-1.0) Aspartate Amino Transferase (AST) 22 U/L (15-37) Alanine Aminotransferase (ALT) 17 U/L (12-78) Alkaline Phosphatase 114 U/L (46-116) Ammonia 256 umol/L (11-32) H Total Creatine Kinase 35 U/L (26-308) Troponin I 0.000 ng/mL (0.000-0.056) Pro-B-Type Natriuretic Peptide 2446 pg/mL (0-125) H Total Protein 6.8 G/DL (6.4-8.2) Albumin 1.7 G/DL (3.4-5.0) L Globulin 5.1 g/dL Albumin/Globulin Ratio 0.3 (1.0-2.7) L Lipase 135 U/L (73-393) Serum Alcohol < 3 mg/dL Urine Color Brown Urine Appearance Very cloudy Urine pH 5 (4.5-8.0) Urine Specific [place] 1.020 (1.005-1.035) Urine Protein 4+ (NEGATIVE) H Urine Glucose (UA) 1+ (NEGATIVE) H Urine Ketones 1+ (NEGATIVE) H Urine Occult Blood 5+ (NEGATIVE) H Urine Nitrite Negative (NEGATIVE) Urine Bilirubin 1+ (NEGATIVE) H Urine Ictotest Positive Urine Urobilinogen 1 MG/DL (0.0-1.0) H Urine Leukocyte Esterase 3+ (NEGATIVE) H Urine RBC Tntc /HPF (0 - 0) H Urine WBC 10-15 /HPF (0 - 0) H Urine Squamous Epithelial Cells Moderate /LPF (NONE/OCC) H Urine Amorphous Sediment Many /LPF (NONE) H Urine Bacteria Many /HPF (NONE) H Urine Opiates Screen Positive (NEGATIVE) H Urine Barbiturates Screen Negative (NEGATIVE) Phencyclidine (PCP) Screen Negative (NEGATIVE) Urine Amphetamines Screen Negative (NEGATIVE) Urine Benzodiazepines Screen Negative (NEGATIVE) Urine Cocaine Screen Negative (NEGATIVE) Urine Marijuana (THC) Screen Negative (NEGATIVE) EKG Diagnostic Results Rate: normal Rhythm: NSR ST Segments: no acute changes Rhythm Strip Diag. Results EP Interpretation: yes Rhythm: NSR, no PVC's, no ectopy Chest X-Ray Diagnostic Results Chest X-Ray Diagnostic Results : Chest X-Ray Ordered: Yes # of Views/Limited/Complete: 1 View Indication: Other Interpretation: no consolidation, no effusion, no pneumothorax, other - poor inspiration, vas cath present Impression: Other Electronically Signed by: Mateusz Aguayo MD Other X-Ray Diagnostic Results Other X-Ray Diagnostic Results : X-Ray ordered: abd # of Views/Limited Vs Complete: 1 View Indication: Other Interpretation: nonspecific bowel gas, no sbo, other - ascites and cath CT/MRI/US Diagnostic Results CT/MRI/US Diagnostic Results : Imaging Test Ordered: head Impression no bleed Last Vital Signs Date Time Temp Pulse Resp B/P (MAP) Pulse Ox O2 Delivery O2 Flow Rate FiO2 04/30/17 21:50 97.5 81 18 104/80 95 Room Air Status: improved Disposition: ADMITTED INPATIENT Condition: Serious Referrals: MARY ANNE MONSALVE (PCP) Mateusz Aguayo M.D. Apr 30, 2017 20:14
[2017-04-30] MEDS ORDERED: Lactulose 20gm/30ml UDC ORAL ONE (20:15)
[2017-04-30] MEDS ORDERED: Phytonadione 10 mg/mL 1ml amp SUBQ ONE (20:15)
[2017-04-30 20:17] LABS: APPEARANCE,URINE VERY CLOUDY; KETONES,URINE 1+ (NEGATIVE); LEUKOCYTE ESTERASE ,URINE 3+ (NEGATIVE); NITRITE,URINE NEGATIVE (NEGATIVE); PH,URINE 5 (4.5-8.0); PROTEIN,URINE 4+ (NEGATIVE); UROBILINOGEN,URINE 1 MG/DL (0.0-1.0)
[2017-04-30 20:33] LABS: AMORPHOUS SEDIMENT,UR MANY /LPF; BACTERIA,URINE MANY /HPF; RBC,URINE TNTC /HPF (0 - 0); SQUAMOUS EPITHELIAL CELL,UR MODERATE /LPF (NONE/OCC)
[2017-04-30 20:34] LABS: ICTOTEST POSITIVE
[2017-04-30 21:50] VITALS: BP 104/80
[2017-04-30] MEDS ORDERED: Norco 5mg/325mg tab ORAL PRN (22:45)
[2017-04-30] MEDS ORDERED: Albuterol ud Inhalation HHN PRN (22:45)
[2017-04-30] MEDS ORDERED: Vancomycin 1gm/D5W 275ml IVPB ONE ×2 (23:30)
[2017-05-01] VITALS: BP 97/70
[2017-05-01] MEDS ORDERED: Vancomycin 1gm inj IVPB ONE (00:20)
[2017-05-01 04:00] VITALS: BP 98/76
[2017-05-01] MEDS ORDERED: D5W IVPB SCH (06:00)
[2017-05-01] MEDS ORDERED: TAZOBACTAM IVPB SCH (06:00)
[2017-05-01] MEDS ORDERED: PIPERACILLIN IVPB SCH (06:00)
[2017-05-01] MEDS ORDERED: Heparin Sod 1000 units/ml 10ml IV PRN (06:30)
[2017-05-01] MEDS: NovoLOG Insulin Flexpen SUBQ SCH ×4 (06:30→20:51)
[2017-05-01 08:00] VITALS: BP 105/74
[2017-05-01] MEDS: Zosyn 2.25 gm in D5W 55ml IV SCH ×2 (08:00→08:13)
[2017-05-01] MEDS: Propranolol 40mg tab ORAL SCH (08:14)
[2017-05-01] MEDS: Lactulose 20gm/30ml UDC ORAL SCH ×2 (08:14→17:21)
--- NOTE | 2017-05-01 08:30 | Diagnostic Imaging Report ---
Indication: Abdominal distention Technique: Supine view of the abdomen Comparison: none Findings: Chronic tunneled drainage catheter is again demonstrated in the lower abdomen. There is groundglass appearance of the abdomen and central position of small bowel loops, suggesting ascites despite the presence of the drainage catheter. Large umbilical hernia demonstrated previously is no longer evident. A few small bowel loops are slightly prominent. There are cholecystectomy clips Impression: Evidence of ascites, despite presence of chronic drainage catheter. Nonspecific gas pattern
--- NOTE | 2017-05-01 08:31 | Diagnostic Imaging Report ---
Indication: Shortness of breath Technique: One view of the chest Comparison: 04/23/2017 Findings: Suboptimal inspiration. Elevated right hemidiaphragm is again demonstrated right basilar atelectasis is again demonstrated. Lungs and pleural spaces otherwise clear. Right jugular tunneled dialysis catheter is again demonstrated Impression: No acute process. Findings as noted
[2017-05-01] MEDS ORDERED: Cefepime HCl 1 GM in D5W 55 ML IVPB SCH (08:45)
[2017-05-01] MEDS ORDERED: Spironolactone 25mg tab ORAL SCH (09:00)
[2017-05-01 09:59] LABS: BASOPHILS % (AUTO) 1.1 % (0.0-2.0); EOSINOPHILS % (AUTO) 0.5 % (0.0-3.0); LYMPHOCYTES % (AUTO) 3.4 % (20.0-45.0); MEAN CORPUSCULAR HEMOGLOBIN 28.4 PG (27.0-31.0); MEAN CORPUSCULAR HGB CONC 31.7 G/DL (32.0-36.0); MEAN CORPUSCULAR VOLUME 89 FL (80-99); MEAN PLATELET VOLUME 7.1 FL (6.5-10.1); MONOCYTES % (AUTO) 15.9 % (1.0-10.0); PLATELET COUNT 361 K/UL (150-450); RED BLOOD COUNT 4.11 M/UL (4.70-6.10); RED CELL DISTRIBUTION WIDTH 16.6 % (11.6-14.8); WHITE BLOOD COUNT 17.4 K/UL (4.8-10.8)
[2017-05-01 10:16] LABS: ANION GAP 19 mmol/L (5-15); CALCIUM 8.5 MG/DL (8.5-10.1); CARBON DIOXIDE 16 MMOL/L (21-32); CHLORIDE 91 MMOL/L (98-107); CREATININE 7.5 MG/DL (0.55-1.30); GLOMERULAR FILTRATION RATE 7.7 mL/min (>60); POTASSIUM 5.1 MMOL/L (3.5-5.1); SODIUM 126 MMOL/L (136-145)
[2017-05-01] MEDS: Aztreonam Inj 0.5 GM in D5W 55 ML IVPB SCH ×2 (11:39→20:57)
[2017-05-01 12:00] VITALS: BP 93/73
[2017-05-01 16:00] VITALS: BP 101/69
[2017-05-01] MEDS ORDERED: Cefepime 500mg in D5W 55ml IVPB SCH (16:00)
--- NOTE | 2017-05-01 16:45 | Consultation ---
DATE OF CONSULTATION: 05/01/2017 NEPHROLOGY CONSULTATION ATTENDING PHYSICIAN: Aleksandr Downs M.D. REASON FOR CONSULTATION: This is a dialysis patient. HISTORY OF PRESENT ILLNESS: This is a 51-year-old male, who was started on dialysis about two months ago in this hospital. The patient is a resident of the rehabilitation center [facility]. The patient was transferred to a hospital in [place] for several weeks due to his insurance. He came back to his [facility] three days ago. The patient developed altered level of consciousness and he was transferred via paramedics to this hospital's emergency department. The patient missed his due hemodialysis today. PAST MEDICAL HISTORY: 1. End-stage renal failure, on dialysis. 2. Liver cirrhosis. 3. Recurrent ascites. 4. Huge right inguinal hernia. 5. Anemia of chronic kidney disease. 6. Hypertensive cardiovascular disease. 7. History of DVT. MEDICATIONS: IV aztreonam, IV cefepime, IV metronidazole, IV vancomycin, albuterol inhalation, subcutaneous heparin, [place] p.r.n., insulin sliding scale, lactulose, Ativan p.r.n., Zofran p.r.n., vitamin K given 10 mg subcutaneously once and Inderal 20 mg p.o. daily. ALLERGIES: No known drug allergies. SOCIAL HISTORY: He lives in a fpc. There is type 2 diabetes mellitus due to medical problems. FAMILY HISTORY: Unremarkable. REVIEW OF SYSTEMS: HEENT: Hearing and eyesight are normal. ENDOCRINE: Significant for multiorgan type 2 diabetes mellitus. RESPIRATORY: Significant orthopnea. CARDIOVASCULAR: Denies chest pain or palpitations. GASTROINTESTINAL: No history of hematochezia, melena, hematemesis, diarrhea, or constipation. NEUROLOGICAL: No history of stroke, syncope or Parkinson disease. PHYSICAL EXAMINATION: GENERAL: This is an elderly chronically ill appearing male who is in no acute distress. VITAL SIGNS: Blood pressure 93/73, pulse is 81 in sinus, respirations 22, and temperature 97.6 degrees axillary. HEENT: The head is normocephalic and atraumatic. Pupils are equal, round and react to light and accommodation consensually. NECK: Supple. Trachea midline. There was no lymphadenopathy or thyromegaly. LUNGS: Clear to auscultation and percussion. HEART: Regular rate and rhythm without rubs, murmurs, or gallops. ABDOMEN: Soft and nontender. He has tense ascites. He has a huge right abdominal hernia. NEUROLOGICAL: He is alert and oriented x4. Cranial nerves II through XII intact. LABORATORY AND ANCILLARY DATA: On admission, a white count 20,400 and today 17,400, hematocrit 36.7, and platelet count is 361,000. Urine toxicology screen positive for opiates. Serum chemistry, sodium 126 today, potassium 5.1, creatinine 7.5, BUN 79, and CO2 16. ABGs yesterday, pH 7.4, pCO2 29, and pO2 73. Chest x-ray, no acute process. ASSESSMENT: 1. Rule out septicemia, etiology and source unknown. 2. End-stage renal failure, on dialysis. 3. Liver cirrhosis. 4. Recurrent ascites. 5. Huge right inguinal hernia. 6. Anemia of chronic kidney disease. 7. Hypertensive cardiovascular disease. 8. History of deep vein thrombosis. PLAN: 1. Broad-spectrum intravenous antibiotics, which the patient is on. 2. Continue selective fpc medications. 3. Hemodialysis. 4. Abdominal paracentesis. Thank you, Dr. Monsalve and Dr. Downs, for or letting me to participate in the care of this well-known patient. Alicia Prieto M.D. DR: MARTINE JOB#: [id number] CC:
--- NOTE | 2017-05-01 17:15 | History and Physical Report ---
DATE OF ADMISSION: 04/30/2017 CHIEF COMPLAINT: Sepsis and altered mental status. HISTORY OF PRESENT ILLNESS: The patient is an unfortunate 51-year-old male. He has a history of cirrhosis, heavy alcohol abuse, renal failure, hepatorenal syndrome, history of hernia, hepatic encephalopathy, and hyponatremia. He was transferred with complaints of fevers and altered mental status. On evaluation in the emergency room, the patient was noted to have white count of 20,000. Urinalysis showed 10-15 WBCs. Chest x-ray was normal. The patient was pancultured because of the elevated white count, is now admitted for further evaluation and care. PAST MEDICAL HISTORY: As above. Past medical history including history of peritoneal catheter, drainage catheter. MEDICATIONS: Current medications were reconciled and reviewed. ALLERGIES: Penicillin. SOCIAL HISTORY: The patient has a history of heavy alcohol use. No tobacco or drugs. FAMILY HISTORY: Noncontributory. REVIEW OF SYSTEMS: Unobtainable, as the patient is confused. PHYSICAL EXAMINATION: GENERAL: The patient is chronic ill-appearing male, in no apparent distress. He is awake, but confused. VITAL SIGNS: Temperature 97.5 degrees, pulse 99, respirations 18, and blood pressure 98/70. NECK: Supple without lymphadenopathy. HEART: Regular rate and rhythm. LUNGS: Clear anteriorly. ABDOMEN: Soft, nontender and nondistended. There is a drainage catheter noted as well as a port in the chest wall. EXTREMITIES: Without clubbing or cyanosis. LABORATORY AND DIAGNOSTIC DATA: Urinalysis showed 10 to 15 WBCs. White count 20, hemoglobin 11 and hematocrit 34. Sodium 125, potassium 5, chloride 91, bicarbonate 18, BUN 75, and creatinine 7.4. ASSESSMENT: This is an unfortunate male with a history of cirrhosis and end-stage renal disease admitted with sepsis secondary to urinary tract infection, cannot rule out spontaneous bacterial peritonitis. PLAN: Broad-spectrum IV antibiotics. Pulmonary, ID and GI consultations will be obtained. Renal consultation for continuation of the patient's hemodialysis. We will follow up pending cultures. DVT and stress ulcer prophylaxis. The patient's overall prognosis is poor. The patient is a Do Not Resuscitate. Aleksandr Downs M.D. DR: TESSA JOB#: [id number] CC:
--- NOTE | 2017-05-01 17:15 | Consultation ---
DATE OF CONSULTATION: 05/01/2017 PULMONARY CONSULTATION CONSULTING PHYSICIAN: Mason Monsalve M.D. REFERRING PHYSICIAN: Aleksandr Downs M.D. REASON FOR CONSULTATION: Respiratory alkalosis, hypoxemia, respiratory distress, and tachypnea. HISTORY OF PRESENT ILLNESS: This is a 51-year-old male who presents for evaluation due to noted acute hypotension. The patient's family also refused dialysis. The patient was brought in for altered mental status. The patient has end-stage liver disease, end-stage renal disease, had multiple bouts of dialysis. The patient's family refused dialysis today. The patient also has intraperitoneal drain for ascites. The patient has had multiple admissions and recently admitted to an outside facility for similar findings. The patient now presents for the above-noted and I was called to assist. The patient noted to have significant tachypnea and respiratory alkalosis. The patient has had pleural effusions in the past, multiple bouts of sepsis, and recently was started on dialysis. PAST MEDICAL HISTORY: Notable for the above. Notable for heart failure, DVT, hypertension, diabetes, end-stage renal disease, end-stage liver disease, hepatorenal syndrome, ascites, depression, and significant umbilical hernia. MEDICATIONS: Reviewed. ALLERGIES: Reviewed. REVIEW OF SYSTEMS: Unable at this time. PHYSICAL EXAMINATION: GENERAL: The patient is an ill-appearing male. VITAL SIGNS: Blood pressure 98/76, temperature 97.7, respiratory rate 18, and saturation 97% on room air. HEENT: Fairly negative. NECK: Supple. The patient with some temporal wasting. LUNGS: Decreased breath sounds bilaterally. No rhonchi or wheezes. CARDIAC: Normal S1 and S2. Regular rate and rhythm without murmurs, rubs, or gallops. ABDOMEN: Protuberant. Positive bowel sounds. Hernia noted. Ascites noted. EXTREMITIES: No cyanosis or clubbing. There is mild edema. NEUROLOGIC: Withdrawn and not clearly focal. LABORATORY DATA: Lab data reviewed. ABG, pH 7.40, pCO2 29, pO2 73. Chemistry, sodium 125, BUN 75, creatinine 7.4, bicarbonate 18, BNP is 2446. Lactic acid 2.8. White cell count 20, hemoglobin 11, hematocrit 34, and platelets of 326,000. IMPRESSION: 1. Hepatorenal syndrome. 2. End-stage liver disease. 3. End-stage renal disease. 4. Ascites. 5. Probable sepsis. 6. Leukocytosis. 7. Respiratory alkalosis and tachypnea, likely mostly due to compensation. 8. History of diabetes. 9. History of depression. 10. Significant umbilical hernia. RECOMMENDATION: Antibiotics started. Drain ascites as needed. Monitor for hypercapnia. Monitor blood pressure. Renal and ID evaluation. Monitor x- ray and optimize. Monitor respiratory status and follow up arterial blood gases. At present, the patient remains chronically and critically ill. The patient is currently Do Not Resuscitate and certainly has been listed in hospice in the past, but apparently per discussion, family is now interested in hospice and supportive care. Mason Monsalve M.D. DR: LAURA JOB#: [id number] CC: ROSE
--- NOTE | 2017-05-01 18:15 | Consultation ---
DATE OF CONSULTATION: 05/01/2017 INFECTIOUS DISEASE CONSULTATION CONSULTING PHYSICIAN: Agapito Dallas M.D. This consultation is for coverage of Dr. Garcia. PRIMARY ATTENDING PHYSICIAN: Aleksandr Downs M.D. REASON FOR CONSULTATION: Sepsis. HISTORY OF PRESENT ILLNESS: This is a 51-year-old male, admitted yesterday from [facility] with altered mental status. He was found to have significant leukocytosis and hematuria. He has a history of frequent admissions to the hospital. He is on hemodialysis, but refused dialysis on the day of admission. PAST MEDICAL HISTORY: Significant for alcoholic cirrhosis with ascites; end-stage renal disease, on hemodialysis, hemodialysis started in March 2017; has diabetes mellitus type 2; has abdominal ventral hernia; and has a peritoneal catheter for drainage of ascitic fluid. ALLERGIES: To penicillin, but he had cefepime in the ER and tolerated it. CURRENT MEDICATIONS: Remeron, lactulose, Inderal, Zosyn that has not started yet, insulin, sodium chloride, vancomycin, heparin, [place], Ativan, lorazepam, and Zofran. SOCIAL HISTORY: [facility] resident. Code status is DNR/DNI. REVIEW OF SYSTEMS: Complains of pain in the penile area. PHYSICAL EXAMINATION: VITAL SIGNS: Temperature 97.6, pulse 76, and blood pressure is 105/74. GENERAL APPEARANCE: Awake, alert, and verbal. HEAD AND NECK: Mucous membranes are moist. HEART: Regular. LUNGS: Clear. ABDOMEN: Distended with ascites. There is a huge ventral hernia in the right lower abdomen. He had a catheter in the left side of the abdomen. EXTREMITIES: Some edema of the legs. CATHETERS: The patient has hemodialysis catheter, Port-A-Cath, on the right side. GENITOURINARY: He has a Bower catheter and gross hematuria. LABORATORY AND DIAGNOSTIC DATA: WBC 20.4, hemoglobin 11, hematocrit 34.8, and platelets are 326. Sodium 125, potassium 5.1, chloride 91, bicarbonate 18, BUN 75, and creatinine 7.4. Lactic acid is 2.8. Phosphorus is high at 8.2. Ammonia is high at 256. Albumin is low at 1.7. CT scan of the head was negative. Chest x-ray showed no acute process and elevated right hemidiaphragm. Abdominal x-ray showed ascites. IMPRESSION: Sepsis with lactic acidosis and leukocytosis, source of infection may be urinary tract; has gross hematuria; cirrhosis with elevation of ammonia; has end-stage renal disease, on hemodialysis; has hyponatremia; diabetes mellitus type 2; ascites; and ventral hernia. RECOMMENDATION: We will continue with cefepime and vancomycin. We will follow up the cultures. Narrow antibiotic. At the end of my exam, I thank Dr. Downs for involving me in the care of this patient. Agapito Dallas M.D. DR: JULIENNE JOB#: [id number] CC:
[2017-05-01 20:00] VITALS: BP 101/72
[2017-05-01] MEDS: LORazepam 0.5mg tab ORAL PRN (20:47)
[2017-05-01] MEDS ORDERED: Aztreonam Inj 0.5 GM in D5W 55 ML IVPB SCH (21:00)
[2017-05-02] VITALS: BP 104/73
[2017-05-02 04:00] VITALS: BP 108/77
[2017-05-02] MEDS: NovoLOG Insulin Flexpen SUBQ SCH ×4 (06:26→20:23)
[2017-05-02 08:00] VITALS: BP 103/75
[2017-05-02] MEDS ORDERED: Vancomycin 1gm/D5W 275ml IVPB ONE ×2 (08:00)
--- NOTE | 2017-05-02 08:25 | General Progress Note ---
Assessment/Plan Problem List: (1) Hepatic encephalopathy ICD Codes: K72.90 - Hepatic failure, unspecified without coma; Z99.2 - Dependence on renal dialysis SNOMED: 21582124 (2) Cirrhosis ICD Codes: K74.60 - Unspecified cirrhosis of liver SNOMED: 52210979 Qualifiers: Qualified Codes: K70.31 - Alcoholic cirrhosis of liver with ascites (3) Sepsis ICD Codes: A41.9 - Sepsis, unspecified organism SNOMED: 60872363 Qualifiers: Qualified Codes: A41.9 - Sepsis, unspecified organism (4) ESRD (end stage renal disease) on dialysis ICD Codes: N18.6 - End stage renal disease; Z99.2 - Dependence on renal dialysis SNOMED: 549141653 Status: stable, progressing Assessment/Plan paracentesis iv abx follow up cultures HD per renal surgery eval increase lactulose. Subjective ROS Limited/Unobtainable: No Constitutional: Reports: weakness HEENT: Reports: no symptoms Cardiovascular: Reports: no symptoms Respiratory: Reports: no symptoms Gastrointestinal/Abdominal: Reports: abdomen distended Genitourinary: Reports: no symptoms Neurologic/Psychiatric: Reports: pre-existing deficit Endocrine: Reports: no symptoms Hematologic/Lymphatic: Reports: no symptoms Allergies: Coded Allergies: PENICILLINS (Verified Allergy, Severe, 05/01/17) Tolerated Zosyn 09/2016 All Systems: reviewed and negative except above Subjective no events. feels a little better. no cp/sob. + abd distention. on iv abx. no nausea or vomiting. Objective Last 24 Hour Vital Signs Date Time Temp Pulse Resp B/P (MAP) Pulse Ox O2 Delivery O2 Flow Rate FiO2 05/02/17 04:00 98 05/02/17 04:00 97.9 99 20 108/77 95 Room Air 05/02/17 00:00 97.8 99 20 104/73 96 Room Air 05/02/17 00:00 105 05/01/17 20:00 99 05/01/17 20:00 98.1 99 20 101/72 95 Room Air 05/01/17 19:28 108 20 Room Air 21 05/01/17 16:43 112 05/01/17 16:00 97.8 104 21 101/69 96 Room Air 05/01/17 15:50 Room Air 05/01/17 14:15 Room Air 05/01/17 12:00 97.6 81 22 93/73 97 Room Air 05/01/17 12:00 78 Intake and Output 05/02/17 05/03/17 19:00 07:00 Intake Total 300 ml Output Total 0 ml Balance 300 ml Intake Oral 300 ml Output Urine Total 0 ml Laboratory Tests 05/01/17 09:10: White Blood Count 17.4H, Red Blood Count 4.11L, Hemoglobin 11.7L, Hematocrit 36.7L, Mean Corpuscular Volume 89, Mean Corpuscular Hemoglobin 28.4, Mean Corpuscular Hemoglobin Concent 31.7L, Red Cell Distribution Width 16.6H, Platelet Count 361, Mean Platelet Volume 7.1, Neutrophils (%) (Auto) 79.0H, Lymphocytes (%) (Auto) 3.4L, Monocytes (%) (Auto) 15.9H, Eosinophils (%) (Auto) 0.5, Basophils (%) (Auto) 1.1, Sodium Level 126L, Potassium Level 5.1, Chloride Level 91L, Carbon Dioxide Level 16L, Anion Gap 19H, Blood Urea Nitrogen 79H, Creatinine 7.5H, Estimat Glomerular Filtration Rate 7.7, Glucose Level 120H, Calcium Level 8.5 05/02/17 03:40: Random Vancomycin Level 16.5 Height (Feet): 5 Height (Inches): 8.00 Weight (Pounds): 181 General Appearance: WD/WN, alert Neck: supple Cardiovascular: regular rhythm Respiratory/Chest: chest wall non-tender, lungs clear, normal breath sounds, no respiratory distress Abdomen: normal bowel sounds, non tender, soft, no organomegaly Edema: moderate edema Neurologic: alert, responsive DIPAK URIBE May 02, 2017 08:25
--- NOTE | 2017-05-02 08:39 | Pulmonology Progress Note ---
Assessment/Plan Assessment/Plan IMPRESSION: 1. Hepatorenal syndrome. 2. End-stage liver disease. 3. End-stage renal disease. 4. Ascites. 5. Probable sepsis. 6. Leukocytosis. 7. Respiratory alkalosis and tachypnea, likely mostly due to compensation. 8. History of diabetes. 9. History of depression. 10. Significant umbilical hernia. PLAN care as is DNR stabilize tap HD monitor counts dc to snf consider hospice care Subjective Allergies: Coded Allergies: PENICILLINS (Verified Allergy, Severe, 05/01/17) Tolerated Zosyn 09/2016 Subjective weak events noted for tap Objective Last 24 Hour Vital Signs Date Time Temp Pulse Resp B/P (MAP) Pulse Ox O2 Delivery O2 Flow Rate FiO2 05/02/17 04:00 98 05/02/17 04:00 97.9 99 20 108/77 95 Room Air 05/02/17 00:00 97.8 99 20 104/73 96 Room Air 05/02/17 00:00 105 05/01/17 20:00 99 05/01/17 20:00 98.1 99 20 101/72 95 Room Air 05/01/17 19:28 108 20 Room Air 21 05/01/17 16:43 112 05/01/17 16:00 97.8 104 21 101/69 96 Room Air 05/01/17 15:50 Room Air 05/01/17 14:15 Room Air 05/01/17 12:00 97.6 81 22 93/73 97 Room Air 05/01/17 12:00 78 Intake and Output 05/02/17 05/03/17 19:00 07:00 Intake Total 300 ml Output Total 0 ml Balance 300 ml Intake Oral 300 ml Output Urine Total 0 ml Objective WDWN NAD reduced breath sounds bilaterally without rhonchi or wheeze [id number] without MRG NABS nontender- distended with ascites no CC edema nonfocal Microbiology Date/Time Source Procedure Growth Status 04/30/17 16:55 Blood Blood Culture - Preliminary NO GROWTH AFTER 24 HOURS Resulted 04/30/17 16:45 Blood Blood Culture - Preliminary NO GROWTH AFTER 24 HOURS Resulted 04/30/17 19:36 Urine,Clean Catch Urine Culture - Preliminary NO GROWTH AFTER 24 HOURS Resulted Laboratory Tests 05/01/17 09:10: White Blood Count 17.4H, Red Blood Count 4.11L, Hemoglobin 11.7L, Hematocrit 36.7L, Mean Corpuscular Volume 89, Mean Corpuscular Hemoglobin 28.4, Mean Corpuscular Hemoglobin Concent 31.7L, Red Cell Distribution Width 16.6H, Platelet Count 361, Mean Platelet Volume 7.1, Neutrophils (%) (Auto) 79.0H, Lymphocytes (%) (Auto) 3.4L, Monocytes (%) (Auto) 15.9H, Eosinophils (%) (Auto) 0.5, Basophils (%) (Auto) 1.1, Sodium Level 126L, Potassium Level 5.1, Chloride Level 91L, Carbon Dioxide Level 16L, Anion Gap 19H, Blood Urea Nitrogen 79H, Creatinine 7.5H, Estimat Glomerular Filtration Rate 7.7, Glucose Level 120H, Calcium Level 8.5 05/02/17 03:40: Random Vancomycin Level 16.5 Current Medications Medications (Trade) Dose Ordered Sig/Chaz Route PRN Reason Start Time Stop Time Status Last Admin Dose Admin Acetaminophen/ Hydrocodone Bitart ([place] 5/325) 1 tab Q4H PRN ORAL For Pain 04/30/17 22:45 05/07/17 22:44 Albuterol Sulfate (Proventil) 1.25 mg Q4H PRN HHN Shortness of Breath 04/30/17 22:45 05/05/17 22:44 Aztreonam 0.5 gm/ Dextrose 55 ml @ 110 mls/hr Q12HR IVPB 05/01/17 12:00 05/08/17 11:59 05/01/17 20:57 Dextrose (Dextrose 50%) STAT PRN IV Hypoglycemia 04/30/17 22:45 05/30/17 22:44 Heparin Sodium (Porcine) (Heparin Sod 1000 units/ml 10ml) 2,000 unit ONCE PRN IV FOR HD USE ONLY 05/01/17 06:30 05/02/17 23:59 Insulin Aspart (NovoLOG) BEFORE MEALS AND HS SUBQ 05/01/17 06:30 05/31/17 06:29 05/02/17 06:26 Lactulose (Cephulac) 30 gm TID ORAL 05/02/17 09:00 05/31/17 08:59 Lorazepam (Ativan) 0.5 mg Q4HR PRN ORAL For Anxiety 04/30/17 22:45 05/07/17 22:44 05/01/17 20:47 Mirtazapine (Remeron) 15 mg BEDTIME ORAL 05/01/17 21:00 05/31/17 20:59 05/01/17 20:47 Ondansetron HCl (Zofran) 4 mg Q6H PRN IVP Nausea & Vomiting 04/30/17 22:45 05/30/17 22:44 Propranolol HCl (Inderal) 20 mg DAILY ORAL 05/01/17 09:00 05/31/17 08:59 Sodium Chloride 1,000 ml @ 500 mls/hr Q2H PRN IVLG sbp<90 during hd 05/01/17 06:30 05/02/17 23:59 Vancomycin HCl (Vanco rx to dose) 1 ea DAILY PRN MISC Per rx protocol 04/30/17 22:45 05/30/17 22:44 Vancomycin HCl 1 gm/Dextrose 275 ml @ 183.708 mls/hr NOW ONCE IVPB 05/02/17 08:00 05/02/17 09:29 MARY ANNE CASON May 02, 2017 08:39
[2017-05-02] MEDS: Propranolol 40mg tab ORAL SCH (09:00)
[2017-05-02] MEDS: Lactulose 20gm/30ml UDC ORAL SCH ×3 (09:25→17:09)
[2017-05-02] MEDS: Aztreonam Inj 0.5 GM in D5W 55 ML IVPB SCH ×2 (10:55→21:18)
--- NOTE | 2017-05-02 11:34 | Cardiology Report ---
APPROVED REPORT EKG Measurement Heart [id number] Normal sinus rhythm Low voltage QRS Inferior infarct, age undetermined Cannot rule out Anterior infarct, age undetermined Abnormal ECG
--- NOTE | 2017-05-02 11:46 | Nephrology Progress Note ---
Assessment/Plan Plan ESRD- HD TTS Sepsis w/U per ID Ascites -paracentesis. Subjective Subjective No new c/o Objective Objective Last 24 Hour Vital Signs Date Time Temp Pulse Resp B/P (MAP) Pulse Ox O2 Delivery O2 Flow Rate FiO2 05/02/17 09:00 103 103/75 05/02/17 08:00 97.3 103 22 103/75 96 Room Air 05/02/17 08:00 98 05/02/17 04:00 98 05/02/17 04:00 97.9 99 20 108/77 95 Room Air 05/02/17 00:00 97.8 99 20 104/73 96 Room Air 05/02/17 00:00 105 05/01/17 20:00 99 05/01/17 20:00 98.1 99 20 101/72 95 Room Air 05/01/17 19:28 108 20 Room Air 21 05/01/17 16:43 112 05/01/17 16:00 97.8 104 21 101/69 96 Room Air 05/01/17 15:50 Room Air 05/01/17 14:15 Room Air 05/01/17 12:00 97.6 81 22 93/73 97 Room Air 05/01/17 12:00 78 Intake and Output 05/02/17 05/03/17 19:00 07:00 Intake Total 483.708 ml Output Total 0 ml Balance 483.708 ml Intake Oral 300 ml IV Total 183.708 ml Output Urine Total 0 ml # Bowel Movements 1 Laboratory Tests 05/02/17 03:40: Random Vancomycin Level 16.5 Height (Feet): 5 Height (Inches): 8.00 Weight (Pounds): 181 Objective Chronicallyn ill. Pale. CV RR Lungs B Ronchi. Abd- Tense ascites. Huge hernia. E + edema. PIETRO MARION May 02, 2017 11:46
[2017-05-02 12:00] VITALS: BP 109/76
--- NOTE | 2017-05-02 12:29 | Infectious Diseases Prog Note ---
Assessment/Plan Assessment/Plan antibiotics : vancomycin iv, aztreonam A 1. UTI 2. leucocytosis improving 3. renal failure 4. cirrhosis P 1. continue vancomycin iv, aztreonam 2. will follow up cultures Subjective Constitutional: Denies: fever, chills Respiratory: Denies: shortness of breath, dry cough Gastrointestinal/Abdominal: Denies: nausea, vomiting, diarrhea Musculoskeletal: Reports: pain Allergies: Coded Allergies: PENICILLINS (Verified Allergy, Severe, 05/01/17) Tolerated Zosyn 09/2016 Objective Vital Signs Last 24 Hour Vital Signs Date Time Temp Pulse Resp B/P (MAP) Pulse Ox O2 Delivery O2 Flow Rate FiO2 05/02/17 09:00 103 103/75 05/02/17 08:00 97.3 103 22 103/75 96 Room Air 05/02/17 08:00 98 05/02/17 04:00 98 05/02/17 04:00 97.9 99 20 108/77 95 Room Air 05/02/17 00:00 97.8 99 20 104/73 96 Room Air 05/02/17 00:00 105 05/01/17 20:00 99 05/01/17 20:00 98.1 99 20 101/72 95 Room Air 05/01/17 19:28 108 20 Room Air 21 05/01/17 16:43 112 05/01/17 16:00 97.8 104 21 101/69 96 Room Air 05/01/17 15:50 Room Air 05/01/17 14:15 Room Air Height (Feet): 5 Height (Inches): 8.00 Weight (Pounds): 181 Respiratory/Chest: lungs clear Cardiovascular: normal rate, regular rhythm, no gallop/murmur Abdomen: soft, non tender, other - hernia Extremities: no edema, other - right subclavian Microbiology Date/Time Source Procedure Growth Status 04/30/17 16:55 Blood Blood Culture - Preliminary NO GROWTH AFTER 24 HOURS Resulted 04/30/17 16:45 Blood Blood Culture - Preliminary NO GROWTH AFTER 24 HOURS Resulted 04/30/17 19:36 Urine,Clean Catch Urine Culture - Preliminary NO GROWTH AFTER 24 HOURS Resulted Laboratory Tests Test 05/02/17 03:40 Random Vancomycin Level 16.5 ug/mL JN TABOR May 02, 2017 12:29
[2017-05-02 16:00] VITALS: BP 135/79
[2017-05-02 20:00] VITALS: BP 120/73
[2017-05-03] VITALS: BP 111/75
[2017-05-03 04:00] VITALS: BP 119/81
[2017-05-03 05:58] LABS: BASOPHILS % (AUTO) 0.9 % (0.0-2.0); EOSINOPHILS % (AUTO) 1.6 % (0.0-3.0); LYMPHOCYTES % (AUTO) 4.9 % (20.0-45.0); MEAN CORPUSCULAR HEMOGLOBIN 29.1 PG (27.0-31.0); MEAN CORPUSCULAR HGB CONC 32.9 G/DL (32.0-36.0); MEAN CORPUSCULAR VOLUME 88 FL (80-99); MEAN PLATELET VOLUME 6.8 FL (6.5-10.1); MONOCYTES % (AUTO) 14.8 % (1.0-10.0); NEUTROPHILS % (AUTO) 77.8 % (45.0-75.0); PLATELET COUNT 313 K/UL (150-450); RED BLOOD COUNT 3.82 M/UL (4.70-6.10); RED CELL DISTRIBUTION WIDTH 16.2 % (11.6-14.8)
[2017-05-03] MEDS: NovoLOG Insulin Flexpen SUBQ SCH ×4 (06:18→21:25)
[2017-05-03 06:30] LABS: ALANINE AMINOTRANSFERASE 14 U/L (12-78); ALBUMIN/GLOBULIN RATIO 0.3 (1.0-2.7); ANION GAP 18 mmol/L (5-15); ASPARTATE AMINO TRANSFERASE 24 U/L (15-37); CALCIUM 8.5 MG/DL (8.5-10.1); CARBON DIOXIDE 18 MMOL/L (21-32); CHLORIDE 91 MMOL/L (98-107); CREATININE 7.2 MG/DL (0.55-1.30); POTASSIUM 3.9 MMOL/L (3.5-5.1); SODIUM 127 MMOL/L (136-145); TOTAL PROTEIN 6.9 G/DL (6.4-8.2)
[2017-05-03 08:00] VITALS: BP 102/70
[2017-05-03] MEDS: Aztreonam Inj 0.5 GM in D5W 55 ML IVPB SCH ×2 (08:57→21:22)
[2017-05-03] MEDS: Propranolol 40mg tab ORAL SCH (08:58)
[2017-05-03] MEDS: Lactulose 20gm/30ml UDC ORAL SCH ×3 (08:58→17:18)
--- NOTE | 2017-05-03 09:44 | Pulmonology Progress Note ---
Assessment/Plan Assessment/Plan IMPRESSION: 1. Hepatorenal syndrome. 2. End-stage liver disease. 3. End-stage renal disease. 4. Ascites. 5. Probable sepsis. 6. Leukocytosis. 7. Respiratory alkalosis and tachypnea, likely mostly due to compensation. 8. History of diabetes. 9. History of depression. 10. Significant umbilical hernia. PLAN care as is DNR stabilize tap PRN HD monitor counts and cultures ID clearance supportive care dc to snf consider hospice care Subjective Allergies: Coded Allergies: PENICILLINS (Verified Allergy, Severe, 05/01/17) Tolerated Zosyn 09/2016 Subjective weak events noted more alert Objective Last 24 Hour Vital Signs Date Time Temp Pulse Resp B/P (MAP) Pulse Ox O2 Delivery O2 Flow Rate FiO2 05/03/17 08:58 119 102/70 05/03/17 08:00 97.3 119 18 102/70 95 Room Air 05/03/17 06:46 99 20 Room Air 21 05/03/17 06:24 Room Air 05/03/17 04:00 111 05/03/17 04:00 98.1 110 22 119/81 96 Room Air 05/03/17 00:00 98.2 107 22 111/75 95 Room Air 05/03/17 00:00 105 05/02/17 20:00 97.3 107 20 120/73 95 Room Air 05/02/17 20:00 108 05/02/17 19:44 103 20 Room Air 21 05/02/17 16:00 97.5 80 20 135/79 100 Room Air 05/02/17 16:00 112 05/02/17 13:27 109 24 Room Air 21 05/02/17 12:00 97.8 110 21 109/76 95 Room Air 05/02/17 12:00 100 Objective WDWN NAD reduced breath sounds bilaterally without rhonchi or wheeze [id number] without MRG NABS nontender- distended with ascites no CC edema nonfocal Microbiology Date/Time Source Procedure Growth Status 04/30/17 16:55 Blood Blood Culture - Preliminary NO GROWTH AFTER 24 HOURS Resulted 04/30/17 16:45 Blood Blood Culture - Preliminary NO GROWTH AFTER 24 HOURS Resulted 04/30/17 19:58 Nasal Nares MRSA Culture - Final NO METHICILLIN RESISTANT STAPH AUREUS... Complete 04/30/17 19:36 Urine,Clean Catch Urine Culture - Preliminary NO GROWTH AFTER 24 HOURS Resulted 04/30/17 19:58 Rectum VRE Culture - Final NO VANCOMYCIN RESISTANT ENTEROCOCCUS ... Complete Laboratory Tests 05/03/17 05:00: White Blood Count 15.0H, Red Blood Count 3.82L, Hemoglobin 11.1L, Hematocrit 33.8L, Mean Corpuscular Volume 88, Mean Corpuscular Hemoglobin 29.1, Mean Corpuscular Hemoglobin Concent 32.9, Red Cell Distribution Width 16.2H, Platelet Count 313, Mean Platelet Volume 6.8, Neutrophils (%) (Auto) 77.8H, Lymphocytes (%) (Auto) 4.9L, Monocytes (%) (Auto) 14.8H, Eosinophils (%) (Auto) 1.6, Basophils (%) (Auto) 0.9, Sodium Level 127L, Potassium Level 3.9, Chloride Level 91L, Carbon Dioxide Level 18L, Anion Gap 18H, Blood Urea Nitrogen 72H, Creatinine 7.2H, Estimat Glomerular Filtration Rate 8.0, Glucose Level 182H, Calcium Level 8.5, Total Bilirubin 0.6, Aspartate Amino Transf (AST/SGOT) 24, Alanine Aminotransferase (ALT/SGPT) 14, Alkaline Phosphatase 121H, Total Protein 6.9, Albumin 1.7L, Globulin 5.2, Albumin/Globulin Ratio 0.3L Current Medications Medications (Trade) Dose Ordered Sig/Chaz Route PRN Reason Start Time Stop Time Status Last Admin Dose Admin Acetaminophen/ Hydrocodone Bitart ([place] 5/325) 1 tab Q4H PRN ORAL For Pain 04/30/17 22:45 05/07/17 22:44 Albuterol Sulfate (Proventil) 1.25 mg Q4H PRN HHN Shortness of Breath 04/30/17 22:45 05/05/17 22:44 Aztreonam 0.5 gm/ Dextrose 55 ml @ 110 mls/hr Q12HR IVPB 05/01/17 12:00 05/08/17 11:59 05/03/17 08:57 Dextrose (Dextrose 50%) STAT PRN IV Hypoglycemia 04/30/17 22:45 05/30/17 22:44 Heparin Sodium (Porcine) (Heparin Sod 1000 units/ml 10ml) 2,000 unit ONCE ONCE IV 05/03/17 12:00 05/03/17 12:01 Insulin Aspart (NovoLOG) BEFORE MEALS AND HS SUBQ 05/01/17 06:30 05/31/17 06:29 05/03/17 06:18 Lactulose (Cephulac) 30 gm TID ORAL 05/02/17 09:00 05/31/17 08:59 05/03/17 08:58 Lorazepam (Ativan) 0.5 mg Q4HR PRN ORAL For Anxiety 04/30/17 22:45 05/07/17 22:44 05/01/17 20:47 Mirtazapine (Remeron) 15 mg BEDTIME ORAL 05/01/17 21:00 05/31/17 20:59 05/02/17 20:19 Ondansetron HCl (Zofran) 4 mg Q6H PRN IVP Nausea & Vomiting 04/30/17 22:45 05/30/17 22:44 Propranolol HCl (Inderal) 20 mg DAILY ORAL 05/01/17 09:00 05/31/17 08:59 Vancomycin HCl (Vanco rx to dose) 1 ea DAILY PRN MISC Per rx protocol 04/30/17 22:45 05/30/17 22:44 MARY ANNE CASON May 03, 2017 09:44
--- NOTE | 2017-05-03 11:07 | Infectious Diseases Prog Note ---
Assessment/Plan Assessment/Plan antibiotics : vancomycin iv, aztreonam A 1. UTI 2. leucocytosis improving 3. renal failure 4. cirrhosis P 1. continue vancomycin iv, aztreonam 3 more days 2. will follow up cultures Subjective ROS Limited/Unobtainable: Yes Allergies: Coded Allergies: PENICILLINS (Verified Allergy, Severe, 05/01/17) Tolerated Zosyn 09/2016 Objective Vital Signs Last 24 Hour Vital Signs Date Time Temp Pulse Resp B/P (MAP) Pulse Ox O2 Delivery O2 Flow Rate FiO2 05/03/17 08:58 119 102/70 05/03/17 08:00 97.3 119 18 102/70 95 Room Air 05/03/17 08:00 120 05/03/17 06:46 99 20 Room Air 21 05/03/17 06:24 Room Air 05/03/17 04:00 111 05/03/17 04:00 98.1 110 22 119/81 96 Room Air 05/03/17 00:00 98.2 107 22 111/75 95 Room Air 05/03/17 00:00 105 05/02/17 20:00 97.3 107 20 120/73 95 Room Air 05/02/17 20:00 108 05/02/17 19:44 103 20 Room Air 21 05/02/17 16:00 97.5 80 20 135/79 100 Room Air 05/02/17 16:00 112 05/02/17 13:27 109 24 Room Air 21 05/02/17 12:00 97.8 110 21 109/76 95 Room Air 05/02/17 12:00 100 Height (Feet): 5 Height (Inches): 8.00 Weight (Pounds): 181 Respiratory/Chest: lungs clear Cardiovascular: normal rate, regular rhythm, no gallop/murmur Abdomen: soft, non tender, other - GT, ventral hernia Extremities: no edema, other - right subclavian catheter Microbiology Date/Time Source Procedure Growth Status 04/30/17 16:55 Blood Blood Culture - Preliminary NO GROWTH AFTER 24 HOURS Resulted 04/30/17 16:45 Blood Blood Culture - Preliminary NO GROWTH AFTER 24 HOURS Resulted 04/30/17 19:58 Nasal Nares MRSA Culture - Final NO METHICILLIN RESISTANT STAPH AUREUS... Complete 04/30/17 19:36 Urine,Clean Catch Urine Culture - Final NO GROWTH AFTER 48 HOURS Complete 04/30/17 19:58 Rectum VRE Culture - Final NO VANCOMYCIN RESISTANT ENTEROCOCCUS ... Complete Laboratory Tests Test 05/03/17 05:00 White Blood Count 15.0 K/UL (4.8-10.8) H Red Blood Count 3.82 M/UL (4.70-6.10) L Hemoglobin 11.1 G/DL (14.2-18.0) L Hematocrit 33.8 % (42.0-52.0) L Mean Corpuscular Volume 88 FL (80-99) Mean Corpuscular Hemoglobin 29.1 PG (27.0-31.0) Mean Corpuscular Hemoglobin Concent 32.9 G/DL (32.0-36.0) Red Cell Distribution Width 16.2 % (11.6-14.8) H Platelet Count 313 K/UL (150-450) Mean Platelet Volume 6.8 FL (6.5-10.1) Neutrophils (%) (Auto) 77.8 % (45.0-75.0) H Lymphocytes (%) (Auto) 4.9 % (20.0-45.0) L Monocytes (%) (Auto) 14.8 % (1.0-10.0) H Eosinophils (%) (Auto) 1.6 % (0.0-3.0) Basophils (%) (Auto) 0.9 % (0.0-2.0) Sodium Level 127 MMOL/L (136-145) L Potassium Level 3.9 MMOL/L (3.5-5.1) Chloride Level 91 MMOL/L (98-107) L Carbon Dioxide Level 18 MMOL/L (21-32) L Anion Gap 18 mmol/L (5-15) H Blood Urea Nitrogen 72 mg/dL (7-18) H Creatinine 7.2 MG/DL (0.55-1.30) H Estimat Glomerular Filtration Rate 8.0 mL/min (>60) Glucose Level 182 MG/DL (74-106) H Calcium Level 8.5 MG/DL (8.5-10.1) Total Bilirubin 0.6 MG/DL (0.2-1.0) Aspartate Amino Transf (AST/SGOT) 24 U/L (15-37) Alanine Aminotransferase (ALT/SGPT) 14 U/L (12-78) Alkaline Phosphatase 121 U/L (46-116) H Total Protein 6.9 G/DL (6.4-8.2) Albumin 1.7 G/DL (3.4-5.0) L Globulin 5.2 g/dL Albumin/Globulin Ratio 0.3 (1.0-2.7) L JN TABOR May 03, 2017 11:07
--- NOTE | 2017-05-03 11:41 | General Progress Note ---
Assessment/Plan Problem List: (1) Hepatic encephalopathy ICD Codes: K72.90 - Hepatic failure, unspecified without coma; Z99.2 - Dependence on renal dialysis SNOMED: 54922380 (2) Cirrhosis ICD Codes: K74.60 - Unspecified cirrhosis of liver SNOMED: 08708357 Qualifiers: Qualified Codes: K70.31 - Alcoholic cirrhosis of liver with ascites (3) Sepsis ICD Codes: A41.9 - Sepsis, unspecified organism SNOMED: 39787750 Qualifiers: Qualified Codes: A41.9 - Sepsis, unspecified organism (4) ESRD (end stage renal disease) on dialysis ICD Codes: N18.6 - End stage renal disease; Z99.2 - Dependence on renal dialysis SNOMED: 055617946 Status: stable, progressing Assessment/Plan paracentesis- pleurx bottle ordered wont arrive till friday. no distress iv abx follow up cultures HD per renal surgery eval increase lactulose. Subjective ROS Limited/Unobtainable: No Constitutional: Reports: malaise, weakness HEENT: Reports: no symptoms Cardiovascular: Reports: no symptoms Respiratory: Reports: no symptoms Gastrointestinal/Abdominal: Reports: abdomen distended Genitourinary: Reports: no symptoms Neurologic/Psychiatric: Reports: no symptoms, depressed Allergies: Coded Allergies: PENICILLINS (Verified Allergy, Severe, 05/01/17) Tolerated Zosyn 09/2016 Subjective no events. feels a little better. no cp/sob. + abd distention. on iv abx. no nausea or vomiting. Objective Last 24 Hour Vital Signs Date Time Temp Pulse Resp B/P (MAP) Pulse Ox O2 Delivery O2 Flow Rate FiO2 05/03/17 08:58 119 102/70 05/03/17 08:00 97.3 119 18 102/70 95 Room Air 05/03/17 08:00 120 05/03/17 06:46 99 20 Room Air 21 05/03/17 06:24 Room Air 05/03/17 04:00 111 05/03/17 04:00 98.1 110 22 119/81 96 Room Air 05/03/17 00:00 98.2 107 22 111/75 95 Room Air 05/03/17 00:00 105 05/02/17 20:00 97.3 107 20 120/73 95 Room Air 05/02/17 20:00 108 05/02/17 19:44 103 20 Room Air 21 05/02/17 16:00 97.5 80 20 135/79 100 Room Air 05/02/17 16:00 112 05/02/17 13:27 109 24 Room Air 21 05/02/17 12:00 97.8 110 21 109/76 95 Room Air 05/02/17 12:00 100 Intake and Output 05/03/17 05/04/17 19:00 07:00 Intake Total 55 ml Balance 55 ml IV Total 55 ml Laboratory Tests 05/03/17 05:00: White Blood Count 15.0H, Red Blood Count 3.82L, Hemoglobin 11.1L, Hematocrit 33.8L, Mean Corpuscular Volume 88, Mean Corpuscular Hemoglobin 29.1, Mean Corpuscular Hemoglobin Concent 32.9, Red Cell Distribution Width 16.2H, Platelet Count 313, Mean Platelet Volume 6.8, Neutrophils (%) (Auto) 77.8H, Lymphocytes (%) (Auto) 4.9L, Monocytes (%) (Auto) 14.8H, Eosinophils (%) (Auto) 1.6, Basophils (%) (Auto) 0.9, Sodium Level 127L, Potassium Level 3.9, Chloride Level 91L, Carbon Dioxide Level 18L, Anion Gap 18H, Blood Urea Nitrogen 72H, Creatinine 7.2H, Estimat Glomerular Filtration Rate 8.0, Glucose Level 182H, Calcium Level 8.5, Total Bilirubin 0.6, Aspartate Amino Transf (AST/SGOT) 24, Alanine Aminotransferase (ALT/SGPT) 14, Alkaline Phosphatase 121H, Total Protein 6.9, Albumin 1.7L, Globulin 5.2, Albumin/Globulin Ratio 0.3L Height (Feet): 5 Height (Inches): 8.00 Weight (Pounds): 181 Objective General Appearance: WD/WN, alert Neck: supple Cardiovascular: regular rhythm Respiratory/Chest: chest wall non-tender, lungs clear, normal breath sounds, no respiratory distress Abdomen: normal bowel sounds, non tender, soft, no organomegaly Edema: moderate edema Neurologic: alert, responsive DIPAK URIBE May 03, 2017 11:41
[2017-05-03 12:00] VITALS: BP 100/65
[2017-05-03] MEDS ORDERED: Heparin Sod 1000 units/ml 10ml IV ONE (12:00)
--- NOTE | 2017-05-03 13:00 | Nephrology Progress Note ---
Assessment/Plan Plan ESRD- HD TTS. Had HD already. Na 127-128! Not getting IVF. May need repeat HD! Sepsis w/U per ID Ascites -paracentesis. Subjective Subjective No new c/o Objective Objective Last 24 Hour Vital Signs Date Time Temp Pulse Resp B/P (MAP) Pulse Ox O2 Delivery O2 Flow Rate FiO2 05/03/17 08:58 119 102/70 05/03/17 08:00 97.3 119 18 102/70 95 Room Air 05/03/17 08:00 120 05/03/17 06:46 99 20 Room Air 21 05/03/17 06:24 Room Air 05/03/17 04:00 111 05/03/17 04:00 98.1 110 22 119/81 96 Room Air 05/03/17 00:00 98.2 107 22 111/75 95 Room Air 05/03/17 00:00 105 05/02/17 20:00 97.3 107 20 120/73 95 Room Air 05/02/17 20:00 108 05/02/17 19:44 103 20 Room Air 21 05/02/17 16:00 97.5 80 20 135/79 100 Room Air 05/02/17 16:00 112 05/02/17 13:27 109 24 Room Air 21 Intake and Output 05/03/17 05/04/17 19:00 07:00 Intake Total 255 ml Balance 255 ml Intake Oral 200 ml IV Total 55 ml # Bowel Movements 1 Laboratory Tests 05/03/17 05:00: White Blood Count 15.0H, Red Blood Count 3.82L, Hemoglobin 11.1L, Hematocrit 33.8L, Mean Corpuscular Volume 88, Mean Corpuscular Hemoglobin 29.1, Mean Corpuscular Hemoglobin Concent 32.9, Red Cell Distribution Width 16.2H, Platelet Count 313, Mean Platelet Volume 6.8, Neutrophils (%) (Auto) 77.8H, Lymphocytes (%) (Auto) 4.9L, Monocytes (%) (Auto) 14.8H, Eosinophils (%) (Auto) 1.6, Basophils (%) (Auto) 0.9, Sodium Level 127L, Potassium Level 3.9, Chloride Level 91L, Carbon Dioxide Level 18L, Anion Gap 18H, Blood Urea Nitrogen 72H, Creatinine 7.2H, Estimat Glomerular Filtration Rate 8.0, Glucose Level 182H, Calcium Level 8.5, Total Bilirubin 0.6, Aspartate Amino Transf (AST/SGOT) 24, Alanine Aminotransferase (ALT/SGPT) 14, Alkaline Phosphatase 121H, Total Protein 6.9, Albumin 1.7L, Globulin 5.2, Albumin/Globulin Ratio 0.3L Height (Feet): 5 Height (Inches): 8.00 Weight (Pounds): 181 Objective Chronicallyn ill. Pale. CV RR Lungs B Ronchi. Abd- Tense ascites. Huge hernia. E + edema. PIETRO MARION May 03, 2017 13:00
[2017-05-03 16:00] VITALS: BP 111/78
[2017-05-03] MEDS ORDERED: D5W 275ml ONE (17:18)
[2017-05-03] MEDS ORDERED: Tubing Blood Filter IV ONE (17:18)
[2017-05-03] MEDS ORDERED: NS 500ML ONE (17:18)
[2017-05-03] MEDS ORDERED: Tubing IV Secondary IV ONE (17:18)
[2017-05-03 20:00] VITALS: BP 105/80
[2017-05-03] MEDS: LORazepam 0.5mg tab ORAL PRN (21:25)
--- NOTE | 2017-05-03 23:08 | General Progress Note ---
Progress Note Progress Note Dictated consult to follow Asked by renal Dr Prieto to eval for arm av shunt ESRD on HD via permcath Liver cirrhosis with recurrent tense ascites and large umbilical hernia Recurrent sepsis Rec Arm duplex Abx per ID GI and general surgery eval For left arm av shunt placement on if medically cleared and ok with ID d/w pt d/w RN TREMAINE WEAVER May 03, 2017 23:08
[2017-05-04] VITALS: BP 111/74
[2017-05-04 04:00] VITALS: BP 120/81
[2017-05-04 06:07] LABS: ANION GAP 15 mmol/L (5-15); CALCIUM 8.5 MG/DL (8.5-10.1); CARBON DIOXIDE 19 MMOL/L (21-32); CHLORIDE 93 MMOL/L (98-107); CREATININE 6.7 MG/DL (0.55-1.30); GLOMERULAR FILTRATION RATE 8.7 mL/min (>60); POTASSIUM 3.7 MMOL/L (3.5-5.1); SODIUM 127 MMOL/L (136-145)
[2017-05-04] MEDS: NovoLOG Insulin Flexpen SUBQ SCH ×4 (06:28→21:05)
[2017-05-04 08:00] VITALS: BP 112/74
--- NOTE | 2017-05-04 08:38 | Infectious Diseases Prog Note ---
Assessment/Plan Assessment/Plan A 1. UTI 2. leucocytosis improving 3. ESRD 4. cirrhosis P 1. continue Vancomycin iv, Aztreonam 2 more days 2. will follow up cultures Subjective ROS Limited/Unobtainable: No Constitutional: Reports: no symptoms Respiratory: Reports: no symptoms Cardiovascular: Reports: no symptoms Gastrointestinal/Abdominal: Reports: no symptoms Allergies: Coded Allergies: PENICILLINS (Verified Allergy, Severe, 05/01/17) Tolerated Zosyn 09/2016 Objective Vital Signs Last 24 Hour Vital Signs Date Time Temp Pulse Resp B/P (MAP) Pulse Ox O2 Delivery O2 Flow Rate FiO2 05/04/17 07:20 104 18 Room Air 21 05/04/17 04:00 112 05/04/17 04:00 97.8 108 22 120/81 98 Room Air 05/04/17 00:00 98.2 113 20 111/74 94 Room Air 05/04/17 00:00 110 05/03/17 20:00 103 05/03/17 20:00 98.1 99 22 105/80 95 Room Air 05/03/17 19:23 87 18 Room Air 21 05/03/17 16:00 97.0 110 20 111/78 95 Room Air 05/03/17 16:00 112 05/03/17 12:00 101 05/03/17 12:00 97.3 102 20 100/65 93 Room Air 05/03/17 08:58 119 102/70 Height (Feet): 5 Height (Inches): 8.00 Weight (Pounds): 181 General Appearance: no acute distress HEENT: mucous membranes moist Respiratory/Chest: lungs clear Cardiovascular: tachycardia Abdomen: distended, hernia, other - ascites Extremities: other - edema Neurologic/Psychiatric: alert, responsive Laboratory Tests Test 05/04/17 05:25 Sodium Level 127 MMOL/L (136-145) L Potassium Level 3.7 MMOL/L (3.5-5.1) Chloride Level 93 MMOL/L (98-107) L Carbon Dioxide Level 19 MMOL/L (21-32) L Anion Gap 15 mmol/L (5-15) Blood Urea Nitrogen 62 mg/dL (7-18) H Creatinine 6.7 MG/DL (0.55-1.30) H Estimat Glomerular Filtration Rate 8.7 mL/min (>60) Glucose Level 162 MG/DL (74-106) H Calcium Level 8.5 MG/DL (8.5-10.1) Random Vancomycin Level 19.7 ug/mL Current Medications Medications (Trade) Dose Ordered Sig/Chaz Route PRN Reason Start Time Stop Time Status Last Admin Dose Admin Acetaminophen/ Hydrocodone Bitart ([place] 5/325) 1 tab Q4H PRN ORAL For Pain 04/30/17 22:45 05/07/17 22:44 Albuterol Sulfate (Proventil) 1.25 mg Q4H PRN HHN Shortness of Breath 04/30/17 22:45 05/05/17 22:44 Aztreonam 0.5 gm/ Dextrose 55 ml @ 110 mls/hr Q12HR IVPB 05/01/17 12:00 05/08/17 11:59 05/03/17 21:22 Dextrose (Dextrose 50%) STAT PRN IV Hypoglycemia 04/30/17 22:45 05/30/17 22:44 Insulin Aspart (NovoLOG) BEFORE MEALS AND HS SUBQ 05/01/17 06:30 05/31/17 06:29 05/04/17 06:28 Lactulose (Cephulac) 30 gm TID ORAL 05/02/17 09:00 05/31/17 08:59 05/03/17 17:18 Lorazepam (Ativan) 0.5 mg Q4HR PRN ORAL For Anxiety 04/30/17 22:45 05/07/17 22:44 05/03/17 21:25 Mirtazapine (Remeron) 15 mg BEDTIME ORAL 05/01/17 21:00 05/31/17 20:59 05/03/17 21:21 Ondansetron HCl (Zofran) 4 mg Q6H PRN IVP Nausea & Vomiting 04/30/17 22:45 05/30/17 22:44 Propranolol HCl (Inderal) 20 mg DAILY ORAL 05/01/17 09:00 05/31/17 08:59 Vancomycin HCl (Vanco rx to dose) 1 ea DAILY PRN MISC Per rx protocol 04/30/17 22:45 05/30/17 22:44 JOSE DANIEL GORDON May 04, 2017 08:38
[2017-05-04] MEDS: Propranolol 40mg tab ORAL SCH (09:22)
[2017-05-04] MEDS: Aztreonam Inj 0.5 GM in D5W 55 ML IVPB SCH ×2 (09:23→21:02)
[2017-05-04] MEDS: Lactulose 20gm/30ml UDC ORAL SCH ×3 (09:24→17:45)
--- NOTE | 2017-05-04 09:25 | Diagnostic Imaging Report ---
Indication: ABD DIST Technique: CT scan of the abdomen and pelvis was performed from the diaphragms to the symphysis pubis with oral contrast material. No IV contrast was administered per specific request of the ordering physician. 5 mm sections were generated. Axial, coronal, and sagittal images are presented. Dose: Total Dose Length Product - DLP [address] Dose Index - CTDIvol(s) 17.05 mGy. Automated exposure control was utilized for dose reduction. Comparison: 03/17/17 Findings: There is basilar atelectasis bilaterally. There is marked ascites is increased from previous exam. The liver is nodular. The spleen is enlarged. The pancreas is grossly unremarkable. The gallbladder is surgically absent. A patent paraumbilical vein is present. There are varices in the omentum. Adrenal glands are unremarkable. The kidneys are grossly unremarkable. There is a catheter entering the abdomen from the left side. This appears to represent a total peroneal drainage catheter. A large right inguinal hernia is present containing ascitic fluid. A Bower catheter is in the bladder. There is slight compression of the body of T12. The bones have an unusual appearance with alternating lucency and sclerosis in the spine. This is unchanged. There is a large umbilical hernia containing fluid. Impression: Marked ascites. This is increased from previous exam. No other change from prior examination. The CT scanner at [facility] is accredited by the [employer] and the scans are performed using protocols designed to limit radiation exposure to as low as reasonably achievable to attain images of sufficient resolution adequate for diagnostic evaluation.
--- NOTE | 2017-05-04 10:31 | Pulmonology Progress Note ---
Assessment/Plan Assessment/Plan IMPRESSION: 1. Hepatorenal syndrome. 2. End-stage liver disease. 3. End-stage renal disease. 4. Ascites. 5. Probable sepsis. 6. Leukocytosis. 7. Respiratory alkalosis and tachypnea, improved 8. History of diabetes. 9. History of depression. 10. Significant umbilical hernia. with herniation of ascites PLAN care as is DNR stabilize tap PRN HD monitor counts and cultures ID clearance supportive care dc to snf pulmonary improved surgical evaluation although very high risk consider hospice care Subjective Allergies: Coded Allergies: PENICILLINS (Verified Allergy, Severe, 05/01/17) Tolerated Zosyn 09/2016 Subjective weak events noted care reviewed Objective Last 24 Hour Vital Signs Date Time Temp Pulse Resp B/P (MAP) Pulse Ox O2 Delivery O2 Flow Rate FiO2 05/04/17 09:22 108 112/74 05/04/17 08:00 107 05/04/17 07:20 104 18 Room Air 21 05/04/17 04:00 112 05/04/17 04:00 97.8 108 22 120/81 98 Room Air 05/04/17 00:00 98.2 113 20 111/74 94 Room Air 05/04/17 00:00 110 05/03/17 20:00 103 05/03/17 20:00 98.1 99 22 105/80 95 Room Air 05/03/17 19:23 87 18 Room Air 21 05/03/17 16:00 97.0 110 20 111/78 95 Room Air 05/03/17 16:00 112 05/03/17 12:00 101 05/03/17 12:00 97.3 102 20 100/65 93 Room Air Objective WDWN NAD reduced breath sounds bilaterally without rhonchi or wheeze [id number] without MRG NABS nontender- distended with ascites no CC edema nonfocal Laboratory Tests 05/04/17 05:25: Sodium Level 127L, Potassium Level 3.7, Chloride Level 93L, Carbon Dioxide Level 19L, Anion Gap 15, Blood Urea Nitrogen 62H, Creatinine 6.7H, Estimat Glomerular Filtration Rate 8.7, Glucose Level 162H, Calcium Level 8.5, Random Vancomycin Level 19.7 Current Medications Medications (Trade) Dose Ordered Sig/Chaz Route PRN Reason Start Time Stop Time Status Last Admin Dose Admin Acetaminophen/ Hydrocodone Bitart ([place] 5/325) 1 tab Q4H PRN ORAL For Pain 04/30/17 22:45 05/07/17 22:44 Albuterol Sulfate (Proventil) 1.25 mg Q4H PRN HHN Shortness of Breath 04/30/17 22:45 05/05/17 22:44 Aztreonam 0.5 gm/ Dextrose 55 ml @ 110 mls/hr Q12HR IVPB 05/01/17 12:00 05/08/17 11:59 05/04/17 09:23 Dextrose (Dextrose 50%) STAT PRN IV Hypoglycemia 04/30/17 22:45 05/30/17 22:44 Insulin Aspart (NovoLOG) BEFORE MEALS AND HS SUBQ 05/01/17 06:30 05/31/17 06:29 05/04/17 06:28 Lactulose (Cephulac) 30 gm TID ORAL 05/02/17 09:00 05/31/17 08:59 05/04/17 09:24 Lorazepam (Ativan) 0.5 mg Q4HR PRN ORAL For Anxiety 04/30/17 22:45 05/07/17 22:44 05/03/17 21:25 Mirtazapine (Remeron) 15 mg BEDTIME ORAL 05/01/17 21:00 05/31/17 20:59 05/03/17 21:21 Ondansetron HCl (Zofran) 4 mg Q6H PRN IVP Nausea & Vomiting 04/30/17 22:45 05/30/17 22:44 Propranolol HCl (Inderal) 20 mg DAILY ORAL 05/01/17 09:00 05/31/17 08:59 05/04/17 09:22 Vancomycin HCl (Vanco rx to dose) 1 ea DAILY PRN MISC Per rx protocol 04/30/17 22:45 05/30/17 22:44 MARY ANNE CASON May 04, 2017 10:31
--- NOTE | 2017-05-04 11:52 | General Progress Note ---
Assessment/Plan Problem List: (1) Hepatic encephalopathy ICD Codes: K72.90 - Hepatic failure, unspecified without coma; Z99.2 - Dependence on renal dialysis SNOMED: 38929689 (2) Cirrhosis ICD Codes: K74.60 - Unspecified cirrhosis of liver SNOMED: 75856532 Qualifiers: Qualified Codes: K70.31 - Alcoholic cirrhosis of liver with ascites (3) Sepsis ICD Codes: A41.9 - Sepsis, unspecified organism SNOMED: 41962791 Qualifiers: Qualified Codes: A41.9 - Sepsis, unspecified organism (4) ESRD (end stage renal disease) on dialysis ICD Codes: N18.6 - End stage renal disease; Z99.2 - Dependence on renal dialysis SNOMED: 633846854 Status: stable Assessment/Plan paracentesis- pleurx bottle ordered wont arrive till friday. no distress iv abx follow up cultures HD per renal surgery eval increase lactulose. dc tomorrow if stable dnr Subjective ROS Limited/Unobtainable: No Constitutional: Reports: malaise, weakness HEENT: Reports: no symptoms Cardiovascular: Reports: no symptoms Respiratory: Reports: cough Gastrointestinal/Abdominal: Reports: abdomen distended Genitourinary: Reports: no symptoms Neurologic/Psychiatric: Reports: pre-existing deficit Endocrine: Reports: no symptoms Hematologic/Lymphatic: Reports: anemia Allergies: Coded Allergies: PENICILLINS (Verified Allergy, Severe, 05/01/17) Tolerated Zosyn 09/2016 All Systems: reviewed and negative except above Subjective no events. feels a little better. no cp/sob. + abd distention. on iv abx. no nausea or vomiting. ct shows inguinal hernia with ascitic fluid. no bowel. Objective Last 24 Hour Vital Signs Date Time Temp Pulse Resp B/P (MAP) Pulse Ox O2 Delivery O2 Flow Rate FiO2 05/04/17 09:22 108 112/74 05/04/17 08:00 107 05/04/17 07:20 104 18 Room Air 21 05/04/17 04:00 112 05/04/17 04:00 97.8 108 22 120/81 98 Room Air 05/04/17 00:00 98.2 113 20 111/74 94 Room Air 05/04/17 00:00 110 05/03/17 20:00 103 05/03/17 20:00 98.1 99 22 105/80 95 Room Air 05/03/17 19:23 87 18 Room Air 21 05/03/17 16:00 97.0 110 20 111/78 95 Room Air 05/03/17 16:00 112 05/03/17 12:00 101 05/03/17 12:00 97.3 102 20 100/65 93 Room Air Laboratory Tests 05/04/17 05:25: Sodium Level 127L, Potassium Level 3.7, Chloride Level 93L, Carbon Dioxide Level 19L, Anion Gap 15, Blood Urea Nitrogen 62H, Creatinine 6.7H, Estimat Glomerular Filtration Rate 8.7, Glucose Level 162H, Calcium Level 8.5, Random Vancomycin Level 19.7 Height (Feet): 5 Height (Inches): 8.00 Weight (Pounds): 181 Objective General Appearance: WD/WN, alert Neck: supple Cardiovascular: regular rhythm Respiratory/Chest: chest wall non-tender, lungs clear, normal breath sounds, no respiratory distress Abdomen: normal bowel sounds, non tender, soft, no organomegaly Edema: moderate edema Neurologic: alert, responsive DIPAK URIBE May 04, 2017 11:52
[2017-05-04 12:00] VITALS: BP 108/76
--- NOTE | 2017-05-04 13:52 | Nephrology Progress Note ---
Assessment/Plan Plan ESRD- HD TTS. Had HD already. Na 127-128! Not getting IVF. May need repeat HD! Sepsis w/U per ID Ascites -paracentesis. Subjective Subjective No new c/o Objective Objective Last 24 Hour Vital Signs Date Time Temp Pulse Resp B/P (MAP) Pulse Ox O2 Delivery O2 Flow Rate FiO2 05/04/17 09:22 108 112/74 05/04/17 08:00 107 05/04/17 07:20 104 18 Room Air 21 05/04/17 04:00 112 05/04/17 04:00 97.8 108 22 120/81 98 Room Air 05/04/17 00:00 98.2 113 20 111/74 94 Room Air 05/04/17 00:00 110 05/03/17 20:00 103 05/03/17 20:00 98.1 99 22 105/80 95 Room Air 05/03/17 19:23 87 18 Room Air 21 05/03/17 16:00 97.0 110 20 111/78 95 Room Air 05/03/17 16:00 112 Laboratory Tests 05/04/17 05:25: Sodium Level 127L, Potassium Level 3.7, Chloride Level 93L, Carbon Dioxide Level 19L, Anion Gap 15, Blood Urea Nitrogen 62H, Creatinine 6.7H, Estimat Glomerular Filtration Rate 8.7, Glucose Level 162H, Calcium Level 8.5, Random Vancomycin Level 19.7 Height (Feet): 5 Height (Inches): 8.00 Weight (Pounds): 181 Objective Chronicallyn ill. Pale. CV RR Lungs B Ronchi. Abd- Tense ascites. Huge hernia. E + edema. PIETRO MARION May 04, 2017 13:52
[2017-05-04 16:00] VITALS: BP 106/64
[2017-05-04 20:00] VITALS: BP 118/71
[2017-05-05] VITALS: BP 114/65
[2017-05-05 04:00] VITALS: BP 140/69
[2017-05-05 04:56] LABS: EOSINOPHILS % (AUTO) 2.6 % (0.0-3.0); MEAN CORPUSCULAR HEMOGLOBIN 29.7 PG (27.0-31.0); MEAN CORPUSCULAR HGB CONC 33.4 G/DL (32.0-36.0); MEAN CORPUSCULAR VOLUME 89 FL (80-99); MEAN PLATELET VOLUME 7.1 FL (6.5-10.1); MONOCYTES % (AUTO) 12.5 % (1.0-10.0); PLATELET COUNT 330 K/UL (150-450); RED BLOOD COUNT 3.73 M/UL (4.70-6.10); RED CELL DISTRIBUTION WIDTH 16.6 % (11.6-14.8); WHITE BLOOD COUNT 13.2 K/UL (4.8-10.8)
[2017-05-05] MEDS: NovoLOG Insulin Flexpen SUBQ SCH ×4 (06:40→21:33)
[2017-05-05 08:00] VITALS: BP 112/69
--- NOTE | 2017-05-05 08:48 | Pulmonology Progress Note ---
Assessment/Plan Assessment/Plan IMPRESSION: 1. Hepatorenal syndrome. 2. End-stage liver disease. 3. End-stage renal disease. 4. Ascites. 5. Probable sepsis. 6. Leukocytosis. 7. Respiratory alkalosis and tachypnea, improved 8. History of diabetes. 9. History of depression. 10. Significant umbilical hernia. with herniation of ascites PLAN care as is DNR stabilize tap PRN HD monitor counts and cultures ID clearance and monitor for improvement in WBC supportive care dc to snf soon pulmonary improved and without distress surgical evaluation although very high risk consider hospice care Subjective Allergies: Coded Allergies: PENICILLINS (Verified Allergy, Severe, 05/01/17) Tolerated Zosyn 09/2016 Subjective weak events noted care reviewed Objective Last 24 Hour Vital Signs Date Time Temp Pulse Resp B/P (MAP) Pulse Ox O2 Delivery O2 Flow Rate FiO2 05/05/17 04:15 74 05/05/17 04:00 99.8 95 20 140/69 98 Room Air 05/05/17 00:00 98.4 78 22 114/65 94 Room Air 05/04/17 23:52 78 05/04/17 20:00 97.7 77 22 118/71 95 Room Air 05/04/17 19:48 99 18 Room Air 21 05/04/17 19:08 72 05/04/17 16:00 97.0 69 20 106/64 96 Room Air 05/04/17 16:00 90 05/04/17 12:00 97.3 92 18 108/76 94 Room Air 05/04/17 12:00 90 05/04/17 09:22 108 112/74 Objective WDWN NAD reduced breath sounds bilaterally without rhonchi or wheeze [id number] without MRG NABS nontender- distended with ascites no CC edema nonfocal Laboratory Tests 05/05/17 04:10: White Blood Count 13.2H, Red Blood Count 3.73L, Hemoglobin 11.1L, Hematocrit 33.1L, Mean Corpuscular Volume 89, Mean Corpuscular Hemoglobin 29.7, Mean Corpuscular Hemoglobin Concent 33.4, Red Cell Distribution Width 16.6H, Platelet Count 330, Mean Platelet Volume 7.1, Neutrophils (%) (Auto) 78.0H, Lymphocytes (%) (Auto) 6.0L, Monocytes (%) (Auto) 12.5H, Eosinophils (%) (Auto) 2.6, Basophils (%) (Auto) 1.0 Current Medications Medications (Trade) Dose Ordered Sig/Chaz Route PRN Reason Start Time Stop Time Status Last Admin Dose Admin Acetaminophen/ Hydrocodone Bitart ([place] 5/325) 1 tab Q4H PRN ORAL For Pain 04/30/17 22:45 05/07/17 22:44 Albuterol Sulfate (Proventil) 1.25 mg Q4H PRN HHN Shortness of Breath 04/30/17 22:45 05/05/17 22:44 Aztreonam 0.5 gm/ Dextrose 55 ml @ 110 mls/hr Q12HR IVPB 05/01/17 12:00 05/08/17 11:59 05/04/17 21:02 Dextrose (Dextrose 50%) STAT PRN IV Hypoglycemia 04/30/17 22:45 05/30/17 22:44 Insulin Aspart (NovoLOG) BEFORE MEALS AND HS SUBQ 05/01/17 06:30 05/31/17 06:29 05/05/17 06:40 Lactulose (Cephulac) 30 gm TID ORAL 05/02/17 09:00 05/31/17 08:59 05/04/17 17:45 Lorazepam (Ativan) 0.5 mg Q4HR PRN ORAL For Anxiety 04/30/17 22:45 05/07/17 22:44 05/03/17 21:25 Mirtazapine (Remeron) 15 mg BEDTIME ORAL 05/01/17 21:00 05/31/17 20:59 05/04/17 21:01 Ondansetron HCl (Zofran) 4 mg Q6H PRN IVP Nausea & Vomiting 04/30/17 22:45 05/30/17 22:44 Propranolol HCl (Inderal) 20 mg DAILY ORAL 05/01/17 09:00 05/31/17 08:59 05/04/17 09:22 Vancomycin HCl (Vanco rx to dose) 1 ea DAILY PRN MISC Per rx protocol 04/30/17 22:45 05/30/17 22:44 Vancomycin/Sodium Chloride 250 ml @ 166.667 mls/hr ONCE ONCE IVPB 05/05/17 10:00 05/05/17 11:29 MARY ANNE CASON May 05, 2017 08:48
[2017-05-05] MEDS: Aztreonam Inj 0.5 GM in D5W 55 ML IVPB SCH ×2 (09:18→21:23)
[2017-05-05] MEDS: Lactulose 20gm/30ml UDC ORAL SCH ×3 (09:18→18:45)
[2017-05-05] MEDS: Propranolol 40mg tab ORAL SCH (09:19)
[2017-05-05] MEDS ORDERED: Vancomycin 750mg/NS 250ml IVPB ONE (10:00)
[2017-05-05 12:00] VITALS: BP 108/72
--- NOTE | 2017-05-05 12:04 | Infectious Diseases Prog Note ---
Assessment/Plan Assessment/Plan A 1. UTI 2. leucocytosis improving 3. ESRD 4. cirrhosis P 1. continue Vancomycin iv, Aztreonam 1 more day 2. patient is clear for surgical procedure Subjective ROS Limited/Unobtainable: Yes Allergies: Coded Allergies: PENICILLINS (Verified Allergy, Severe, 05/01/17) Tolerated Zosyn 09/2016 Objective Vital Signs Last 24 Hour Vital Signs Date Time Temp Pulse Resp B/P (MAP) Pulse Ox O2 Delivery O2 Flow Rate FiO2 05/05/17 09:19 83 112/69 05/05/17 08:00 81 05/05/17 08:00 97.2 83 20 112/69 93 Room Air 05/05/17 04:15 74 05/05/17 04:00 99.8 95 20 140/69 98 Room Air 05/05/17 00:00 98.4 78 22 114/65 94 Room Air 05/04/17 23:52 78 05/04/17 20:00 97.7 77 22 118/71 95 Room Air 05/04/17 19:48 99 18 Room Air 21 05/04/17 19:08 72 05/04/17 16:00 97.0 69 20 106/64 96 Room Air 05/04/17 16:00 90 Height (Feet): 5 Height (Inches): 8.00 Weight (Pounds): 181 HEENT: normocephalic Respiratory/Chest: lungs clear Cardiovascular: normal rate Abdomen: soft, non tender Extremities: no edema Neurologic/Psychiatric: other - sleeping Laboratory Tests Test 05/05/17 04:10 White Blood Count 13.2 K/UL (4.8-10.8) H Red Blood Count 3.73 M/UL (4.70-6.10) L Hemoglobin 11.1 G/DL (14.2-18.0) L Hematocrit 33.1 % (42.0-52.0) L Mean Corpuscular Volume 89 FL (80-99) Mean Corpuscular Hemoglobin 29.7 PG (27.0-31.0) Mean Corpuscular Hemoglobin Concent 33.4 G/DL (32.0-36.0) Red Cell Distribution Width 16.6 % (11.6-14.8) H Platelet Count 330 K/UL (150-450) Mean Platelet Volume 7.1 FL (6.5-10.1) Neutrophils (%) (Auto) 78.0 % (45.0-75.0) H Lymphocytes (%) (Auto) 6.0 % (20.0-45.0) L Monocytes (%) (Auto) 12.5 % (1.0-10.0) H Eosinophils (%) (Auto) 2.6 % (0.0-3.0) Basophils (%) (Auto) 1.0 % (0.0-2.0) Current Medications Medications (Trade) Dose Ordered Sig/Chaz Route PRN Reason Start Time Stop Time Status Last Admin Dose Admin Acetaminophen/ Hydrocodone Bitart ([place] 5/325) 1 tab Q4H PRN ORAL For Pain 04/30/17 22:45 05/07/17 22:44 Albuterol Sulfate (Proventil) 1.25 mg Q4H PRN HHN Shortness of Breath 04/30/17 22:45 05/05/17 22:44 Aztreonam 0.5 gm/ Dextrose 55 ml @ 110 mls/hr Q12HR IVPB 05/01/17 12:00 05/08/17 11:59 05/05/17 09:18 Dextrose (Dextrose 50%) STAT PRN IV Hypoglycemia 04/30/17 22:45 05/30/17 22:44 Insulin Aspart (NovoLOG) BEFORE MEALS AND HS SUBQ 05/01/17 06:30 05/31/17 06:29 05/05/17 06:40 Lactulose (Cephulac) 30 gm TID ORAL 05/02/17 09:00 05/31/17 08:59 05/05/17 09:18 Lorazepam (Ativan) 0.5 mg Q4HR PRN ORAL For Anxiety 04/30/17 22:45 05/07/17 22:44 05/03/17 21:25 Mirtazapine (Remeron) 15 mg BEDTIME ORAL 05/01/17 21:00 05/31/17 20:59 05/04/17 21:01 Ondansetron HCl (Zofran) 4 mg Q6H PRN IVP Nausea & Vomiting 04/30/17 22:45 05/30/17 22:44 Propranolol HCl (Inderal) 20 mg DAILY ORAL 05/01/17 09:00 05/31/17 08:59 05/05/17 09:19 Vancomycin HCl (Vanco rx to dose) 1 ea DAILY PRN MISC Per rx protocol 04/30/17 22:45 05/30/17 22:44 JOSE DANIEL GORDON May 05, 2017 12:04
--- NOTE | 2017-05-05 13:00 | General Progress Note ---
Assessment/Plan Problem List: (1) Hepatic encephalopathy ICD Codes: K72.90 - Hepatic failure, unspecified without coma; Z99.2 - Dependence on renal dialysis SNOMED: 44946794 (2) Cirrhosis ICD Codes: K74.60 - Unspecified cirrhosis of liver SNOMED: 12217547 Qualifiers: Qualified Codes: K70.31 - Alcoholic cirrhosis of liver with ascites (3) Sepsis ICD Codes: A41.9 - Sepsis, unspecified organism SNOMED: 67666318 Qualifiers: Qualified Codes: A41.9 - Sepsis, unspecified organism (4) ESRD (end stage renal disease) on dialysis ICD Codes: N18.6 - End stage renal disease; Z99.2 - Dependence on renal dialysis SNOMED: 606799012 Status: stable, progressing Assessment/Plan paracentesis- pleurx bottle ordered. shoulder arrive today reji guided paracentesis if not able to get bottle today iv abx follow up cultures HD per renal surgery eval vascular eval high risk for any surgery due to chronic advanced liver disease Subjective ROS Limited/Unobtainable: No Constitutional: Reports: malaise, weakness HEENT: Reports: no symptoms Cardiovascular: Reports: no symptoms Respiratory: Reports: no symptoms Gastrointestinal/Abdominal: Reports: abdomen distended Genitourinary: Reports: no symptoms Neurologic/Psychiatric: Reports: pre-existing deficit Endocrine: Reports: no symptoms Hematologic/Lymphatic: Reports: no symptoms Allergies: Coded Allergies: PENICILLINS (Verified Allergy, Severe, 05/01/17) Tolerated Zosyn 09/2016 All Systems: reviewed and negative except above Subjective no events. feels a little better. no cp/sob. + abd distention. on iv abx. no nausea or vomiting. ct shows inguinal hernia with ascitic fluid. no bowel. still awaiting pleurx bottle Objective Last 24 Hour Vital Signs Date Time Temp Pulse Resp B/P (MAP) Pulse Ox O2 Delivery O2 Flow Rate FiO2 05/05/17 12:00 97.0 76 18 108/72 92 Room Air 05/05/17 12:00 72 05/05/17 09:19 83 112/69 05/05/17 08:00 81 05/05/17 08:00 97.2 83 20 112/69 93 Room Air 05/05/17 04:15 74 05/05/17 04:00 99.8 95 20 140/69 98 Room Air 05/05/17 00:00 98.4 78 22 114/65 94 Room Air 05/04/17 23:52 78 05/04/17 20:00 97.7 77 22 118/71 95 Room Air 05/04/17 19:48 99 18 Room Air 21 05/04/17 19:08 72 05/04/17 16:00 97.0 69 20 106/64 96 Room Air 05/04/17 16:00 90 Laboratory Tests 05/05/17 04:10: White Blood Count 13.2H, Red Blood Count 3.73L, Hemoglobin 11.1L, Hematocrit 33.1L, Mean Corpuscular Volume 89, Mean Corpuscular Hemoglobin 29.7, Mean Corpuscular Hemoglobin Concent 33.4, Red Cell Distribution Width 16.6H, Platelet Count 330, Mean Platelet Volume 7.1, Neutrophils (%) (Auto) 78.0H, Lymphocytes (%) (Auto) 6.0L, Monocytes (%) (Auto) 12.5H, Eosinophils (%) (Auto) 2.6, Basophils (%) (Auto) 1.0 Height (Feet): 5 Height (Inches): 8.00 Weight (Pounds): 181 Objective General Appearance: WD/WN, alert Neck: supple Cardiovascular: regular rhythm Respiratory/Chest: chest wall non-tender, lungs clear, normal breath sounds, no respiratory distress Abdomen: normal bowel sounds, non tender, soft, no organomegaly Edema: moderate edema Neurologic: alert, responsive DIPAK URIBE May 05, 2017 13:00
--- NOTE | 2017-05-05 14:17 | Consultation ---
History of Present Illness General Date patient seen: May 05, 2017 Chief Complaint: Altered Level of Consciousness Present Illness HPI 51 year old male well known to me from prior visit. In short, prior heavy Etoh abuse with progressive hepatic cirrhosis with hepatorenal syndrome. Was seen during last visit for incarcerated large umbilical hernia causing bowel obstruction. Was fortunately able to reduce without complication or need to urgent surgery. Unfortunately cannot offer elective repair with such advanced liver disease and poor medical condition. Was discharged and in care of outside facility until recently when condition deteriorated and required admission to hospital again. Has been slowly improving but overall prognosis is very poor. His renal function continues to decline and plans for possible AV fistula in future if possible. Surgery called to evaluate patient given large umbilical hernia. when seen at bedside patient states he is doing okay. no complaints. large abdominal umbilical hernia noted but only with ascites fluid. no bowel contents. Allergies: Coded Allergies: PENICILLINS (Verified Allergy, Severe, 05/01/17) Tolerated Zosyn 09/2016 Medication History Scheduled Esomeprazole Magnesium (Nexium), 40 MG ORAL DAILY, (Reported) Insulin Detemir (Levemir Flexpen), 18 SUBQ BID, (Reported) Insulin Regular, Human* (Novolin R*), 0 SUBQ .SLIDING SCALE, (Reported) Lactulose (Lactulose*), 30 ML ORAL BID, (Reported) Mirtazapine* (Remeron*), 15 MG ORAL BEDTIME, (Reported) Mirtazapine* (Remeron*), 15 MG ORAL BEDTIME, (Reported) Mu-Vits-Min Th/Lycopene/Lutein (Centrum Silver Tablet), 1 EACH PO DAILY, ( Reported) Omeprazole Magnesium (Prilosec Otc), 20 MG ORAL DAILY, (Reported) Propranolol Hcl* (Inderal*), 20 MG ORAL DAILY, (Reported) Spironolactone* (Aldactone*), 25 MG ORAL DAILY, (Reported) Scheduled PRN Albuterol Sulfate* (Albuterol Sulfate Hhn*), 3 ML INH Q4H PRN for Shortness of Breath, (Reported) Bisacodyl* (Dulcolax*), 10 MG RECTAL every 24 hours PRN for Constipation, ( Reported) Diphenhydramine HCl (Benadryl), 50 MG PO EVERY 6 HOURS PRN for Itching, ( Reported) Hydrocodone Bit/Acetaminophen 5-325* ([place] 5-325 Tablet*), 1 TAB ORAL Q4H PRN for For Pain, (Reported) Hyoscyamine Sulfate* (Levsin-Sl*), 0.125 MG ORAL Q6HR PRN for excessive secretions, (Reported) Lorazepam* (Ativan*), 0.5 MG ORAL Q4HR PRN for For Anxiety, (Reported) Ondansetron* (Zofran*), 4 MG ORAL Q6H PRN for Nausea & Vomiting, (Reported) Discontinued Medications Acetaminophen (Acetaminophen), 650 MG SD Q4HR PRN for Prn Headache/Temp > 101, ( Reported) Discontinued Reason: Pt stopped taking med Morphine 10mg/5ml Oral Soln* (Morphine 10mg/5ml Oral Soln*), 0.25 MG ORAL EVERY 2 HOURS PRN for For Pain, (Reported) Discontinued Reason: Pt stopped taking med Patient History History Provided By: Patient, Medical Record Healthcare decision maker N Resuscitation status Do Not Resuscitate Advanced Directive on File Past Medical/Surgical History Past Medical/Surgical History: (1) Renal insufficiency (2) Umbilical hernia, incarcerated (3) Abdominal pain (4) Hepatic encephalopathy (5) Coagulopathy (6) Cirrhosis (7) Sepsis (8) ESRD (end stage renal disease) on dialysis Review of Systems All Other Systems: negative except mentioned in HPI Physical Exam General Appearance: no apparent distress, alert HEENT: normocephalic Neck: normal inspection Respiratory/Chest: normal breath sounds, no respiratory distress, no accessory muscle use Cardiovascular/Chest: normal peripheral pulses, normal rate Abdomen: distended, hernia, other - even larger umbilical hernia with significant fluid filled ascites fluid. no bowel contetns. reducible. non tender. Genitourinary/Rectal: normal genital exam, [place] Extremities: non-tender Neurologic: alert, responsive Last 24 Hour Vital Signs Date Time Temp Pulse Resp B/P (MAP) Pulse Ox O2 Delivery O2 Flow Rate FiO2 05/05/17 12:00 97.0 76 18 108/72 92 Room Air 05/05/17 12:00 72 05/05/17 09:19 83 112/69 05/05/17 08:00 81 05/05/17 08:00 97.2 83 20 112/69 93 Room Air 05/05/17 04:15 74 05/05/17 04:00 99.8 95 20 140/69 98 Room Air 05/05/17 00:00 98.4 78 22 114/65 94 Room Air 05/04/17 23:52 78 05/04/17 20:00 97.7 77 22 118/71 95 Room Air 05/04/17 19:48 99 18 Room Air 21 05/04/17 19:08 72 05/04/17 16:00 97.0 69 20 106/64 96 Room Air 05/04/17 16:00 90 Laboratory Tests Test 05/05/17 04:10 05/05/17 13:20 White Blood Count 13.2 K/UL (4.8-10.8) H Red Blood Count 3.73 M/UL (4.70-6.10) L Hemoglobin 11.1 G/DL (14.2-18.0) L Hematocrit 33.1 % (42.0-52.0) L Mean Corpuscular Volume 89 FL (80-99) Mean Corpuscular Hemoglobin 29.7 PG (27.0-31.0) Mean Corpuscular Hemoglobin Concent 33.4 G/DL (32.0-36.0) Red Cell Distribution Width 16.6 % (11.6-14.8) H Platelet Count 330 K/UL (150-450) Mean Platelet Volume 7.1 FL (6.5-10.1) Neutrophils (%) (Auto) 78.0 % (45.0-75.0) H Lymphocytes (%) (Auto) 6.0 % (20.0-45.0) L Monocytes (%) (Auto) 12.5 % (1.0-10.0) H Eosinophils (%) (Auto) 2.6 % (0.0-3.0) Basophils (%) (Auto) 1.0 % (0.0-2.0) Ammonia 65 umol/L (11-32) H Height (Feet): 5 Height (Inches): 8.00 Weight (Pounds): 181 Medications Current Medications Medications (Trade) Dose Ordered Sig/Chaz Route PRN Reason Start Time Stop Time Status Last Admin Dose Admin Acetaminophen/ Hydrocodone Bitart ([place] 5/325) 1 tab Q4H PRN ORAL For Pain 04/30/17 22:45 05/07/17 22:44 Albuterol Sulfate (Proventil) 1.25 mg Q4H PRN HHN Shortness of Breath 04/30/17 22:45 05/05/17 22:44 Aztreonam 0.5 gm/ Dextrose 55 ml @ 110 mls/hr Q12HR IVPB 05/01/17 12:00 05/08/17 11:59 05/05/17 09:18 Dextrose (Dextrose 50%) STAT PRN IV Hypoglycemia 04/30/17 22:45 05/30/17 22:44 Insulin Aspart (NovoLOG) BEFORE MEALS AND HS SUBQ 05/01/17 06:30 05/31/17 06:29 05/05/17 13:25 Lactulose (Cephulac) 30 gm TID ORAL 05/02/17 09:00 05/31/17 08:59 05/05/17 13:24 Lorazepam (Ativan) 0.5 mg Q4HR PRN ORAL For Anxiety 04/30/17 22:45 05/07/17 22:44 05/03/17 21:25 Mirtazapine (Remeron) 15 mg BEDTIME ORAL 05/01/17 21:00 05/31/17 20:59 05/04/17 21:01 Ondansetron HCl (Zofran) 4 mg Q6H PRN IVP Nausea & Vomiting 04/30/17 22:45 05/30/17 22:44 Propranolol HCl (Inderal) 20 mg DAILY ORAL 05/01/17 09:00 05/31/17 08:59 05/05/17 09:19 Vancomycin HCl (Vanco rx to dose) 1 ea DAILY PRN MISC Per rx protocol 04/30/17 22:45 05/30/17 22:44 Assessment/Plan Problem List: (1) Umbilical hernia, incarcerated Assessment & Plan: 51M with known large umbilical hernia which was incarcerated prior but easily reducible now. Has progressive liver disease and lots of ascites fluid. hernia sac is fully filled with ascites fluid. unfortunately prognosis poor overall. and if ascites continues to worsen and abdomen continues to distend could one day form non healing ulcer or skin opening around hernia sac. if this happens will likely drain for a long time and could potentially be at risk for bacterial peritonitis. cannot offer elective repair given how high risk he is and that hernia easily reducible. if ever not able to reduce will need urgent surgery which would be life threatening. -recommend paracentesis to relieve pressure on umbilical hernia sac -will be available in case hernia becomes incarcerated again -might benefit from AV fistula. is high risk for any surgery overall. -will follow with recs. thank you for allowing me to participate in Lance Hayes' s care. ICD Codes: K42.0 - Umbilical hernia with obstruction, without gangrene SNOMED: 368960028 Status: unchanged Dragan Escalera May 05, 2017 14:17
--- NOTE | 2017-05-05 14:39 | Nephrology Progress Note ---
Assessment/Plan Plan ESRD- HD TTS. Hd tomorrow. Na 127-128! Not getting IVF. May need repeat HD! Sepsis w/U per ID Ascites -paracentesis. Subjective Subjective No new c/o Objective Objective Last 24 Hour Vital Signs Date Time Temp Pulse Resp B/P (MAP) Pulse Ox O2 Delivery O2 Flow Rate FiO2 05/05/17 12:00 97.0 76 18 108/72 92 Room Air 05/05/17 12:00 72 05/05/17 09:19 83 112/69 05/05/17 08:00 81 05/05/17 08:00 97.2 83 20 112/69 93 Room Air 05/05/17 06:30 92 18 Room Air 05/05/17 04:15 74 05/05/17 04:00 99.8 95 20 140/69 98 Room Air 05/05/17 00:00 98.4 78 22 114/65 94 Room Air 05/04/17 23:52 78 05/04/17 20:00 97.7 77 22 118/71 95 Room Air 05/04/17 19:48 99 18 Room Air 21 05/04/17 19:08 72 05/04/17 16:00 97.0 69 20 106/64 96 Room Air 05/04/17 16:00 90 Laboratory Tests 05/05/17 04:10: White Blood Count 13.2H, Red Blood Count 3.73L, Hemoglobin 11.1L, Hematocrit 33.1L, Mean Corpuscular Volume 89, Mean Corpuscular Hemoglobin 29.7, Mean Corpuscular Hemoglobin Concent 33.4, Red Cell Distribution Width 16.6H, Platelet Count 330, Mean Platelet Volume 7.1, Neutrophils (%) (Auto) 78.0H, Lymphocytes (%) (Auto) 6.0L, Monocytes (%) (Auto) 12.5H, Eosinophils (%) (Auto) 2.6, Basophils (%) (Auto) 1.0 05/05/17 13:20: Ammonia 65H Height (Feet): 5 Height (Inches): 8.00 Weight (Pounds): 181 Objective Chronicallyn ill. Pale. CV RR Lungs B Ronchi. Abd- Tense ascites. Huge hernia. E + edema. PIETRO MARION May 05, 2017 14:39
[2017-05-05 16:00] VITALS: BP 106/74
[2017-05-05] MEDS ORDERED: NS 500ML ONE (17:53)
[2017-05-05 20:00] VITALS: BP 91/68
[2017-05-05] MEDS: LORazepam 0.5mg tab ORAL PRN (21:23)
[2017-05-06] VITALS: BP 92/63
[2017-05-06 04:00] VITALS: BP 102/69
[2017-05-06] MEDS ORDERED: Heparin Sod 1000 units/ml 10ml IV SCH (06:00)
[2017-05-06] MEDS: NovoLOG Insulin Flexpen SUBQ SCH ×4 (06:15→20:44)
--- NOTE | 2017-05-06 07:17 | General Progress Note ---
Assessment/Plan Problem List: (1) Hepatic encephalopathy ICD Codes: K72.90 - Hepatic failure, unspecified without coma; Z99.2 - Dependence on renal dialysis SNOMED: 23918831 (2) Cirrhosis ICD Codes: K74.60 - Unspecified cirrhosis of liver SNOMED: 01047584 Qualifiers: Qualified Codes: K70.31 - Alcoholic cirrhosis of liver with ascites (3) Sepsis ICD Codes: A41.9 - Sepsis, unspecified organism SNOMED: 27202990 Qualifiers: Qualified Codes: A41.9 - Sepsis, unspecified organism (4) ESRD (end stage renal disease) on dialysis ICD Codes: N18.6 - End stage renal disease; Z99.2 - Dependence on renal dialysis SNOMED: 899855020 Status: stable Assessment/Plan prn paracentesis via pleurx catheter iv abx follow up cultures HD per renal dc planning after HD if ok with all Subjective ROS Limited/Unobtainable: No Constitutional: Reports: malaise, weakness HEENT: Reports: no symptoms Cardiovascular: Reports: no symptoms Respiratory: Reports: no symptoms Gastrointestinal/Abdominal: Reports: abdomen distended Genitourinary: Reports: no symptoms Neurologic/Psychiatric: Reports: pre-existing deficit Endocrine: Reports: no symptoms Hematologic/Lymphatic: Reports: anemia Allergies: Coded Allergies: PENICILLINS (Verified Allergy, Severe, 05/01/17) Tolerated Zosyn 09/2016 All Systems: reviewed and negative except above Subjective s/p 1.4 liter paracentesis. no other events. w/o complaints. denies pain or sob. scheduled for HD today. Objective Last 24 Hour Vital Signs Date Time Temp Pulse Resp B/P (MAP) Pulse Ox O2 Delivery O2 Flow Rate FiO2 05/06/17 04:00 76 05/06/17 04:00 97.2 77 20 102/69 99 Room Air 77 05/06/17 00:00 97.7 74 20 92/63 100 Room Air 74 05/06/17 00:00 71 05/05/17 20:44 75 18 Room Air 21 05/05/17 20:00 72 05/05/17 20:00 97.0 73 20 91/68 100 Room Air 05/05/17 20:00 97.0 73 20 91/68 Room Air 73 05/05/17 16:00 97.0 70 20 106/74 96 Room Air 05/05/17 16:00 70 05/05/17 12:00 97.0 76 18 108/72 92 Room Air 05/05/17 12:00 72 05/05/17 09:19 83 112/69 05/05/17 08:00 81 05/05/17 08:00 97.2 83 20 112/69 93 Room Air Laboratory Tests 05/05/17 13:20: Ammonia 65H Height (Feet): 5 Height (Inches): 8.00 Weight (Pounds): 181 Objective General Appearance: WD/WN, alert Neck: supple Cardiovascular: regular rhythm Respiratory/Chest: chest wall non-tender, lungs clear, normal breath sounds, no respiratory distress Abdomen: normal bowel sounds, non tender, soft, no organomegaly Edema: moderate edema Neurologic: alert, responsive DIPAK URIBE May 06, 2017 07:17
[2017-05-06 08:00] VITALS: BP 97/62
[2017-05-06] MEDS: Propranolol 40mg tab ORAL SCH (09:00)
[2017-05-06] MEDS: Aztreonam Inj 0.5 GM in D5W 55 ML IVPB SCH (09:54)
[2017-05-06] MEDS: Lactulose 20gm/30ml UDC ORAL SCH ×4 (09:54→20:42)
--- NOTE | 2017-05-06 10:57 | Pulmonology Progress Note ---
Assessment/Plan Assessment/Plan IMPRESSION: 1. Hepatorenal syndrome. 2. End-stage liver disease. 3. End-stage renal disease. 4. Ascites. 5. Probable sepsis. 6. Leukocytosis. 7. Respiratory alkalosis and tachypnea, improved 8. History of diabetes. 9. History of depression. 10. Significant umbilical hernia. with herniation of ascites PLAN care as is DNR stabilize tap PRN HD monitor counts and cultures ID clearance and monitor for improvement in WBC supportive care noted dc to snf soon pulmonary same for now consider hospice care Subjective Allergies: Coded Allergies: PENICILLINS (Verified Allergy, Severe, 05/01/17) Tolerated Zosyn 09/2016 Subjective weak events noted care reviewed lyte imbalance noted Objective Last 24 Hour Vital Signs Date Time Temp Pulse Resp B/P (MAP) Pulse Ox O2 Delivery O2 Flow Rate FiO2 05/06/17 09:00 80 92/69 05/06/17 08:00 76 05/06/17 08:00 97.2 80 21 97/62 96 Room Air 77 05/06/17 04:00 76 05/06/17 04:00 97.2 77 20 102/69 99 Room Air 77 05/06/17 00:00 97.7 74 20 92/63 100 Room Air 74 05/06/17 00:00 71 05/05/17 20:44 75 18 Room Air 21 05/05/17 20:00 72 05/05/17 20:00 97.0 73 20 91/68 100 Room Air 05/05/17 20:00 97.0 73 20 91/68 Room Air 73 05/05/17 16:00 97.0 70 20 106/74 96 Room Air 05/05/17 16:00 70 05/05/17 12:00 97.0 76 18 108/72 92 Room Air 05/05/17 12:00 72 Intake and Output 05/06/17 05/07/17 19:00 07:00 Intake Total 120 ml Balance 120 ml Intake Oral 120 ml Objective WDWN NAD reduced breath sounds bilaterally without rhonchi or wheeze [id number] without MRG NABS nontender- distended with ascites no CC edema nonfocal Laboratory Tests 05/05/17 13:20: Ammonia 65H Current Medications Medications (Trade) Dose Ordered Sig/Chaz Route PRN Reason Start Time Stop Time Status Last Admin Dose Admin Acetaminophen/ Hydrocodone Bitart ([place] 5/325) 1 tab Q4H PRN ORAL For Pain 04/30/17 22:45 05/07/17 22:44 Aztreonam 0.5 gm/ Dextrose 55 ml @ 110 mls/hr Q12HR IVPB 05/01/17 12:00 05/08/17 11:59 05/06/17 09:54 Dextrose (Dextrose 50%) STAT PRN IV Hypoglycemia 04/30/17 22:45 05/30/17 22:44 Heparin Sodium (Porcine) (Heparin Sod 1000 units/ml 10ml) 2,000 unit ONCE IV 05/06/17 06:00 05/06/17 23:59 Insulin Aspart (NovoLOG) BEFORE MEALS AND HS SUBQ 05/01/17 06:30 05/31/17 06:29 05/06/17 06:15 Lactulose (Cephulac) 30 gm TID ORAL 05/02/17 09:00 05/31/17 08:59 05/06/17 09:54 Lorazepam (Ativan) 0.5 mg Q4HR PRN ORAL For Anxiety 04/30/17 22:45 05/07/17 22:44 05/05/17 21:23 Mirtazapine (Remeron) 15 mg BEDTIME ORAL 05/01/17 21:00 05/31/17 20:59 05/05/17 21:23 Ondansetron HCl (Zofran) 4 mg Q6H PRN IVP Nausea & Vomiting 04/30/17 22:45 05/30/17 22:44 Propranolol HCl (Inderal) 20 mg DAILY ORAL 05/01/17 09:00 05/31/17 08:59 05/05/17 09:19 Sodium Chloride 1,000 ml @ 500 mls/hr Q2H PRN IVLG sbp<90 during hd 05/06/17 06:00 05/06/17 23:59 Vancomycin HCl (Vanco rx to dose) 1 ea DAILY PRN MISC Per rx protocol 04/30/17 22:45 05/30/17 22:44 MARY ANNE CASON May 06, 2017 10:57
[2017-05-06 12:00] VITALS: BP 95/64
--- NOTE | 2017-05-06 12:21 | Infectious Diseases Prog Note ---
Assessment/Plan Assessment/Plan antibiotics : vancomycin iv, aztreonam A 1. UTI s/p rx 2. leucocytosis improving 3. renal failure 4. cirrhosis P 1. d/c vancomycin iv, aztreonam 2. observe off antibiotics Subjective Constitutional: Denies: fever, chills Respiratory: Denies: shortness of breath, dry cough Gastrointestinal/Abdominal: Denies: nausea, vomiting, diarrhea Musculoskeletal: Denies: pain Allergies: Coded Allergies: PENICILLINS (Verified Allergy, Severe, 05/01/17) Tolerated Zosyn 09/2016 Objective Vital Signs Last 24 Hour Vital Signs Date Time Temp Pulse Resp B/P (MAP) Pulse Ox O2 Delivery O2 Flow Rate FiO2 05/06/17 11:59 74 05/06/17 09:00 80 92/69 05/06/17 08:00 76 05/06/17 08:00 97.2 80 21 97/62 96 Room Air 77 05/06/17 04:00 76 05/06/17 04:00 97.2 77 20 102/69 99 Room Air 77 05/06/17 00:00 97.7 74 20 92/63 100 Room Air 74 05/06/17 00:00 71 05/05/17 20:44 75 18 Room Air 21 05/05/17 20:00 72 05/05/17 20:00 97.0 73 20 91/68 100 Room Air 05/05/17 20:00 97.0 73 20 91/68 Room Air 73 05/05/17 16:00 97.0 70 20 106/74 96 Room Air 05/05/17 16:00 70 Height (Feet): 5 Height (Inches): 8.00 Weight (Pounds): 181 Respiratory/Chest: lungs clear Cardiovascular: normal rate, regular rhythm, no gallop/murmur Abdomen: soft, non tender, other - Gt, hernia Extremities: no edema, other - right subclavian catheter Laboratory Tests Test 05/05/17 13:20 Ammonia 65 umol/L (11-32) H JN TABOR May 06, 2017 12:21
--- NOTE | 2017-05-06 14:34 | Nephrology Progress Note ---
Assessment/Plan Plan ESRD- HD TTS. HD today pending. Na 127-128! Not getting IVF. May need repeat HD! Sepsis w/U per ID Ascites -paracentesis. Subjective Subjective No new c/o Objective Objective Last 24 Hour Vital Signs Date Time Temp Pulse Resp B/P (MAP) Pulse Ox O2 Delivery O2 Flow Rate FiO2 05/06/17 12:00 98.6 5 21 95/64 95 Room Air 85 05/06/17 11:59 74 05/06/17 09:00 80 92/69 05/06/17 08:00 76 05/06/17 08:00 97.2 80 21 97/62 96 Room Air 77 05/06/17 04:00 76 05/06/17 04:00 97.2 77 20 102/69 99 Room Air 77 05/06/17 00:00 97.7 74 20 92/63 100 Room Air 74 05/06/17 00:00 71 05/05/17 20:44 75 18 Room Air 21 05/05/17 20:00 72 05/05/17 20:00 97.0 73 20 91/68 100 Room Air 05/05/17 20:00 97.0 73 20 91/68 Room Air 73 05/05/17 16:00 97.0 70 20 106/74 96 Room Air 05/05/17 16:00 70 Intake and Output 05/06/17 05/07/17 19:00 07:00 Intake Total 120 ml Balance 120 ml Intake Oral 120 ml Height (Feet): 5 Height (Inches): 8.00 Weight (Pounds): 181 Objective Chronicallyn ill. Pale. CV RR Lungs B Ronchi. Abd- Tense ascites. Huge hernia. E + edema. PIETRO MARION May 06, 2017 14:34
--- NOTE | 2017-05-06 15:24 | General Surgery Progress Note ---
General Surgery-Progress Note Subjective Symptoms: improved Additional Comments had paracentesis with significant output. states he feels better. abdomen improved. on n/v. Objective Last 24 Hour Vital Signs Date Time Temp Pulse Resp B/P (MAP) Pulse Ox O2 Delivery O2 Flow Rate FiO2 05/06/17 12:00 98.6 5 21 95/64 95 Room Air 85 05/06/17 11:59 74 05/06/17 09:00 80 92/69 05/06/17 08:00 76 05/06/17 08:00 97.2 80 21 97/62 96 Room Air 77 05/06/17 04:00 76 05/06/17 04:00 97.2 77 20 102/69 99 Room Air 77 05/06/17 00:00 97.7 74 20 92/63 100 Room Air 74 05/06/17 00:00 71 05/05/17 20:44 75 18 Room Air 21 05/05/17 20:00 72 05/05/17 20:00 97.0 73 20 91/68 100 Room Air 05/05/17 20:00 97.0 73 20 91/68 Room Air 73 05/05/17 16:00 97.0 70 20 106/74 96 Room Air 05/05/17 16:00 70 I&O Intake and Output 05/06/17 05/07/17 19:00 07:00 Intake Total 120 ml Balance 120 ml Intake Oral 120 ml Cardiovascular: RSR Respiratory: clear Abdomen: soft, non-tender, other - umbicical hernia sac fluid filled but much improved and reducible now that fluid has been removed. Plan Problems: (1) Umbilical hernia, incarcerated Assessment & Plan: 51M with known large umbilical hernia which was incarcerated prior but easily reducible now. Has progressive liver disease and lots of ascites fluid. hernia sac is fully filled with ascites fluid. unfortunately prognosis poor overall. and if ascites continues to worsen and abdomen continues to distend could one day form non healing ulcer or skin opening around hernia sac. if this happens will likely drain for a long time and could potentially be at risk for bacterial peritonitis. cannot offer elective repair given how high risk he is and that hernia easily reducible. if ever not able to reduce will need urgent surgery which would be life threatening. Improved since paracentesis. hernia still reducible and fluid filled but not as distended. -paracentesis prn -will be available in case hernia becomes incarcerated again -can d/c from surgical standpoint at anytime. -will follow with recs. thank you for allowing me to participate in Lance Hayes' s care. Dragan Escalera May 06, 2017 15:24
[2017-05-06 16:00] VITALS: BP 97/62
[2017-05-06 20:00] VITALS: BP 90/65
[2017-05-07] VITALS: BP 92/72
[2017-05-07 04:00] VITALS: BP 90/65
[2017-05-07 06:09] LABS: ANION GAP 17 mmol/L (5-15); CALCIUM 8.5 MG/DL (8.5-10.1); CARBON DIOXIDE 19 MMOL/L (21-32); CHLORIDE 96 MMOL/L (98-107); GLOMERULAR FILTRATION RATE 9.9 mL/min (>60); POTASSIUM 3.3 MMOL/L (3.5-5.1); SODIUM 132 MMOL/L (136-145)
[2017-05-07] MEDS: NovoLOG Insulin Flexpen SUBQ SCH ×2 (06:27→11:25)
[2017-05-07 08:00] VITALS: BP 109/75
[2017-05-07] MEDS: Propranolol 40mg tab ORAL SCH (09:29)
--- NOTE | 2017-05-07 10:50 | Pulmonology Progress Note ---
Assessment/Plan Assessment/Plan IMPRESSION: 1. Hepatorenal syndrome. 2. End-stage liver disease. 3. End-stage renal disease. 4. Ascites. 5. Probable sepsis. 6. Leukocytosis. 7. Respiratory alkalosis and tachypnea, improved 8. History of diabetes. 9. History of depression. 10. Significant umbilical hernia. with herniation of ascites PLAN care as is DNR stabilize tap PRN HD monitor counts and cultures ID clearance and monitor for improvement in WBC supportive care noted dc to snf soon/ discuss with all pulmonary same for now consider hospice care impression, plan, and exam edited and reviewed in detail care discussed with RN Subjective Allergies: Coded Allergies: PENICILLINS (Verified Allergy, Severe, 05/01/17) Tolerated Zosyn 09/2016 Subjective weak events noted care reviewed MD notes reviewed d/w RN Objective Last 24 Hour Vital Signs Date Time Temp Pulse Resp B/P (MAP) Pulse Ox O2 Delivery O2 Flow Rate FiO2 05/07/17 09:29 94 109/79 05/07/17 08:00 97 05/07/17 08:00 97.1 94 20 109/75 97 Room Air 05/07/17 04:00 97 05/07/17 04:00 97.8 96 18 90/65 95 Room Air 05/07/17 00:00 98.0 88 20 92/72 96 Room Air 05/06/17 20:00 97.8 96 18 90/65 95 Room Air 05/06/17 20:00 94 05/06/17 19:00 Room Air 05/06/17 16:00 97.9 5 20 97/62 96 Room Air 76 05/06/17 16:00 75 05/06/17 15:55 Room Air 05/06/17 12:00 98.6 5 21 95/64 95 Room Air 85 05/06/17 11:59 74 Objective WDWN NAD reduced breath sounds bilaterally without rhonchi or wheeze [id number] without MRG NABS nontender- distended with ascites no CC edema nonfocal Laboratory Tests 05/07/17 03:10: Sodium Level 132L, Potassium Level 3.3L, Chloride Level 96L, Carbon Dioxide Level 19L, Anion Gap 17H, Blood Urea Nitrogen 50H, Creatinine 6.0H, Estimat Glomerular Filtration Rate 9.9, Glucose Level 177H, Calcium Level 8.5 Current Medications Medications (Trade) Dose Ordered Sig/Chaz Route PRN Reason Start Time Stop Time Status Last Admin Dose Admin Acetaminophen/ Hydrocodone Bitart ([place] 5/325) 1 tab Q4H PRN ORAL For Pain 04/30/17 22:45 05/07/17 22:44 Dextrose (Dextrose 50%) STAT PRN IV Hypoglycemia 04/30/17 22:45 05/30/17 22:44 Insulin Aspart (NovoLOG) BEFORE MEALS AND HS SUBQ 05/01/17 06:30 05/31/17 06:29 05/07/17 06:27 Lactulose (Cephulac) 30 gm TID ORAL 05/02/17 09:00 05/31/17 08:59 05/06/17 20:42 Lorazepam (Ativan) 0.5 mg Q4HR PRN ORAL For Anxiety 04/30/17 22:45 05/07/17 22:44 05/05/17 21:23 Mirtazapine (Remeron) 15 mg BEDTIME ORAL 05/01/17 21:00 05/31/17 20:59 05/06/17 20:43 Ondansetron HCl (Zofran) 4 mg Q6H PRN IVP Nausea & Vomiting 04/30/17 22:45 05/30/17 22:44 Propranolol HCl (Inderal) 20 mg DAILY ORAL 05/01/17 09:00 05/31/17 08:59 05/07/17 09:29 MARY ANNE CASON May 07, 2017 10:50
[2017-05-07 12:00] VITALS: BP 110/75
[2017-05-07] MEDS: Lactulose 20gm/30ml UDC ORAL SCH (12:04)
--- NOTE | 2017-05-07 12:11 | Infectious Diseases Prog Note ---
Assessment/Plan Assessment/Plan antibiotics : none A 1. UTI s/p rx 2. leucocytosis improving 3. renal failure 4. cirrhosis P 1. observe off antibiotics Subjective ROS Limited/Unobtainable: Yes Allergies: Coded Allergies: PENICILLINS (Verified Allergy, Severe, 05/01/17) Tolerated Zosyn 09/2016 Objective Vital Signs Last 24 Hour Vital Signs Date Time Temp Pulse Resp B/P (MAP) Pulse Ox O2 Delivery O2 Flow Rate FiO2 05/07/17 09:29 94 109/79 05/07/17 08:00 97 05/07/17 08:00 97.1 94 20 109/75 97 Room Air 05/07/17 04:00 97 05/07/17 04:00 97.8 96 18 90/65 95 Room Air 05/07/17 00:00 98.0 88 20 92/72 96 Room Air 05/06/17 20:00 97.8 96 18 90/65 95 Room Air 05/06/17 20:00 94 05/06/17 19:00 Room Air 05/06/17 16:00 97.9 5 20 97/62 96 Room Air 76 05/06/17 16:00 75 05/06/17 15:55 Room Air Height (Feet): 5 Height (Inches): 8.00 Weight (Pounds): 181 Respiratory/Chest: lungs clear Cardiovascular: normal rate, regular rhythm, no gallop/murmur Abdomen: soft, non tender, other - GT, hernia Extremities: no edema, other - right subclavian catheter Laboratory Tests Test 05/07/17 03:10 Sodium Level 132 MMOL/L (136-145) L Potassium Level 3.3 MMOL/L (3.5-5.1) L Chloride Level 96 MMOL/L (98-107) L Carbon Dioxide Level 19 MMOL/L (21-32) L Anion Gap 17 mmol/L (5-15) H Blood Urea Nitrogen 50 mg/dL (7-18) H Creatinine 6.0 MG/DL (0.55-1.30) H Estimat Glomerular Filtration Rate 9.9 mL/min (>60) Glucose Level 177 MG/DL (74-106) H Calcium Level 8.5 MG/DL (8.5-10.1) JN TABOR May 07, 2017 12:11
--- NOTE | 2017-05-07 12:24 | Nephrology Progress Note ---
Assessment/Plan Plan ESRD- HD TTS. Ascites -paracentesis done yesterday. Subjective Subjective No new c/o Objective Objective Last 24 Hour Vital Signs Date Time Temp Pulse Resp B/P (MAP) Pulse Ox O2 Delivery O2 Flow Rate FiO2 05/07/17 09:29 94 109/79 05/07/17 08:00 97 05/07/17 08:00 97.1 94 20 109/75 97 Room Air 05/07/17 04:00 97 05/07/17 04:00 97.8 96 18 90/65 95 Room Air 05/07/17 00:00 98.0 88 20 92/72 96 Room Air 05/06/17 20:00 97.8 96 18 90/65 95 Room Air 05/06/17 20:00 94 05/06/17 19:00 Room Air 05/06/17 16:00 97.9 5 20 97/62 96 Room Air 76 05/06/17 16:00 75 05/06/17 15:55 Room Air Laboratory Tests 05/07/17 03:10: Sodium Level 132L, Potassium Level 3.3L, Chloride Level 96L, Carbon Dioxide Level 19L, Anion Gap 17H, Blood Urea Nitrogen 50H, Creatinine 6.0H, Estimat Glomerular Filtration Rate 9.9, Glucose Level 177H, Calcium Level 8.5 Height (Feet): 5 Height (Inches): 8.00 Weight (Pounds): 181 Objective Chronicallyn ill. Pale. CV RR Lungs B Ronchi. Abd- Ascites resolved. E + edema. PIETRO MARION May 07, 2017 12:24
--- NOTE | 2017-05-07 12:34 | General Surgery Progress Note ---
General Surgery-Progress Note Subjective Symptoms: improved Additional Comments doing well. no acute events. comfortable. Objective Last 24 Hour Vital Signs Date Time Temp Pulse Resp B/P (MAP) Pulse Ox O2 Delivery O2 Flow Rate FiO2 05/07/17 09:29 94 109/79 05/07/17 08:00 97 05/07/17 08:00 97.1 94 20 109/75 97 Room Air 05/07/17 04:00 97 05/07/17 04:00 97.8 96 18 90/65 95 Room Air 05/07/17 00:00 98.0 88 20 92/72 96 Room Air 05/06/17 20:00 97.8 96 18 90/65 95 Room Air 05/06/17 20:00 94 05/06/17 19:00 Room Air 05/06/17 16:00 97.9 5 20 97/62 96 Room Air 76 05/06/17 16:00 75 05/06/17 15:55 Room Air Cardiovascular: RSR Respiratory: clear Abdomen: soft, distended, other - fluid filled hernia sac reducible. Extremities: no tenderness Laboratory Tests Test 05/07/17 03:10 Sodium Level 132 MMOL/L (136-145) L Potassium Level 3.3 MMOL/L (3.5-5.1) L Chloride Level 96 MMOL/L (98-107) L Carbon Dioxide Level 19 MMOL/L (21-32) L Anion Gap 17 mmol/L (5-15) H Blood Urea Nitrogen 50 mg/dL (7-18) H Creatinine 6.0 MG/DL (0.55-1.30) H Estimat Glomerular Filtration Rate 9.9 mL/min (>60) Glucose Level 177 MG/DL (74-106) H Calcium Level 8.5 MG/DL (8.5-10.1) Plan Problems: (1) Umbilical hernia, incarcerated Assessment & Plan: 51M with known large umbilical hernia which was incarcerated prior but easily reducible. Has progressive liver disease and lots of ascites fluid. hernia sac is fully filled with ascites fluid. unfortunately prognosis poor overall. and if ascites continues to worsen and abdomen continues to distend could one day form non healing ulcer or skin opening around hernia sac. if this happens will likely drain for a long time and could potentially be at risk for bacterial peritonitis. cannot offer elective repair given how high risk he is and that hernia easily reducible. if ever not able to reduce will need urgent surgery which would be life threatening. Improved since paracentesis. hernia still reducible and fluid filled but not as distended. no complaints and otherwise stable. -paracentesis prn -will be available in case hernia becomes incarcerated again -can d/c from surgical standpoint at anytime. -okay for abdominal binder if desired. -will follow with recs. thank you for allowing me to participate in Lance Hayes' s care. Dragan Escalera May 07, 2017 12:34
--- NOTE | 2017-05-07 21:46 | Discharge Summary ---
DATE OF ADMISSION: 04/30/2017 DATE OF DISCHARGE: 05/07/2017 ADMISSION DIAGNOSES: 1. Sepsis. 2. Altered mental status. 3. Toxic metabolic encephalopathy. 4. Chronic renal failure. 5. End-stage renal disease. 6. Severe ascites. 7. Cirrhosis. 8. Abdominal hernia. DISCHARGE DIAGNOSES: 1. Sepsis. 2. Altered mental status. 3. Toxic metabolic encephalopathy. 4. Chronic renal failure. 5. End-stage renal disease. 6. Severe ascites. 7. Cirrhosis. 8. Abdominal hernia. HOSPITAL COURSE: The patient is an unfortunate male with a history of end-stage renal disease and cirrhosis. He was admitted with complaints of altered mental status and sepsis. He was diagnosed with UTI. He received broad-spectrum IV antibiotic therapy. Pulmonary, Infectious Disease, and Renal consultation will be obtained. The patient was continued on hemodialysis. He has a peritoneal catheter, which could not be used because the appropriate bottle for drainage was unavailable. He underwent an ultrasound-guided paracentesis, which he tolerated well. On discharge, the patient was stable. He had completed all antibiotic therapy. He will be discharged back to the long-term facility. Continue outpatient hemodialysis there. DISCHARGE MEDICATIONS: Please see discharge medication list for discharge medications. DIET: Renal diet. ACTIVITIES: Ad-clemente. FOLLOWUP: The patient will follow up in one to two days by his PMD at the long-term facility. Aleksandr Downs M.D. DR: YOKASTA JOB#: [id number] CC:
--- NOTE | 2017-05-08 11:01 | Diagnostic Imaging Report ---
APPROVED REPORT CPT Code: 76039 Present Symptoms Comments: R/O DVT BILATERAL: Imaging reveals a patent deep venous system bilaterally. There is no evidence of thrombus within the femoral, popliteal or tibial segments. The greater saphenous veins are also within normal limits. Doppler indicates normal spontaneous flow within these segments.
--- NOTE | 2017-05-08 11:02 | Diagnostic Imaging Report ---
Indications: Ascites Technique: Ultrasound used to localize optimal puncture site. Sterile prepping and draping . Local anesthesia with 1% lidocaine. Under real-time ultrasound guidance, puncture peritoneal space using paracentesis needle. Stylet removed. Catheter placed to vacuum bottle suction. Total 14 liters of fluid clear yellow aspirated. Patient tolerated procedure well, without immediate complication. Findings: Followup sonography demonstrates complete resolution of peritoneal fluid. Impression: Successful ultrasound-guided paracentesis, yielding 14 liters of fluid
== END 2017-05-07 13:50 | DRG 871 ==
LOC: EDBD 16:26 → EDSEX 16:26 → EDBEDREQ 16:46 → EMR 16:57 → 2W 17:03 → EDBEDREQ 17:18 → 2W 22:10
PROC: 5A1D70Z Performance of Urinary Filtration, Intermittent, Less than 6 Hours Per Day (ICD-10-PCS; principal; 2017-05-01)
PROC: 0W9G3ZZ Drainage of Peritoneal Cavity, Percutaneous Approach (ICD-10-PCS; 2017-05-05)
DX: A41.9 Sepsis, unspecified organism (principal); N18.6 End stage renal disease; K76.7 Hepatorenal syndrome; G92 Toxic encephalopathy; D68.9 Coagulation defect, unspecified; R18.8 Other ascites; N39.0 Urinary tract infection, site not specified; K74.60 Unspecified cirrhosis of liver; Z99.2 Dependence on renal dialysis; K42.9 Umbilical hernia without obstruction or gangrene; Z66 Do not resuscitate; E11.22 Type 2 diabetes mellitus with diabetic chronic kidney disease; Z88.0 Allergy status to penicillin
CPT/HCPCS: 36415; 36600; 70450; 71010; 74000; 74176; 76942; 80048; 80053; 80202; 80307; 80329; 81003; 82140; 82550; 82803; 82962; 83605; 83690; 83735; 83880; 84100; 84484; 85007; 85025; 85610; 85730; 87040; 87081; 87086; 93005; 93970; 94664; 99285; J1815

== ENCOUNTER 2017-05-12 18:32 | Inpatient (IN) | payer MEDICARE, OTHER ==
[~2017-05-12] VITALS: Ht 170.2 cm; Wt 86.2 kg
--- NOTE | 2017-05-12 19:04 | Emergency Room Report ---
History of Present Illness General Chief Complaint: Abnormal Labs Source: Patient, Medical Record Present Illness HPI 51-year-old male, with history of liver cirrhosis, end-stage renal disease on dialysis, [facility] in from [facility] for elevated white count. WBC count was reportedly at 29,000. Patient currently complaining of generalized weakness however not complaining of any fever chills chest pain shortness of breath cough abdominal pain Allergies: Coded Allergies: PENICILLINS (Verified Allergy, Severe, 05/01/17) Tolerated Zosyn 09/2016 Patient History Past Medical History: see triage record Past Surgical History: none Pertinent Family History: none Reviewed Nursing Documentation: PMH: Agreed, PSxH: Agreed Nursing Documentation-PMH Hx Cardiac Problems: Yes - heart failure, DVT Hx Hypertension: Yes Hx Pacemaker: No Hx Asthma: No Hx COPD: No Hx Diabetes: Yes Hx Cancer: No Hx Gastrointestinal Problems: Yes - cirrhosis, hepatic failure, ascites Hx Dialysis: Yes - ESRD M-W-F (last dialysis 05/12/17) Hx Neurological Problems: Yes - Dementia Hx Cerebrovascular Accident: No Hx Transient Ischemic Attacks: No Hx Dementia: Yes Hx Alzheimer's Disease: No Hx Parkinson's Disease: No Hx Meningitis: No Hx Encephalitis: No Hx Seizures: No Hx Epilepsy: No Hx Multiple Sclerosis: No Hx Cerebral Palsy: No Hx Amyotrophic Lat Sclerosis: No Hx Guillian-[place] Syndrome: No Hx Paralysis: No Hx Peripheral Neuropathy: No Hx Spinal Cord Injury: No Hx Head Trauma: No Hx Traumatic Brain Injury: No Hx Memory Loss: No Hx Concentration Difficulty: No Hx Speech Problem: No Hx Tremors: No Hx Vertigo: No Hx Dizziness: No Hx Syncope: No Hx Headaches: No Hx Aphasia: No Hx Dysphasia: No Hx Numbness: No Hx Weakness: Yes Hx Fatigue: Yes Hx Neurologic Surgery: No Hx Brain Shunt: No Review of Systems All Other Systems: negative except mentioned in HPI Physical Exam Vital Signs Date Time Temp Pulse Resp B/P (MAP) Pulse Ox O2 Delivery O2 Flow Rate FiO2 05/12/17 18:33 84 20 91/59 95 Room Air Sp02 EP Interpretation: reviewed, normal General Appearance: alert, GCS 15, non-toxic, Chronically Ill Head: normocephalic, atraumatic Eyes: bilateral eye normal inspection, bilateral eye PERRL, bilateral eye EOMI ENT: normal ENT inspection, normal pharynx, normal voice, moist mucus membranes Neck: normal inspection, full range of motion, supple Respiratory: normal inspection, lungs clear, normal breath sounds, no respiratory distress, no retraction, no wheezing, speaking full sentences, chest symmetrical Cardiovascular #1: regular rate, rhythm, no edema, normal capillary refill, other - Right-sided dialysis catheter Cardiovascular #2: 2+ radial (R), 2+ radial (L) Gastrointestinal: other - + Ascites, nontender abdomen throughout, normal bowel sounds Genitourinary: no CVA tenderness Musculoskeletal: normal inspection, back normal, normal range of motion, non- tender Neurologic: normal inspection, alert, oriented x3, responsive, motor strength/ tone normal, sensory intact, normal gait, speech normal Psychiatric: normal inspection, judgement/insight normal, memory normal Skin: normal inspection, normal color, no rash, warm/dry, well hydrated, normal turgor Procedures Critical Care Time Critical Care Time 40 minutes of CC time 81-year-old male, end-stage renal disease, cirrhosis, came here for leukocytosis , possible sepsis VS: Hypotensive Airway patent. Not hypoxic. PLAN: IV access, labs, lactate, troponin, Blood/Urine Cx, Abx, IVF Anticipate admission to Tele vs. EDISON CC time also includes review of labs, review of EMR, discussion with family and paperwork from SNF, d/w hospitalist CC could include dosing of pressors, additional Abx CC time does not include procedures Medical Decision Making Diagnostic Impression: Primary Impression: Sepsis Additional Impressions: Cirrhosis ESRD (end stage renal disease) ER Course 51-year-old male [facility] in from [facility] for elevated white count DDX: UTI, PNA, bacteremia, will also consider intra-abdominal pathology such as colitis / diverticulitis / acalculous cholecystitis if no other course found but at this time abdomen soft, NT, ND. Plan: Obtain labs including cbc, bmp, blood culture, blood gas, lactate, ua, ucx CXR EKG Broad spectrum ABX ER course: Patient is borderline hypotensive however likely close to his baseline, fluids held as patient has end-stage renal disease 500cc fluid given, had to hold full boluses due to ESRD patient not hypoxic not sob +broad spec abx given lactate 7 -- possibly also due to liver cirrhosis or sepsis. 500cc fluid given unknown source last MAP 69 in Sepsis Re-examination Time: 10pm VS: Temp 98 HR 81 BP 92/63 (MAP of 69) and RR 16 CVS: RRR Respiratory: Lungs clear bilaterally Peripheral pulses: 2+ radial Capillary refill: <2 seconds Skin exam: warm, dry, no rash, not mottled Disposition: Patient will admitted to telemetry D/W Hospitalist Dr Monsalve who has accepted pt for admission Please note that this Emergency Department Report was dictated using [employer] customer service representative technology software, occasionally this can lead to erroneous entry secondary to interpretation by the dictation equipment. EKG Diagnostic Results EP Interpretation: Yes Rate: normal Rhythm: NSR ST Segments: T wave flattening III and aVF ASA given to patient: No Rhythm Strip EP Interpretation: Yes Rate: 70 Rhythm: NSR, no PVCs, no ectopy Chest X-ray CXR: Ordered: Yes 1 view Indication: Chest pain EP interpretation: Yes Interpretation: very poor inspiratory effort, diaphram elevated v/l, dialysis port seen R chest, possible interstit infiltrates Impression: see above Electronically signed by Mike Jerez MD Laboratory Tests Test 05/12/17 21:06 White Blood Count 21.4 K/UL (4.8-10.8) H Red Blood Count 4.14 M/UL (4.70-6.10) L Hemoglobin 11.5 G/DL (14.2-18.0) L Hematocrit 37.7 % (42.0-52.0) L Mean Corpuscular Volume 91 FL (80-99) Mean Corpuscular Hemoglobin 27.7 PG (27.0-31.0) Mean Corpuscular Hemoglobin Concent 30.5 G/DL (32.0-36.0) L Red Cell Distribution Width 17.4 % (11.6-14.8) H Platelet Count 311 K/UL (150-450) Mean Platelet Volume 7.1 FL (6.5-10.1) Neutrophils (%) (Auto) % (45.0-75.0) Lymphocytes (%) (Auto) % (20.0-45.0) Monocytes (%) (Auto) % (1.0-10.0) Eosinophils (%) (Auto) % (0.0-3.0) Basophils (%) (Auto) % (0.0-2.0) Neutrophils % (Manual) Pending Lymphocytes % (Manual) Pending Platelet Estimate Pending Platelet Morphology Pending Prothrombin Time 16.5 SEC (9.30-11.50) H Prothrombin Time INR 1.6 (0.9-1.1) H PTT 37 SEC (23-33) H Sodium Level 132 MMOL/L (136-145) L Potassium Level 4.6 MMOL/L (3.5-5.1) Chloride Level 99 MMOL/L (98-107) Carbon Dioxide Level 19 MMOL/L (21-32) L Anion Gap 15 mmol/L (5-15) Blood Urea Nitrogen 29 mg/dL (7-18) H Creatinine 4.5 MG/DL (0.55-1.30) H Estimate Glomerular Filtration Rate 13.8 mL/min (>60) Glucose Level 252 MG/DL (74-106) H Lactic Acid Level 7.00 mmol/L (0.66-2.22) H Calcium Level 8.5 MG/DL (8.5-10.1) Total Bilirubin 0.7 MG/DL (0.2-1.0) Aspartate Amino Transferase (AST) 15 U/L (15-37) Alanine Aminotransferase (ALT) 17 U/L (12-78) Alkaline Phosphatase 111 U/L (46-116) Total Creatine Kinase 25 U/L (26-308) L Troponin I 0.000 ng/mL (0.000-0.056) Total Protein 6.2 G/DL (6.4-8.2) L Albumin 1.3 G/DL (3.4-5.0) L Globulin 4.9 g/dL Albumin/Globulin Ratio 0.3 (1.0-2.7) L Last Vital Signs Date Time Temp Pulse Resp B/P (MAP) Pulse Ox O2 Delivery O2 Flow Rate FiO2 05/12/17 18:33 84 20 91/59 95 Room Air Disposition: ADMITTED INPATIENT Condition: Mike Gregg M.D. May 12, 2017 19:04
[2017-05-12] MEDS ORDERED: NORCO 5-325 TA1 EAC1 ORAL (19:44)
[2017-05-12] MEDS ORDERED: NOVOLIN R100 UNIT/1 SUBQ (19:44)
[2017-05-12 21:41] LABS: HEMATOCRIT 37.7 % (42.0-52.0); HEMOGLOBIN 11.5 G/DL (14.2-18.0); MEAN CORPUSCULAR VOLUME 91 FL (80-99); PLATELET COUNT 311 K/UL (150-450); RED BLOOD COUNT 4.14 M/UL (4.70-6.10); RED CELL DISTRIBUTION WIDTH 17.4 % (11.6-14.8); WHITE BLOOD COUNT 21.4 K/UL (4.8-10.8)
[2017-05-12 21:46] LABS: INR 1.6 (0.9-1.1)
[2017-05-12 21:54] LABS: ANION GAP 15 mmol/L (5-15); BLOOD UREA NITROGEN 29 mg/dL (7-18); CALCIUM 8.5 MG/DL (8.5-10.1); CARBON DIOXIDE 19 MMOL/L (21-32); CHLORIDE 99 MMOL/L (98-107); CREATININE 4.5 MG/DL (0.55-1.30); POTASSIUM 4.6 MMOL/L (3.5-5.1); SODIUM 132 MMOL/L (136-145)
[2017-05-12 22:00] LABS: ALANINE AMINOTRANSFERASE 17 U/L (12-78); ALBUMIN 1.3 G/DL (3.4-5.0); ALBUMIN/GLOBULIN RATIO 0.3 (1.0-2.7); ALKALINE PHOSPHATASE 111 U/L (46-116); ASPARTATE AMINO TRANSFERASE 15 U/L (15-37); BILIRUBIN,TOTAL 0.7 MG/DL (0.2-1.0); CREATINE KINASE 25 U/L (26-308)
[2017-05-12] MEDS ORDERED: Cefepime HCl 1 GM in D5W 55 ML IVPB ONE (22:00)
[2017-05-12] MEDS ORDERED: Vancomycin 1.5gm/D5W 250ml 250 ML IVPB ONE (22:00)
[2017-05-12] MEDS ORDERED: Cefepime 1gm vial ONE (22:42)
[2017-05-13 00:32] VITALS: BP 99/63
[2017-05-13] MEDS ORDERED: AZTREONAM1 GM IVPB (01:10)
[2017-05-13] MEDS ORDERED: VANCOMYCIN1 GM/2502 IVPB (01:39)
[2017-05-13] MEDS ORDERED: OMEPRAZOLE40 M1 ORAL (01:58)
[2017-05-13 08:00] VITALS: BP 93/66
[2017-05-13] MEDS ORDERED: Albuterol ud Inhalation HHN PRN (08:00)
[2017-05-13] MEDS ORDERED: Propranolol 40mg tab ORAL SCH (09:00)
[2017-05-13] MEDS: Lactulose 20gm/30ml UDC ORAL SCH ×2 (09:23→17:46)
[2017-05-13 10:38] LABS: HEMATOCRIT 37.4 % (42.0-52.0); HEMOGLOBIN 11.9 G/DL (14.2-18.0); MEAN CORPUSCULAR VOLUME 91 FL (80-99); PLATELET COUNT 286 K/UL (150-450); RED BLOOD COUNT 4.12 M/UL (4.70-6.10)
[2017-05-13 10:54] LABS: AMMONIA 18 umol/L (11-32)
[2017-05-13 11:06] LABS: ALANINE AMINOTRANSFERASE 14 U/L (12-78); ALBUMIN 1.3 G/DL (3.4-5.0); ALBUMIN/GLOBULIN RATIO 0.3 (1.0-2.7); ALKALINE PHOSPHATASE 106 U/L (46-116); ANION GAP 14 mmol/L (5-15); ASPARTATE AMINO TRANSFERASE 14 U/L (15-37); BILIRUBIN,TOTAL 0.7 MG/DL (0.2-1.0); BLOOD UREA NITROGEN 34 mg/dL (7-18); CALCIUM 8.4 MG/DL (8.5-10.1); CARBON DIOXIDE 20 MMOL/L (21-32); CHLORIDE 97 MMOL/L (98-107); CREATININE 4.8 MG/DL (0.55-1.30); POTASSIUM 4.2 MMOL/L (3.5-5.1); SODIUM 131 MMOL/L (136-145)
[2017-05-13 12:00] VITALS: BP 92/58
--- NOTE | 2017-05-13 12:00 | Wound Care Consultation ---
Wound Assessment Wound Assessment #1: Wound Number: 1 Wound Present on Admission: Yes New Wound: No Status Change of Wound: No Wound Location Body Site: frontal region - extending to parietal region Wound Type: scab - scattered scabs. Jayesh Test: Does not Jayesh Percent of Wound [place]/Red: 50 - dry scabs Percent of Wound Black/Brown: 50 - dry scabs Wound Drainage Amount: None Wound Drainage Odor: None/Absent Tissue Surrounding Wound: Erythemic Wound General Appearance: Reddened, Clean/Dry Wound Assessment #2: Wound Number: 2 Wound Present on Admission: Yes New Wound: No Status Change of Wound: No Wound Location Body Site Modif: left, right Wound Location Body Site: arm Wound Type: scab - scattered scabs Jayesh Test: Does not Jayesh Percent of Wound Black/Brown: 100 - dry intact Wound Drainage Amount: None Wound Drainage Odor: None/Absent Tissue Surrounding Wound: Intact Wound General Appearance: Clean/Dry Wound Assessment #3: Wound Number: 3 Wound Present on Admission: Yes New Wound: No Status Change of Wound: No Wound Location Body Site Modif: left Wound Location Body Site: heel Wound Type: pressure ulcer Jayesh Test: Does not Jayesh Pressure Ulcer Stage: Deep Tissue Injury - suspected Wound Thickness: Full Thickness Wound Length: 4.0 Wound Width: 4.0 Wound Depth: utd Percent of Wound [place]/Red: 100 - deep red Wound Drainage Amount: None Wound Drainage Odor: None/Absent Tissue Surrounding Wound: Intact - dry flaky skin Wound General Appearance: Reddened Wound Assessment #4: Wound Number: 4 Wound Present on Admission: Yes New Wound: No Status Change of Wound: No Wound Location Body Site Modif: right Wound Location Body Site: heel Wound Type: pressure ulcer Jayesh Test: Does not Jayesh Pressure Ulcer Stage: Deep Tissue Injury - suspected Wound Thickness: Full Thickness Wound Length: 6.0 Wound Width: 6.0 Wound Depth: utd Percent of Wound [place]/Red: 100 - deep red Wound Drainage Amount: None Wound Drainage Odor: None/Absent Tissue Surrounding Wound: Intact - dry flaky skin Wound General Appearance: Reddened Wound Assessment #5: Wound Number: 5 Wound Present on Admission: Yes New Wound: No Status Change of Wound: No Wound Location Body Site: abdomen - umbilical hernia site Wound Type: scab - scattered scabs Jayesh Test: Does not Jayesh Wound Thickness: Partial Thickness Wound Length: 1.0 Wound Width: 1.0 Percent of Wound [place]/Red: 50 - dry scabs Percent of Wound Black/Brown: 50 - dry scabs Other Colors Identified: noted 3 scabs close in range. same size 1.0cmx1.0cm dry Wound Drainage Amount: None Wound Drainage Odor: None/Absent Tissue Surrounding Wound: Intact Wound General Appearance: Clean/Dry Wound Assessment #6: Wound Number: 6 Wound Present on Admission: Yes New Wound: No Status Change of Wound: No Wound Location Body Site Modif: left, upper, lateral Wound Location Body Site: thigh Wound Type: scab Jayesh Test: Does not Jayesh Wound Thickness: Partial Thickness Wound Length: 1.0 Wound Width: 1.0 Percent of Wound Black/Brown: 100 - dry scab Wound Drainage Amount: None Wound Drainage Odor: None/Absent Tissue Surrounding Wound: Erythemic Wound General Appearance: Clean/Dry Wound Comment #1 Frontal extending to parietal region scattered dry scabs. #2 Right and Left upper extremity scattered scabs. #3 Left heel suspected deep tissue injury, #4 Right heel suspected deep tissue injury. #5 Umbilical hernia scattered dry scabs. #6 Left upper lateral thigh scab, Recommendation. -Local wound care as ordered. -Keep clean and dry. -Turn and reposition. -Optimize nutrition. - Offload affected areas. -Assess skin for any changes of condition and notify MD. -Apply heel protectors, offload heels . -Avoid shear and friction. - Offload sacral, buttocks for skin management and prevention. FRANCISCO PETERSEN May 13, 2017 12:00
[2017-05-13] MEDS: NovoLOG Insulin Flexpen SUBQ SCH ×3 (12:28→21:07)
[2017-05-13 16:00] VITALS: BP 90/68
--- NOTE | 2017-05-13 16:15 | History and Physical Report ---
DATE OF ADMISSION: 05/12/2017 CHIEF COMPLAINT: Sepsis and leukocytosis. HISTORY OF PRESENT ILLNESS: The patient is an unfortunate 51-year-old male. He has a history of cirrhosis and end-stage renal disease, presented from senior living facility after routine labs showed an elevated white count. He was recently hospitalized with sepsis. He was recently discharged back to the senior living facility. He denies any fever or chills. No cough. No diarrhea. On evaluation in the emergency room, he had an elevated lactic acid level of 7. His white count was 21,000. The patient has been pancultured. He has been started on broad-spectrum IV antibiotic therapy. He is now admitted for further evaluation and care. PAST MEDICAL HISTORY: As above. PAST SURGICAL HISTORY: History of peritoneal PleurX catheter. CURRENT MEDICATIONS: Reconciled and reviewed. ALLERGIES: Include penicillin. FAMILY HISTORY: Noncontributory. SOCIAL HISTORY: Negative for tobacco, ethanol, or drugs. REVIEW OF SYSTEMS: GENERAL: No fever or chills. HEENT: No headaches or visual changes. CARDIOPULMONARY: No chest pain or shortness of breath. GASTROINTESTINAL: No nausea or vomiting. GENITOURINARY: No urgency or frequency. MUSCULOSKELETAL: No joint pain or swelling. NEUROLOGIC: No history of seizures. PHYSICAL EXAMINATION: VITAL SIGNS: Temperature 98 degrees, pulse 77, respirations 20, and blood pressure 99/63. GENERAL: The patient is a well-developed male, in no apparent distress. HEART: Regular rate and rhythm. LUNGS: Clear. ABDOMEN: Soft, nontender, and nondistended. There is a ventral hernia noted. LABORATORY DATA: Sodium is 132, potassium 4.6, and creatinine is 4.5. White count 21,000, hemoglobin is 11. Chest x-ray results and cultures are pending. ASSESSMENT: This is an unfortunate male, admitted with complaints of leukocytosis and sepsis. 1. Sepsis. 2. Lactic acidosis secondary to sepsis. 3. History of end-stage renal disease. 4. History of cirrhosis. PLAN: IV antibiotics. Follow up cultures. ID consultation and Renal consultation will be obtained. Continue hemodialysis per Renal. We will order drainage from the PleurX to rule out SBP. The patient is DNR as per advance directive. Aleksandr Downs M.D. DR: LENNIE JOB#: [id number] CC:
--- NOTE | 2017-05-13 18:15 | Cardiology Report ---
APPROVED REPORT EKG Measurement Heart [id number] Normal sinus rhythm Low voltage QRS Inferior infarct, age undetermined Cannot rule out Anterior infarct, age undetermined Abnormal ECG
[2017-05-13 20:00] VITALS: BP 92/63
--- NOTE | 2017-05-13 21:17 | Consultation ---
DATE OF CONSULTATION: 05/13/2017 NEPHROLOGY CONSULTATION CONSULTING PHYSICIAN: Alicia Prieto M.D. ATTENDING PHYSICIAN: Mason Monsalve M.D. REASON FOR CONSULTATION: This is a dialysis patient. HISTORY OF PRESENT ILLNESS: This is a 51-year-old male, who is on dialysis with multiple medical problems. The patient was just discharged last week from the hospital. He was admitted due to reported white count of 29,000. PAST MEDICAL HISTORY: 1. End-stage renal failure, on dialysis. 2. Alcoholic liver cirrhosis. 3. Alcoholic encephalopathy. 4. Recurrent tense ascites. 5. Right lower abdominal hernia. 6. Multifactorial anemia. 7. Gastroesophageal reflux disease. MEDICATIONS: IV vancomycin, albuterol inhalation, omeprazole, insulin sliding scale, mirtazapine, propranolol, [place] p.r.n., Zofran p.r.n., and aztreonam. ALLERGIES: Penicillin. FAMILY HISTORY: Unremarkable. SOCIAL HISTORY: The patient lives at [facility]. HABITS: He is a past drinker. REVIEW OF SYSTEMS: Currently unable to obtain, as he is confused. PHYSICAL EXAMINATION: GENERAL: This is an elderly male, who is in no acute distress. VITAL SIGNS: Blood pressure 93/66, pulse 75 and regular, respirations 20, and temperature 98 degrees. HEENT: The head is normocephalic and atraumatic. Pupils are equal, round, and reactive to light and accommodation consensually. NECK: Supple. Trachea midline. There was no lymphadenopathy or thyromegaly. LUNGS: Clear to auscultation and percussion. HEART: Regular rate and rhythm without rubs, murmurs, or gallops. ABDOMEN: Soft. He has tense ascites. He has a huge right abdominal hernia. EXTREMITIES: He has 2+ edema. NEUROLOGICAL: He is alert. There were no gross focal findings. LABORATORY AND ANCILLARY DATA: White count elevated at 24,000, hematocrit is 37.4, and platelet count 296,000. Serum chemistry, sodium 131, potassium 4.2, BUN 34, and creatinine 4.8. Albumin is 1.3. Ammonia level 18. ASSESSMENT: Leukocytosis, etiology unclear. PLAN: 1. IV antibiotics per Dr. Monsalve and Dr. Downs. 2. Hemodialysis every Friday, Friday, and Jutsyn as tolerated. 3. Continue jail medications. Alicia Prieto M.D. DR: MARTINE JOB#: [id number] CC:
--- NOTE | 2017-05-13 22:02 | Consultation ---
DATE OF CONSULTATION: 05/13/2017 INFECTIOUS DISEASES CONSULTATION CONSULTING PHYSICIAN: Reynold Garcia M.D. REFERRING PHYSICIAN: Aleksandr Downs M.D. REASON FOR CONSULTATION: Leukocytosis. HISTORY OF PRESENTING ILLNESS: This is a 51-year-old gentleman with history of liver cirrhosis and end-stage renal disease on dialysis, who was sent in from a halfway with leukocytosis. He has been admitted and an Infectious Diseases consultation has been obtained for antibiotics. PAST MEDICAL HISTORY: 1. History of cirrhosis. 2. Renal failure, on dialysis. 3. Ventral hernia. 4. DVT. 5. Heart failure. 6. Hypertension. 7. Diabetes. 8. Dementia. MEDICATIONS: As an inpatient, the patient is on Remeron, insulin, lactulose, propranolol, albuterol, and Protonix. ALLERGIES: The patient is allergic to penicillin, but tolerates cephalosporin. SOCIAL HISTORY: Unknown. FAMILY HISTORY: Unknown. REVIEW OF SYSTEMS: Unable to obtain currently. PHYSICAL EXAMINATION: VITAL SIGNS: Temperature of 97.2, T-max of 98, pulse of 75, respiratory rate of 18, blood pressure 93/66, and O2 saturation of 94%. HEENT: Pupils equally reactive to light and accommodation. Mouth appears clean without thrush. NECK: Supple. No adenopathy. No JVD. CARDIOVASCULAR: Regular rate and rhythm. No murmurs. LUNGS: Clear to auscultation bilaterally. No crackles. No wheezes. ABDOMEN: Soft and nontender. Ventral hernia noted. No organomegaly. EXTREMITIES: No cyanosis. No clubbing. No edema. Right subclavian catheter noted. LABORATORY DATA: White count of 24, hemoglobin 11.9, hematocrit 37.4, MCV 91, and platelet count of 286 with neutrophils of 89%. Sodium 131, potassium 4.2, chloride 97, bicarbonate 20, BUN 24, creatinine 4.8, glucose 163, and calcium 8.4. Total bilirubin 0.7. AST 14, ALT 14, and alkaline phosphatase 106. Ammonia of 18. Total protein 6.3. Albumin 1.3. Blood cultures are pending. ASSESSMENT: 1. This is a 51-year-old gentleman with history of cirrhosis and renal failure, who comes in with leukocytosis, would be concerned regarding a catheter infection. 2. Would also be concerned regarding spontaneous bacterial peritonitis. 3. Would also be concerned regarding Clostridium difficile colitis. PLAN: 1. We will order stool for C. difficile colitis. 2. Continue vancomycin and cefepime. 3. We will follow up cultures and adjust antibiotics accordingly. I would like to thank, Dr. Downs, for this consultation. Reynold Garcia M.D. DR: YOLI JOB#: [id number] CC: Aleksandr Downs M.D.
[2017-05-14] VITALS: BP 90/64
[2017-05-14 04:00] VITALS: BP 97/72
[2017-05-14] MEDS ORDERED: Heparin Sod 1000 units/ml 10ml IV PRN ×2 (06:00)
[2017-05-14] MEDS ORDERED: Sodium Chloride 500ML 550 ML IV PRN (06:00)
[2017-05-14] MEDS: NovoLOG Insulin Flexpen SUBQ SCH ×4 (06:03→20:42)
[2017-05-14 08:00] VITALS: BP 92/65
[2017-05-14] MEDS: Lactulose 20gm/30ml UDC ORAL SCH ×2 (08:46→17:28)
--- NOTE | 2017-05-14 08:46 | General Progress Note ---
Assessment/Plan Problem List: (1) Cirrhosis ICD Codes: K74.60 - Unspecified cirrhosis of liver SNOMED: 11111952 (2) ESRD (end stage renal disease) ICD Codes: N18.6 - End stage renal disease SNOMED: 48563071 (3) Sepsis ICD Codes: A41.9 - Sepsis, unspecified organism SNOMED: 14724643 Status: stable, not improved Assessment/Plan iv abx follow up cultures HD monitor wbc pain rx Subjective ROS Limited/Unobtainable: No Constitutional: Reports: malaise, weakness HEENT: Reports: no symptoms Cardiovascular: Reports: no symptoms Respiratory: Reports: no symptoms Gastrointestinal/Abdominal: Reports: abdominal pain Genitourinary: Reports: no symptoms Neurologic/Psychiatric: Reports: pre-existing deficit Endocrine: Reports: no symptoms Hematologic/Lymphatic: Reports: anemia Allergies: Coded Allergies: PENICILLINS (Verified Allergy, Severe, 05/01/17) Tolerated Zosyn 09/2016 All Systems: reviewed and negative except above Subjective no events. tap negative for sbp. on abx. wbc elevated. c/o abd pain Objective Last 24 Hour Vital Signs Date Time Temp Pulse Resp B/P (MAP) Pulse Ox O2 Delivery O2 Flow Rate FiO2 05/14/17 07:43 77 16 Room Air 21 05/14/17 04:00 93 05/14/17 04:00 97.9 94 20 97/72 95 Room Air 05/14/17 00:00 89 05/14/17 00:00 98.2 89 20 90/64 95 Room Air 05/13/17 21:10 76 18 Room Air 21 05/13/17 20:00 98.0 91 20 92/63 95 Room Air 05/13/17 20:00 88 05/13/17 16:00 79 05/13/17 16:00 97.3 80 16 90/68 95 Room Air 05/13/17 12:00 78 05/13/17 12:00 97.3 79 18 92/58 96 Room Air 05/13/17 09:00 75 93/66 Laboratory Tests 05/13/17 10:00: White Blood Count 24.0*H, Red Blood Count 4.12L, Hemoglobin 11.9L, Hematocrit 37.4L, Mean Corpuscular Volume 91, Mean Corpuscular Hemoglobin 28.9, Mean Corpuscular Hemoglobin Concent 31.8L, Red Cell Distribution Width 18.0H, Platelet Count 286, Mean Platelet Volume 7.9, Neutrophils (%) (Auto) , Lymphocytes (%) (Auto) , Monocytes (%) (Auto) , Eosinophils (%) (Auto) , Basophils (%) (Auto) , Differential Total Cells Counted 100, Neutrophils % ( Manual) 89H, Lymphocytes % (Manual) 3L, Monocytes % (Manual) 7, Eosinophils % ( Manual) 1, Basophils % (Manual) 0, Band Neutrophils 0, Platelet Estimate Adequate, Platelet Morphology Normal, Hypochromasia 1+, Anisocytosis 1+, [place] Cells Occasional, Sodium Level 131L, Potassium Level 4.2, Chloride Level 97L, Carbon Dioxide Level 20L, Anion Gap 14, Blood Urea Nitrogen 34H, Creatinine 4.8H , Estimat Glomerular Filtration Rate 12.8, Glucose Level 163H, Calcium Level 8.4L, Total Bilirubin 0.7, Aspartate Amino Transf (AST/SGOT) 14L, Alanine Aminotransferase (ALT/SGPT) 14, Alkaline Phosphatase 106, Ammonia 18, Total Protein 6.3L, Albumin 1.3L, Globulin 5.0, Albumin/Globulin Ratio 0.3L 05/13/17 12:30: Body Fluid Source Ascites, Body Fluid Volume 800, Body Fluid Appearance Hazy, Body Fluid RBC 664, Body Fluid Total Nucleated Cells 400, Body Fluid Polynuclear WBCs (%) 98, Body Fluid Mononuclear WBCs (%) 2, Body Fluid Mesothelial Cells (%) 0 Height (Feet): 5 Height (Inches): 7.00 Weight (Pounds): 175 General Appearance: WD/WN, alert Neck: supple Cardiovascular: regular rhythm Respiratory/Chest: chest wall non-tender, lungs clear, normal breath sounds Abdomen: normal bowel sounds, non tender, soft, no organomegaly 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
--- NOTE | 2017-05-14 08:58 | Nephrology Progress Note ---
Assessment/Plan Plan ESRD + Anasarca -for HD with UF today. Leukocytosis ? significance. No obvious sepsis. Subjective Subjective No new c/o Objective Objective Last 24 Hour Vital Signs Date Time Temp Pulse Resp B/P (MAP) Pulse Ox O2 Delivery O2 Flow Rate FiO2 05/14/17 07:43 77 16 Room Air 21 05/14/17 04:00 93 05/14/17 04:00 97.9 94 20 97/72 95 Room Air 05/14/17 00:00 89 05/14/17 00:00 98.2 89 20 90/64 95 Room Air 05/13/17 21:10 76 18 Room Air 21 05/13/17 20:00 98.0 91 20 92/63 95 Room Air 05/13/17 20:00 88 05/13/17 16:00 79 05/13/17 16:00 97.3 80 16 90/68 95 Room Air 05/13/17 12:00 78 05/13/17 12:00 97.3 79 18 92/58 96 Room Air 05/13/17 09:00 75 93/66 Laboratory Tests 05/13/17 10:00: White Blood Count 24.0*H, Red Blood Count 4.12L, Hemoglobin 11.9L, Hematocrit 37.4L, Mean Corpuscular Volume 91, Mean Corpuscular Hemoglobin 28.9, Mean Corpuscular Hemoglobin Concent 31.8L, Red Cell Distribution Width 18.0H, Platelet Count 286, Mean Platelet Volume 7.9, Neutrophils (%) (Auto) , Lymphocytes (%) (Auto) , Monocytes (%) (Auto) , Eosinophils (%) (Auto) , Basophils (%) (Auto) , Differential Total Cells Counted 100, Neutrophils % ( Manual) 89H, Lymphocytes % (Manual) 3L, Monocytes % (Manual) 7, Eosinophils % ( Manual) 1, Basophils % (Manual) 0, Band Neutrophils 0, Platelet Estimate Adequate, Platelet Morphology Normal, Hypochromasia 1+, Anisocytosis 1+, [place] Cells Occasional, Sodium Level 131L, Potassium Level 4.2, Chloride Level 97L, Carbon Dioxide Level 20L, Anion Gap 14, Blood Urea Nitrogen 34H, Creatinine 4.8H , Estimat Glomerular Filtration Rate 12.8, Glucose Level 163H, Calcium Level 8.4L, Total Bilirubin 0.7, Aspartate Amino Transf (AST/SGOT) 14L, Alanine Aminotransferase (ALT/SGPT) 14, Alkaline Phosphatase 106, Ammonia 18, Total Protein 6.3L, Albumin 1.3L, Globulin 5.0, Albumin/Globulin Ratio 0.3L 05/13/17 12:30: Body Fluid Source Ascites, Body Fluid Volume 800, Body Fluid Appearance Hazy, Body Fluid RBC 664, Body Fluid Total Nucleated Cells 400, Body Fluid Polynuclear WBCs (%) 98, Body Fluid Mononuclear WBCs (%) 2, Body Fluid Mesothelial Cells (%) 0 Height (Feet): 5 Height (Inches): 7.00 Weight (Pounds): 175 Objective CV RR Lungs few wheezes Abd - tense ascites. E +4 B edema PIETRO MARION May 14, 2017 08:58
[2017-05-14] MEDS: Propranolol 10mg tab ORAL SCH (09:00)
--- NOTE | 2017-05-14 09:09 | Diagnostic Imaging Report ---
Indication: Chest pain Technique: One view of the chest Comparison: 04/30/2017 Findings: Again demonstrated is elevation of the right hemidiaphragm and generalized low lung volumes. Right jugular using a lunar tunneled dialysis catheter again demonstrated. Atelectatic changes are seen in the infrahilar regions bilaterally. Findings are unchanged Impression: Unchanged, over 12 days, findings as above.
--- NOTE | 2017-05-14 11:37 | Infectious Diseases Prog Note ---
Assessment/Plan Assessment/Plan antibiotics : vancomycin iv, cefepime A 1. leucocytosis 2. cirrhosis 3. renal failure 4. DM 5. HTN P 1. continue iv vancomycin, cefepime 2. will follow up cultures Subjective ROS Limited/Unobtainable: Yes Allergies: Coded Allergies: PENICILLINS (Verified Allergy, Severe, 05/01/17) Tolerated Zosyn 09/2016 Objective Vital Signs Last 24 Hour Vital Signs Date Time Temp Pulse Resp B/P (MAP) Pulse Ox O2 Delivery O2 Flow Rate FiO2 05/14/17 09:00 95 92/65 05/14/17 08:00 98.3 95 25 92/65 95 Room Air 05/14/17 08:00 99 05/14/17 07:43 77 16 Room Air 05/14/17 04:00 93 05/14/17 04:00 97.9 94 20 97/72 95 Room Air 05/14/17 00:00 89 05/14/17 00:00 98.2 89 20 90/64 95 Room Air 05/13/17 21:10 76 18 Room Air 21 05/13/17 20:00 98.0 91 20 92/63 95 Room Air 05/13/17 20:00 88 05/13/17 16:00 79 05/13/17 16:00 97.3 80 16 90/68 95 Room Air 05/13/17 12:00 78 05/13/17 12:00 97.3 79 18 92/58 96 Room Air Height (Feet): 5 Height (Inches): 7.00 Weight (Pounds): 175 Respiratory/Chest: lungs clear Cardiovascular: normal rate, regular rhythm, no gallop/murmur Abdomen: soft, non tender, other - ventral hernia Extremities: no edema, other - right subclavian catheter Microbiology Date/Time Source Procedure Growth Status 05/12/17 21:20 Blood Blood Culture - Preliminary NO GROWTH AFTER 24 HOURS Resulted 05/12/17 21:15 Blood Blood Culture - Preliminary NO GROWTH AFTER 24 HOURS Resulted Laboratory Tests Test 05/13/17 12:30 Body Fluid Source Ascites Body Fluid Volume 800 mL Body Fluid Appearance Hazy Body Fluid RBC 664 /CUMM Body Fluid Total Nucleated Cells 400 /CUMM Body Fluid Polynuclear WBCs (%) 98 % Body Fluid Mononuclear WBCs (%) 2 % Body Fluid Mesothelial Cells (%) 0 % JN TABOR May 14, 2017 11:37
[2017-05-14 12:00] VITALS: BP 92/66
[2017-05-14] MEDS ORDERED: Cefepime HCl 1 GM in D5W 55 ML IVPB ONE (13:00)
[2017-05-14] MEDS: Norco 5mg/325mg tab ORAL PRN (14:40)
[2017-05-14 16:00] VITALS: BP 91/60
[2017-05-14 20:00] VITALS: BP 89/64
[2017-05-15] VITALS: BP 92/69
[2017-05-15 04:00] VITALS: BP 94/59
[2017-05-15 04:43] LABS: HEMATOCRIT 41.4 % (42.0-52.0); HEMOGLOBIN 13.5 G/DL (14.2-18.0); MEAN CORPUSCULAR VOLUME 91 FL (80-99); PLATELET COUNT 185 K/UL (150-450); RED BLOOD COUNT 4.56 M/UL (4.70-6.10); RED CELL DISTRIBUTION WIDTH 17.8 % (11.6-14.8)
[2017-05-15 05:05] LABS: WHITE BLOOD COUNT 24.7 K/UL (4.8-10.8)
[2017-05-15 05:25] LABS: ALANINE AMINOTRANSFERASE 10 U/L (12-78); ALBUMIN 1.2 G/DL (3.4-5.0); ALBUMIN/GLOBULIN RATIO 0.2 (1.0-2.7); ALKALINE PHOSPHATASE 119 U/L (46-116); ANION GAP 15 mmol/L (5-15); ASPARTATE AMINO TRANSFERASE 17 U/L (15-37); BILIRUBIN,TOTAL 0.8 MG/DL (0.2-1.0); BLOOD UREA NITROGEN 44 mg/dL (7-18); CALCIUM 8.5 MG/DL (8.5-10.1); CARBON DIOXIDE 17 MMOL/L (21-32); CHLORIDE 95 MMOL/L (98-107); CREATININE 5.4 MG/DL (0.55-1.30); POTASSIUM 4.6 MMOL/L (3.5-5.1); SODIUM 126 MMOL/L (136-145)
[2017-05-15] MEDS: NovoLOG Insulin Flexpen SUBQ SCH ×4 (06:47→20:42)
[2017-05-15 08:00] VITALS: BP 94/67
[2017-05-15] MEDS ORDERED: NaCl 3% 500ml 500 ML IV ONE (08:00)
[2017-05-15] MEDS: Norco 5mg/325mg tab ORAL PRN ×2 (09:00→15:22)
[2017-05-15] MEDS: Lactulose 20gm/30ml UDC ORAL SCH ×2 (09:00→17:37)
[2017-05-15] MEDS: Propranolol 10mg tab ORAL SCH (09:00)
--- NOTE | 2017-05-15 09:19 | Infectious Diseases Prog Note ---
Assessment/Plan Assessment/Plan A: SIRS/Sepsis Cirrhosis ESRD Lactic acidosis P: Continue Vancomycin & Cefepime Subjective ROS Limited/Unobtainable: No Constitutional: Reports: no symptoms Respiratory: Reports: no symptoms Cardiovascular: Reports: no symptoms Gastrointestinal/Abdominal: Reports: diarrhea Genitourinary: Reports: no symptoms Allergies: Coded Allergies: PENICILLINS (Verified Allergy, Severe, 05/01/17) Tolerated Zosyn 09/2016 Objective Vital Signs Last 24 Hour Vital Signs Date Time Temp Pulse Resp B/P (MAP) Pulse Ox O2 Delivery O2 Flow Rate FiO2 05/15/17 09:00 107 94/67 05/15/17 04:00 100 05/15/17 04:00 97.9 103 20 94/59 93 Room Air 05/15/17 00:00 103 05/15/17 00:00 97.8 102 22 92/69 95 Room Air 05/14/17 20:16 81 16 Room Air 21 05/14/17 20:00 97.7 104 20 89/64 95 Room Air 05/14/17 20:00 105 05/14/17 16:00 111 05/14/17 16:00 97.7 106 23 91/60 95 Room Air 05/14/17 15:53 Room Air 05/14/17 15:39 97.8 05/14/17 13:50 Room Air 05/14/17 12:00 97.8 102 24 92/66 95 Room Air 05/14/17 12:00 99 Height (Feet): 5 Height (Inches): 7.00 Weight (Pounds): 175 General Appearance: no acute distress HEENT: mucous membranes moist Respiratory/Chest: lungs clear Cardiovascular: tachycardia, other - Permacath Abdomen: soft, non tender Extremities: no edema Neurologic/Psychiatric: alert, oriented x 3, responsive Microbiology Date/Time Source Procedure Growth Status 05/12/17 21:20 Blood Blood Culture - Preliminary NO GROWTH AFTER 48 HOURS Resulted 05/12/17 21:15 Blood Blood Culture - Preliminary NO GROWTH AFTER 48 HOURS Resulted Laboratory Tests Test 05/14/17 17:55 05/15/17 04:15 Random Vancomycin Level 26.2 ug/mL White Blood Count 24.7 K/UL (4.8-10.8) *H Red Blood Count 4.56 M/UL (4.70-6.10) L Hemoglobin 13.5 G/DL (14.2-18.0) L Hematocrit 41.4 % (42.0-52.0) L Mean Corpuscular Volume 91 FL (80-99) Mean Corpuscular Hemoglobin 29.6 PG (27.0-31.0) Mean Corpuscular Hemoglobin Concent 32.6 G/DL (32.0-36.0) Red Cell Distribution Width 17.8 % (11.6-14.8) H Platelet Count 185 K/UL (150-450) Mean Platelet Volume 8.1 FL (6.5-10.1) Neutrophils (%) (Auto) % (45.0-75.0) Lymphocytes (%) (Auto) % (20.0-45.0) Monocytes (%) (Auto) % (1.0-10.0) Eosinophils (%) (Auto) % (0.0-3.0) Basophils (%) (Auto) % (0.0-2.0) Differential Total Cells Counted 100 Neutrophils % (Manual) 87 % (45-75) H Lymphocytes % (Manual) 3 % (20-45) L Monocytes % (Manual) 9 % (1-10) Eosinophils % (Manual) 0 % (0-3) Basophils % (Manual) 1 % (0-2) Band Neutrophils 0 % (0-8) Platelet Estimate Adequate Platelet Morphology Normal Hypochromasia 1+ Anisocytosis 1+ Sodium Level 126 MMOL/L (136-145) L Potassium Level 4.6 MMOL/L (3.5-5.1) Chloride Level 95 MMOL/L (98-107) L Carbon Dioxide Level 17 MMOL/L (21-32) L Anion Gap 15 mmol/L (5-15) Blood Urea Nitrogen 44 mg/dL (7-18) H Creatinine 5.4 MG/DL (0.55-1.30) H Estimat Glomerular Filtration Rate 11.2 mL/min (>60) Glucose Level 172 MG/DL (74-106) H Lactic Acid Level 3.30 mmol/L (0.66-2.22) H Calcium Level 8.5 MG/DL (8.5-10.1) Total Bilirubin 0.8 MG/DL (0.2-1.0) Aspartate Amino Transf (AST/SGOT) 17 U/L (15-37) Alanine Aminotransferase (ALT/SGPT) 10 U/L (12-78) L Alkaline Phosphatase 119 U/L (46-116) H Total Protein 6.3 G/DL (6.4-8.2) L Albumin 1.2 G/DL (3.4-5.0) L Globulin 5.1 g/dL Albumin/Globulin Ratio 0.2 (1.0-2.7) L Current Medications Medications (Trade) Dose Ordered Sig/Chaz Route PRN Reason Start Time Stop Time Status Last Admin Dose Admin Acetaminophen/ Hydrocodone Bitart ([place] 5/325) 1 tab Q6H PRN ORAL For Pain 05/14/17 08:45 05/21/17 08:44 05/15/17 09:00 Albuterol Sulfate (Proventil) 2.5 mg Q4H PRN HHN Shortness of Breath 05/13/17 08:00 05/18/17 07:59 Cefepime HCl 0.5 gm/Dextrose 55 ml @ 110 mls/hr Q24H IVPB 05/15/17 20:00 05/22/17 19:59 Dextrose (Dextrose 50%) STAT PRN IV Hypoglycemia 05/13/17 08:00 06/12/17 07:59 Insulin Aspart (NovoLOG) BEFORE MEALS AND HS SUBQ 05/13/17 11:30 06/12/17 11:29 05/15/17 06:47 Lactulose (Cephulac) 20 gm BID ORAL 05/13/17 09:00 06/12/17 08:59 05/15/17 09:00 Mirtazapine (Remeron) 15 mg BEDTIME ORAL 05/13/17 21:00 06/12/17 20:59 05/14/17 20:38 Pantoprazole (Protonix) 40 mg ACBREAKFAST ORAL 05/13/17 06:30 06/12/17 06:29 05/15/17 06:45 Propranolol HCl (Inderal) 20 mg DAILY ORAL 05/14/17 09:00 06/12/17 08:59 Sodium Chloride 500 ml @ 50 mls/hr STAT ONCE IV 05/15/17 08:00 05/15/17 17:59 05/15/17 08:27 Vancomycin HCl (Vanco rx to dose) 1 ea DAILY PRN MISC Per rx protocol 05/14/17 11:45 06/13/17 11:44 JOSE DANIEL GORDON May 15, 2017 09:19
--- NOTE | 2017-05-15 11:31 | General Progress Note ---
Assessment/Plan Problem List: (1) Cirrhosis ICD Codes: K74.60 - Unspecified cirrhosis of liver SNOMED: 59000727 (2) ESRD (end stage renal disease) ICD Codes: N18.6 - End stage renal disease SNOMED: 10422726 (3) Sepsis ICD Codes: A41.9 - Sepsis, unspecified organism SNOMED: 37299556 Status: stable Assessment/Plan iv abx follow up cultures HD monitor wbc pain rx ct abd Subjective ROS Limited/Unobtainable: No Constitutional: Reports: malaise, weakness HEENT: Reports: no symptoms Cardiovascular: Reports: no symptoms Respiratory: Reports: no symptoms Gastrointestinal/Abdominal: Reports: abdomen distended Genitourinary: Reports: no symptoms Neurologic/Psychiatric: Reports: no symptoms Endocrine: Reports: no symptoms Hematologic/Lymphatic: Reports: anemia Allergies: Coded Allergies: PENICILLINS (Verified Allergy, Severe, 05/01/17) Tolerated Zosyn 09/2016 All Systems: reviewed and negative except above Subjective no events. tap negative for sbp. on abx. remains elevated. lactic acid level still high Objective Last 24 Hour Vital Signs Date Time Temp Pulse Resp B/P (MAP) Pulse Ox O2 Delivery O2 Flow Rate FiO2 05/15/17 09:00 107 94/67 05/15/17 08:00 103 05/15/17 08:00 97.5 107 21 94/67 97 Room Air 05/15/17 04:00 100 05/15/17 04:00 97.9 103 20 94/59 93 Room Air 05/15/17 00:00 103 05/15/17 00:00 97.8 102 22 92/69 95 Room Air 05/14/17 20:16 81 16 Room Air 21 05/14/17 20:00 97.7 104 20 89/64 95 Room Air 05/14/17 20:00 105 05/14/17 16:00 111 05/14/17 16:00 97.7 106 23 91/60 95 Room Air 05/14/17 15:53 Room Air 05/14/17 15:39 97.8 05/14/17 13:50 Room Air 05/14/17 12:00 97.8 102 24 92/66 95 Room Air 05/14/17 12:00 99 Intake and Output 05/14/17 05/15/17 19:00 07:00 Intake Total 1350 ml 240 ml Balance 1350 ml 240 ml Intake Oral 350 ml 240 ml Hemodialysis 1000 ml # Voids 1 # Bowel Movements 4 1 Laboratory Tests 05/14/17 17:55: Random Vancomycin Level 26.2 05/15/17 04:15: White Blood Count 24.7*H, Red Blood Count 4.56L, Hemoglobin 13.5L, Hematocrit 41.4L, Mean Corpuscular Volume 91, Mean Corpuscular Hemoglobin 29.6, Mean Corpuscular Hemoglobin Concent 32.6, Red Cell Distribution Width 17.8H, Platelet Count 185, Mean Platelet Volume 8.1, Neutrophils (%) (Auto) , Lymphocytes (%) (Auto) , Monocytes (%) (Auto) , Eosinophils (%) (Auto) , Basophils (%) (Auto) , Differential Total Cells Counted 100, Neutrophils % ( Manual) 87H, Lymphocytes % (Manual) 3L, Monocytes % (Manual) 9, Eosinophils % ( Manual) 0, Basophils % (Manual) 1, Band Neutrophils 0, Platelet Estimate Adequate, Platelet Morphology Normal, Hypochromasia 1+, Anisocytosis 1+, Sodium Level 126L, Potassium Level 4.6, Chloride Level 95L, Carbon Dioxide Level 17L, Anion Gap 15, Blood Urea Nitrogen 44H, Creatinine 5.4H, Estimat Glomerular Filtration Rate 11.2, Glucose Level 172H, Lactic Acid Level 3.30H, Calcium Level 8.5, Total Bilirubin 0.8, Aspartate Amino Transf (AST/SGOT) 17, Alanine Aminotransferase (ALT/SGPT) 10L, Alkaline Phosphatase 119H, Total Protein 6.3L, Albumin 1.2L, Globulin 5.1, Albumin/Globulin Ratio 0.2L 05/15/17 09:35: Lactic Acid Level 4.60H Height (Feet): 5 Height (Inches): 7.00 Weight (Pounds): 175 Objective General Appearance: WD/WN, alert Neck: supple Cardiovascular: regular rhythm Respiratory/Chest: chest wall non-tender, lungs clear, normal breath sounds Abdomen: normal bowel sounds, non tender, soft, no organomegaly. 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
[2017-05-15 12:00] VITALS: BP 92/67
--- NOTE | 2017-05-15 15:24 | Nephrology Progress Note ---
Assessment/Plan Plan ESRD + Anasarca -for HD with UF tomorrow. Leukocytosis ? significance. No obvious sepsis. Ascites - s/p paracentesis Subjective Subjective No new c/o Objective Objective Last 24 Hour Vital Signs Date Time Temp Pulse Resp B/P (MAP) Pulse Ox O2 Delivery O2 Flow Rate FiO2 05/15/17 12:00 101 05/15/17 12:00 97.6 103 21 92/67 97 Room Air 05/15/17 09:00 107 94/67 05/15/17 08:00 103 05/15/17 08:00 97.5 107 21 94/67 97 Room Air 05/15/17 04:00 100 05/15/17 04:00 97.9 103 20 94/59 93 Room Air 05/15/17 00:00 103 05/15/17 00:00 97.8 102 22 92/69 95 Room Air 05/14/17 20:16 81 16 Room Air 21 05/14/17 20:00 97.7 104 20 89/64 95 Room Air 05/14/17 20:00 105 05/14/17 16:00 111 05/14/17 16:00 97.7 106 23 91/60 95 Room Air 05/14/17 15:53 Room Air 05/14/17 15:39 97.8 Intake and Output 05/14/17 05/15/17 19:00 07:00 Intake Total 1350 ml 240 ml Balance 1350 ml 240 ml Intake Oral 350 ml 240 ml Hemodialysis 1000 ml # Voids 1 # Bowel Movements 4 1 Laboratory Tests 05/14/17 17:55: Random Vancomycin Level 26.2 05/15/17 04:15: White Blood Count 24.7*H, Red Blood Count 4.56L, Hemoglobin 13.5L, Hematocrit 41.4L, Mean Corpuscular Volume 91, Mean Corpuscular Hemoglobin 29.6, Mean Corpuscular Hemoglobin Concent 32.6, Red Cell Distribution Width 17.8H, Platelet Count 185, Mean Platelet Volume 8.1, Neutrophils (%) (Auto) , Lymphocytes (%) (Auto) , Monocytes (%) (Auto) , Eosinophils (%) (Auto) , Basophils (%) (Auto) , Differential Total Cells Counted 100, Neutrophils % ( Manual) 87H, Lymphocytes % (Manual) 3L, Monocytes % (Manual) 9, Eosinophils % ( Manual) 0, Basophils % (Manual) 1, Band Neutrophils 0, Platelet Estimate Adequate, Platelet Morphology Normal, Hypochromasia 1+, Anisocytosis 1+, Sodium Level 126L, Potassium Level 4.6, Chloride Level 95L, Carbon Dioxide Level 17L, Anion Gap 15, Blood Urea Nitrogen 44H, Creatinine 5.4H, Estimat Glomerular Filtration Rate 11.2, Glucose Level 172H, Lactic Acid Level 3.30H, Calcium Level 8.5, Total Bilirubin 0.8, Aspartate Amino Transf (AST/SGOT) 17, Alanine Aminotransferase (ALT/SGPT) 10L, Alkaline Phosphatase 119H, Total Protein 6.3L, Albumin 1.2L, Globulin 5.1, Albumin/Globulin Ratio 0.2L 05/15/17 09:35: Lactic Acid Level 4.60H Height (Feet): 5 Height (Inches): 7.00 Weight (Pounds): 175 Objective CV RR Lungs few wheezes Abd - tense ascites. E +4 B edema PIETRO MARION May 15, 2017 15:24
[2017-05-15 16:00] VITALS: BP 92/70
[2017-05-15] MEDS ORDERED: Heparin Sod 1000 units/ml 10ml IV PRN ×2 (16:00)
--- NOTE | 2017-05-15 16:51 | Diagnostic Imaging Report ---
Indication: Abdominal pain Technique: Spiral acquisitions obtained through the abdomen and pelvis. Patient given oral contrast. No IV contrast utilized, per referring physician request.. Multiplanar reconstructions were generated. Total dose length product 1389.34 mGycm. CTDIvol(s) 16.58,12.5 mGy. Dose reduction achieved using automated exposure control Comparison: 05/03/2017 Findings: Again demonstrated is massive ascites, despite the presence of an apparent adequate position of a chronic drainage catheter. The drainage catheter enters the left flank, traverses the upper pelvis, tip in the right flank. There is no free intraperitoneal air present. There is also a large fluid-filled umbilical hernia, appearing identical to the prior study, does not contain any bowel currently. There is also massive fluid within the right inguinal canal and scrotum. The schumacher of the distal ascending, transverse, descending, and proximal sigmoid colon are diffusely edematous. There is no evidence of diverticulosis. The appendix is normal. Proximal small bowel loops are mildly dilated. There also appears to be mild generalized small bowel wall thickening. Contrast is not seen all the way through the small bowel, but no definite obstructive pathology is evident, and no collapsed distal small bowel is noted. The stomach is unremarkable. Retained contrast is seen within the distal esophagus which is mildly dilated. There is edema of the bilateral subcutaneous fat and to lesser extent the mesenteric fat. There is trace pleural fluid on the left. Lack of IV contrast limits assessment of solid organs. The liver is diffusely atrophic with surface nodularity, consistent with known history of cirrhosis. The gallbladder is surgically absent. No definite biliary ductal dilatation. Small omental varices are again demonstrated. The pancreas is somewhat atrophic. The spleen is borderline enlarged, measuring 13 cm long axis dimension.. The left adrenal demonstrates ill-defined nodularity. The right adrenal is unremarkable. The kidneys are unremarkable. No retroperitoneal or mesenteric mass or adenopathy. No pelvic mass or adenopathy. Included lung bases demonstrate some atelectatic changes as well as the trace pleural fluid on the left mentioned above. The tip of a dialysis catheter is seen in the right atrium. The bones demonstrate mild degenerative changes. There is a mild anterior wedge deformity of the T12 vertebral body which is unchanged. Alternating sclerotic and osteoporotic appearance of the spine likely reflects renal osteodystrophy Impression: Massive ascites, despite the presence and apparent adequate position of a chronic peritoneal drainage catheter. Note also ascites fluid in herniating into an umbilical hernia as well as into the left inguinal canal and scrotum Diffuse colonic wall thickening, extending from the distal ascending colon to the proximal sigmoid, consistent with colitis, nonspecific as regards etiology Evidence of anasarca, with, in addition to the peritoneal fluid, edema of the subcutaneous fat and trace left pleural fluid Hepatic cirrhosis, also previously described. Evidence of portal hypertension, with splenomegaly and varices in addition to the ascites Mild esophageal distention with retained contrast, likely reflecting abnormal esophageal motility Mildly dilated small bowel without evidence of distal obstructing pathology, may reflect mild ileus. Equivocal mild small bowel wall thickening could indicate a component of enteritis Other findings as noted, including likely renal osteodystrophy, stable T12 vertebral body wedge deformity, dialysis catheter, degenerative spondylosis, basilar pulmonary atelectasis The CT scanner at [facility] is accredited by the [employer] and the scans are performed using protocols designed to limit radiation exposure to as low as reasonably achievable to attain images of sufficient resolution adequate for diagnostic evaluation. Abdominal pain
[2017-05-15 20:00] VITALS: BP 100/72
[2017-05-15] MEDS: metroNIDAZOLE 500mg tab ORAL SCH (20:39)
[2017-05-15] MEDS: Cefepime HCl 0.5 GM in D5W 55 ML IVPB SCH (20:40)
[2017-05-16] VITALS: BP 101/73
[2017-05-16 04:00] VITALS: BP 100/74
[2017-05-16] MEDS: metroNIDAZOLE 500mg tab ORAL SCH ×3 (05:30→22:22)
[2017-05-16] MEDS: Norco 5mg/325mg tab ORAL PRN ×3 (05:30→20:38)
[2017-05-16] MEDS: NovoLOG Insulin Flexpen SUBQ SCH ×4 (05:31→20:54)
[2017-05-16 05:43] LABS: ANION GAP 17 mmol/L (5-15); BLOOD UREA NITROGEN 52 mg/dL (7-18); CALCIUM 7.3 MG/DL (8.5-10.1); CARBON DIOXIDE 12 MMOL/L (21-32); CHLORIDE 95 MMOL/L (98-107); SODIUM 124 MMOL/L (136-145)
[2017-05-16 05:46] LABS: HEMOGLOBIN 12.4 G/DL (14.2-18.0); MEAN CORPUSCULAR VOLUME 92 FL (80-99); PLATELET COUNT 175 K/UL (150-450); RED BLOOD COUNT 4.12 M/UL (4.70-6.10); RED CELL DISTRIBUTION WIDTH 18.2 % (11.6-14.8)
[2017-05-16 06:53] LABS: WHITE BLOOD COUNT 26.2 K/UL (4.8-10.8)
[2017-05-16 08:00] VITALS: BP 120/30
[2017-05-16] MEDS: Propranolol 10mg tab ORAL SCH (09:00)
[2017-05-16] MEDS: Lactulose 20gm/30ml UDC ORAL SCH ×2 (10:36→18:00)
--- NOTE | 2017-05-16 11:11 | General Progress Note ---
Assessment/Plan Problem List: (1) Cirrhosis ICD Codes: K74.60 - Unspecified cirrhosis of liver SNOMED: 59571736 (2) ESRD (end stage renal disease) ICD Codes: N18.6 - End stage renal disease SNOMED: 51875515 (3) Sepsis ICD Codes: A41.9 - Sepsis, unspecified organism SNOMED: 79646242 Status: stable, not improved Assessment/Plan iv abx added flagyl check cdiff follow up cultures HD monitor wbc pain rx Subjective ROS Limited/Unobtainable: No Constitutional: Reports: malaise, weakness HEENT: Reports: no symptoms Cardiovascular: Reports: no symptoms Respiratory: Reports: no symptoms Gastrointestinal/Abdominal: Reports: abdomen distended Genitourinary: Reports: no symptoms Neurologic/Psychiatric: Reports: anxiety, pre-existing deficit Endocrine: Reports: no symptoms Hematologic/Lymphatic: Reports: anemia Allergies: Coded Allergies: PENICILLINS (Verified Allergy, Severe, 05/01/17) Tolerated Zosyn 09/2016 All Systems: reviewed and negative except above Subjective no events. tap negative for sbp. on abx. CT shows diffuse collitis. Flagyl added. Objective Last 24 Hour Vital Signs Date Time Temp Pulse Resp B/P (MAP) Pulse Ox O2 Delivery O2 Flow Rate FiO2 05/16/17 09:15 Nasal Cannula 2.0 05/16/17 09:00 94 100/74 05/16/17 07:32 94 18 Room Air 05/16/17 06:29 97.5 05/16/17 06:15 Room Air 05/16/17 04:00 100 05/16/17 04:00 97.5 105 20 100/74 95 Room Air 05/16/17 00:00 98 05/16/17 00:00 97.0 102 20 101/73 96 Room Air 05/15/17 20:33 100 18 Room Air 21 05/15/17 20:00 102 05/15/17 20:00 98.2 100 20 100/72 96 Room Air 05/15/17 16:00 96.4 102 20 92/70 96 Room Air 05/15/17 16:00 103 05/15/17 14:05 101 20 Room Air 21 05/15/17 12:00 101 05/15/17 12:00 97.6 103 21 92/67 97 Room Air Intake and Output 05/15/17 05/16/17 19:00 07:00 Intake Total 330.833 ml 250 ml Output Total 1100 ml Balance -769.167 ml 250 ml Intake Oral 250 ml IV Total 330.833 ml Peritoneal Dialysis UF 1100 ml # Bowel Movements 2 Laboratory Tests 05/16/17 03:40: White Blood Count 26.2*H, Red Blood Count 4.12L, Hemoglobin 12.4L, Hematocrit 38.0L, Mean Corpuscular Volume 92, Mean Corpuscular Hemoglobin 30.0, Mean Corpuscular Hemoglobin Concent 32.5, Red Cell Distribution Width 18.2H, Platelet Count 175, Mean Platelet Volume 9.5, Neutrophils (%) (Auto) , Lymphocytes (%) (Auto) , Monocytes (%) (Auto) , Eosinophils (%) (Auto) , Basophils (%) (Auto) , Differential Total Cells Counted 100, Neutrophils % ( Manual) 95H, Lymphocytes % (Manual) 2L, Monocytes % (Manual) 3, Eosinophils % ( Manual) 0, Basophils % (Manual) 0, Band Neutrophils 0, Platelet Estimate Adequate, Platelet Morphology Normal, Anisocytosis 1+, Sodium Level 124L, Potassium Level 5.0, Chloride Level 95L, Carbon Dioxide Level 12L, Anion Gap 17H , Blood Urea Nitrogen 52H, Creatinine 6.0H, Estimat Glomerular Filtration Rate 9.9, Glucose Level 241H, Calcium Level 7.3L, Random Vancomycin Level 23.7 Height (Feet): 5 Height (Inches): 7.00 Weight (Pounds): 175 Objective General Appearance: WD/WN, alert Neck: supple Cardiovascular: regular rhythm Respiratory/Chest: chest wall non-tender, lungs clear, normal breath sounds Abdomen: normal bowel sounds, non tender, soft, no organomegaly. 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
[2017-05-16 12:00] VITALS: BP 120/60
--- NOTE | 2017-05-16 12:15 | Infectious Diseases Prog Note ---
Assessment/Plan Assessment/Plan antibiotics : vancomycin iv, cefepime, flagyl A 1. leucocytosis 2. cirrhosis 3. renal failure 4. DM 5. HTN P 1. continue iv vancomycin, cefepime, flagyl 2. will follow up cultures Subjective Respiratory: Denies: shortness of breath, dry cough Gastrointestinal/Abdominal: Denies: nausea, vomiting, diarrhea Musculoskeletal: Reports: pain - back Allergies: Coded Allergies: PENICILLINS (Verified Allergy, Severe, 05/01/17) Tolerated Zosyn 09/2016 Objective Vital Signs Last 24 Hour Vital Signs Date Time Temp Pulse Resp B/P (MAP) Pulse Ox O2 Delivery O2 Flow Rate FiO2 05/16/17 09:15 Nasal Cannula 2.0 05/16/17 09:00 96 97/42 05/16/17 08:00 96.9 74 19 120/30 93 Room Air 05/16/17 07:32 94 18 Room Air 21 05/16/17 06:29 97.5 05/16/17 06:15 Room Air 05/16/17 04:00 100 05/16/17 04:00 97.5 105 20 100/74 95 Room Air 05/16/17 00:00 98 05/16/17 00:00 97.0 102 20 101/73 96 Room Air 05/15/17 20:33 100 18 Room Air 21 05/15/17 20:00 102 05/15/17 20:00 98.2 100 20 100/72 96 Room Air 05/15/17 16:00 96.4 102 20 92/70 96 Room Air 05/15/17 16:00 103 05/15/17 14:05 101 20 Room Air 21 Height (Feet): 5 Height (Inches): 7.00 Weight (Pounds): 175 Respiratory/Chest: lungs clear Cardiovascular: normal rate, regular rhythm, no gallop/murmur Abdomen: soft, non tender, other - ventral hernia Extremities: no edema, other - right subclavian Laboratory Tests Test 05/16/17 03:40 White Blood Count 26.2 K/UL (4.8-10.8) *H Red Blood Count 4.12 M/UL (4.70-6.10) L Hemoglobin 12.4 G/DL (14.2-18.0) L Hematocrit 38.0 % (42.0-52.0) L Mean Corpuscular Volume 92 FL (80-99) Mean Corpuscular Hemoglobin 30.0 PG (27.0-31.0) Mean Corpuscular Hemoglobin Concent 32.5 G/DL (32.0-36.0) Red Cell Distribution Width 18.2 % (11.6-14.8) H Platelet Count 175 K/UL (150-450) Mean Platelet Volume 9.5 FL (6.5-10.1) Neutrophils (%) (Auto) % (45.0-75.0) Lymphocytes (%) (Auto) % (20.0-45.0) Monocytes (%) (Auto) % (1.0-10.0) Eosinophils (%) (Auto) % (0.0-3.0) Basophils (%) (Auto) % (0.0-2.0) Differential Total Cells Counted 100 Neutrophils % (Manual) 95 % (45-75) H Lymphocytes % (Manual) 2 % (20-45) L Monocytes % (Manual) 3 % (1-10) Eosinophils % (Manual) 0 % (0-3) Basophils % (Manual) 0 % (0-2) Band Neutrophils 0 % (0-8) Platelet Estimate Adequate Platelet Morphology Normal Anisocytosis 1+ Sodium Level 124 MMOL/L (136-145) L Potassium Level 5.0 MMOL/L (3.5-5.1) Chloride Level 95 MMOL/L (98-107) L Carbon Dioxide Level 12 MMOL/L (21-32) L Anion Gap 17 mmol/L (5-15) H Blood Urea Nitrogen 52 mg/dL (7-18) H Creatinine 6.0 MG/DL (0.55-1.30) H Estimat Glomerular Filtration Rate 9.9 mL/min (>60) Glucose Level 241 MG/DL (74-106) H Calcium Level 7.3 MG/DL (8.5-10.1) L Random Vancomycin Level 23.7 ug/mL Current Medications Medications (Trade) Dose Ordered Sig/Chaz Route PRN Reason Start Time Stop Time Status Last Admin Dose Admin Acetaminophen/ Hydrocodone Bitart ([place] 5/325) 1 tab Q6H PRN ORAL For Pain 05/14/17 08:45 05/21/17 08:44 05/16/17 05:30 Albuterol Sulfate (Proventil) 2.5 mg Q4H PRN HHN Shortness of Breath 05/13/17 08:00 05/18/17 07:59 Cefepime HCl 0.5 gm/Dextrose 55 ml @ 110 mls/hr Q24H IVPB 05/15/17 20:00 05/22/17 19:59 05/15/17 20:40 Dextrose (Dextrose 50%) STAT PRN IV Hypoglycemia 05/13/17 08:00 06/12/17 07:59 Heparin Sodium (Porcine) (Heparin Sod 1000 units/ml 10ml) 500 unit ONCE PRN IV FOR HD USE ONLY 05/15/17 16:00 05/16/17 23:59 Heparin Sodium (Porcine) (Heparin Sod 1000 units/ml 10ml) 2,000 unit ONCE PRN IV FOR HD USE 05/15/17 16:00 05/16/17 23:59 Insulin Aspart (NovoLOG) BEFORE MEALS AND HS SUBQ 05/13/17 11:30 06/12/17 11:29 05/16/17 05:31 Lactulose (Cephulac) 20 gm BID ORAL 05/13/17 09:00 06/12/17 08:59 05/16/17 10:36 Metronidazole (Flagyl) 500 mg Q8HR ORAL 05/15/17 20:00 05/22/17 19:59 05/16/17 05:30 Mirtazapine (Remeron) 15 mg BEDTIME ORAL 05/13/17 21:00 06/12/17 20:59 05/15/17 20:39 Pantoprazole (Protonix) 40 mg ACBREAKFAST ORAL 05/13/17 06:30 06/12/17 06:29 05/16/17 05:30 Propranolol HCl (Inderal) 20 mg DAILY ORAL 05/14/17 09:00 06/12/17 08:59 Sodium Chloride 1,000 ml @ 500 mls/hr Q2H PRN IVLG sbp<90 during hd 05/15/17 16:00 05/16/17 23:59 Vancomycin HCl (Vanco rx to dose) 1 ea DAILY PRN MISC Per rx protocol 05/14/17 11:45 06/13/17 11:44 Vancomycin HCl/ Dextrose 250 ml @ 166.667 mls/hr ONCE ONCE IVPB 05/17/17 09:00 05/17/17 10:29 JN TABOR May 16, 2017 12:15
[2017-05-16 16:00] VITALS: BP 121/60
[2017-05-16 20:00] VITALS: BP 82/49
[2017-05-16] MEDS: Cefepime HCl 0.5 GM in D5W 55 ML IVPB SCH (20:13)
[2017-05-17] VITALS: BP 94/66
[2017-05-17 04:00] VITALS: BP 93/65
[2017-05-17] MEDS: NovoLOG Insulin Flexpen SUBQ SCH ×4 (06:49→20:59)
[2017-05-17] MEDS: metroNIDAZOLE 500mg tab ORAL SCH (06:53)
[2017-05-17 08:00] VITALS: BP 100/70
[2017-05-17] MEDS ORDERED: Vancomycin 1250mg/D5W 250ml IVPB ONE (09:00)
[2017-05-17] MEDS: Propranolol 10mg tab ORAL SCH (09:00)
--- NOTE | 2017-05-17 09:16 | General Progress Note ---
Assessment/Plan Problem List: (1) Cirrhosis ICD Codes: K74.60 - Unspecified cirrhosis of liver SNOMED: 74702403 (2) ESRD (end stage renal disease) ICD Codes: N18.6 - End stage renal disease SNOMED: 53160965 (3) Sepsis ICD Codes: A41.9 - Sepsis, unspecified organism SNOMED: 12208908 Status: stable Assessment/Plan iv abx added flagyl check cdiff- still not done yet follow up cultures HD monitor wbc pain rx Subjective ROS Limited/Unobtainable: No Constitutional: Reports: malaise, weakness HEENT: Reports: no symptoms Cardiovascular: Reports: no symptoms Respiratory: Reports: no symptoms Gastrointestinal/Abdominal: Reports: abdomen distended Genitourinary: Reports: no symptoms Neurologic/Psychiatric: Reports: pre-existing deficit Endocrine: Reports: no symptoms Hematologic/Lymphatic: Reports: anemia Allergies: Coded Allergies: PENICILLINS (Verified Allergy, Severe, 05/01/17) Tolerated Zosyn 09/2016 All Systems: reviewed and negative except above Subjective decreased abd pain. Ct with extensive colitis. Cdiff still not sent yet. labs pending for this am Objective Last 24 Hour Vital Signs Date Time Temp Pulse Resp B/P (MAP) Pulse Ox O2 Delivery O2 Flow Rate FiO2 05/17/17 04:00 97.0 112 23 93/65 94 Room Air 05/17/17 04:00 111 05/17/17 00:00 96.1 110 21 94/66 95 Room Air 05/17/17 00:00 111 05/16/17 20:18 111 18 Nasal Cannula 2.0 28 05/16/17 20:00 111 05/16/17 20:00 97.0 111 24 82/49 Room Air 05/16/17 16:00 97.8 70 19 121/60 91 Room Air 05/16/17 16:00 110 05/16/17 12:00 96.9 85 19 120/60 91 Room Air 05/16/17 12:00 114 05/16/17 09:15 Nasal Cannula 2.0 Intake and Output 05/16/17 05/17/17 19:00 07:00 Intake Total 290 ml Output Total 3800 ml Balance -3510 ml Intake Oral 290 ml Output Urine Total 500 ml Peritoneal Dialysis UF 1300 ml Other 2000 ml # Voids 3 1 # Bowel Movements 2 1 Height (Feet): 5 Height (Inches): 7.00 Weight (Pounds): 175 Objective General Appearance: WD/WN, alert Neck: supple Cardiovascular: regular rhythm Respiratory/Chest: chest wall non-tender, lungs clear, normal breath sounds Abdomen: normal bowel sounds, non tender, soft, no organomegaly. 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
[2017-05-17] MEDS: Lactulose 20gm/30ml UDC ORAL SCH ×2 (09:20→17:15)
[2017-05-17 10:38] LABS: HEMATOCRIT 42.7 % (42.0-52.0); HEMOGLOBIN 13.4 G/DL (14.2-18.0); MEAN CORPUSCULAR VOLUME 93 FL (80-99); PLATELET COUNT 147 K/UL (150-450); RED BLOOD COUNT 4.59 M/UL (4.70-6.10); RED CELL DISTRIBUTION WIDTH 18.3 % (11.6-14.8)
[2017-05-17 10:41] LABS: WHITE BLOOD COUNT 26.5 K/UL (4.8-10.8)
--- NOTE | 2017-05-17 10:51 | Infectious Diseases Prog Note ---
Assessment/Plan Assessment/Plan antibiotics : vancomycin iv, cefepime, flagyl A 1. leucocytosis 2. cirrhosis 3. renal failure 4. DM 5. HTN 6. colitis P 1. d/c iv vancomycin, cefepime, flagyl 2. stool for c.diff 3. start po vancomycin 4. will follow up cultures Subjective ROS Limited/Unobtainable: Yes Allergies: Coded Allergies: PENICILLINS (Verified Allergy, Severe, 05/01/17) Tolerated Zosyn 09/2016 Objective Vital Signs Last 24 Hour Vital Signs Date Time Temp Pulse Resp B/P (MAP) Pulse Ox O2 Delivery O2 Flow Rate FiO2 05/17/17 04:00 97.0 112 23 93/65 94 Room Air 05/17/17 04:00 111 05/17/17 00:00 96.1 110 21 94/66 95 Room Air 05/17/17 00:00 111 05/16/17 20:18 111 18 Nasal Cannula 2.0 28 05/16/17 20:00 111 05/16/17 20:00 97.0 111 24 82/49 Room Air 05/16/17 16:00 97.8 70 19 121/60 91 Room Air 05/16/17 16:00 110 05/16/17 12:00 96.9 85 19 120/60 91 Room Air 05/16/17 12:00 114 Height (Feet): 5 Height (Inches): 7.00 Weight (Pounds): 175 Respiratory/Chest: lungs clear Cardiovascular: normal rate, regular rhythm, no gallop/murmur Abdomen: soft, non tender, other - ventral hernia Extremities: no edema, other - right subclavian Laboratory Tests Test 05/17/17 10:12 White Blood Count 26.5 K/UL (4.8-10.8) *H Red Blood Count 4.59 M/UL (4.70-6.10) L Hemoglobin 13.4 G/DL (14.2-18.0) L Hematocrit 42.7 % (42.0-52.0) Mean Corpuscular Volume 93 FL (80-99) Mean Corpuscular Hemoglobin 29.3 PG (27.0-31.0) Mean Corpuscular Hemoglobin Concent 31.5 G/DL (32.0-36.0) L Red Cell Distribution Width 18.3 % (11.6-14.8) H Platelet Count 147 K/UL (150-450) L Mean Platelet Volume 10.0 FL (6.5-10.1) Neutrophils (%) (Auto) % (45.0-75.0) Lymphocytes (%) (Auto) % (20.0-45.0) Monocytes (%) (Auto) % (1.0-10.0) Eosinophils (%) (Auto) % (0.0-3.0) Basophils (%) (Auto) % (0.0-2.0) Neutrophils % (Manual) Pending Lymphocytes % (Manual) Pending Platelet Estimate Pending Platelet Morphology Pending Sodium Level Pending Potassium Level Pending Chloride Level Pending Carbon Dioxide Level Pending Blood Urea Nitrogen Pending Creatinine Pending Estimat Glomerular Filtration Rate Pending Glucose Level Pending Calcium Level Pending Total Bilirubin Pending Aspartate Amino Transf (AST/SGOT) Pending Alanine Aminotransferase (ALT/SGPT) Pending Alkaline Phosphatase Pending Total Protein Pending Albumin Pending Globulin Pending JN TABOR May 17, 2017 10:51
[2017-05-17 10:53] LABS: ALANINE AMINOTRANSFERASE 7 U/L (12-78); ALBUMIN 1.2 G/DL (3.4-5.0); ALBUMIN/GLOBULIN RATIO 0.2 (1.0-2.7); ALKALINE PHOSPHATASE 133 U/L (46-116); ANION GAP 16 mmol/L (5-15); ASPARTATE AMINO TRANSFERASE 18 U/L (15-37); BILIRUBIN,TOTAL 0.8 MG/DL (0.2-1.0); BLOOD UREA NITROGEN 43 mg/dL (7-18); CALCIUM 7.8 MG/DL (8.5-10.1); CARBON DIOXIDE 16 MMOL/L (21-32); CHLORIDE 96 MMOL/L (98-107); CREATININE 5.5 MG/DL (0.55-1.30); POTASSIUM 4.6 MMOL/L (3.5-5.1); SODIUM 128 MMOL/L (136-145)
--- NOTE | 2017-05-17 11:33 | Nephrology Progress Note ---
Assessment/Plan Plan ESRD + Ascites HD MWF Leukocytosis ? significance. No obvious sepsis. Ascites - s/p paracentesis Subjective Subjective No new c/o Objective Objective Last 24 Hour Vital Signs Date Time Temp Pulse Resp B/P (MAP) Pulse Ox O2 Delivery O2 Flow Rate FiO2 05/17/17 08:00 97.6 100 18 100/70 94 Room Air 05/17/17 08:00 111 05/17/17 04:00 97.0 112 23 93/65 94 Room Air 05/17/17 04:00 111 05/17/17 00:00 96.1 110 21 94/66 95 Room Air 05/17/17 00:00 111 05/16/17 20:18 111 18 Nasal Cannula 2.0 28 05/16/17 20:00 111 05/16/17 20:00 97.0 111 24 82/49 Room Air 05/16/17 16:00 97.8 70 19 121/60 91 Room Air 05/16/17 16:00 110 05/16/17 12:00 96.9 85 19 120/60 91 Room Air 05/16/17 12:00 114 Intake and Output 05/16/17 05/17/17 19:00 07:00 Intake Total 290 ml Output Total 3800 ml Balance -3510 ml Intake Oral 290 ml Output Urine Total 500 ml Peritoneal Dialysis UF 1300 ml Other 2000 ml # Voids 3 1 # Bowel Movements 2 1 Laboratory Tests 05/17/17 10:12: White Blood Count 26.5*H, Red Blood Count 4.59L, Hemoglobin 13.4L, Hematocrit 42.7, Mean Corpuscular Volume 93, Mean Corpuscular Hemoglobin 29.3, Mean Corpuscular Hemoglobin Concent 31.5L, Red Cell Distribution Width 18.3H, Platelet Count 147L, Mean Platelet Volume 10.0, Neutrophils (%) (Auto) , Lymphocytes (%) (Auto) , Monocytes (%) (Auto) , Eosinophils (%) (Auto) , Basophils (%) (Auto) , Differential Total Cells Counted 100, Neutrophils % ( Manual) 89H, Lymphocytes % (Manual) 4L, Monocytes % (Manual) 6, Eosinophils % ( Manual) 0, Basophils % (Manual) 0, Metamyelocytes % 1H, Band Neutrophils 0, Platelet Estimate DecreasedL, Platelet Morphology Normal, Anisocytosis 2+, Sodium Level 128L, Potassium Level 4.6, Chloride Level 96L, Carbon Dioxide Level 16L, Anion Gap 16H, Blood Urea Nitrogen 43H, Creatinine 5.5H, Estimat Glomerular Filtration Rate 11.0, Glucose Level 189H, Calcium Level 7.8L, Total Bilirubin 0.8, Aspartate Amino Transf (AST/SGOT) 18, Alanine Aminotransferase ( ALT/SGPT) 7L, Alkaline Phosphatase 133H, Total Protein 6.7, Albumin 1.2L, Globulin 5.5, Albumin/Globulin Ratio 0.2L Height (Feet): 5 Height (Inches): 7.00 Weight (Pounds): 175 Objective CV RR Lungs few wheezes Abd - tense ascites. E +4 B edema PIETRO MARION May 17, 2017 11:33
[2017-05-17 12:00] VITALS: BP 118/70
[2017-05-17] MEDS: Vancomycin oral 125mg/2.5ml ORAL SCH ×3 (13:00→20:53)
[2017-05-17 16:00] VITALS: BP 116/70
[2017-05-17] MEDS: Norco 5mg/325mg tab ORAL PRN (17:11)
[2017-05-17] MEDS ORDERED: Tubing IV Secondary IV ONE (17:20)
[2017-05-17 20:00] VITALS: BP 86/63
[2017-05-18] VITALS (7 sets, daily range): BP systolic 76–118; BP diastolic 55–66
[2017-05-18] MEDS: NovoLOG Insulin Flexpen SUBQ SCH ×4 (06:19→21:16)
[2017-05-18] MEDS: Norco 5mg/325mg tab ORAL PRN ×2 (06:34→15:17)
--- NOTE | 2017-05-18 08:36 | Infectious Diseases Prog Note ---
Assessment/Plan Assessment/Plan A: SIRS/Sepsis Colitis Leukocytosis Cirrhosis ESRD Lactic acidosis P: Continue PO Vancomycin Will f/u C. difficile test Subjective ROS Limited/Unobtainable: No Constitutional: Reports: no symptoms Respiratory: Reports: no symptoms Cardiovascular: Reports: no symptoms Gastrointestinal/Abdominal: Reports: no symptoms Genitourinary: Reports: no symptoms Allergies: Coded Allergies: PENICILLINS (Verified Allergy, Severe, 05/01/17) Tolerated Zosyn 09/2016 Objective Vital Signs Last 24 Hour Vital Signs Date Time Temp Pulse Resp B/P (MAP) Pulse Ox O2 Delivery O2 Flow Rate FiO2 05/18/17 04:00 107 05/18/17 04:00 96.6 109 19 82/57 93 05/18/17 00:00 97.0 110 20 88/64 93 05/17/17 20:05 99 18 Nasal Cannula 2.0 28 05/17/17 20:00 112 05/17/17 20:00 96.8 113 18 86/63 94 05/17/17 16:00 97.8 81 19 116/70 93 Room Air 05/17/17 16:00 116 05/17/17 12:00 97.5 78 18 118/70 94 Room Air 05/17/17 12:00 118 Height (Feet): 5 Height (Inches): 7.00 Weight (Pounds): 175 General Appearance: no acute distress HEENT: mucous membranes moist Respiratory/Chest: lungs clear Cardiovascular: normal rate Abdomen: distended, other - ascites Extremities: other - mild/trace edema Neurologic/Psychiatric: alert, oriented x 3, responsive Laboratory Tests Test 05/17/17 10:12 White Blood Count 26.5 K/UL (4.8-10.8) *H Red Blood Count 4.59 M/UL (4.70-6.10) L Hemoglobin 13.4 G/DL (14.2-18.0) L Hematocrit 42.7 % (42.0-52.0) Mean Corpuscular Volume 93 FL (80-99) Mean Corpuscular Hemoglobin 29.3 PG (27.0-31.0) Mean Corpuscular Hemoglobin Concent 31.5 G/DL (32.0-36.0) L Red Cell Distribution Width 18.3 % (11.6-14.8) H Platelet Count 147 K/UL (150-450) L Mean Platelet Volume 10.0 FL (6.5-10.1) Neutrophils (%) (Auto) % (45.0-75.0) Lymphocytes (%) (Auto) % (20.0-45.0) Monocytes (%) (Auto) % (1.0-10.0) Eosinophils (%) (Auto) % (0.0-3.0) Basophils (%) (Auto) % (0.0-2.0) Differential Total Cells Counted 100 Neutrophils % (Manual) 89 % (45-75) H Lymphocytes % (Manual) 4 % (20-45) L Monocytes % (Manual) 6 % (1-10) Eosinophils % (Manual) 0 % (0-3) Basophils % (Manual) 0 % (0-2) Metamyelocytes % 1 % (0-0) H Band Neutrophils 0 % (0-8) Platelet Estimate Decreased L Platelet Morphology Normal Anisocytosis 2+ Sodium Level 128 MMOL/L (136-145) L Potassium Level 4.6 MMOL/L (3.5-5.1) Chloride Level 96 MMOL/L (98-107) L Carbon Dioxide Level 16 MMOL/L (21-32) L Anion Gap 16 mmol/L (5-15) H Blood Urea Nitrogen 43 mg/dL (7-18) H Creatinine 5.5 MG/DL (0.55-1.30) H Estimat Glomerular Filtration Rate 11.0 mL/min (>60) Glucose Level 189 MG/DL (74-106) H Calcium Level 7.8 MG/DL (8.5-10.1) L Total Bilirubin 0.8 MG/DL (0.2-1.0) Aspartate Amino Transf (AST/SGOT) 18 U/L (15-37) Alanine Aminotransferase (ALT/SGPT) 7 U/L (12-78) L Alkaline Phosphatase 133 U/L (46-116) H Total Protein 6.7 G/DL (6.4-8.2) Albumin 1.2 G/DL (3.4-5.0) L Globulin 5.5 g/dL Albumin/Globulin Ratio 0.2 (1.0-2.7) L Current Medications Medications (Trade) Dose Ordered Sig/Chaz Route PRN Reason Start Time Stop Time Status Last Admin Dose Admin Acetaminophen/ Hydrocodone Bitart ([place] 5/325) 1 tab Q6H PRN ORAL For Pain 05/14/17 08:45 05/21/17 08:44 05/18/17 06:34 Dextrose (Dextrose 50%) STAT PRN IV Hypoglycemia 05/13/17 08:00 06/12/17 07:59 Insulin Aspart (NovoLOG) BEFORE MEALS AND HS SUBQ 05/13/17 11:30 06/12/17 11:29 05/18/17 06:19 Lactulose (Cephulac) 20 gm BID ORAL 05/13/17 09:00 06/12/17 08:59 05/17/17 09:20 Mirtazapine (Remeron) 15 mg BEDTIME ORAL 05/13/17 21:00 06/12/17 20:59 05/17/17 20:54 Pantoprazole (Protonix) 40 mg ACBREAKFAST ORAL 05/13/17 06:30 06/12/17 06:29 05/18/17 06:18 Propranolol HCl (Inderal) 20 mg DAILY ORAL 05/14/17 09:00 06/12/17 08:59 Vancomycin HCl (Vancomycin) 125 mg FOUR TIMES A DAY ORAL 05/17/17 13:00 05/24/17 12:59 05/17/17 20:53 JOSE DANIEL GORDON May 18, 2017 08:36
[2017-05-18] MEDS: Propranolol 10mg tab ORAL SCH (09:00)
--- NOTE | 2017-05-18 09:00 | General Progress Note ---
Assessment/Plan Problem List: (1) Cirrhosis ICD Codes: K74.60 - Unspecified cirrhosis of liver SNOMED: 22879388 (2) ESRD (end stage renal disease) ICD Codes: N18.6 - End stage renal disease SNOMED: 21915647 (3) Sepsis ICD Codes: A41.9 - Sepsis, unspecified organism SNOMED: 73384407 Status: stable, progressing Assessment/Plan iv abx flagyl until cdiff back check cdiff- still not done yet follow up cultures HD monitor wbc pain rx check ammonia level Subjective ROS Limited/Unobtainable: No Constitutional: Reports: malaise, weakness HEENT: Reports: no symptoms Cardiovascular: Reports: no symptoms Respiratory: Reports: cough Gastrointestinal/Abdominal: Reports: abdomen distended Genitourinary: Reports: no symptoms Neurologic/Psychiatric: Reports: pre-existing deficit Endocrine: Reports: no symptoms Hematologic/Lymphatic: Reports: anemia Allergies: Coded Allergies: PENICILLINS (Verified Allergy, Severe, 05/01/17) Tolerated Zosyn 09/2016 All Systems: reviewed and negative except above Subjective decreased abd pain. Ct with extensive colitis. Cdiff still not sent yet. wants to go home. no chest pain agitated this am. Objective Last 24 Hour Vital Signs Date Time Temp Pulse Resp B/P (MAP) Pulse Ox O2 Delivery O2 Flow Rate FiO2 05/18/17 04:00 107 05/18/17 04:00 96.6 109 19 82/57 93 05/18/17 00:00 97.0 110 20 88/64 93 05/17/17 20:05 99 18 Nasal Cannula 2.0 28 05/17/17 20:00 112 05/17/17 20:00 96.8 113 18 86/63 94 05/17/17 16:00 97.8 81 19 116/70 93 Room Air 05/17/17 16:00 116 05/17/17 12:00 97.5 78 18 118/70 94 Room Air 05/17/17 12:00 118 Intake and Output 05/17/17 05/18/17 19:00 07:00 Intake Total 470.000 ml Balance 470.000 ml Intake Oral 220 ml IV Total 250.000 ml # Voids 2 2 # Bowel Movements 1 1 Laboratory Tests 05/17/17 10:12: White Blood Count 26.5*H, Red Blood Count 4.59L, Hemoglobin 13.4L, Hematocrit 42.7, Mean Corpuscular Volume 93, Mean Corpuscular Hemoglobin 29.3, Mean Corpuscular Hemoglobin Concent 31.5L, Red Cell Distribution Width 18.3H, Platelet Count 147L, Mean Platelet Volume 10.0, Neutrophils (%) (Auto) , Lymphocytes (%) (Auto) , Monocytes (%) (Auto) , Eosinophils (%) (Auto) , Basophils (%) (Auto) , Differential Total Cells Counted 100, Neutrophils % ( Manual) 89H, Lymphocytes % (Manual) 4L, Monocytes % (Manual) 6, Eosinophils % ( Manual) 0, Basophils % (Manual) 0, Metamyelocytes % 1H, Band Neutrophils 0, Platelet Estimate DecreasedL, Platelet Morphology Normal, Anisocytosis 2+, Sodium Level 128L, Potassium Level 4.6, Chloride Level 96L, Carbon Dioxide Level 16L, Anion Gap 16H, Blood Urea Nitrogen 43H, Creatinine 5.5H, Estimat Glomerular Filtration Rate 11.0, Glucose Level 189H, Calcium Level 7.8L, Total Bilirubin 0.8, Aspartate Amino Transf (AST/SGOT) 18, Alanine Aminotransferase ( ALT/SGPT) 7L, Alkaline Phosphatase 133H, Total Protein 6.7, Albumin 1.2L, Globulin 5.5, Albumin/Globulin Ratio 0.2L Height (Feet): 5 Height (Inches): 7.00 Weight (Pounds): 175 Objective General Appearance: WD/WN, alert Neck: supple Cardiovascular: regular rhythm Respiratory/Chest: chest wall non-tender, lungs clear, normal breath sounds Abdomen: normal bowel sounds, non tender, soft, no organomegaly. + hernia Neurologic: side framer II-XII grossly normal, alert, responsive DIPAK URIBE May 18, 2017 09:00
[2017-05-18] MEDS: Vancomycin oral 125mg/2.5ml ORAL SCH ×4 (10:13→21:14)
[2017-05-18] MEDS: Lactulose 20gm/30ml UDC ORAL SCH ×2 (10:13→17:13)
[2017-05-18 10:47] LABS: HEMATOCRIT 43.9 % (42.0-52.0); HEMOGLOBIN 13.4 G/DL (14.2-18.0); MEAN CORPUSCULAR VOLUME 93 FL (80-99); PLATELET COUNT 140 K/UL (150-450); RED BLOOD COUNT 4.73 M/UL (4.70-6.10); RED CELL DISTRIBUTION WIDTH 19.2 % (11.6-14.8)
[2017-05-18 10:53] LABS: WHITE BLOOD COUNT 28.2 K/UL (4.8-10.8)
[2017-05-18] MEDS ORDERED: Sodium Chloride 500ML 500 ML IV SCH (11:00)
--- NOTE | 2017-05-18 13:37 | Nephrology Progress Note ---
Assessment/Plan Plan ESRD + Ascites HD MWF Leukocytosis ? significance. No obvious sepsis. Ascites - s/p paracentesis Subjective Subjective No new c/o Objective Objective Last 24 Hour Vital Signs Date Time Temp Pulse Resp B/P (MAP) Pulse Ox O2 Delivery O2 Flow Rate FiO2 05/18/17 08:00 97.6 101 20 77/57 94 Room Air 05/18/17 08:00 101 05/18/17 04:00 107 05/18/17 04:00 96.6 109 19 82/57 93 05/18/17 00:00 97.0 110 20 88/64 93 05/17/17 20:05 99 18 Nasal Cannula 2.0 28 05/17/17 20:00 112 05/17/17 20:00 96.8 113 18 86/63 94 05/17/17 16:00 97.8 81 19 116/70 93 Room Air 05/17/17 16:00 116 Intake and Output 05/17/17 05/18/17 19:00 07:00 Intake Total 470.000 ml Balance 470.000 ml Intake Oral 220 ml IV Total 250.000 ml # Voids 2 2 # Bowel Movements 1 1 Laboratory Tests 05/18/17 09:56: White Blood Count 28.2*H, Red Blood Count 4.73, Hemoglobin 13.4L, Hematocrit 43.9, Mean Corpuscular Volume 93, Mean Corpuscular Hemoglobin 28.2, Mean Corpuscular Hemoglobin Concent 30.4L, Red Cell Distribution Width 19.2H, Platelet Count 140L, Mean Platelet Volume 10.7H, Neutrophils (%) (Auto) , Lymphocytes (%) (Auto) , Monocytes (%) (Auto) , Eosinophils (%) (Auto) , Basophils (%) (Auto) , Differential Total Cells Counted 100, Neutrophils % ( Manual) 93H, Lymphocytes % (Manual) 3L, Monocytes % (Manual) 4, Eosinophils % ( Manual) 0, Basophils % (Manual) 0, Band Neutrophils 0, Platelet Estimate DecreasedL, Platelet Morphology Normal, Hypochromasia 2+, Anisocytosis 2+, [place] Cells 2+, Ammonia 4L Height (Feet): 5 Height (Inches): 7.00 Weight (Pounds): 175 Objective CV RR Lungs few wheezes Abd - tense ascites. E +4 B edema PIETRO MARION May 18, 2017 13:37
--- NOTE | 2017-05-18 13:38 | Nephrology Progress Note ---
Assessment/Plan Plan ESRD + Ascites HD MWF HD tomorrow Leukocytosis ? significance. No obvious sepsis. Ascites - s/p paracentesis Subjective Subjective No new c/o Objective Objective Last 24 Hour Vital Signs Date Time Temp Pulse Resp B/P (MAP) Pulse Ox O2 Delivery O2 Flow Rate FiO2 05/18/17 08:00 97.6 101 20 77/57 94 Room Air 05/18/17 08:00 101 05/18/17 04:00 107 05/18/17 04:00 96.6 109 19 82/57 93 05/18/17 00:00 97.0 110 20 88/64 93 05/17/17 20:05 99 18 Nasal Cannula 2.0 28 05/17/17 20:00 112 05/17/17 20:00 96.8 113 18 86/63 94 05/17/17 16:00 97.8 81 19 116/70 93 Room Air 05/17/17 16:00 116 Intake and Output 05/17/17 05/18/17 19:00 07:00 Intake Total 470.000 ml Balance 470.000 ml Intake Oral 220 ml IV Total 250.000 ml # Voids 2 2 # Bowel Movements 1 1 Laboratory Tests 05/18/17 09:56: White Blood Count 28.2*H, Red Blood Count 4.73, Hemoglobin 13.4L, Hematocrit 43.9, Mean Corpuscular Volume 93, Mean Corpuscular Hemoglobin 28.2, Mean Corpuscular Hemoglobin Concent 30.4L, Red Cell Distribution Width 19.2H, Platelet Count 140L, Mean Platelet Volume 10.7H, Neutrophils (%) (Auto) , Lymphocytes (%) (Auto) , Monocytes (%) (Auto) , Eosinophils (%) (Auto) , Basophils (%) (Auto) , Differential Total Cells Counted 100, Neutrophils % ( Manual) 93H, Lymphocytes % (Manual) 3L, Monocytes % (Manual) 4, Eosinophils % ( Manual) 0, Basophils % (Manual) 0, Band Neutrophils 0, Platelet Estimate DecreasedL, Platelet Morphology Normal, Hypochromasia 2+, Anisocytosis 2+, [place] Cells 2+, Ammonia 4L Height (Feet): 5 Height (Inches): 7.00 Weight (Pounds): 175 Objective CV RR Lungs few wheezes Abd - tense ascites. E +4 B edema SHECHTERPAGIEL May 18, 2017 13:38
[2017-05-19] VITALS: BP 101/64
--- NOTE | 2017-05-19 02:00 | Consultation ---
DATE OF CONSULTATION: 05/18/2017 PULMONARY CONSULTATION CONSULTING PHYSICIAN: Mason Monsalve M.D. REASON FOR CONSULTATION: Respiratory insufficiency, shortness of breath, abnormal scan, tachypnea. HISTORY OF PRESENT ILLNESS: This is an unfortunate 51-year-old male, recently discharged from the hospital back to the skilled facility. The patient returns with leukocytosis with concern for sepsis. The patient again seen by renal and Infectious Diseases and being treated accordingly. The patient is being treated for sepsis, colitis, leukocytosis, cirrhosis, end-stage renal disease, end-stage liver disease as well as lactic acidosis. The patient noted to be tachypneic and I was called to assist and evaluate further. The patient with significant acidemia noted on examinations. The patient also with evidence of coagulopathy as well as significant leukocytosis. The patient treated with noted antibiotics as outlined. The patient remains chronically and critically ill and I was called to assist and evaluate his pulmonary status. The patient with impending respiratory failure. The patient is still Full Code at this time. PAST MEDICAL HISTORY: Notable for the above, end-stage renal disease, end-stage liver disease, alcoholic encephalopathy, ascites, peritoneal catheter, dialysis catheter, umbilical hernia, multifactorial anemia, GERD, and small bowel obstruction. MEDICATIONS: Reviewed. ALLERGIES: Reviewed. REVIEW OF SYSTEMS: Obtained. At present, the patient is somewhat altered. PHYSICAL EXAMINATION: GENERAL: The patient is an ill-appearing male, appears to be somewhat end-stage. VITAL SIGNS: Noted and reviewed. Currently, temperature 97.6, pulse 101, respiratory rate 22 saturations 94%. Respiratory rate in the high 20s, placed on 2 L nasal cannula at times. HEENT: Normocephalic and atraumatic. The patient is anasarcic. LUNGS: With reduced breath sounds. Reduced air entry. Reduced excursion. CARDIAC: Normal S1 and S2. Somewhat distant without clear murmurs, rubs, or gallops. ABDOMEN: Notable for ascites, tympanitic, slightly tender. EXTREMITIES: Noted edema, pitting. NEUROLOGICAL: Confused, altered. SKIN: Noted. Peritoneal catheter noted. Dialysis catheter noted. LABORATORY AND DIAGNOSTIC DATA: Laboratory data reviewed. White count 28.2, hemoglobin 13.4, and platelets 140,000. Chemistries, sodium 128, potassium 4.6, BUN is 43, creatinine 5.5, bicarbonate is 16. The albumin is low at 1.2. INR is 1.6. Imaging noted and reviewed. The patient with elevated left hemidiaphragm, questionable mild effusion. The abdominal CT reviewed as well. Notable for increased lung bases with atelectasis and small pleural effusion. Dialysis catheter noted. Examination and evidence of massive ascites and colonic wall thickening secondary to anasarca, hepatic cirrhosis, esophageal distention. IMPRESSION: 1. Hepatorenal syndrome, worsening in severity. 2. Sepsis. 3. Significant metabolic acidosis. 4. Elevated diaphragm due to ascites. 5. Small pleural effusions, likely passive atelectasis likely due to the above. 6. Ongoing leukocytosis. 7. Anemia. 8. Significantly worsening albumin levels with hypoalbuminemia. 9. Evidence of colitis. 10. Evidence of lactic acidosis. RECOMMENDATION: Monitor clinically. Correct bicarbonate levels. IV antibiotics. Renal to continue hemodialysis with ultrafiltration. Remove ascites via catheter. We will obtain GI evaluation. Monitor for change. Monitor for further respiratory deterioration. Prognosis remains poor and certainly would continue to recommend advance directives and antibiotic care. Mason Monsalve M.D. DR: Natalie JOB#: [id number] CC: ROSE
[2017-05-19 04:28] VITALS: BP 84/62
[2017-05-19] MEDS: Norco 5mg/325mg tab ORAL PRN ×2 (06:23→16:42)
[2017-05-19] MEDS: NovoLOG Insulin Flexpen SUBQ SCH ×4 (06:24→20:40)
[2017-05-19 08:00] VITALS: BP 84/57
--- NOTE | 2017-05-19 08:34 | Infectious Diseases Prog Note ---
Assessment/Plan Assessment/Plan A: SIRS/Sepsis Colitis Leukocytosis Cirrhosis ESRD Lactic acidosis P: Continue PO Vancomycin Will f/u C. difficile test Subjective ROS Limited/Unobtainable: Yes Allergies: Coded Allergies: PENICILLINS (Verified Allergy, Severe, 05/01/17) Tolerated Zosyn 09/2016 Objective Vital Signs Last 24 Hour Vital Signs Date Time Temp Pulse Resp B/P (MAP) Pulse Ox O2 Delivery O2 Flow Rate FiO2 05/19/17 08:06 97 20 Nasal Cannula 2.0 28 05/19/17 04:28 97.0 112 19 84/62 93 Room Air 05/19/17 04:00 104 05/19/17 00:50 Room Air 05/19/17 00:00 104 05/19/17 00:00 96.7 89 19 101/64 93 Room Air 05/18/17 20:46 99 20 Nasal Cannula 2.0 28 05/18/17 20:33 96.9 94 19 93/63 93 Room Air 05/18/17 20:00 94 05/18/17 16:40 95 82/56 05/18/17 16:00 95 05/18/17 16:00 96.9 89 19 76/55 94 Room Air 05/18/17 12:00 101 05/18/17 12:00 97.1 102 19 77/57 93 Room Air Height (Feet): 5 Height (Inches): 7.00 Weight (Pounds): 175 General Appearance: no acute distress HEENT: mucous membranes moist Respiratory/Chest: lungs clear Cardiovascular: normal rate Abdomen: distended Neurologic/Psychiatric: other - sleeping Laboratory Tests Test 05/18/17 09:56 White Blood Count 28.2 K/UL (4.8-10.8) *H Red Blood Count 4.73 M/UL (4.70-6.10) Hemoglobin 13.4 G/DL (14.2-18.0) L Hematocrit 43.9 % (42.0-52.0) Mean Corpuscular Volume 93 FL (80-99) Mean Corpuscular Hemoglobin 28.2 PG (27.0-31.0) Mean Corpuscular Hemoglobin Concent 30.4 G/DL (32.0-36.0) L Red Cell Distribution Width 19.2 % (11.6-14.8) H Platelet Count 140 K/UL (150-450) L Mean Platelet Volume 10.7 FL (6.5-10.1) H Neutrophils (%) (Auto) % (45.0-75.0) Lymphocytes (%) (Auto) % (20.0-45.0) Monocytes (%) (Auto) % (1.0-10.0) Eosinophils (%) (Auto) % (0.0-3.0) Basophils (%) (Auto) % (0.0-2.0) Differential Total Cells Counted 100 Neutrophils % (Manual) 93 % (45-75) H Lymphocytes % (Manual) 3 % (20-45) L Monocytes % (Manual) 4 % (1-10) Eosinophils % (Manual) 0 % (0-3) Basophils % (Manual) 0 % (0-2) Band Neutrophils 0 % (0-8) Platelet Estimate Decreased L Platelet Morphology Normal Hypochromasia 2+ Anisocytosis 2+ [place] Cells 2+ Ammonia 4 umol/L (11-32) L Current Medications Medications (Trade) Dose Ordered Sig/Chaz Route PRN Reason Start Time Stop Time Status Last Admin Dose Admin Acetaminophen/ Hydrocodone Bitart ([place] 5/325) 1 tab Q6H PRN ORAL For Pain 05/14/17 08:45 05/21/17 08:44 05/19/17 06:23 Dextrose (Dextrose 50%) STAT PRN IV Hypoglycemia 05/13/17 08:00 06/12/17 07:59 Heparin Sodium (Porcine) (Heparin 5000 units/ml) 5,000 units POSTHD INJ 05/19/17 14:15 06/18/17 14:14 Heparin Sodium (Porcine) (Heparin Sod 1000 units/ml 10ml) 2,000 unit ONCE ONCE IV 05/19/17 14:15 05/19/17 14:16 Insulin Aspart (NovoLOG) BEFORE MEALS AND HS SUBQ 05/13/17 11:30 06/12/17 11:29 05/19/17 06:24 Lactulose (Cephulac) 20 gm BID ORAL 05/13/17 09:00 06/12/17 08:59 05/18/17 17:13 Mirtazapine (Remeron) 15 mg BEDTIME ORAL 05/13/17 21:00 06/12/17 20:59 05/18/17 21:14 Pantoprazole (Protonix) 40 mg ACBREAKFAST ORAL 05/13/17 06:30 06/12/17 06:29 05/19/17 06:22 Propranolol HCl (Inderal) 20 mg DAILY ORAL 05/14/17 09:00 06/12/17 08:59 Vancomycin HCl (Vancomycin) 125 mg FOUR TIMES A DAY ORAL 05/17/17 13:00 05/24/17 12:59 05/18/17 21:14 JOSE DANIEL GORDON May 19, 2017 08:33
[2017-05-19] MEDS: Propranolol 10mg tab ORAL SCH (09:00)
--- NOTE | 2017-05-19 09:13 | Pulmonology Progress Note ---
Assessment/Plan Assessment/Plan IMPRESSION: 1. Hepatorenal syndrome 2. Sepsis. possible 3. Significant metabolic acidosis. 4. Elevated diaphragm due to ascites. 5. Small pleural effusions, likely passive atelectasis likely due to the above. 6. Ongoing leukocytosis. 7. Anemia. 8. Significantly worsening albumin levels with hypoalbuminemia. 9. Evidence of colitis. 10. Evidence of lactic acidosis. PLAN ID noted monitor WBC drain ascites call GI to assist and optimize HD prognosis poor dc once stable Subjective Allergies: Coded Allergies: PENICILLINS (Verified Allergy, Severe, 05/01/17) Tolerated Zosyn 09/2016 Subjective awake more alert ID noted Objective Last 24 Hour Vital Signs Date Time Temp Pulse Resp B/P (MAP) Pulse Ox O2 Delivery O2 Flow Rate FiO2 05/19/17 08:06 97 20 Nasal Cannula 2.0 28 05/19/17 04:28 97.0 112 19 84/62 93 Room Air 05/19/17 04:00 104 05/19/17 00:50 Room Air 05/19/17 00:00 104 05/19/17 00:00 96.7 89 19 101/64 93 Room Air 05/18/17 20:46 99 20 Nasal Cannula 2.0 28 05/18/17 20:33 96.9 94 19 93/63 93 Room Air 05/18/17 20:00 94 05/18/17 16:40 95 82/56 05/18/17 16:00 95 05/18/17 16:00 96.9 89 19 76/55 94 Room Air 05/18/17 12:00 101 05/18/17 12:00 97.1 102 19 77/57 93 Room Air Intake and Output 05/18/17 05/19/17 19:00 07:00 Intake Total 836 ml Balance 836 ml Intake Oral 236 ml IV Total 600 ml # Voids 1 2 # Bowel Movements 3 Objective WDWN NAD reduced breath sounds bilaterally without rhonchi or wheeze [id number] without MRG NABS distended; cathether in place no CC edema umbilical hernia nonfocal Laboratory Tests 05/18/17 09:56: White Blood Count 28.2*H, Red Blood Count 4.73, Hemoglobin 13.4L, Hematocrit 43.9, Mean Corpuscular Volume 93, Mean Corpuscular Hemoglobin 28.2, Mean Corpuscular Hemoglobin Concent 30.4L, Red Cell Distribution Width 19.2H, Platelet Count 140L, Mean Platelet Volume 10.7H, Neutrophils (%) (Auto) , Lymphocytes (%) (Auto) , Monocytes (%) (Auto) , Eosinophils (%) (Auto) , Basophils (%) (Auto) , Differential Total Cells Counted 100, Neutrophils % ( Manual) 93H, Lymphocytes % (Manual) 3L, Monocytes % (Manual) 4, Eosinophils % ( Manual) 0, Basophils % (Manual) 0, Band Neutrophils 0, Platelet Estimate DecreasedL, Platelet Morphology Normal, Hypochromasia 2+, Anisocytosis 2+, [place] Cells 2+, Ammonia 4L Current Medications Medications (Trade) Dose Ordered Sig/Chaz Route PRN Reason Start Time Stop Time Status Last Admin Dose Admin Acetaminophen/ Hydrocodone Bitart ([place] 5/325) 1 tab Q6H PRN ORAL For Pain 05/14/17 08:45 05/21/17 08:44 05/19/17 06:23 Dextrose (Dextrose 50%) STAT PRN IV Hypoglycemia 05/13/17 08:00 06/12/17 07:59 Heparin Sodium (Porcine) (Heparin 5000 units/ml) 5,000 units POSTHD INJ 05/19/17 14:15 06/18/17 14:14 Heparin Sodium (Porcine) (Heparin Sod 1000 units/ml 10ml) 2,000 unit ONCE ONCE IV 05/19/17 14:15 05/19/17 14:16 Insulin Aspart (NovoLOG) BEFORE MEALS AND HS SUBQ 05/13/17 11:30 06/12/17 11:29 05/19/17 06:24 Lactulose (Cephulac) 20 gm BID ORAL 05/13/17 09:00 06/12/17 08:59 05/18/17 17:13 Mirtazapine (Remeron) 15 mg BEDTIME ORAL 05/13/17 21:00 06/12/17 20:59 05/18/17 21:14 Pantoprazole (Protonix) 40 mg ACBREAKFAST ORAL 05/13/17 06:30 06/12/17 06:29 05/19/17 06:22 Propranolol HCl (Inderal) 20 mg DAILY ORAL 05/14/17 09:00 06/12/17 08:59 Vancomycin HCl (Vancomycin) 125 mg FOUR TIMES A DAY ORAL 05/17/17 13:00 05/24/17 12:59 05/18/17 21:14 MARY ANNE CASON May 19, 2017 09:13
[2017-05-19] MEDS: Lactulose 20gm/30ml UDC ORAL SCH ×2 (09:15→18:03)
[2017-05-19] MEDS: Vancomycin oral 125mg/2.5ml ORAL SCH ×4 (09:21→20:39)
[2017-05-19 12:00] VITALS: BP 80/61
--- NOTE | 2017-05-19 12:41 | Nephrology Progress Note ---
Assessment/Plan Plan ESRD + Ascites HD MWF HD today Leukocytosis ? significance. No obvious sepsis. Ascites - s/p paracentesis Subjective Subjective Very confused! Objective Objective Last 24 Hour Vital Signs Date Time Temp Pulse Resp B/P (MAP) Pulse Ox O2 Delivery O2 Flow Rate FiO2 05/19/17 09:00 110 84/57 05/19/17 08:06 97 20 Nasal Cannula 2.0 28 05/19/17 04:28 97.0 112 19 84/62 93 Room Air 05/19/17 04:00 104 05/19/17 00:50 Room Air 05/19/17 00:00 104 05/19/17 00:00 96.7 89 19 101/64 93 Room Air 05/18/17 20:46 99 20 Nasal Cannula 2.0 28 05/18/17 20:33 96.9 94 19 93/63 93 Room Air 05/18/17 20:00 94 05/18/17 16:40 95 82/56 05/18/17 16:00 95 05/18/17 16:00 96.9 89 19 76/55 94 Room Air Intake and Output 05/18/17 05/19/17 19:00 07:00 Intake Total 836 ml Balance 836 ml Intake Oral 236 ml IV Total 600 ml # Voids 1 2 # Bowel Movements 3 Height (Feet): 5 Height (Inches): 7.00 Weight (Pounds): 175 Objective CV RR Lungs few wheezes Abd - tense ascites. E +4 B edema PIETRO MARION May 19, 2017 12:41
[2017-05-19] MEDS ORDERED: Heparin 5000 units/ml inj INJ SCH (14:15)
[2017-05-19] MEDS ORDERED: Heparin Sod 1000 units/ml 10ml IV ONE (14:15)
[2017-05-19 16:00] VITALS: BP 78/61
[2017-05-19] MEDS ORDERED: NS 500ML ONE (17:34)
[2017-05-19 20:00] VITALS: BP 87/63
[2017-05-20] VITALS (15 sets, daily range): BP systolic 71–108; BP diastolic 39–65
[2017-05-20] MEDS: Norco 5mg/325mg tab ORAL PRN ×3 (04:49→20:58)
[2017-05-20] MEDS: NovoLOG Insulin Flexpen SUBQ SCH ×4 (06:24→21:27)
--- NOTE | 2017-05-20 08:05 | Pulmonology Progress Note ---
Assessment/Plan Assessment/Plan IMPRESSION: 1. Hepatorenal syndrome 2. Sepsis. possible 3. Significant metabolic acidosis. 4. Elevated diaphragm due to ascites. 5. Small pleural effusions, likely passive atelectasis likely due to the above. 6. Ongoing leukocytosis. 7. Anemia. 8. Significantly worsening albumin levels with hypoalbuminemia. 9. Evidence of colitis. 10. Evidence of lactic acidosis. PLAN ID noted monitor WBC- still elevated drain ascites call GI to assist and optimize HD prognosis poor dc once stable impression, plan, and exam edited and reviewed in detail care discussed with RN Subjective ROS Limited/Unobtainable: Yes Allergies: Coded Allergies: PENICILLINS (Verified Allergy, Severe, 05/01/17) Tolerated Zosyn 09/2016 Subjective awake more alert ID noted and reviewed Objective Last 24 Hour Vital Signs Date Time Temp Pulse Resp B/P (MAP) Pulse Ox O2 Delivery O2 Flow Rate FiO2 05/20/17 06:39 92/61 Nasal Cannula 2.0 05/20/17 04:00 104 05/20/17 04:00 96.1 104 20 88/60 94 Nasal Cannula 05/20/17 00:00 97.2 103 20 79/64 93 Room Air 05/20/17 00:00 104 05/19/17 20:00 97.5 100 26 87/63 93 Room Air 05/19/17 20:00 105 05/19/17 16:00 95.9 100 19 78/61 90 Room Air 05/19/17 16:00 101 05/19/17 12:00 97.6 100 19 80/61 90 05/19/17 12:00 111 05/19/17 09:00 110 84/57 05/19/17 08:06 97 20 Nasal Cannula 2.0 28 Intake and Output 05/19/17 05/20/17 19:00 07:00 Intake Total 236 ml 200 ml Balance 236 ml 200 ml Intake Oral 236 ml 200 ml # Voids 1 # Bowel Movements 1 1 Objective WDWN NAD reduced breath sounds bilaterally without rhonchi or wheeze [id number] without MRG NABS distended; catheter in place no CC edema umbilical hernia noted confused nonfocal Microbiology Date/Time Source Procedure Growth Status 05/19/17 11:15 Stool Clostridium difficile Toxin Assay - Final Complete Current Medications Medications (Trade) Dose Ordered Sig/Chaz Route PRN Reason Start Time Stop Time Status Last Admin Dose Admin Acetaminophen/ Hydrocodone Bitart ([place] 5/325) 1 tab Q6H PRN ORAL For Pain 05/14/17 08:45 05/21/17 08:44 05/20/17 04:49 Dextrose (Dextrose 50%) STAT PRN IV Hypoglycemia 05/13/17 08:00 06/12/17 07:59 Heparin Sodium (Porcine) (Heparin 5000 units/ml) 5,000 units POSTHD INJ 05/19/17 14:15 06/18/17 14:14 Insulin Aspart (NovoLOG) BEFORE MEALS AND HS SUBQ 05/13/17 11:30 06/12/17 11:29 05/20/17 06:24 Lactulose (Cephulac) 20 gm BID ORAL 05/13/17 09:00 06/12/17 08:59 05/19/17 18:03 Mirtazapine (Remeron) 15 mg BEDTIME ORAL 05/13/17 21:00 06/12/17 20:59 05/19/17 20:38 Pantoprazole (Protonix) 40 mg ACBREAKFAST ORAL 05/13/17 06:30 06/12/17 06:29 05/20/17 06:23 Propranolol HCl (Inderal) 20 mg DAILY ORAL 05/14/17 09:00 06/12/17 08:59 Vancomycin HCl (Vancomycin) 125 mg FOUR TIMES A DAY ORAL 05/17/17 13:00 05/24/17 12:59 05/19/17 20:39 MARY ANNE CASON May 20, 2017 08:05
[2017-05-20] MEDS: Lactulose 20gm/30ml UDC ORAL SCH ×2 (08:55→20:56)
[2017-05-20] MEDS: Vancomycin oral 125mg/2.5ml ORAL SCH ×4 (08:57→22:43)
[2017-05-20] MEDS: Propranolol 10mg tab ORAL SCH (08:57)
--- NOTE | 2017-05-20 11:43 | Infectious Diseases Prog Note ---
Assessment/Plan Assessment/Plan antibiotics : po vancomycin A 1. leucocytosis 2. cirrhosis 3. renal failure 4. DM 5. HTN 6. colitis P 1. continue po vancomycin 2. will follow up cultures Subjective Constitutional: Denies: fever, chills Respiratory: Denies: shortness of breath, dry cough Gastrointestinal/Abdominal: Denies: nausea, vomiting, diarrhea Musculoskeletal: Denies: pain Allergies: Coded Allergies: PENICILLINS (Verified Allergy, Severe, 05/01/17) Tolerated Zosyn 09/2016 Objective Vital Signs Last 24 Hour Vital Signs Date Time Temp Pulse Resp B/P (MAP) Pulse Ox O2 Delivery O2 Flow Rate FiO2 05/20/17 08:57 75 123/77 05/20/17 08:00 96.6 104 20 97/62 95 Room Air 05/20/17 08:00 108 05/20/17 06:39 92/61 Nasal Cannula 2.0 05/20/17 04:00 104 05/20/17 04:00 96.1 104 20 88/60 94 Nasal Cannula 05/20/17 00:00 97.2 103 20 79/64 93 Room Air 05/20/17 00:00 104 05/19/17 20:00 97.5 100 26 87/63 93 Room Air 05/19/17 20:00 105 05/19/17 16:00 95.9 100 19 78/61 90 Room Air 05/19/17 16:00 101 05/19/17 12:00 97.6 100 19 80/61 90 05/19/17 12:00 111 Height (Feet): 5 Height (Inches): 7.00 Weight (Pounds): 175 Respiratory/Chest: lungs clear Cardiovascular: normal rate, regular rhythm, no gallop/murmur Abdomen: soft, non tender, other - ventral hernia Extremities: other - + edema, right subclavian catheter Microbiology Date/Time Source Procedure Growth Status 05/19/17 11:15 Stool Clostridium difficile Toxin Assay - Final Complete JN TABOR May 20, 2017 11:43
[2017-05-20] MEDS ORDERED: Sodium Chloride 500ML 500 ML IV ONE (13:00)
--- NOTE | 2017-05-20 17:40 | Nephrology Progress Note ---
Assessment/Plan Plan ESRD + Ascites HD MWF HD tomorrow Leukocytosis ? significance. No obvious sepsis. Ascites - s/p paracentesis Subjective Subjective Very confused! Objective Objective Last 24 Hour Vital Signs Date Time Temp Pulse Resp B/P (MAP) Pulse Ox O2 Delivery O2 Flow Rate FiO2 05/20/17 17:30 82 15 87/65 96 Room Air 05/20/17 17:00 82 05/20/17 17:00 97.7 82 16 83/62 96 Room Air 05/20/17 16:00 97.6 104 20 71/57 94 Room Air 05/20/17 16:00 112 05/20/17 15:59 96.2 05/20/17 12:32 96.2 101 20 89/56 94 Room Air 05/20/17 12:00 96.6 101 20 89/59 94 Room Air 05/20/17 12:00 110 05/20/17 08:57 75 123/77 05/20/17 08:00 96.6 104 20 97/62 95 Room Air 05/20/17 08:00 108 05/20/17 06:39 92/61 Nasal Cannula 2.0 05/20/17 04:00 104 05/20/17 04:00 96.1 104 20 88/60 94 Nasal Cannula 05/20/17 00:00 97.2 103 20 79/64 93 Room Air 05/20/17 00:00 104 05/19/17 20:00 97.5 100 26 87/63 93 Room Air 05/19/17 20:00 105 Intake and Output 05/19/17 05/20/17 19:00 07:00 Intake Total 236 ml 200 ml Balance 236 ml 200 ml Intake Oral 236 ml 200 ml # Voids 1 # Bowel Movements 1 1 Height (Feet): 5 Height (Inches): 7.00 Weight (Pounds): 175 Objective CV RR Lungs few wheezes Abd - tense ascites. E +4 B edema PIETRO MARION May 20, 2017 17:40
--- NOTE | 2017-05-20 21:22 | Wound Nurse Progress Note ---
Wound RN Progress Note Wound Consult #1 Frontal extending to parietal region scattered dry scabs. Skin still intact #2 Right and Left upper extremity scattered scabs. Skin still intact #3 Left heel suspected deep tissue injury. Skin still intact #4 Right heel suspected deep tissue injury. Skin still intact #5 Umbilical hernia scattered dry scabs. #6 Left upper lateral thigh scab. Skin still intact No deterioration noted. will cont same wound care treatment as ordered and recommendation below Recommendation. -Local wound care as ordered. -Keep clean and dry. -Turn and reposition. -Optimize nutrition. - Offload affected areas. -Assess skin for any changes of condition and notify MD. -Apply heel protectors, offload heels . -Avoid shear and friction. STEFANIA EGAN RN May 20, 2017 21:22
[2017-05-21] VITALS (15 sets, daily range): BP systolic 83–103; BP diastolic 35–56
[2017-05-21] MEDS: NovoLOG Insulin Flexpen SUBQ SCH ×4 (05:28→21:24)
[2017-05-21 05:40] LABS: HEMATOCRIT 37.9 % (42.0-52.0); HEMOGLOBIN 12.2 G/DL (14.2-18.0); MEAN CORPUSCULAR VOLUME 92 FL (80-99); PLATELET COUNT 112 K/UL (150-450); RED BLOOD COUNT 4.12 M/UL (4.70-6.10); RED CELL DISTRIBUTION WIDTH 19.8 % (11.6-14.8); WHITE BLOOD COUNT 20.9 K/UL (4.8-10.8)
[2017-05-21 05:53] LABS: ANION GAP 19 mmol/L (5-15); BLOOD UREA NITROGEN 53 mg/dL (7-18); CALCIUM 7.6 MG/DL (8.5-10.1); CARBON DIOXIDE 12 MMOL/L (21-32); CHLORIDE 95 MMOL/L (98-107); CREATININE 6.3 MG/DL (0.55-1.30); POTASSIUM 4.6 MMOL/L (3.5-5.1); SODIUM 126 MMOL/L (136-145)
[2017-05-21] MEDS: Norco 5mg/325mg tab ORAL PRN ×2 (06:11→22:36)
[2017-05-21] MEDS ORDERED: Heparin 5000 units/ml inj INJ SCH (07:00)
[2017-05-21] MEDS ORDERED: Heparin Sod 1000 units/ml 10ml IV PRN (07:00)
[2017-05-21] MEDS: Lactulose 20gm/30ml UDC ORAL SCH ×2 (08:07→18:36)
[2017-05-21] MEDS: Vancomycin oral 125mg/2.5ml ORAL SCH ×4 (08:07→21:28)
--- NOTE | 2017-05-21 08:37 | Pulmonology Progress Note ---
Assessment/Plan Assessment/Plan IMPRESSION: 1. Hepatorenal syndrome 2. Sepsis. possible 3. Significant metabolic acidosis. 4. Elevated diaphragm due to ascites. 5. Small pleural effusions, likely passive atelectasis likely due to the above. 6. Ongoing leukocytosis. 7. Anemia. 8. Significantly worsening albumin levels with hypoalbuminemia. 9. Evidence of colitis. 10. Evidence of lactic acidosis. 11. hypotension PLAN ID noted monitor WBC- still elevated monitor fluid status off pressors d/w nursing- no acute issues correct sodium; d/w renal HD prognosis poor medications/laboratory data/nursing notes/ICU care reviewed in detail note reviewed and edited care discussed with RN and RT ICU time spent 36 minutes Subjective Allergies: Coded Allergies: PENICILLINS (Verified Allergy, Severe, 05/01/17) Tolerated Zosyn 09/2016 Subjective was hypotensive moved to ICU care noted and discussed Objective Last 24 Hour Vital Signs Date Time Temp Pulse Resp B/P (MAP) Pulse Ox O2 Delivery O2 Flow Rate FiO2 05/21/17 06:00 78 23 89/47 97 Room Air 05/21/17 05:00 75 22 85/45 98 Room Air 05/21/17 04:44 85 05/21/17 04:00 95.8 76 22 88/49 97 Room Air 05/21/17 03:00 78 24 90/39 97 Room Air 05/21/17 02:00 80 22 85/35 97 Room Air 05/21/17 01:00 76 20 91/45 96 Room Air 05/21/17 00:00 78 05/21/17 00:00 96.0 78 20 95/43 96 Room Air 05/20/17 23:00 82 21 100/45 97 Room Air 05/20/17 22:00 76 23 108/41 100 Room Air 05/20/17 21:00 80 22 104/39 100 Room Air 05/20/17 20:00 80 05/20/17 20:00 96.1 82 20 98/50 99 Room Air 05/20/17 18:00 83 19 82/62 94 Room Air 05/20/17 17:30 82 15 87/65 96 Room Air 05/20/17 17:00 82 05/20/17 17:00 97.7 82 16 83/62 96 Room Air 05/20/17 16:00 97.6 104 20 71/57 94 Room Air 05/20/17 16:00 112 05/20/17 15:59 96.2 05/20/17 12:32 96.2 101 20 89/56 94 Room Air 05/20/17 12:00 96.6 101 20 89/59 94 Room Air 05/20/17 12:00 110 05/20/17 08:57 75 123/77 Intake and Output 05/20/17 05/21/17 19:00 07:00 Intake Total 480 ml 640 ml Output Total 0 ml Balance 480 ml 640 ml Intake Oral 480 ml 640 ml Output Urine Total 0 ml # Voids 1 # Bowel Movements 1 Objective WDWN NAD reduced breath sounds bilaterally without rhonchi or wheeze [id number] without MRG NABS distended; catheter in place no CC edema umbilical hernia noted confused but stable nonfocal Microbiology Date/Time Source Procedure Growth Status 05/19/17 11:15 Stool Clostridium difficile Toxin Assay - Final Complete Laboratory Tests 05/21/17 05:00: White Blood Count 20.9H, Red Blood Count 4.12L, Hemoglobin 12.2L, Hematocrit 37.9L, Mean Corpuscular Volume 92, Mean Corpuscular Hemoglobin 29.6, Mean Corpuscular Hemoglobin Concent 32.1, Red Cell Distribution Width 19.8H, Platelet Count 112L, Mean Platelet Volume 10.6H, Neutrophils (%) (Auto) , Lymphocytes (%) (Auto) , Monocytes (%) (Auto) , Eosinophils (%) (Auto) , Basophils (%) (Auto) , Differential Total Cells Counted 100, Neutrophils % ( Manual) 86H, Lymphocytes % (Manual) 3L, Monocytes % (Manual) 11H, Eosinophils % (Manual) 0, Basophils % (Manual) 0, Band Neutrophils 0, Platelet Estimate DecreasedL, Platelet Morphology Normal, Hypochromasia 1+, Anisocytosis 1+, Sodium Level 126L, Potassium Level 4.6, Chloride Level 95L, Carbon Dioxide Level 12L, Anion Gap 19H, Blood Urea Nitrogen 53H, Creatinine 6.3H, Estimat Glomerular Filtration Rate 9.4, Glucose Level 176H, Calcium Level 7.6L Current Medications Medications (Trade) Dose Ordered Sig/Chaz Route PRN Reason Start Time Stop Time Status Last Admin Dose Admin Acetaminophen/ Hydrocodone Bitart ([place] 5/325) 1 tab Q6H PRN ORAL For Pain 05/14/17 08:45 05/21/17 08:44 05/21/17 06:11 Dextrose (Dextrose 50%) STAT PRN IV Hypoglycemia 05/13/17 08:00 06/12/17 07:59 Heparin Sodium (Porcine) (Heparin 5000 units/ml) 5,000 units POSTHD INJ 05/21/17 07:00 05/21/17 23:59 Heparin Sodium (Porcine) (Heparin Sod 1000 units/ml 10ml) 2,000 unit ONCE PRN IV HD USE 05/21/17 07:00 05/21/17 23:59 Insulin Aspart (NovoLOG) BEFORE MEALS AND HS SUBQ 05/13/17 11:30 06/12/17 11:29 05/21/17 05:28 Lactulose (Cephulac) 20 gm BID ORAL 05/13/17 09:00 06/12/17 08:59 05/21/17 08:07 Mirtazapine (Remeron) 15 mg BEDTIME ORAL 05/13/17 21:00 06/12/17 20:59 05/20/17 20:57 Pantoprazole (Protonix) 40 mg ACBREAKFAST ORAL 05/13/17 06:30 06/12/17 06:29 05/21/17 06:10 Sodium Chloride 1,000 ml @ 500 mls/hr Q2H PRN IVLG sbp<90 during hd 05/21/17 07:00 05/21/17 23:59 Vancomycin HCl (Vancomycin) 125 mg FOUR TIMES A DAY ORAL 05/17/17 13:00 05/24/17 12:59 05/21/17 08:07 MARY ANNE CASON May 21, 2017 08:37
--- NOTE | 2017-05-21 10:39 | Nephrology Progress Note ---
Assessment/Plan Plan ESRD + Ascites HD MWF HD today. Leukocytosis ? significance. No obvious sepsis. Ascites - s/p paracentesis Subjective Subjective Very confused! In ICU Objective Objective Last 24 Hour Vital Signs Date Time Temp Pulse Resp B/P (MAP) Pulse Ox O2 Delivery O2 Flow Rate FiO2 05/21/17 09:00 76 23 103/43 97 Room Air 05/21/17 08:00 95.9 78 23 96/51 97 Room Air 05/21/17 08:00 77 05/21/17 07:00 77 23 90/49 97 Room Air 05/21/17 06:00 78 23 89/47 97 Room Air 05/21/17 05:00 75 22 85/45 98 Room Air 05/21/17 04:44 85 05/21/17 04:00 95.8 76 22 88/49 97 Room Air 05/21/17 03:00 78 24 90/39 97 Room Air 05/21/17 02:00 80 22 85/35 97 Room Air 05/21/17 01:00 76 20 91/45 96 Room Air 05/21/17 00:00 78 05/21/17 00:00 96.0 78 20 95/43 96 Room Air 05/20/17 23:00 82 21 100/45 97 Room Air 05/20/17 22:00 76 23 108/41 100 Room Air 05/20/17 21:00 80 22 104/39 100 Room Air 05/20/17 20:00 80 05/20/17 20:00 96.1 82 20 98/50 99 Room Air 05/20/17 18:00 83 19 82/62 94 Room Air 05/20/17 17:30 82 15 87/65 96 Room Air 05/20/17 17:00 82 05/20/17 17:00 97.7 82 16 83/62 96 Room Air 05/20/17 16:00 97.6 104 20 71/57 94 Room Air 05/20/17 16:00 112 05/20/17 15:59 96.2 05/20/17 12:32 96.2 101 20 89/56 94 Room Air 05/20/17 12:00 96.6 101 20 89/59 94 Room Air 05/20/17 12:00 110 Intake and Output 05/20/17 05/21/17 19:00 07:00 Intake Total 480 ml 640 ml Output Total 0 ml Balance 480 ml 640 ml Intake Oral 480 ml 640 ml Output Urine Total 0 ml # Voids 1 # Bowel Movements 1 Laboratory Tests 05/21/17 05:00: White Blood Count 20.9H, Red Blood Count 4.12L, Hemoglobin 12.2L, Hematocrit 37.9L, Mean Corpuscular Volume 92, Mean Corpuscular Hemoglobin 29.6, Mean Corpuscular Hemoglobin Concent 32.1, Red Cell Distribution Width 19.8H, Platelet Count 112L, Mean Platelet Volume 10.6H, Neutrophils (%) (Auto) , Lymphocytes (%) (Auto) , Monocytes (%) (Auto) , Eosinophils (%) (Auto) , Basophils (%) (Auto) , Differential Total Cells Counted 100, Neutrophils % ( Manual) 86H, Lymphocytes % (Manual) 3L, Monocytes % (Manual) 11H, Eosinophils % (Manual) 0, Basophils % (Manual) 0, Band Neutrophils 0, Platelet Estimate DecreasedL, Platelet Morphology Normal, Hypochromasia 1+, Anisocytosis 1+, Sodium Level 126L, Potassium Level 4.6, Chloride Level 95L, Carbon Dioxide Level 12L, Anion Gap 19H, Blood Urea Nitrogen 53H, Creatinine 6.3H, Estimat Glomerular Filtration Rate 9.4, Glucose Level 176H, Calcium Level 7.6L Height (Feet): 5 Height (Inches): 7.00 Weight (Pounds): 175 Objective SBP 75-110 . Not on pressors CV RR Lungs few wheezes Abd - tense ascites. E +4 B edema PIETRO MARION May 21, 2017 10:39
--- NOTE | 2017-05-21 11:22 | Infectious Diseases Prog Note ---
Assessment/Plan Assessment/Plan antibiotics : po vancomycin A 1. leucocytosis improving 2. cirrhosis 3. renal failure 4. DM 5. HTN 6. colitis P 1. continue po vancomycin 2. will follow up cultures Subjective ROS Limited/Unobtainable: Yes Allergies: Coded Allergies: PENICILLINS (Verified Allergy, Severe, 05/01/17) Tolerated Zosyn 09/2016 Objective Vital Signs Last 24 Hour Vital Signs Date Time Temp Pulse Resp B/P (MAP) Pulse Ox O2 Delivery O2 Flow Rate FiO2 05/21/17 09:00 76 23 103/43 97 Room Air 05/21/17 08:00 95.9 78 23 96/51 97 Room Air 05/21/17 08:00 77 05/21/17 07:00 77 23 90/49 97 Room Air 05/21/17 06:00 78 23 89/47 97 Room Air 05/21/17 05:00 75 22 85/45 98 Room Air 05/21/17 04:44 85 05/21/17 04:00 95.8 76 22 88/49 97 Room Air 05/21/17 03:00 78 24 90/39 97 Room Air 05/21/17 02:00 80 22 85/35 97 Room Air 05/21/17 01:00 76 20 91/45 96 Room Air 05/21/17 00:00 78 05/21/17 00:00 96.0 78 20 95/43 96 Room Air 05/20/17 23:00 82 21 100/45 97 Room Air 05/20/17 22:00 76 23 108/41 100 Room Air 05/20/17 21:00 80 22 104/39 100 Room Air 05/20/17 20:00 80 05/20/17 20:00 96.1 82 20 98/50 99 Room Air 05/20/17 18:00 83 19 82/62 94 Room Air 05/20/17 17:30 82 15 87/65 96 Room Air 05/20/17 17:00 82 05/20/17 17:00 97.7 82 16 83/62 96 Room Air 05/20/17 16:00 97.6 104 20 71/57 94 Room Air 05/20/17 16:00 112 05/20/17 15:59 96.2 05/20/17 12:32 96.2 101 20 89/56 94 Room Air 05/20/17 12:00 96.6 101 20 89/59 94 Room Air 05/20/17 12:00 110 Height (Feet): 5 Height (Inches): 7.00 Weight (Pounds): 175 Respiratory/Chest: lungs clear Cardiovascular: normal rate, regular rhythm, no gallop/murmur Abdomen: soft, non tender, distended, other - ventral hernia Extremities: other Microbiology Date/Time Source Procedure Growth Status 05/19/17 11:15 Stool Clostridium difficile Toxin Assay - Final Complete Laboratory Tests Test 05/21/17 05:00 White Blood Count 20.9 K/UL (4.8-10.8) H Red Blood Count 4.12 M/UL (4.70-6.10) L Hemoglobin 12.2 G/DL (14.2-18.0) L Hematocrit 37.9 % (42.0-52.0) L Mean Corpuscular Volume 92 FL (80-99) Mean Corpuscular Hemoglobin 29.6 PG (27.0-31.0) Mean Corpuscular Hemoglobin Concent 32.1 G/DL (32.0-36.0) Red Cell Distribution Width 19.8 % (11.6-14.8) H Platelet Count 112 K/UL (150-450) L Mean Platelet Volume 10.6 FL (6.5-10.1) H Neutrophils (%) (Auto) % (45.0-75.0) Lymphocytes (%) (Auto) % (20.0-45.0) Monocytes (%) (Auto) % (1.0-10.0) Eosinophils (%) (Auto) % (0.0-3.0) Basophils (%) (Auto) % (0.0-2.0) Differential Total Cells Counted 100 Neutrophils % (Manual) 86 % (45-75) H Lymphocytes % (Manual) 3 % (20-45) L Monocytes % (Manual) 11 % (1-10) H Eosinophils % (Manual) 0 % (0-3) Basophils % (Manual) 0 % (0-2) Band Neutrophils 0 % (0-8) Platelet Estimate Decreased L Platelet Morphology Normal Hypochromasia 1+ Anisocytosis 1+ Sodium Level 126 MMOL/L (136-145) L Potassium Level 4.6 MMOL/L (3.5-5.1) Chloride Level 95 MMOL/L (98-107) L Carbon Dioxide Level 12 MMOL/L (21-32) L Anion Gap 19 mmol/L (5-15) H Blood Urea Nitrogen 53 mg/dL (7-18) H Creatinine 6.3 MG/DL (0.55-1.30) H Estimat Glomerular Filtration Rate 9.4 mL/min (>60) Glucose Level 176 MG/DL (74-106) H Calcium Level 7.6 MG/DL (8.5-10.1) JN PURVIS May 21, 2017 11:22
--- NOTE | 2017-05-21 12:00 | Consultation ---
DATE OF CONSULTATION: 05/20/2017 VASCULAR SURGERY CONSULTATION CONSULTING PHYSICIAN: Catarino Ovalle M.D. REFERRING PHYSICIAN: Alicia Prieto M.D. REASON FOR EVALUATION: Permanent access for hemodialysis HISTORY OF PRESENT ILLNESS: The patient is a 51-year-old male, who suffers from end-stage renal failure, on hemodialysis through a right chest Perma catheter. The patient has advanced liver cirrhosis with recurrent ascites needing a recurrent paracentesis and abdominal drainage. The patient has a very large umbilical hernia with some element of incarceration being followed by General Surgery. The patient is currently admitted for sepsis and abdominal paracentesis for evaluation for permanent access for hemodialysis. PAST MEDICAL HISTORY: As above. History of end-stage renal disease, on hemodialysis, liver cirrhosis, liver failure, ascites, recurrent paracentesis, a large umbilical hernia with a possible mobile incarceration. MEDICATIONS: See attached MAR. ALLERGIES: Penicillin. SOCIAL HISTORY: No history of smoking, drugs, or alcohol abuse currently. FAMILY HISTORY: Unremarkable. REVIEW OF SYSTEMS: CARDIOVASCULAR: No history of chest pain or palpitations. PULMONARY: No cough. GASTROINTESTINAL: As above. GENITOURINARY: No urinary symptoms. NEUROLOGIC: No history of strokes or seizures. PHYSICAL EXAMINATION: VITAL SIGNS: The patient is afebrile at 97.7, heart rate is 80, blood pressure 98/76, and respirations 15. CHEST: The patient has right chest Perma catheter. LUNGS: Clear to auscultation bilaterally. HEART: Regular rate and rhythm. ABDOMEN: Soft, distended with ascites. There is a large umbilical hernia. Nontender. The patient himself reduces his hernia without difficulty. EXTREMITIES: Palpable femoral pulses. Feet are warm with intact pedal dopplers bilaterally. LABORATORY DATA: Laboratory revealed platelets 326,000, WBC 20,000, hemoglobin 11. BUN 35, creatinine 10.4. IMPRESSION: 1. End-stage renal failure, requiring permanent access for hemodialysis, currently on dialysis through a right chest Perma catheter. 2. Large umbilical hernia with element of incarceration, but now easily reducible by the patient. 3. Liver failure with cirrhosis, hepatorenal syndrome. 4. End-stage liver disease. 5. Ascites requiring recurrent paracentesis need for abdominal drainage. 6. Sepsis. 7. Diabetes mellitus. RECOMMENDATIONS: 1. Medical optimization in progress. 2. GI and General Surgery evaluation for his hernia and liver failure 3. Left arm av shunt placement for HD access will be scheduled once medically optimized and cleared by medical service. Catarino Ovalle M.D. DR: KORI JOB#: [id number] CC: Catarino Ovalle M.D.; Fax#: [phone] MARY ANNE CASON M.D. ; FAX#: [phone] Aleksandr Downs M.D. [facility]
[2017-05-21] MEDS ORDERED: LORazepam 1mg tab ORAL PRN (21:45)
[2017-05-22] VITALS (32 sets, daily range): BP systolic 37–89; BP diastolic 15–62
[2017-05-22] MEDS: NovoLOG Insulin Flexpen SUBQ SCH ×4 (06:30→21:00)
[2017-05-22] MEDS: Norco 5mg/325mg tab ORAL PRN (06:57)
--- NOTE | 2017-05-22 07:59 | Pulmonology Progress Note ---
Assessment/Plan Assessment/Plan IMPRESSION: 1. Hepatorenal syndrome 2. Sepsis. possible 3. Significant metabolic acidosis. 4. Elevated diaphragm due to ascites. 5. Small pleural effusions, likely passive atelectasis likely due to the above. 6. Ongoing leukocytosis. 7. Anemia. 8. Significantly worsening albumin levels with hypoalbuminemia. 9. Evidence of colitis. 10. Evidence of lactic acidosis. 11. hypotension PLAN ID noted monitor WBC- still elevated- await repeat monitor fluid status off pressors d/w nursing- no acute issues correct sodium; d/w renal HD GI to see prognosis poor medications/laboratory data/nursing care reviewed in detail note reviewed and edited care discussed with RN and RT Subjective Allergies: Coded Allergies: PENICILLINS (Verified Allergy, Severe, 05/01/17) Tolerated Zosyn 09/2016 Subjective was hypotensive moved out of the ICU care noted and discussed Objective Last 24 Hour Vital Signs Date Time Temp Pulse Resp B/P (MAP) Pulse Ox O2 Delivery O2 Flow Rate FiO2 05/22/17 04:33 97.5 61 18 80/55 96 Room Air 05/22/17 04:00 78 05/22/17 00:29 98.1 78 18 82/50 96 Room Air 05/22/17 00:00 77 05/21/17 20:48 95.5 83 18 84/49 93 Room Air 05/21/17 20:00 82 05/21/17 17:00 Nasal Cannula 3.0 05/21/17 16:00 Room Air 05/21/17 16:00 96.8 79 20 83/49 93 Room Air 05/21/17 16:00 81 05/21/17 13:00 80 05/21/17 12:50 96.9 80 20 86/56 94 Room Air 05/21/17 11:00 79 21 86/43 97 Room Air 05/21/17 10:00 78 21 90/43 97 Room Air 05/21/17 09:00 76 23 103/43 97 Room Air 05/21/17 08:00 95.9 78 23 96/51 97 Room Air 05/21/17 08:00 77 Intake and Output 05/21/17 05/22/17 19:00 07:00 Intake Total 270 ml Output Total 0 ml 200 ml Balance 270 ml -200 ml Intake Oral 270 ml Output Urine Total 0 ml 200 ml Objective WDWN NAD reduced breath sounds bilaterally without rhonchi or wheeze [id number] without MRG NABS distended; catheter in place no CC edema umbilical hernia noted confused but stable nonfocal Microbiology Date/Time Source Procedure Growth Status 05/19/17 11:15 Stool Clostridium difficile Toxin Assay - Final Complete Current Medications Medications (Trade) Dose Ordered Sig/Chaz Route PRN Reason Start Time Stop Time Status Last Admin Dose Admin Acetaminophen/ Hydrocodone Bitart ([place] 5/325) 1 tab Q4H PRN ORAL Moderate Pain (Pain Scale 4-6) 05/21/17 21:45 05/28/17 21:44 05/22/17 06:57 Chlorhexidine Gluconate ([place]-Hex 2%) 1 applic DAILY@1999 TOPIC 05/22/17 20:00 06/21/17 19:59 Dextrose (Dextrose 50%) STAT PRN IV Hypoglycemia 05/13/17 08:00 06/12/17 07:59 Insulin Aspart (NovoLOG) BEFORE MEALS AND HS SUBQ 05/13/17 11:30 06/12/17 11:29 05/21/17 21:24 Lactulose (Cephulac) 20 gm BID ORAL 05/13/17 09:00 06/12/17 08:59 05/21/17 18:36 Lorazepam (Ativan) 1 mg Q3H PRN ORAL For Anxiety 05/21/17 21:45 05/28/17 21:44 Mirtazapine (Remeron) 15 mg BEDTIME ORAL 05/13/17 21:00 06/12/17 20:59 05/21/17 21:20 Pantoprazole (Protonix) 40 mg ACBREAKFAST ORAL 05/13/17 06:30 06/12/17 06:29 05/22/17 06:52 Vancomycin HCl (Vancomycin) 125 mg FOUR TIMES A DAY ORAL 05/17/17 13:00 05/24/17 12:59 05/21/17 21:28 MARY ANNE CASON May 22, 2017 07:59
[2017-05-22] MEDS: Lactulose 20gm/30ml UDC ORAL SCH (08:59)
[2017-05-22] MEDS: Vancomycin oral 125mg/2.5ml ORAL SCH (08:59)
[2017-05-22] MEDS ORDERED: metroNIDAZOLE 500mg tab ORAL SCH ×2 (10:00→22:00)
--- NOTE | 2017-05-22 10:00 | Infectious Diseases Prog Note ---
Assessment/Plan Assessment/Plan A: SIRS/Sepsis Colitis Leukocytosis Cirrhosis ESRD Lactic acidosis Umbilical hernia, ? incarcerated P: discontinue PO Vancomycin start on Levaquin & Flagyl Subjective ROS Limited/Unobtainable: Yes Allergies: Coded Allergies: PENICILLINS (Verified Allergy, Severe, 05/01/17) Tolerated Zosyn 09/2016 Objective Vital Signs Last 24 Hour Vital Signs Date Time Temp Pulse Resp B/P (MAP) Pulse Ox O2 Delivery O2 Flow Rate FiO2 05/22/17 07:56 97.5 05/22/17 04:33 97.5 61 18 80/55 96 Room Air 05/22/17 04:00 78 05/22/17 00:29 98.1 78 18 82/50 96 Room Air 05/22/17 00:00 77 05/21/17 20:48 95.5 83 18 84/49 93 Room Air 05/21/17 20:00 82 05/21/17 17:00 Nasal Cannula 3.0 05/21/17 16:00 Room Air 05/21/17 16:00 96.8 79 20 83/49 93 Room Air 05/21/17 16:00 81 05/21/17 13:00 80 05/21/17 12:50 96.9 80 20 86/56 94 Room Air 05/21/17 11:00 79 21 86/43 97 Room Air 05/21/17 10:00 78 21 90/43 97 Room Air Height (Feet): 5 Height (Inches): 7.00 Weight (Pounds): 190 HEENT: mucous membranes moist Respiratory/Chest: lungs clear Cardiovascular: normal rate Abdomen: distended, other - large umbelical hernia Extremities: no edema Neurologic/Psychiatric: other - lethargic Microbiology Date/Time Source Procedure Growth Status 05/19/17 11:15 Stool Clostridium difficile Toxin Assay - Final Complete Current Medications Medications (Trade) Dose Ordered Sig/Chaz Route PRN Reason Start Time Stop Time Status Last Admin Dose Admin Acetaminophen/ Hydrocodone Bitart ([place] 5/325) 1 tab Q4H PRN ORAL Moderate Pain (Pain Scale 4-6) 05/21/17 21:45 05/28/17 21:44 05/22/17 06:57 Chlorhexidine Gluconate (Marce-Hex 2%) 1 applic DAILY@1999 TOPIC 05/22/17 20:00 06/21/17 19:59 Dextrose (Dextrose 50%) STAT PRN IV Hypoglycemia 05/13/17 08:00 06/12/17 07:59 Insulin Aspart (NovoLOG) BEFORE MEALS AND HS SUBQ 05/13/17 11:30 06/12/17 11:29 05/21/17 21:24 Lactulose (Cephulac) 20 gm BID ORAL 05/13/17 09:00 06/12/17 08:59 05/22/17 08:59 Lorazepam (Ativan) 1 mg Q3H PRN ORAL For Anxiety 05/21/17 21:45 05/28/17 21:44 Mirtazapine (Remeron) 15 mg BEDTIME ORAL 05/13/17 21:00 06/12/17 20:59 05/21/17 21:20 Pantoprazole (Protonix) 40 mg ACBREAKFAST ORAL 05/13/17 06:30 06/12/17 06:29 05/22/17 06:52 Vancomycin HCl (Vancomycin) 125 mg FOUR TIMES A DAY ORAL 05/17/17 13:00 05/24/17 12:59 05/22/17 08:59 JOSE DANIEL GORDON May 22, 2017 10:00
--- NOTE | 2017-05-22 15:20 | Diagnostic Imaging Report ---
Indication: Dyspnea, status post CODE BLUE Technique: One view of the chest Comparison: 05/12/2017 Findings: Interim endotracheal intubation, endotracheal tube tip in good position approximately 4 cm above the kemar. There is persistent elevation of right hemidiaphragm with right basilar compressive atelectasis. There is some perihilar edema on the left which is slightly increased from the prior exam. Right jugular tunneled dialysis catheter, cholecystectomy clips are again demonstrated Impression: Satisfactory endotracheal intubation. Increasing perihilar edema on the left, since prior study of 05/12/2017 Critical test findings phoned to patient's nurse, Rosita, at the time of interpretation
--- NOTE | 2017-05-22 15:21 | Nephrology Progress Note ---
Assessment/Plan Plan ESRD + Ascites HD MWF . MOF. Holding HD due to shock. Subjective Subjective Very confused! Coded+ intubated. Transferred again to ICU. Had HD yesterday. Objective Objective Last 24 Hour Vital Signs Date Time Temp Pulse Resp B/P (MAP) Pulse Ox O2 Delivery O2 Flow Rate FiO2 05/22/17 12:00 96.5 71 26 64/35 92 Room Air 05/22/17 08:00 79 05/22/17 08:00 96.1 78 20 68/42 96 Room Air 05/22/17 07:56 97.5 05/22/17 04:33 97.5 61 18 80/55 96 Room Air 05/22/17 04:00 78 05/22/17 00:29 98.1 78 18 82/50 96 Room Air 05/22/17 00:00 77 05/21/17 20:48 95.5 83 18 84/49 93 Room Air 05/21/17 20:00 82 05/21/17 17:00 Nasal Cannula 3.0 05/21/17 16:00 Room Air 05/21/17 16:00 96.8 79 20 83/49 93 Room Air 05/21/17 16:00 81 Intake and Output 05/21/17 05/22/17 18:59 06:59 Intake Total 270 ml Output Total 0 ml 200 ml Balance 270 ml -200 ml Intake Oral 270 ml Output Urine Total 0 ml 200 ml Height (Feet): 5 Height (Inches): 7.00 Weight (Pounds): 190 Objective SBP 75-110 . Not on pressors. Skin mottled. CV RR Lungs few wheezes Abd - tense ascites. E +4 B edema .Cold extremities. PIETRO MARION May 22, 2017 15:21
[2017-05-22] MEDS ORDERED: Norco 5mg/325mg tab ORAL PRN (15:30)
[2017-05-22] MEDS ORDERED: LORazepam 1mg tab ORAL PRN (15:45)
[2017-05-22] MEDS ORDERED: Cefepime HCl 1 GM in D5W 55 ML IVPB SCH (16:30)
[2017-05-22] MEDS ORDERED: Lactulose 20gm/30ml UDC ORAL SCH (18:00)
[2017-05-22] MEDS: Sodium Bicarbonate 50ml Carp IV SCH ×2 (19:16→19:22)
[2017-05-22] MEDS ORDERED: Levophed 4mg/4mL Inj IV ONE (19:33)
[2017-05-22] MEDS ORDERED: Dyna-Hex 2% Top Sol 2oz TOPIC SCH ×2 (20:00)
[2017-05-22] MEDS ORDERED: Morphine Sulfate 4mg/ml Inj IM PRN (20:15)
--- NOTE | 2017-05-22 20:18 | Emergency Room Report ---
Physical Exam Called for Code Blue in ICU. Patient from floor with decreased tidal volumes and hypotension. Levophed had been ordered. Patient with hepatorenal syndrome with ascites. Dialysis recently. Last 24 Hour Vital Signs Date Time Temp Pulse Resp B/P (MAP) Pulse Ox O2 Delivery O2 Flow Rate FiO2 05/22/17 19:37 69/55 05/22/17 19:00 64 21 58/33 100 Mechanical Ventilator 100 05/22/17 18:53 57 30 100 05/22/17 18:30 58 19 58/33 96 Mechanical Ventilator 100 05/22/17 18:00 60 18 67/35 99 Mechanical Ventilator 100 05/22/17 17:30 61 23 62/31 98 Mechanical Ventilator 100 05/22/17 17:19 60 22 100 05/22/17 17:03 76/20 05/22/17 17:00 61 22 45/15 98 Mechanical Ventilator 100 05/22/17 16:30 63 22 76/20 97 Mechanical Ventilator 100 05/22/17 16:23 61/37 05/22/17 16:00 63 23 60/40 97 Mechanical Ventilator 100 05/22/17 16:00 63 05/22/17 15:42 58 23 100 05/22/17 15:30 63 22 67/54 97 Mechanical Ventilator 100 05/22/17 15:15 61 21 55/28 81 Mechanical Ventilator 100 05/22/17 15:00 61 20 43/33 Mechanical Ventilator 100 05/22/17 14:45 62 21 58/28 81 Mechanical Ventilator 100 05/22/17 14:30 67 23 63/18 89 Mechanical Ventilator 100 05/22/17 14:22 63 24 100 05/22/17 14:22 63 24 Mechanical Ventilator 100 05/22/17 14:15 23 89/62 Non-Rebreather 05/22/17 14:00 20 37/23 Non-Rebreather 05/22/17 12:00 96.5 71 26 64/35 92 Room Air 05/22/17 08:00 79 05/22/17 08:00 96.1 78 20 68/42 96 Room Air 05/22/17 07:56 97.5 05/22/17 04:33 97.5 61 18 80/55 96 Room Air 05/22/17 04:00 78 05/22/17 00:29 98.1 78 18 82/50 96 Room Air 05/22/17 00:00 77 05/21/17 20:48 95.5 83 18 84/49 93 Room Air Sp02 EP Interpretation: reviewed, abnormal - low as interpreted by me Head: normocephalic, atraumatic Eyes: bilateral eye PERRL - sluggish, bilateral eye conjunctivae pale ENT: moist mucus membranes - plaques in pharynx, vomitus suctioned from pharynx Neck: supple Respiratory: other - decreased TV Cardiovascular #1: bradycardia Cardiovascular #2: 1+ femoral (R), 1+ femoral (L) Gastrointestinal: distended - with ascites, hernia - massive umbilical hernia Genitourinary: penis normal, other - scrotal swelling Musculoskeletal: other - spider habitus Neurologic: other - minimally responsive after epi, moving hands Psychiatric: other - stupor Skin: other - sallo with intertrigo, cyanotic umbilicus Central Line Central Line : Consent: Emergent Central Line Lumen: triple Maximal Sterile Barrier Tech: yes cap, yes mask, yes sterile gown, yes sterile gloves, yes large sterile sheet, yes hand hygiene, yes chlorhexidine prep Central Line Postion: femoral (R), femoral (L) - final placement Complications: arterial puncture X1 R femoral Central Line Post Position: sutured, good blood return Attempts: Other - 2 Patient Tolerated: Well Progress EBL 4 ml CPR/Code Blue CPR/Code Blue Narrative Patient decreased responsiveness with ineffective TV Minimal pulses, maico No CPR performed while I was present Epi 0.5 IV Better responsiveness, but still stupor Intubated Levophed had been ordered. CVP begun by me (arterial puncture R femoral) L without difficulty. BP and pulse better Prognosis poor Intubation Intubation : Consent: Emergent Intubation Method: orotracheal Tube Size (cm): 7.5 Breath Sounds after Intubation: equal Intubation Complications: no complications Post Intubation Xray: Yes Attempts: One Patient Tolerated: Well Complications: None Medical Decision Making Diagnostic Impression: Primary Impression: Respiratory failure Qualified Codes: J96.01 - Acute respiratory failure with hypoxia; J96.02 - Acute respiratory failure with hypercapnia Additional Impressions: Hypotension Qualified Codes: I95.9 - Hypotension, unspecified Hepatorenal syndrome ESRD (end stage renal disease) on dialysis Umbilical hernia Qualified Codes: K42.9 - Umbilical hernia without obstruction or gangrene Ascites Qualified Codes: K70.31 - Alcoholic cirrhosis of liver with ascites ER Course Patient with code blue. Hypotensive and hypoventilation. See code report and procedures. Better post intubation and on levophed. Prognosis poor. Rhythm Strip Diag. Results EP Interpretation: yes Rhythm: NSR, no PVC's, no ectopy Last Vital Signs Date Time Temp Pulse Resp B/P (MAP) Pulse Ox O2 Delivery O2 Flow Rate FiO2 05/22/17 19:37 69/55 05/22/17 19:00 64 21 100 Mechanical Ventilator 100 05/22/17 12:00 96.5 05/21/17 17:00 3.0 Status: worsened Disposition: ADMITTED INPATIENT Condition: Critical Referrals: MARY ANNE CASON (PCP) Mateusz Aguayo M.D. May 22, 2017 20:18
[2017-05-22] MEDS ORDERED: Morphine Sulfate 4mg/ml Inj IV PRN (20:45)
[2017-05-22] MEDS ORDERED: Morphine Sulfate 4mg/ml Inj IVP PRN (20:45)
[2017-05-22] MEDS: Morphine Sulfate 4mg/ml Inj IVP PRN (23:11)
[2017-05-23] MEDS: Morphine Sulfate 4mg/ml Inj IVP PRN (00:34)
--- NOTE | 2017-05-23 01:03 | Emergency Room Report ---
Physical Exam Vital Signs Date Time Temp Pulse Resp B/P (MAP) Pulse Ox O2 Delivery O2 Flow Rate FiO2 05/12/17 18:33 84 20 91/59 95 Room Air 05/13/17 00:32 98.0 05/13/17 21:10 21 05/16/17 09:15 2.0 Medical Decision Making Diagnostic Impression: Primary Impression: Respiratory failure Qualified Codes: J96.01 - Acute respiratory failure with hypoxia; J96.02 - Acute respiratory failure with hypercapnia Additional Impressions: Ascites Qualified Codes: K70.31 - Alcoholic cirrhosis of liver with ascites Umbilical hernia Qualified Codes: K42.9 - Umbilical hernia without obstruction or gangrene ESRD (end stage renal disease) on dialysis Hypotension Qualified Codes: I95.9 - Hypotension, unspecified Hepatorenal syndrome ER Course I was called to evaluate patient at 12:30 AM Patient was in the ICU, family decided to make patient DNR/DNI, terminal extubation performed by RT Asystole on monitor, no pulses Pronounced at 1:00am Last Vital Signs Date Time Temp Pulse Resp B/P (MAP) Pulse Ox O2 Delivery O2 Flow Rate FiO2 05/23/17 00:00 47 05/22/17 23:30 17 49/29 95 Mechanical Ventilator 100 05/22/17 20:00 96.6 05/21/17 17:00 3.0 Disposition: ADMITTED INPATIENT Condition: Critical Referrals: MARY ANNE CASON (PCP) Mike Jerez M.D. May 23, 2017 01:03
[2017-05-23] MEDS ORDERED: NS 275ml ONE (01:56)
[2017-05-23] MEDS ORDERED: D5W 275ml ONE (01:56)
[2017-05-23] MEDS ORDERED: Tubing IV Secondary IV ONE (01:56)
[2017-05-23] MEDS ORDERED: NS 500ML ONE (01:56)
--- NOTE | 2017-05-27 11:50 | Discharge Summary ---
Discharge Summary Hospital Course Date of Admission May 12, 2017 at 19:31 Date of Discharge May 23, 2017 at 01:57 Admitting Diagnosis SEPSIS HPI Lance Hayes is a 51 year old male who was admitted on May 12, 2017 at 19:31 for Abnormal Labs Hospital Course summary #[id number] Discharge Discharge Disposition Patient Discharge Diagnoses: Chandana (Lilianacourtney),Estee PLASCENCIA May 27, 2017 11:50
--- NOTE | 2017-05-28 04:00 | Discharge Summary 2 SIG ---
SUMMARY DATE OF ADMISSION: 05/12/2017 DATE OF EXPIRATION: 05/23/2017. REASON FOR ADMISSION: 51-year-old male with history of cirrhosis and end-stage renal disease, presented to emergency room from the care home facility after routine lab showed leukocytosis. The patient was recently hospitalized with sepsis and subsequently discharged back to the care home facility. At the time of evaluation, he denied fever or chills. No cough. No diarrhea. Laboratory workup revealed lactic acid level of 7 and WBC -21. Septic workup was initiated and the patient was admitted for further management with diagnosis of sepsis, leukocytosis, end-stage renal disease, lactic acidosis secondary to sepsis, and cirrhosis. HOSPITAL COURSE: The patient was admitted. The patient was started on empiric IV antibiotics. ID consult was requested along with Nephrology consult. Hemodialysis was provided as per Nephrology orders. Renal parameters and electrolytes were closely monitored and electrolytes were corrected as needed. The patient undergone chest x-ray upon admission, which revealed elevation of the right hemidiaphragm and generalized low lung volumes. Infectious Disease closely followed. Abdomen and pelvis CT revealed massive ascites despite presence of chronic peritoneal drainage catheter, diffuse colonic wall thickening extending from the distal ascending colon to the proximal sigmoid, consistent with colitis, nonspecific as regards to etiology, evidence of anasarca in addition to peritoneal fluid, hepatic cirrhosis, and mildly dilated small bowels without evidence of distal obstruction pathology, possibly reflecting mild ileus. The patient was on empiric antibiotics for colitis. ID followed. Stool for C. difficile was negative. Blood cultures were negative. The patient subsequently undergone paracentesis, which yielded 800 mL of the ascitic fluid. Analysis of ascitic fluid revealed no evidence of spontaneous bacterial peritonitis, and the pathology was negative for malignant cells. Blood sugar was managed with sliding scale of insulin. Vascular surgeon seen and evaluated the patient. Patient was in need for AV shunt placement. Per surgeon, placement to be scheduled when patient medically stable. The patient's condition was deteriorating, patient was hypotensive. On 05/22/2017, the housing assistant property manager was holding hemodialysis due to shock. At that time, the patient's condition was further deteriorated. Patient was bradycardic, hypotensive, with decreased responsiveness and minimal pulses. Code Blue was called. The patient was emergently intubated. Central line was placed, and the patient was started on Levophed for hemodynamic support. ABG right after intubation revealed severe respiratory acidosis with pH-6.63 and pCO2 - 55.4. Ventilator settings were up-titrated. In three hours after intubation, pH still low -6.855, pCO2 down to normal, and O2 saturation 92% on FiO2 of 100%. Family was at the bedside and decided to change the code status. The patient was made DNR on 05/22/2017 at 1958 hours. Family further decided on terminal intubation. Terminal extubation was done when the whole family gathered at the bedside. After terminal extubation, patient rapidly deteriorated . The patient was pronounced on 05/23/2017 at 1 a.m. Cause of : cardiopulmonary arrest. FINAL DIAGNOSES: 1. Sepsis with shock. 2. Multiorgan failure. 3. Colitis 4. Ascites, requiring recurrent paracentesis, status post paracentesis. 5. Hepatorenal syndrome. 6. End-stage renal disease, on hemodialysis. 7. Liver failure with cirrhosis. 8. Status post cardiopulmonary arrest on 05/22/2017. 9. Acute respiratory failure, requiring intubation on 05/22/2017( during cardiopulmonary arrest) 10. Status post terminal extubation on 05/23/2017. 11. Large umbilical hernia with element of incarceration, but easily reducible 12. Diabetes. Aleksandr Downs M.D. I have been assigned to dictate discharge summary on this account and I was not involved in the patient's management. Estee DuarteNyu Langone Orthopedic HospitalShon N.P. DR: KIRAN JOB#: [id number] CC: ROSE
== END 2017-05-23 01:57 | disposition expired | DRG 871 ==
LOC: EDBD 18:32 → EMR 19:00 → 2W 19:31 → EDBEDREQ 20:42 → 2W 05-14 08:25 → 2E 05-16 06:22 → ICU 05-20 16:20 → 2E 05-21 12:10 → ICU 05-22 14:15 → UNDODISIN 05-23 01:57
PROC: 5A1D70Z Performance of Urinary Filtration, Intermittent, Less than 6 Hours Per Day (ICD-10-PCS; principal; 2017-05-13)
PROC: 0BH17EZ Insertion of Endotracheal Airway into Trachea, Via Natural or Artificial Opening (ICD-10-PCS; 2017-05-22)
PROC: 5A1935Z Respiratory Ventilation, Less than 24 Consecutive Hours (ICD-10-PCS; 2017-05-22)
PROC: 06HN33Z Insertion of Infusion Device into Left Femoral Vein, Percutaneous Approach (ICD-10-PCS; 2017-05-22)
DX: A41.9 Sepsis, unspecified organism (principal); N18.6 End stage renal disease; K76.7 Hepatorenal syndrome; R57.9 Shock, unspecified; J90 Pleural effusion, not elsewhere classified; J96.01 Acute respiratory failure with hypoxia; R18.8 Other ascites; J96.02 Acute respiratory failure with hypercapnia; E87.2 Acidosis; I12.0 Hypertensive chronic kidney disease with stage 5 chronic kidney disease or end stage renal disease; Z99.2 Dependence on renal dialysis; K52.9 Noninfective gastroenteritis and colitis, unspecified; K70.31 Alcoholic cirrhosis of liver with ascites; K42.9 Umbilical hernia without obstruction or gangrene; E11.22 Type 2 diabetes mellitus with diabetic chronic kidney disease; Z66 Do not resuscitate; F03.90 Unspecified dementia, unspecified severity, without behavioral disturbance, psychotic disturbance, mood disturbance, and anxiety; F10.21 Alcohol dependence, in remission
CPT/HCPCS: 36415; 36600; 71010; 74176; 80048; 80053; 80202; 82140; 82550; 82803; 82962; 83605; 84484; 85007; 85025; 85610; 85730; 87040; 87324; 89051; 93005; 94002; 94003; 94664; J1815